=== PATIENT | female | born 1960 | race Caucasian/White ===

== ENCOUNTER 2016-10-19 18:29 | Emergency (ER) | payer OTHER ==
[2016-10-19 20:07] VITALS: BP 131/82
--- NOTE | 2016-10-19 20:21 | UC ---
Respiratory Complaint HPI - HPI Summary HPI Summary: "I have chest wall pain." "I think a Z-pack would help." Dry cough. No fever. No vomiting. Good appetite. No stomach upset or indigestion. Was diagnosed with "bronchitis" in June, Rx Z-pack and that made her feel better. She has been prescribed 8 antibiotics in 2016. Had 4 CXR's, all normal. Non smoker, no asthma , no history of smoking. - History of Current Complaint Chief Complaint: UCGeneralIllness Stated Complaint: CHEST CONGESTION Time Seen by Provider: 10/19/16 19:55 Hx Obtained From: Patient Hx Last Menstrual Period: n/a Onset/Duration: Gradual Onset Timing: Constant Severity Initially: Mild Severity Currently: Mild Character: Cough: Nonproductive Aggravating Factors: Exertion, Deep Breaths, Recumbent Position Alleviating Factors: Nothing Associated Signs And Symptoms: Negative: Dyspnea, Fever, Chills, Pleuritic Chest Pain, Wheezing, Hemoptysis, Dizziness, Calf Pain, Calf Swelling, Edema, URI, Nasal Congestion, Hoarseness, Sinus Discomfort - Risk Factors Pulmonary Embolism Risk Factors: Negative Cardiac Risk Factors: Negative Pseudomonas Risk Factors: Negative Tuberculosis Risk Factors: Negative - Allergies/Home Medications Allergies/Adverse Reactions: Allergies Allergy/AdvReac Type Severity Reaction Status Date / Time Latex Allergy Hives Verified 10/19/16 20:07 Penicillins Allergy Hives Verified 10/19/16 20:07 Levofloxacin [From Levaquin] AdvReac vomiting/he Verified 10/19/16 20:07 adache Home Medications: Home Medications Amitriptyline TAB* [Elavil TAB*] 50 mg PO BEDTIME 10/19/16 [History Confirmed ] DOXYcycline CAP(*) [DOXYcycline 100MG CAP(*)] 100 mg PO BID 10/19/16 [History Confirmed 10/19/16] Naproxen Sodium 550 mg PO BID PRN 10/19/16 [History Confirmed 10/19/16] PMH/Surg Hx/FS Hx/Imm Hx Endocrine History Of: Reports: Dyslipidemia Denies: Diabetes, Thyroid Disease, Hyperthyroidism, Hypothyroidism Cardiovascular History Of: Denies: Cardiac Disorders, Hypertension, Pacemaker/ICD, Myocardial Infarction , Congestive Heart Failure, Atrial Fibrillation, Deep Vein Thrombosis, Bleeding Disorders Respiratory History Of: Reports: Bronchitis, Pneumonia Denies: COPD, Asthma, Pulmonary Embolism GI/ History Of: Reports: Gastroesophageal Reflux Denies: Ulcer, Gastrointestinal Bleed, Gall Bladder Disease, Kidney Stones, Diverticulitis, Renal Disease, Urosepsis Neurological History Of: Reports: CVA - no residua 2013 Denies: TIA, Dementia, Seizures, Migraine Psychological History Of: Denies: Anxiety, Depression, Bipolar Disorder, Schizophrenia, Post Traumatic Stress Disorder Cancer History Of: Denies: Lung Cancer, Colorectal Cancer, Breast Cancer, Prostate Cancer, Cervical Cancer Other History Of: Negative For: HIV, Hepatitis B, Hepatitis C - Surgical History Surgical History: Yes Surgery Procedure, Year, and Place: ablation 2014. LEFT OVARY REMOVED - Family History Known Family History: Positive: Hypertension, Diabetes, Other - cancer, alzheimers - Social History Occupation: Unemployed Alcohol Use: None Substance Use Type: None Smoking Status (MU): Never Smoked Tobacco - Immunization History Most Recent Influenza Vaccination: Not the Season Review of Systems Constitutional: Fatigue Skin: Negative Eyes: Negative ENT: Negative Respiratory: Other - chest wall discomfort Cardiovascular: Negative Gastrointestinal: Negative Genitourinary: Negative Motor: Negative Neurovascular: Negative Musculoskeletal: Negative Neurological: Negative Psychological: Negative All Other Systems Reviewed And Are Negative: Yes Physical Exam Triage Information Reviewed: Yes Appearance: Well-Appearing, No Pain Distress, Well-Nourished Vital Signs: Initial Vital Signs Temp 98.2 F 10/19/16 20:02 Pulse 76 10/19/16 20:02 Resp 16 10/19/16 20:02 BP 131/82 10/19/16 20:02 Pulse Ox 100 10/19/16 20:02 Vital Signs Reviewed: Yes Eye Exam: Normal ENT Exam: Normal ENT: Positive: Pharynx normal, TMs normal. Negative: Tonsillar swelling, Tonsillar exudate, Trismus, Muffled/hoarse voice Neck exam: Normal Neck: Positive: Supple Respiratory Exam: Normal Respiratory: Positive: Lungs clear, Normal breath sounds, No respiratory distress, No accessory muscle use Cardiovascular Exam: Normal Musculoskeletal Exam: Other - tenderness on palpation over sternum Neurological Exam: Normal Psychological Exam: Normal Skin Exam: Normal UC Diagnostic Evaluation - Laboratory O2 Sat by Pulse Oximetry: 100 Respiratory Course/Dx - Differential Dx/Diagnosis Provider Diagnoses: chest wall pain Discharge - Discharge Plan Condition: Stable Disposition: HOME Patient Education Materials: Chest Wall Pain (ED) Referrals: Emma Rose PA [Primary Care Provider] - Additional Instructions: You have had four normal chest XRays in 2016. That tells us there is nothing visibly abnormal in your lungs or chest wall. If you have pain in the front of the chest, try putting heat on it and taking Tylenol or ibuprofen
== END 2016-10-19 20:32 | disposition home or self-care (01) ==
LOC: UCCORT 18:29
DX: R07.89 Other chest pain (principal); Z86.73 Personal history of transient ischemic attack (TIA), and cerebral infarction without residual deficits; Z88.0 Allergy status to penicillin; Z88.1 Allergy status to other antibiotic agents
CPT/HCPCS: 99211; G0463

== ENCOUNTER 2017-02-06 13:54 | Emergency (ER) | payer OTHER ==
[2017-02-06 14:01] VITALS: BP 125/79
[2017-02-06] MEDS ORDERED: Ketorolac INJ* 60 MG/2 ML VIAL IM ONE (14:11)
--- NOTE | 2017-02-06 14:41 | UC ---
Headache HPI - HPI Summary HPI Summary: headaches x 3 days, 8 out of 10 frontal area , no radiation , getting worse over the past day nothing makes it better, worse with bright light, no n/v - History Of Current Complaint Chief Complaint: UCHeadache Stated Complaint: FREQUENT MIGRAINES Time Seen by Provider: 02/06/17 14:06 Hx Obtained From: Patient Hx Last Menstrual Period: n/a Onset/Duration: Gradual Onset, Lasting Days - 3, Still Present Onset Of Symptoms: Gradual Initially Headache Was: Initial Pain Scale(0-10)= - 8, Severe Currently Pain Is: Current Pain Scale(0-10)= - 8 Timing: Constant Character: Dull, Pressure Location of Headache: Frontal Aggravating Factor: Bright Lights Allevating Factors: Nothing Associated Signs And Symptoms: Positive: Negative - Allergies/Home Medications Allergies/Adverse Reactions: Allergies Allergy/AdvReac Type Severity Reaction Status Date / Time Latex Allergy Hives Verified 02/06/17 14:02 Penicillins Allergy Hives Verified 02/06/17 14:02 Levofloxacin [From Levaquin] AdvReac vomiting/he Verified 02/06/17 14:02 adache Home Medications: Home Medications Acetaminophen [Acetaminophen Extra Stren] 1 tab PO Q6H PRN 02/06/17 [History Confirmed 02/06/17] PMH/Surg Hx/FS Hx/Imm Hx Endocrine History Of: Reports: Dyslipidemia Denies: Diabetes, Thyroid Disease, Hyperthyroidism, Hypothyroidism Cardiovascular History Of: Denies: Cardiac Disorders, Hypertension, Pacemaker/ICD, Myocardial Infarction , Congestive Heart Failure, Atrial Fibrillation, Deep Vein Thrombosis, Bleeding Disorders Respiratory History Of: Reports: Bronchitis, Pneumonia Denies: COPD, Asthma, Pulmonary Embolism GI/ History Of: Reports: Gastroesophageal Reflux Denies: Ulcer, Gastrointestinal Bleed, Gall Bladder Disease, Kidney Stones, Diverticulitis, Renal Disease, Urosepsis Neurological History Of: Reports: CVA - no residua 2013 Denies: TIA, Dementia, Seizures, Migraine Psychological History Of: Denies: Anxiety, Depression, Bipolar Disorder, Schizophrenia, Post Traumatic Stress Disorder Cancer History Of: Denies: Lung Cancer, Colorectal Cancer, Breast Cancer, Prostate Cancer, Cervical Cancer Other History Of: Negative For: HIV, Hepatitis B, Hepatitis C - Surgical History Surgical History: Yes Surgery Procedure, Year, and Place: ablation 2014. LEFT OVARY REMOVED - Family History Known Family History: Positive: Hypertension, Diabetes, Other - cancer, alzheimers - Social History Alcohol Use: None Substance Use Type: None Smoking Status (MU): Never Smoked Tobacco - Immunization History Most Recent Influenza Vaccination: 11/2016 Review of Systems Constitutional: Negative Skin: Negative Eyes: Negative ENT: Negative Respiratory: Negative Cardiovascular: Negative Neurological: Headache All Other Systems Reviewed And Are Negative: Yes Physical Exam Triage Information Reviewed: Yes Appearance: Well-Appearing, No Pain Distress, Well-Nourished Vital Signs: Initial Vital Signs Temp 98.3 F 02/06/17 13:56 Pulse 80 02/06/17 13:56 Resp 14 02/06/17 13:56 BP 125/79 02/06/17 13:56 Pulse Ox 98 02/06/17 13:56 Vital Signs Reviewed: Yes Eye Exam: Normal Eyes: Positive: Conjunctiva Clear ENT: Positive: Normal ENT inspection, Hearing grossly normal, Pharynx normal Neck: Positive: Supple, Nontender, No Lymphadenopathy Respiratory: Positive: Chest non-tender, Lungs clear, Normal breath sounds Cardiovascular: Positive: RRR, No Murmur, Pulses Normal Musculoskeletal Exam: Normal UC Physical Exam Vital Signs On Initial Exam: Initial Vitals Temp Pulse Resp BP Pulse Ox 98.3 F 80 14 125/79 98 02/06/17 13:56 02/06/17 13:56 02/06/17 13:56 02/06/17 13:56 02/06/17 13:56 - Neurological Exam Neurological: Normal, Sensory/Motor Intact, Alert, Oriented to Person Place, Time, CN Intact II-III, Normal Gait, Speech Normal Headache Course/Dx - Differential Dx/Diagnosis Provider Diagnoses: headache Discharge - Discharge Plan Condition: Stable Disposition: HOME
== END 2017-02-06 14:53 | disposition home or self-care (01) ==
LOC: UCCORT 13:54
DX: R51 Headache (principal); E78.5 Hyperlipidemia, unspecified; K21.9 Gastro-esophageal reflux disease without esophagitis; Z86.73 Personal history of transient ischemic attack (TIA), and cerebral infarction without residual deficits; Z88.1 Allergy status to other antibiotic agents; Z88.0 Allergy status to penicillin; Z91.040 Latex allergy status
CPT/HCPCS: 96372; 99212; G0463; J1885

== ENCOUNTER 2017-02-11 09:50 | Emergency (ER) | payer OTHER ==
[2017-02-11 10:21] VITALS: BP 118/70
--- NOTE | 2017-02-11 11:35 | UC ---
Headache HPI - HPI Summary HPI Summary: headaches x 1 month, not getting any better, has been trying , otc medication with no improvement no improvement by Toradol on last visit, no better with imitrex no n/v, no change if vision , no photophobia - History Of Current Complaint Chief Complaint: UCRespiratory Stated Complaint: HEAD/CHEST COLD Time Seen by Provider: 02/11/17 11:16 Hx Obtained From: Patient Hx Last Menstrual Period: n/a Onset/Duration: Gradual Onset, Lasting Days - 30, Still Present Onset Of Symptoms: Gradual Initially Headache Was: Moderate Currently Pain Is: Moderate Timing: Constant Character: Dull Location of Headache: Diffuse Aggravating Factor: Nothing Allevating Factors: Nothing Associated Signs And Symptoms: Negative: Dizziness, Seizure, Nausea, Vomiting, Sinus Pressure, Neck Pain, Neck Stiffness, Decreased LOC, Visual Changes - Allergies/Home Medications Allergies/Adverse Reactions: Allergies Allergy/AdvReac Type Severity Reaction Status Date / Time Latex Allergy Hives Verified 02/11/17 10:16 Penicillins Allergy Hives Verified 02/11/17 10:16 Levofloxacin [From Levaquin] AdvReac vomiting/he Verified 02/11/17 10:16 adache Home Medications: Home Medications Pseudoephedrine TAB* [Sudafed TAB*] 30 mg PO Q6H PRN 02/11/17 [History Confirmed 02/11/17] SUMAtriptan TAB* [Imitrex TAB*] 100 mg PO SEE INSTRUCTIONS PRN 02/11/17 [ History Confirmed 02/11/17] PMH/Surg Hx/FS Hx/Imm Hx Endocrine History Of: Reports: Dyslipidemia Denies: Diabetes, Thyroid Disease, Hyperthyroidism, Hypothyroidism Cardiovascular History Of: Denies: Cardiac Disorders, Hypertension, Pacemaker/ICD, Myocardial Infarction , Congestive Heart Failure, Atrial Fibrillation, Deep Vein Thrombosis, Bleeding Disorders Respiratory History Of: Reports: Bronchitis, Pneumonia Denies: COPD, Asthma, Pulmonary Embolism GI/ History Of: Reports: Gastroesophageal Reflux Denies: Ulcer, Gastrointestinal Bleed, Gall Bladder Disease, Kidney Stones, Diverticulitis, Renal Disease, Urosepsis Neurological History Of: Reports: CVA - no residua 2013 Denies: TIA, Dementia, Seizures, Migraine Psychological History Of: Denies: Anxiety, Depression, Bipolar Disorder, Schizophrenia, Post Traumatic Stress Disorder Cancer History Of: Denies: Lung Cancer, Colorectal Cancer, Breast Cancer, Prostate Cancer, Cervical Cancer Other History Of: Negative For: HIV, Hepatitis B, Hepatitis C - Surgical History Surgical History: Yes Surgery Procedure, Year, and Place: ablation 2014. LEFT OVARY REMOVED - Family History Known Family History: Positive: Hypertension, Diabetes, Other - cancer, alzheimers - Social History Alcohol Use: None Substance Use Type: None Smoking Status (MU): Never Smoked Tobacco - Immunization History Most Recent Influenza Vaccination: 11/2016 Review of Systems Constitutional: Negative Skin: Negative Eyes: Negative ENT: Negative Respiratory: Negative Cardiovascular: Negative Gastrointestinal: Negative Genitourinary: Negative Motor: Negative Neurovascular: Negative Musculoskeletal: Negative Neurological: Headache Psychological: Negative All Other Systems Reviewed And Are Negative: Yes Physical Exam Triage Information Reviewed: Yes Appearance: Well-Appearing, No Pain Distress, Well-Nourished Vital Signs: Initial Vital Signs Temp 98.4 F 02/11/17 10:12 Pulse 82 02/11/17 10:12 Resp 16 02/11/17 10:12 BP 118/70 02/11/17 10:12 Pulse Ox 98 02/11/17 10:12 Vital Signs Reviewed: Yes Eyes: Positive: Conjunctiva Clear ENT: Positive: Normal ENT inspection, Hearing grossly normal, Pharynx normal, Pharyngeal erythema Neck: Positive: Supple, Nontender, No Lymphadenopathy Respiratory: Positive: Chest non-tender, Lungs clear, Normal breath sounds, No respiratory distress Cardiovascular: Positive: RRR, No Murmur, Pulses Normal Abdominal Exam: Normal Abdomen Description: Positive: Nontender, Soft. Negative: CVA Tenderness (R), CVA Tenderness (L), Distended, Guarding Bowel Sounds: Positive: Present Musculoskeletal Exam: Normal Musculoskeletal: Positive: Strength Intact, ROM Intact, No Edema Neurological: Positive: Alert Psychological Exam: Normal UC Physical Exam Vital Signs On Initial Exam: Initial Vitals Temp Pulse Resp BP Pulse Ox 98.4 F 82 16 118/70 98 02/11/17 10:12 02/11/17 10:12 02/11/17 10:12 02/11/17 10:12 02/11/17 10:12 - Neurological Exam Neurological: Normal, Sensory/Motor Intact, Alert, Oriented to Person Place, Time, Reflexes Intact, Normal Gait, Speech Normal Headache Course/Dx - Differential Dx/Diagnosis Provider Diagnoses: headaches Discharge - Discharge Plan Condition: Stable Disposition: HOME Prescriptions: Acetaminop/Codeine 30 MG TAB* [Tylenol/Codeine 30 MG TAB*] 1 tab PO Q6H PRN #15 tab MDD 4 PRN Reason: Headache/Pain Patient Education Materials: General Headache (ED) Referrals: NADINE Shanks [Primary Care Provider] - 7 Days Anel Mckeon MD [Medical Doctor] - 7 Days
== END 2017-02-11 11:33 | disposition home or self-care (01) ==
LOC: UCCORT 09:50
DX: R51 Headache (principal)
CPT/HCPCS: 99212; G0463

== ENCOUNTER 2017-02-20 13:21 | Emergency (ER) | payer OTHER ==
[2017-02-20] MEDS ORDERED: Albuterol/Ipratropium NEB.SOL* Albuterol 2.5 MG/Ipratropium 0.5 MG 3 ML INH ONE (13:45)
--- NOTE | 2017-02-20 13:56 | UC ---
Respiratory Complaint HPI - HPI Summary HPI Summary: patient is complaining of difficulty taking a deep breath, and pain in right ribs with breathing. denies any dizzyness, nausea or arm pain. - History of Current Complaint Chief Complaint: UCChestPain Stated Complaint: CONGESTION Time Seen by Provider: 02/20/17 13:42 Hx Obtained From: Patient Hx Last Menstrual Period: n/a Onset/Duration: Gradual Onset, Lasting Days Timing: Constant Severity Initially: Mild Severity Currently: Moderate Character: Cough: Nonproductive Aggravating Factors: Exertion, Deep Breaths, Recumbent Position Alleviating Factors: Nothing Associated Signs And Symptoms: Positive: Dyspnea, Wheezing - Allergies/Home Medications Allergies/Adverse Reactions: Allergies Allergy/AdvReac Type Severity Reaction Status Date / Time Latex Allergy Hives Verified 02/20/17 13:40 Penicillins Allergy Hives Verified 02/20/17 13:40 Levofloxacin [From Levaquin] AdvReac vomiting/he Verified 02/20/17 13:40 adache PMH/Surg Hx/FS Hx/Imm Hx Previously Healthy: Yes Other History Of: Negative For: HIV, Hepatitis B, Hepatitis C - Surgical History Surgical History: Yes Surgery Procedure, Year, and Place: ablation 2014. LEFT OVARY REMOVED - Family History Known Family History: Positive: Hypertension, Diabetes, Other - cancer, alzheimers - Social History Alcohol Use: None Substance Use Type: None Smoking Status (MU): Never Smoked Tobacco - Immunization History Most Recent Influenza Vaccination: 11/2016 Review of Systems Constitutional: Negative Skin: Negative Eyes: Negative ENT: Negative Respiratory: Shortness Of Breath, Cough Cardiovascular: Negative Gastrointestinal: Negative Genitourinary: Negative Motor: Negative Neurovascular: Negative Musculoskeletal: Negative Neurological: Negative Psychological: Negative All Other Systems Reviewed And Are Negative: Yes Physical Exam Triage Information Reviewed: Yes Appearance: Well-Nourished, Ill-Appearing, Pain Distress Vital Signs: Initial Vital Signs Temp 98.9 F 02/20/17 13:32 Pulse 94 02/20/17 13:32 Resp 16 02/20/17 13:32 BP 141/84 02/20/17 13:32 Pulse Ox 97 02/20/17 13:32 Vital Signs Reviewed: Yes Eye Exam: Normal ENT Exam: Normal ENT: Positive: Pharynx normal, Pharyngeal erythema, Nasal congestion, TMs normal , TM bulging, TM dull Dental Exam: Normal Neck exam: Normal Neck: Positive: Supple, Nontender, No Lymphadenopathy Respiratory Exam: Normal Respiratory: Positive: Decreased breath sounds - on RLL, Wheezing, Inspiration Cardiovascular Exam: Normal Cardiovascular: Positive: RRR, No Murmur, Pulses Normal Abdominal Exam: Normal Abdomen Description: Positive: Nontender, No Organomegaly, Soft Bowel Sounds: Positive: Present Musculoskeletal Exam: Normal Musculoskeletal: Positive: Strength Intact, ROM Intact, No Edema Neurological Exam: Normal Psychological Exam: Normal Skin Exam: Normal UC Diagnostic Evaluation - Laboratory O2 Sat by Pulse Oximetry: 97 Respiratory Course/Dx - Course Course Of Treatment: Hx obtained, exam performed, meds reviewed, duo neb given. - Differential Dx/Diagnosis Differential Diagnosis/HQI/PQRI: Asthma, Bronchitis, Influenza, Laryngitis, Sinusitis Provider Diagnoses: sinusitis. wheezing Discharge - Discharge Plan Condition: Stable Disposition: HOME Patient Education Materials: Sinusitis (ED), Wheezing (ED) Additional Instructions: 1. continue to use your inhalers. 2. Take the medication as prescribed. 3. Follow up at [facility] if needed.
[2017-02-20 14:23] VITALS: BP 119/83
== END 2017-02-20 14:24 | disposition home or self-care (01) ==
LOC: UCCORT 13:21
DX: J32.9 Chronic sinusitis, unspecified (principal); R06.2 Wheezing; Z88.1 Allergy status to other antibiotic agents; Z91.040 Latex allergy status
CPT/HCPCS: 99212; A9270-GY; G0463

== ENCOUNTER 2017-02-22 10:22 | Emergency (ER) | payer OTHER ==
[2017-02-22 10:30] VITALS: BP 136/74
--- NOTE | 2017-02-22 10:39 | UC ---
Headache HPI - HPI Summary HPI Summary: complaint of headaches for approx 1 month goes to bed with them and wakes up with headaches Ashley Alvarado PCP- given imitrex but not working for headaches headache starts in the front of her head and is non-radiating constant throbbing pain nothing reduces the pain feels photophobic denies nausea, has been taking imitrex for 1 week without relief had a friend who of a brain tumor yesterday- had a complaint of headaches so she feels extrmely anxious about her headache hx of CVA 2013 - History Of Current Complaint Chief Complaint: UCHeadache Stated Complaint: HEADACHES Time Seen by Provider: 02/22/17 10:32 Hx Obtained From: Patient Hx Last Menstrual Period: n/a - Allergies/Home Medications Allergies/Adverse Reactions: Allergies Allergy/AdvReac Type Severity Reaction Status Date / Time Latex Allergy Hives Verified 02/22/17 10:30 Penicillins Allergy Hives Verified 02/22/17 10:30 Levofloxacin [From Levaquin] AdvReac vomiting/he Verified 02/22/17 10:30 adache PMH/Surg Hx/FS Hx/Imm Hx Previously Healthy: No Endocrine History: Dyslipidemia Respiratory History: Pneumonia Neurological History: CVA, Migraine Psychological History: Anxiety Other History Of: Negative For: HIV, Hepatitis B, Hepatitis C - Surgical History Surgical History: Yes Surgery Procedure, Year, and Place: ablation 2014. LEFT OVARY REMOVED - Family History Known Family History: Positive: Hypertension, Diabetes, Other - cancer, alzheimers Negative: Cardiac Disease - Social History Occupation: Employed Part-time Lives: Alone Alcohol Use: None Substance Use Type: None Smoking Status (MU): Never Smoked Tobacco - Immunization History Most Recent Influenza Vaccination: 11/2016 Review of Systems Constitutional: Negative Skin: Negative Eyes: Photophobia ENT: Negative Respiratory: Negative Cardiovascular: Negative Gastrointestinal: Negative Genitourinary: Negative Motor: Negative Neurovascular: Negative Musculoskeletal: Negative Neurological: Headache Psychological: Anxious All Other Systems Reviewed And Are Negative: Yes Physical Exam Triage Information Reviewed: Yes Appearance: Well-Nourished, Pain Distress Vital Signs: Initial Vital Signs Temp 98.5 F 02/22/17 10:28 Pulse 87 02/22/17 10:28 Resp 16 02/22/17 10:28 BP 136/74 02/22/17 10:28 Pulse Ox 98 02/22/17 10:28 Vital Signs Reviewed: Yes Eyes: Positive: Conjunctiva Clear, Other: - fundoscopic exam normal bilaterally ENT: Positive: Pharynx normal, TMs normal Neck: Positive: Supple, Nontender, No Lymphadenopathy Respiratory: Positive: Lungs clear, Normal breath sounds, No respiratory distress, No accessory muscle use Cardiovascular: Positive: RRR, No Murmur, Pulses Normal, Brisk Capillary Refill Abdomen Description: Positive: Nontender, Soft Bowel Sounds: Positive: Present Neurological: Positive: Alert, Other: - CN [id number] normal negative Romberg Psychological Exam: Normal Skin Exam: Normal Re-Evaluation - Re-Evaluation First Eval Change: Improved - headache and anxiety have lessened Headache Course/Dx - Course Course Of Treatment: exam completed. no neuro deficits, hx of CVA 2013, headachex2 weeks, no indication for ct scan at this time. pt is extremely anxious d/t of a friend yesterday from a brain tumor. hasn't been to PCP for followup. pt is adamant that she needs a CT scan to rule out a brain tumor. following toradol injection her anxiety and headache pain have lessened she plans to rest at home and followup with PCP, discussed s/s of when to seek emergent care - Differential Dx/Diagnosis Differential Diagnosis/HQI/PQRI: CVA, TIA, Migraine, Tension Headache Provider Diagnoses: tension headache Discharge - Discharge Plan Condition: Stable Disposition: HOME Patient Education Materials: Tension Headache (ED) Referrals: NADINE Shanks [Primary Care Provider] - Additional Instructions: Increase fluids and rest Take acetaminophen or ibuprofen for fever or pain Please review your discharge instructions. If your symptoms do not improve please call your primary care provider or return to urgent care.
[2017-02-22] MEDS ORDERED: Ketorolac INJ* 60 MG/2 ML VIAL IM ONE (10:49)
== END 2017-02-22 11:29 | disposition home or self-care (01) ==
LOC: UCCORT 10:22
DX: G44.209 Tension-type headache, unspecified, not intractable (principal); F41.9 Anxiety disorder, unspecified; Z86.73 Personal history of transient ischemic attack (TIA), and cerebral infarction without residual deficits
CPT/HCPCS: 96372; 99211; G0463; J1885

== ENCOUNTER 2017-03-07 14:17 | Emergency (ER) | payer OTHER ==
--- NOTE | 2017-03-07 14:58 | UC ---
Respiratory Complaint HPI - HPI Summary HPI Summary: 56 yo female with cough x months productive at times wheezes no f/c some vague chest pain/pressure hx bronchitis and pneumonia - History of Current Complaint Chief Complaint: UCChestPain Stated Complaint: CHEST WALL PAIN,RECENT PNEUMONIA Time Seen by Provider: 03/07/17 14:43 Hx Obtained From: Patient Hx Last Menstrual Period: n/a Onset/Duration: Gradual Onset, Lasting Weeks Timing: Constant Severity Initially: Mild Severity Currently: Moderate Pain Intensity: 3 Pain Scale Used: 0-10 Numeric Character: Cough: Productive Aggravating Factors: Recumbent Position Alleviating Factors: Bronchodilator Associated Signs And Symptoms: Positive: Wheezing Related History: Similar Episode/Dx as: - pneumonia - Allergies/Home Medications Allergies/Adverse Reactions: Allergies Allergy/AdvReac Type Severity Reaction Status Date / Time Latex Allergy Hives Verified 03/07/17 14:33 Penicillins Allergy Hives Verified 03/07/17 14:33 Levofloxacin [From Levaquin] AdvReac vomiting/he Verified 03/07/17 14:33 adache PMH/Surg Hx/FS Hx/Imm Hx Previously Healthy: Yes Cardiovascular History: Hypertension Respiratory History: Bronchitis, Pneumonia Neurological History: CVA Other History Of: Negative For: HIV, Hepatitis B, Hepatitis C - Surgical History Surgical History: Yes Surgery Procedure, Year, and Place: ablation 2014. LEFT OVARY REMOVED - Family History Known Family History: Positive: Hypertension, Diabetes, Other - cancer, alzheimers Negative: Cardiac Disease - Social History Alcohol Use: None Substance Use Type: None Smoking Status (MU): Never Smoked Tobacco - Immunization History Most Recent Influenza Vaccination: 11/2016 Review of Systems Constitutional: Negative Skin: Negative Eyes: Negative ENT: Negative Respiratory: Cough Cardiovascular: Chest Pain Gastrointestinal: Negative Genitourinary: Negative Motor: Negative Neurovascular: Negative Musculoskeletal: Negative Neurological: Negative Psychological: Negative All Other Systems Reviewed And Are Negative: Yes Physical Exam Triage Information Reviewed: Yes Appearance: Well-Appearing, No Pain Distress, Well-Nourished Vital Signs: Initial Vital Signs Temp 97.4 F 03/07/17 14:37 Pulse 86 03/07/17 14:37 Resp 20 03/07/17 14:37 Pulse Ox 100 03/07/17 14:37 Eye Exam: Normal Eyes: Positive: Conjunctiva Clear ENT: Negative: Hearing grossly normal, Nasal congestion, Nasal drainage, Trismus , Muffled/hoarse voice Neck: Positive: Supple, Nontender Respiratory: Positive: Chest non-tender, No accessory muscle use, Respiratory distress, Stridor Cardiovascular: Positive: RRR, No Murmur Musculoskeletal: Positive: ROM Intact, No Edema Neurological: Positive: Alert Psychological Exam: Normal Skin Exam: Normal UC Diagnostic Evaluation - Laboratory O2 Sat by Pulse Oximetry: 100 - normal/not hypoxic - Radiology Xray Interpretation: No Acute Changes Radiology Interpretation Completed By: Radiologist - EKG Cardiac Rate: NL Cardiac Rhythm: Sinus: Normal Ectopy: None ST Segment: Normal Respiratory Course/Dx - Differential Dx/Diagnosis Provider Diagnoses: Bronchitis Discharge - Discharge Plan Condition: Stable Disposition: HOME Prescriptions: DOXYcycline CAP(*) [DOXYcycline 100MG CAP(*)] 100 mg PO BID #2013 cap Prednisone [Deltasone] 40 mg PO DAILY #10 tab Patient Education Materials: Acute Bronchitis (ED) Referrals: Ashley Rahman PA [Primary Care Provider] - 5 Days
--- NOTE | 2017-03-07 15:14 | RAD ---
INDICATION: Cough COMPARISON: January 02, 2017 TECHNIQUE: PA and lateral dual-energy views were obtained. FINDINGS: Bones/Soft Tissues: There are no acute bony findings. Cardiomediastinal: The cardiomediastinal silhouette is normal. Lungs: There are no infiltrates. Pleura: There are no pleural effusions. Other: None IMPRESSION: NO ACTIVE DISEASE.
== END 2017-03-07 15:30 | disposition home or self-care (01) ==
LOC: UCCORT 14:17
DX: J40 Bronchitis, not specified as acute or chronic (principal); I10 Essential (primary) hypertension; Z88.1 Allergy status to other antibiotic agents; Z88.0 Allergy status to penicillin; Z91.040 Latex allergy status; Z86.73 Personal history of transient ischemic attack (TIA), and cerebral infarction without residual deficits
CPT/HCPCS: 71020; 93005; 99212; G0463

== ENCOUNTER 2017-03-14 18:24 | Emergency (ER) | payer OTHER ==
[2017-03-14 19:16] VITALS: BP 120/84
--- NOTE | 2017-03-14 20:29 | UC ---
Throat Pain/Nasal Mansoor HPI - HPI Summary HPI Summary: complaint of non producitve cough seen on 03/07/17 and dx woth bronchitis wants to be rechecked because her PCP told her she didn't have bronchtitits denies fever and chills denies chest pain - History of Current Complaint Chief Complaint: UCChestPain Stated Complaint: RE-CHECK Time Seen by Provider: 03/14/17 20:20 Hx Obtained From: Patient Hx Last Menstrual Period: n/a - Allergies/Home Medications Allergies/Adverse Reactions: Allergies Allergy/AdvReac Type Severity Reaction Status Date / Time Latex Allergy Hives Verified 03/14/17 19:16 Penicillins Allergy Hives Verified 03/14/17 19:16 Levofloxacin [From Levaquin] AdvReac vomiting/he Verified 03/14/17 19:16 adache PMH/Surg Hx/FS Hx/Imm Hx Previously Healthy: No - bronchitis Endocrine History: Dyslipidemia Cardiovascular History: Hypertension Neurological History: CVA Other History Of: Negative For: HIV, Hepatitis B, Hepatitis C - Surgical History Surgical History: Yes Surgery Procedure, Year, and Place: ablation 2014. LEFT OVARY REMOVED - Family History Known Family History: Positive: Hypertension, Diabetes, Other - cancer, alzheimers Negative: Cardiac Disease - Social History Occupation: Employed Full-time Lives: With Family Alcohol Use: None Substance Use Type: None Smoking Status (MU): Never Smoked Tobacco - Immunization History Most Recent Influenza Vaccination: 11/2016 Review of Systems Constitutional: Fever, Chills Skin: Negative Eyes: Negative ENT: Negative Respiratory: Cough Cardiovascular: Negative Gastrointestinal: Negative Genitourinary: Negative Motor: Negative Neurovascular: Negative Musculoskeletal: Negative Neurological: Negative Psychological: Negative All Other Systems Reviewed And Are Negative: Yes Physical Exam Triage Information Reviewed: Yes Appearance: No Pain Distress, Well-Nourished Vital Signs: Initial Vital Signs Temp 98.3 F 03/14/17 19:13 Pulse 90 03/14/17 19:13 Resp 16 03/14/17 19:13 BP 120/84 03/14/17 19:13 Pulse Ox 99 03/14/17 19:13 Vital Signs Reviewed: Yes Eyes: Positive: Conjunctiva Clear ENT: Positive: Pharynx normal, TMs normal. Negative: Nasal congestion, Nasal drainage Neck: Positive: No Lymphadenopathy Respiratory: Positive: Lungs clear, Normal breath sounds, No respiratory distress, No accessory muscle use Cardiovascular: Positive: RRR, No Murmur, Pulses Normal, Brisk Capillary Refill Abdomen Description: Positive: Nontender, Soft Bowel Sounds: Positive: Present Musculoskeletal: Positive: No Edema Neurological: Positive: Alert Psychological Exam: Normal Skin Exam: Normal Throat Pain/Nasal Course/Dx - Differential Dx/Diagnosis Differential Diagnosis/HQI/PQRI: Pharyngitis, Sinusitis, Tonsillitis, URI Provider Diagnoses: bronchitis-resolving Discharge - Discharge Plan Condition: Stable Disposition: HOME Prescriptions: Benzonatate CAP* [Tessalon 100 MG CAP*] 100 mg PO TID #12 cap Patient Education Materials: Acute Bronchitis (ED) Referrals: Ashley Rahman PA [Primary Care Provider] - Additional Instructions: Please start tessalon as directed Increase fluids and rest Please review your discharge instructions. If your symptoms do not improve please call your primary care provider or return to urgent care.
== END 2017-03-14 20:45 | disposition home or self-care (01) ==
LOC: UCCORT 18:24
DX: J40 Bronchitis, not specified as acute or chronic (principal)
CPT/HCPCS: 99212; G0463

== ENCOUNTER 2017-03-25 16:43 | Emergency (ER) | payer OTHER ==
[2017-03-25 18:09] VITALS: BP 134/82
--- NOTE | 2017-03-25 18:14 | ED ---
Respiratory - HPI Summary HPI Summary: 56 y/o female presents to the urgent care c/o persistent cough. Pt states she went to the Er on 03/07/2017 Dx with bronchitis and Rx Doxycycline. She hasn;t taking the Tessalon tabs yet, but she finish the antibiotic about 1 week ago. Now she developed watery diarrhea for the past 2 days. Pt denies abdominal pain , fever, SOB, Chest pain, N/V, nasal or sinus congestion. She states her grand children also have similar diarrhea.. - History of Current Complaint Chief Complaint: UCRespiratory Stated Complaint: COUGH Time Seen by Provider: 03/25/17 17:54 Hx Obtained From: Patient Onset/Duration: Gradual Onset, Lasting Weeks, Still Present Timing: Intermittent Episodes Lasting: Initial Severity: Moderate Current Severity: Mild Pain Intensity: 0 Character: Cough (Productive) - green phlegm Sputum Amount: Scant Sputum Color: Yellow Aggravating Factor(s): Other - Pt with HX of GERD on Omeprazole Alleviating Factor(s): Neb. Bronchodilators (Frequency Of Use) Associated Signs and Symptoms: Negative - Allergy/Home Medications Allergies/Adverse Reactions: Allergies Allergy/AdvReac Type Severity Reaction Status Date / Time Latex Allergy Hives Verified 03/25/17 17:46 Penicillins Allergy Hives Verified 03/25/17 17:46 Levofloxacin [From Levaquin] AdvReac vomiting/he Verified 03/25/17 17:46 adache PMH/Surg Hx/FS Hx/Imm Hx Endocrine/Hematology History: Denies: Hx Diabetes, Hx Thyroid Disease Cardiovascular History: Reports: Other Cardiovascular Problems/Disorders - dyslipediamia Denies: Hx Congestive Heart Failure, Hx Deep Vein Thrombosis, Hx Hypertension , Hx Myocardial Infarction, Hx Pacemaker/ICD Respiratory History: Reports: Hx Pneumonia Denies: Hx Asthma, Hx Chronic Obstructive Pulmonary Disease (COPD), Hx Lung Cancer, Hx Pulmonary Embolism GI History: Reports: Hx Gastroesophageal Reflux Disease Denies: Hx Gall Bladder Disease, Hx Gastrointestinal Bleed, Hx Ulcer, Hx Urosepsis History: Denies: Hx Kidney Stones, Hx Renal Disease Sensory History: Denies: Hx Hearing Aid Neurological History: Denies: Hx Dementia, Hx Migraine, Hx Seizures, Hx Transient Ischemic Attacks (TIA) Psychiatric History: Denies: Hx Anxiety, Hx Depression, Hx Panic Disorder, Hx Schizophrenia, Hx Bipolar Disorder - Surgical History Surgery Procedure, Year, and Place: ablation 2014. LEFT OVARY REMOVED Infectious Disease History: No Infectious Disease History: Denies: Hx Clostridium Difficile, Hx Hepatitis, Hx Human Immunodeficiency Virus (HIV), Hx of Known/Suspected MRSA, Hx Shingles, Hx Tuberculosis, Hx Known/ Suspected VRE, Hx Known/Suspected VRSA, History Other Infectious Disease, Traveled Outside the [place] in Last 30 Days - Family History Known Family History: Positive: Hypertension, Diabetes, Other - cancer, alzheimers Negative: Cardiac Disease - Social History Occupation: Unemployed Lives: With Family Alcohol Use: None Substance Use Type: Reports: None Smoking Status (MU): Never Smoked Tobacco Review of Systems Constitutional: Negative Eyes: Negative ENT: Negative Cardiovascular: Negative Positive: Cough - persisten productive Positive: Diarrhea - with 2 episodes Genitourinary: Negative Musculoskeletal: Negative Skin: Negative Neurological: Negative Psychological: Normal All Other Systems Reviewed And Are Negative: Yes Physical Exam Triage Information Reviewed: Yes Vital Signs On Initial Exam: Initial Vitals Temp Pulse Resp BP Pulse Ox 99.1 F 68 18 134/82 98 03/25/17 17:49 03/25/17 17:49 03/25/17 17:49 03/25/17 17:49 03/25/17 17:49 Vital Signs Reviewed: Yes Appearance: Positive: Well-Appearing, No Pain Distress, Well-Nourished Skin: Positive: Warm, Dry Head/Face: Positive: Normal Head/Face Inspection Eyes: Positive: Normal, EOMI, CUONG, Conjunctiva Clear ENT: Positive: Normal ENT inspection, Hearing grossly normal, Pharynx normal, TMs normal. Negative: Nasal congestion, Nasal drainage Neck: Positive: Supple, Nontender, No Lymphadenopathy Respiratory/Lung Sounds: Positive: Clear to Auscultation, Breath Sounds Present Cardiovascular: Positive: Normal, RRR, Pulses are Symmetrical in both Upper and Lower Extremities, S1, S2 Abdomen Description: Positive: Nontender, No Organomegaly, Soft, Bruit. Negative: CVA Tenderness (R), CVA Tenderness (L) Bowel Sounds: Positive: Present Musculoskeletal: Positive: Normal Neurological: Positive: Normal, Alert, Oriented to Person Place, Time, CN Intact II-III Psychiatric: Positive: Normal Diagnostics - Vital Signs Vital Signs Temp Pulse Resp BP Pulse Ox 03/25/17 17:49 99.1 F 68 18 134/82 98 - Laboratory Lab Statement: Any lab studies that have been ordered have been reviewed, and results considered in the medical decision making process. Disposition - Course Course Of Treatment: 56 y/o female presents to the urgent care c/o persistent cough. Pt states she went to the Er on 03/07/2017 Dx with bronchitis and Rx Doxycycline. She hasn;t taking the Tessalon tabs yet, but she finish the antibiotic about 1 week ago. Now she developed watery diarrhea for the past 2 days. Pt denies abdominal pain, fever, SOB, Chest pain, N/V, nasal or sinus congestion. She states her grand children also have similar diarrhea . Hx obtained. PE : wnl. Pt previously Dx with Bronchitis finish ABx Doxicycline. Patient hasn't started taking Tessalon tab Rx in 03/07/2017 at the ED. Pt also with Hx of GERD. Pt advised to start taking tabs to alleviate cough, use albuterol inhaler at night time if sever cough. Sleep with head elevated and take Omeprazole 40mg PO on daily basis and instructed on diaetary modifications to alleviate symptom, since GERD can also exacerbate cough. Pt understood and agreed. Acute Diarrhea: Pt w/ 2 episodes of watery diarrhea. Pt advised to drink Pedialyte, eat soft meals and if symptoms worsen to return to the urgent care or f/u with her PCP for further treatment. Pt understood and agreeed. - Differential Dx - Cardiopulmonary Differential Diagnoses - Cardiopulmonary: Asthma, Bronchitis, GI Disease, Lower Resp Infection, Other - gastroenteritis - Diagnoses Provider Diagnoses: Diarrhea, Cough, GERD (gastroesophageal reflux disease) Discharge - Discharge Plan Condition: Stable Disposition: HOME Patient Education Materials: Acute Diarrhea (ED), Gastroesophageal Reflux Disease (ED) Referrals: Ashley Rahman PA [Primary Care Provider] - 1 Week Additional Instructions: Please start taking the Benzonatate tab and albutero inhaler as directed to alleviate symptoms of cough, increase fluid intake with Pedialyte OTC or gatorade, eat soft meals and rest. Continue with Omeprazole 40mg PO qd to for GERD and continue with dietary modifications as instructed.
== END 2017-03-25 18:33 | disposition home or self-care (01) ==
LOC: UCCORT 16:43
DX: R19.7 Diarrhea, unspecified (principal); R05 Cough; K21.9 Gastro-esophageal reflux disease without esophagitis
CPT/HCPCS: 99211; G0463

== ENCOUNTER 2017-03-28 15:02 | Emergency (ER) | payer OTHER ==
--- NOTE | 2017-03-28 15:38 | UC ---
Respiratory Complaint HPI - HPI Summary HPI Summary: cough and chest tightness for 3 days no fever - History of Current Complaint Chief Complaint: UCRespiratory Stated Complaint: LUNGS ARE HURTING Time Seen by Provider: 03/28/17 15:30 Hx Obtained From: Patient Hx Last Menstrual Period: n/a ?: No Onset/Duration: Gradual Onset, Lasting Days - 3, Still Present Timing: Constant Severity Initially: Mild Severity Currently: Mild Character: Cough: Productive Alleviating Factors: Bronchodilator Associated Signs And Symptoms: Positive: Pleuritic Chest Pain, Wheezing - Allergies/Home Medications Allergies/Adverse Reactions: Allergies Allergy/AdvReac Type Severity Reaction Status Date / Time Latex Allergy Hives Verified 03/28/17 15:09 Penicillins Allergy Hives Verified 03/28/17 15:09 Levofloxacin [From Levaquin] AdvReac vomiting/he Verified 03/28/17 15:09 adache PMH/Surg Hx/FS Hx/Imm Hx Previously Healthy: No - Intellectual limitations Respiratory History: Asthma GI/ History: Gastroesophageal Reflux Other History Of: Negative For: HIV, Hepatitis B, Hepatitis C - Surgical History Surgical History: Yes Surgery Procedure, Year, and Place: ablation 2014. LEFT OVARY REMOVED - Family History Known Family History: Positive: Hypertension, Diabetes, Other - cancer, alzheimers Negative: Cardiac Disease - Social History Occupation: Disabled Lives: Alone Alcohol Use: None Substance Use Type: None Smoking Status (MU): Never Smoked Tobacco - Immunization History Most Recent Influenza Vaccination: 11/2016 Review of Systems Constitutional: Negative Skin: Negative Eyes: Negative ENT: Negative Respiratory: Shortness Of Breath, Cough Cardiovascular: Negative Gastrointestinal: Negative Genitourinary: Negative Motor: Negative Neurovascular: Negative Musculoskeletal: Negative Neurological: Negative Psychological: Negative All Other Systems Reviewed And Are Negative: Yes Physical Exam Triage Information Reviewed: Yes Appearance: Well-Nourished, Ill-Appearing - chronic poor condition, Pain Distress Vital Signs: Initial Vital Signs Temp 97.7 F 03/28/17 15:05 Pulse 99 03/28/17 15:05 Resp 14 03/28/17 15:05 BP 126/84 03/28/17 15:05 Pulse Ox 97 03/28/17 15:05 Vital Signs Reviewed: Yes Eye Exam: Normal Eyes: Positive: Conjunctiva Clear ENT Exam: Normal ENT: Positive: Normal ENT inspection, Hearing grossly normal, Pharynx normal, TMs normal. Negative: Nasal congestion, Nasal drainage, Trismus, Muffled/ hoarse voice Dental Exam: Normal Neck exam: Normal Neck: Positive: Supple, Nontender, No Lymphadenopathy Respiratory Exam: Normal Respiratory: Positive: Chest non-tender, Normal breath sounds, No respiratory distress, No accessory muscle use, Decreased breath sounds Cardiovascular Exam: Normal Cardiovascular: Positive: RRR, No Murmur, Pulses Normal, Brisk Capillary Refill Musculoskeletal Exam: Normal Musculoskeletal: Positive: Strength Intact, ROM Intact, No Edema Neurological Exam: Normal Neurological: Positive: Alert, Muscle Tone Normal Psychological Exam: Normal Skin Exam: Normal UC Diagnostic Evaluation - Laboratory O2 Sat by Pulse Oximetry: 97 - Radiology Xray Interpretation: No Acute Changes Radiology Interpretation Completed By: Radiologist Re-Evaluation - Re-Evaluation Second Eval Change: Improved - feeling beeter, resolve of cough and chest tightness after neb Respiratory Course/Dx - Course Course Of Treatment: continue current rx, add nebbed albuterol follow with pcp - Differential Dx/Diagnosis Differential Diagnosis/HQI/PQRI: Asthma, Bronchitis, Laryngitis, Lower Resp Infection Provider Diagnoses: Bronchospasm Discharge - Discharge Plan Condition: Stable Disposition: HOME Prescriptions: Albuterol 2.5MG/3ML (0.083%)* [Ventolin 2.5 MG/3 ML NEB.WILBER*] 2.5 mg INH Q4H #1 box Patient Education Materials: Asthma (ED), How to Use a Nebulizer (ED), Bronchospasm (ED) Referrals: Ashley Rahman PA [Primary Care Provider] - 1 Week
[2017-03-28] MEDS ORDERED: Albuterol/Ipratropium NEB.SOL* Albuterol 2.5 MG/Ipratropium 0.5 MG 3 ML INH ONE (15:39)
--- NOTE | 2017-03-28 16:11 | RAD ---
INDICATION: Anterior chest pain and cough COMPARISON: Chest x-ray dated March 07, 2017 TECHNIQUE: PA and lateral views of the chest were obtained. FINDINGS: The heart and mediastinum are normal in size and contour. The lungs are grossly clear. There is no evidence of large pleural effusion. Visualized bones are normal for the patient's age. There is no radiographic evidence of free air beneath the diaphragm IMPRESSION: No radiographic evidence of acute cardiopulmonary disease.
[2017-03-28 16:44] VITALS: BP 145/80
== END 2017-03-28 16:47 | disposition home or self-care (01) ==
LOC: UCCORT 15:02
DX: J98.01 Acute bronchospasm (principal); J45.909 Unspecified asthma, uncomplicated; Z88.1 Allergy status to other antibiotic agents; Z88.0 Allergy status to penicillin
CPT/HCPCS: 71020; 99212; A9270-GY; G0463

== ENCOUNTER 2017-04-16 10:27 | Emergency (ER) | payer OTHER ==
--- NOTE | 2017-04-16 10:45 | UC ---
Respiratory Complaint HPI - HPI Summary HPI Summary: Pt presents with c/o of "coughing all night last night". Pt denies fever, chills , nasal congestion, chest congestion, SOB or difficulty breathing. - History of Current Complaint Chief Complaint: UCRespiratory Stated Complaint: RESPIRATORY COMPLAINT Time Seen by Provider: 04/16/17 10:31 Hx Obtained From: Patient Hx Last Menstrual Period: n/a ?: No Onset/Duration: Lasting Weeks - pt reports that it has been going on for months Timing: Intermittent Episodes Severity Initially: Mild Severity Currently: Mild Character: Sputum Description: - white phlegmwhite phlegm Aggravating Factors: Recumbent Position Alleviating Factors: Nothing Associated Signs And Symptoms: Positive: Negative - Risk Factors Pulmonary Embolism Risk Factors: Negative Cardiac Risk Factors: Negative Pseudomonas Risk Factors: Negative Tuberculosis Risk Factors: Negative - Allergies/Home Medications Allergies/Adverse Reactions: Allergies Allergy/AdvReac Type Severity Reaction Status Date / Time Latex Allergy Hives Verified 04/16/17 10:36 Penicillins Allergy Hives Verified 04/16/17 10:36 Levofloxacin [From Levaquin] AdvReac vomiting/he Verified 04/16/17 10:36 adache Home Medications: Home Medications guaiFENesin ER TAB [Mucinex*] 600 mg PO BID 04/16/17 [History Confirmed 04/16/17 ] PMH/Surg Hx/FS Hx/Imm Hx Previously Healthy: Yes Other History Of: Negative For: HIV, Hepatitis B, Hepatitis C - Surgical History Surgical History: Yes Surgery Procedure, Year, and Place: ablation 2014. LEFT OVARY REMOVED - Family History Known Family History: Positive: Hypertension, Diabetes, Other - cancer, alzheimers Negative: Cardiac Disease - Social History Occupation: Unemployed Lives: With Family Alcohol Use: None Substance Use Type: None Smoking Status (MU): Never Smoked Tobacco Have You Smoked in the Last Year: No - Immunization History Most Recent Influenza Vaccination: 11/2016 Review of Systems Constitutional: Negative Skin: Negative Eyes: Negative ENT: Negative Respiratory: Cough - for "months" Cardiovascular: Negative Gastrointestinal: Negative Genitourinary: Negative Motor: Negative Neurovascular: Negative Musculoskeletal: Negative Neurological: Negative Psychological: Negative All Other Systems Reviewed And Are Negative: Yes Physical Exam Triage Information Reviewed: Yes Appearance: Well-Appearing Vital Signs: Initial Vital Signs Temp 98.9 F 04/16/17 10:32 Pulse 95 04/16/17 10:32 Resp 16 04/16/17 10:32 BP 147/71 04/16/17 10:32 Pulse Ox 97 04/16/17 10:32 Vital Signs Reviewed: Yes Eye Exam: Normal ENT Exam: Normal Neck exam: Normal Respiratory Exam: Normal Respiratory: Positive: Lungs clear, Normal breath sounds Cardiovascular Exam: Normal Musculoskeletal Exam: Normal Neurological Exam: Normal Psychological Exam: Normal Skin Exam: Normal UC Diagnostic Evaluation - Laboratory O2 Sat by Pulse Oximetry: 97 Respiratory Course/Dx - Differential Dx/Diagnosis Differential Diagnosis/HQI/PQRI: Asthma, Bronchitis, Other - cough Provider Diagnoses: cough Discharge - Discharge Plan Condition: Stable Disposition: HOME Patient Education Materials: Acute Cough (ED) Referrals: Ashley Rahman PA [Primary Care Provider] - If Needed
[2017-04-16 10:49] VITALS: BP 147/71
== END 2017-04-16 10:52 | disposition home or self-care (01) ==
LOC: UCCORT 10:27
DX: R05 Cough (principal); Z88.1 Allergy status to other antibiotic agents; Z88.0 Allergy status to penicillin; Z91.040 Latex allergy status
CPT/HCPCS: 99211; G0463

== ENCOUNTER 2017-05-28 16:07 | Emergency (ER) | payer OTHER ==
[2017-05-28 16:36] VITALS: BP 133/80
--- NOTE | 2017-05-28 17:24 | ED ---
HPI Chest Pain - HPI Summary HPI Summary: " myl lungs hurt". she is goig to see a specialist in [place] about the possibility of chronic lung disease. she now has a cough and chest pain tera for two days. Non productive. no sob. no calf pain. - History of Current Complaint Chief Complaint: UCRespiratory Time Seen by Provider: 05/28/17 17:16 Hx Obtained From: Patient Hx Last Menstrual Period: n/a Onset/Duration: Started Days Ago Timing: Constant Initial Severity: Moderate Current Severity: Mild Chest Pain Location: Diffuse Chest Pain Radiates: No Character: Cough, Non-Productive Aggravating Factor(s): Nothing Alleviating Factor(s): Nothing Associated Signs and Symptoms: Positive: Cough. Negative: Nausea, Palpitations , Hemoptysis, Calf Pain/Swelling, Vomiting - Allergy/Home Medications Allergies/Adverse Reactions: Allergies Allergy/AdvReac Type Severity Reaction Status Date / Time Latex Allergy Hives Verified 05/28/17 16:36 Penicillins Allergy Hives Verified 05/28/17 16:36 Levofloxacin [From Levaquin] AdvReac vomiting/he Verified 05/28/17 16:36 adache PMH/Surg Hx/FS Hx/Imm Hx Previously Healthy: No - pancreatitis. Endocrine/Hematology History: Denies: Hx Diabetes, Hx Thyroid Disease Cardiovascular History: Reports: Other Cardiovascular Problems/Disorders - dyslipediamia Denies: Hx Congestive Heart Failure, Hx Deep Vein Thrombosis, Hx Hypertension , Hx Myocardial Infarction, Hx Pacemaker/ICD Respiratory History: Reports: Hx Pneumonia Denies: Hx Asthma, Hx Chronic Obstructive Pulmonary Disease (COPD), Hx Lung Cancer, Hx Pulmonary Embolism GI History: Reports: Hx Gastroesophageal Reflux Disease Denies: Hx Gall Bladder Disease, Hx Gastrointestinal Bleed, Hx Ulcer, Hx Urosepsis History: Denies: Hx Kidney Stones, Hx Renal Disease Sensory History: Denies: Hx Hearing Aid Neurological History: Denies: Hx Dementia, Hx Migraine, Hx Seizures, Hx Transient Ischemic Attacks (TIA) Psychiatric History: Denies: Hx Anxiety, Hx Depression, Hx Panic Disorder, Hx Schizophrenia, Hx Bipolar Disorder - Surgical History Surgery Procedure, Year, and Place: ablation 2014. LEFT OVARY REMOVED Infectious Disease History: No Infectious Disease History: Denies: Hx Clostridium Difficile, Hx Hepatitis, Hx Human Immunodeficiency Virus (HIV), Hx of Known/Suspected MRSA, Hx Shingles, Hx Tuberculosis, Hx Known/ Suspected VRE, Hx Known/Suspected VRSA, History Other Infectious Disease, Traveled Outside the [place] in Last 30 Days - Family History Known Family History: Positive: Hypertension, Diabetes, Other - cancer, alzheimers Negative: Cardiac Disease - Social History Alcohol Use: None Substance Use Type: Reports: None Smoking Status (MU): Never Smoked Tobacco Have You Smoked in the Last Year: No Review of Systems Positive: Cough All Other Systems Reviewed And Are Negative: Yes Physical Exam Triage Information Reviewed: Yes Vital Signs On Initial Exam: Initial Vitals Temp Pulse Resp BP Pulse Ox 98.7 F 78 16 133/80 100 05/28/17 16:33 05/28/17 16:33 05/28/17 16:33 05/28/17 16:33 05/28/17 16:33 Vital Signs Reviewed: Yes Appearance: Positive: Well-Appearing, No Pain Distress, Well-Nourished Skin: Positive: Warm Eyes: Positive: Normal ENT: Positive: Normal ENT inspection Neck: Positive: Supple, Nontender, No Lymphadenopathy Respiratory/Lung Sounds: Positive: Clear to Auscultation, Breath Sounds Present. Negative: Rales, Rhonchi, Subcutaneous Emphysema, Stridor, Tracheal Deviation, Wheezes, Unable to speak in full sentences, Fatigue Cardiovascular: Positive: Normal Abdomen Description: Positive: Nontender Bowel Sounds: Positive: Present Musculoskeletal: Positive: Normal. Negative: Mya Sign Left, Mya Sign Right , Edema Left, Edema Right Neurological: Positive: Normal Psychiatric: Positive: Normal Diagnostics - Vital Signs Vital Signs Temp Pulse Resp BP Pulse Ox 05/28/17 16:33 98.7 F 78 16 133/80 100 - Laboratory Lab Statement: Any lab studies that have been ordered have been reviewed, and results considered in the medical decision making process. Chest Pain Course/Dx - Course Course Of Treatment: chest discomfort diffuse at times with inspiration and associated with a cough. this is not c/w cardiac etiology. she is concerned for pneumonia. - Chest Pain Differential Diagnosis/HQI/PQRI: Acute PR, ACS, Angina, Aortic Aneurysm, CHF, Chest Wall, GI Disease, Lower Respiratory Infection, Pulmonary Edema, Pulmonary Embolism - Diagnoses Provider Diagnoses: Non-cardiac chest pain Discharge - Discharge Plan Condition: Good Disposition: HOME Patient Education Materials: Noncardiac Chest Pain (ED) Referrals: Ashley Rahman PA [Primary Care Provider] - If Needed
--- NOTE | 2017-05-28 17:49 | RAD ---
INDICATION: Cough. Chest pain. COMPARISON: March 28, 2017 TECHNIQUE: PA and lateral dual-energy views were obtained. FINDINGS: Bones/Soft Tissues: There are no acute bony findings. Cardiomediastinal: The cardiomediastinal silhouette is normal. Lungs: There are no infiltrates. Pleura: There are no pleural effusions. Other: None IMPRESSION: NEGATIVE EXAMINATION.
== END 2017-05-28 17:58 | disposition home or self-care (01) ==
LOC: UCCORT 16:07
DX: R07.89 Other chest pain (principal); E78.5 Hyperlipidemia, unspecified; K21.9 Gastro-esophageal reflux disease without esophagitis; Z88.0 Allergy status to penicillin; Z88.3 Allergy status to other anti-infective agents; Z91.040 Latex allergy status; Z87.01 Personal history of pneumonia (recurrent)
CPT/HCPCS: 71020; 99211; G0463

== ENCOUNTER 2018-02-26 08:38 | Emergency (ER) | payer OTHER ==
[2018-02-26 09:51] VITALS: BP 116/76
--- NOTE | 2018-02-26 10:38 | UC ---
Respiratory Complaint HPI - HPI Summary HPI Summary: cough began last night no fevers, chills sob, no sputum---is concerned she has pneumonia and seeking z-pack - History of Current Complaint Chief Complaint: UCRespiratory Stated Complaint: UPPER RESP,COUGH Time Seen by Provider: 02/26/18 10:37 Hx Obtained From: Patient Hx Last Menstrual Period: n/a ?: No Onset/Duration: Sudden Onset, Lasting Days - 1 Timing: Constant Pain Intensity: 5 Pain Scale Used: 0-10 Numeric Character: Cough: Nonproductive Aggravating Factors: Nothing Alleviating Factors: Nothing Associated Signs And Symptoms: Positive: Negative Related History: Seasonal Allergies - nasal congestion - Allergies/Home Medications Allergies/Adverse Reactions: Allergies Allergy/AdvReac Type Severity Reaction Status Date / Time latex Allergy Hives Verified 02/26/18 09:50 levofloxacin Allergy Vomiting Verified 02/26/18 09:50 Penicillins Allergy Hives Verified 02/26/18 09:50 PMH/Surg Hx/FS Hx/Imm Hx Previously Healthy: No Endocrine History: Dyslipidemia Respiratory History: Asthma GI/ History: Gastroesophageal Reflux Other History Of: Negative For: HIV, Hepatitis B, Hepatitis C - Surgical History Surgical History: Yes Surgery Procedure, Year, and Place: ablation 2014. LEFT OVARY REMOVED - Family History Known Family History: Positive: Hypertension, Diabetes, Other - cancer, alzheimers Negative: Cardiac Disease - Social History Occupation: Disabled Lives: Assisted Living Alcohol Use: None Substance Use Type: None Smoking Status (MU): Never Smoked Tobacco Have You Smoked in the Last Year: No - Immunization History Most Recent Influenza Vaccination: 11/2016 Review of Systems Constitutional: Negative Skin: Negative Eyes: Negative ENT: Negative Respiratory: Cough Cardiovascular: Negative Gastrointestinal: Negative Genitourinary: Negative Motor: Negative Neurovascular: Negative Musculoskeletal: Negative Neurological: Negative Psychological: Negative Is Patient Immunocompromised?: No All Other Systems Reviewed And Are Negative: Yes Physical Exam Triage Information Reviewed: Yes Appearance: Well-Appearing, No Pain Distress, Well-Nourished Vital Signs: Initial Vital Signs Temp 99.2 F 02/26/18 09:46 Pulse 66 02/26/18 09:46 Resp 15 02/26/18 09:46 BP 116/76 02/26/18 09:46 Pulse Ox 100 02/26/18 09:46 Vital Signs Reviewed: Yes Eye Exam: Normal Eyes: Positive: Conjunctiva Clear ENT Exam: Normal ENT: Positive: Normal ENT inspection, Hearing grossly normal, Pharynx normal, Nasal congestion, TMs normal, Uvula midline. Negative: Trismus, Muffled voice, Hoarse voice, Dental tenderness, Sinus tenderness Dental Exam: Normal Neck exam: Normal Neck: Positive: Supple, Nontender, No Lymphadenopathy Respiratory Exam: Normal Respiratory: Positive: Chest non-tender, Lungs clear, Normal breath sounds, No respiratory distress, No accessory muscle use Cardiovascular Exam: Normal Cardiovascular: Positive: RRR, No Murmur, Pulses Normal, Brisk Capillary Refill Musculoskeletal Exam: Normal Musculoskeletal: Positive: Strength Intact, ROM Intact, No Edema Neurological Exam: Normal Neurological: Positive: Alert, Muscle Tone Normal Psychological Exam: Normal Skin Exam: Normal UC Diagnostic Evaluation - Laboratory O2 Sat by Pulse Oximetry: 100 Respiratory Course/Dx - Course Course Of Treatment: tessalon, zyrtec, Albuterol, increase fluids, follow with pcp prn - Differential Dx/Diagnosis Provider Diagnoses: post nasal drip, bronchospastic cough Discharge - Sign-Out/Discharge Documenting (check all that apply): Discharge/Admit/Transfer - Discharge Plan Condition: Stable Disposition: HOME Prescriptions: Albuterol HFA INHALER* [Ventolin HFA Inhaler*] 2 puff INH Q4H PRN #1 mdi PRN Reason: cough Benzonatate CAP* [Tessalon 100 MG CAP*] 100 mg PO TID PRN #30 cap PRN Reason: cough Cetirizine* [ZyrTEC 10 MG TAB*] 10 mg PO DAILY PRN #15 tab PRN Reason: nasal congestion/cough Patient Education Materials: How to Use a Metered-Dose Inhaler (ED), Cold Symptoms (ED), Acute Cough (ED) Referrals: Ashley Rahman PA [Primary Care Provider] - 1 Week - Billing Disposition and Condition Condition: STABLE Disposition: Home
== END 2018-02-26 10:59 | disposition home or self-care (01) ==
LOC: UCCORT 08:38
DX: R09.82 Postnasal drip (principal); R05 Cough; Z88.0 Allergy status to penicillin; Z88.1 Allergy status to other antibiotic agents; Z91.040 Latex allergy status
CPT/HCPCS: 99212; G0463

== ENCOUNTER 2018-04-30 14:52 | Emergency (ER) | payer OTHER ==
--- OUTSIDE RECORDS SUMMARY | 2018-04-30 15:03 | XMS REPORT ---
:1960 External Reference #:[id number] Author Organization [facility] 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 Ashley Piper MD Primary Care Physician Unavailable Payers Type Date Identification Numbers Payment Provider Subscriber Medicaid Expires: 2017 Policy Number: [id number] Medicaid Ashley Whitmore PayID: [id number] [address] [place] [address] Commercial Expires: 2017 Policy Number: [id number] [place] Medicaid Ashley Myranda PayID: [id number] [address] [place] [address] Commercial Policy Number: [id number] [place] Medicare Ashley Myranda PayID: [id number] [address] [place] [address] Problems Date Description Provider Status Onset: 08/24/2015 Irritable bowel syndrome La Antoine PA-C Active Note: colonoscopy to TI Bx Sep 2015 (on Na2SO4); CT a&p, GES, SB series 2010. 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 Note: [place] Onset: 08/24/2015 Diaz's esophagus La Antoine PA-C Active Note: high Onset: 08/24/2015 Gastroesophageal reflux disease La Antoine PA-C Active Note: upper to 70 cm beyond angle of Treitz Bx 2015 Onset: 08/24/2015 Chronic pancreatitis La Antoine PA-C Active Onset: 04/23/2017 Disorder of pancreas Randall Young MD Active Onset: 04/23/2017 Digestive symptom Randall Young MD Active Onset: 05/21/2017 Liver function tests abnormal Randall Young MD Active Family History Date Family Member(s) Problem(s) Comments General Non Contributory Father Alzheimer's Disease Father 69 : (age 69 Father due to Alzheimer's Years) Disease Father Heart Disease Mother Lung Cancer Mother 69 : (age 69 Mother due to Lung Cancer Years) First Son Tourette's Syndrome First Son Bipolar Disorder Second Son No Current Problems Third Son No Current Problems First Daughter No Current Problems Siblings 9 6 brother, 3 sisters all sibiling are alive and well per pt Social History Type Date Description Comments Marital Status Single Lives With Alone Home Environment Lives Alone Diet Patient follows no dietary restrictions Occupation Disabled Work Status Unemployed Cigarette Use Never Smoked Cigarettes ETOH Use Denies alcohol use Recreational Drug Use Denies Drug Use Smoking Patient has never smoked Daily Caffeine Patient consumes minimal amounts of caffeine Exercise Type/Frequency Exercises regularly Allergies, Adverse Reactions, Alerts Date Description Reaction Status Severity Comments 11/24/2012 Penicillin active Medications Medication Date Status Form Strength Qnty SIG Indications Ordering Provider Aspir-81 0000/ Active Tablets DR 81mg 1 by mouth Unknown 0000 every day Omeprazole 00/ Active Capsules DR 40mg take 1 Unknown 0000 capsule by mouth once daily if needed Fish Oil / Active Capsules 600mg 1 po daily Unknown 0000 Lipitor 00/ Active Tablets 40mg 1 by mouth Unknown 0000 every day Ofloxacin 07/15/ Hx Solution 0.3% 1unit 1 drop H25.813 Dion (Ophthalmic) 2016 - s right eye Tho, 08/15/ four times MD Rocha daily for 10 days beginning three days prior to the operation Prednisolone 07/15/ Hx Suspension 1% 5ml 1 drop H25.813 Dion Acetate 2017 - right eye Tho 08/26/ four gary RAHMAN 2017 daily for four weeks; please begin after surgery Diclofenac 07/15/ Hx Solution 0.1% 1unit 1 drop H25.813 Dion Sodium 2016 - s right eye Tho, 08/15/ four times MD Rocha daily for 2 weeks beginning three days before operation Famotidine 10/08/ Hx Tablets 20mg 30tab 1 by mouth K21.9 Dion 2016 s every day Ramon in the , evening Linzess 02/26/ Hx Capsules 145mcg 90cap 1 cap by K58.9 [facility] 2015 s mouth Vatra, every M.D. night, hold for unformed bm Osmoprep 09/14/ Hx Tablets 1.102-0.39 32tab 4 tab PO q R19.5 Josr 2015 - 8gm s 15' x 5 Vatra, 10/31/ doses M.D. 2015 evening; repeat regimen x3 doses 3 - 5 h morning; give each dose w/ 8 oz of clear liquids Lidocaine 09/05/ Hx Cream 5% 90gm Apply to [facility] (Anorectal) 2014 - perianal Vatra, 02/26/ area qid M.D. 2015 prn Linzess 08/24/ Hx Capsules 290mcg 90cap take 1 K58.9 Josr 2014 - s capsule Vatra, 09/14/ (290 mcg) M.D. 2014 by mouth daily on empty stomach (hold for unformed bm) Anusol-HC 08/24/ Hx Cream 2.5% 60gm apply to K58.9 [facility] 2014 - perianal Vatra, 09/05/ area tid M.D. 2014 prn Prevacid / Hx Capsules DR 30cap 1 po qd Unknown 0000 - s 2014 Colace / Hx Capsules 100mg 1 po prn Unknown 0000 Atorvastatin / Hx Tablets 80mg take 1 Unknown Calcium 0000 tablet by mouth at bedtime Naproxen / Hx Tablets 500mg 1 by mouth Unknown 0000 twice a day with food prn Azithromycin / Hx Tablets 250mg Take 1 Unknown 0000 Tablet By Mouth Every Day Ventolin HFA / Hx Aerosol 108(90Base Dibartolo 0000 ) mcg/Act , Elisa Aaron N.PRoni Qvar / Hx Aerosol 40mcg/Act Inhale 2 Unknown 0000 Puffs By Mouth Twice Daily Atorvastatin 00/ Hx Tablets 20mg 1 by mouth Unknown Calcium 0000 every day Albuterol / Hx Nebulizer 0.63mg/3ML use with Unknown Sulfate 0000 nebulizer every four hour as needed for cough Budesonide / Hx Suspension 0.5mg/2ML take 1 Unknown 0000 vial twice daily. rinse mouth after use. Azithromycin / Hx Tablets 250mg 1 tabs by Unknown 0000 mouth daily x 5 days Nystatin / Hx Cream [id number] AD Adeline 0000 /GM Ashley mckeon MD Acyclovir / Hx Tablets 800mg Take 1 Unknown 0000 - Tablet By 2018 Every 8 Hours For 5 Days Medications Administered in Office Medication Date Status Form Strength Qnty SIG Indications Ordering Provider Depomedrol 80 Administered Injection Opal S. mg 018 [place] [facility] Vital Signs Date Vital Result Comment 04/08/2018 BP Systolic Sitting Left Arm 110 mmHg BP Diastolic Sitting Left Arm 78 mmHg Heart Rate 67 /min Respiratory Rate 18 /min Height 62 inches 5'2" Weight 145.00 lb BMI (Body Mass Index) 26.5 kg/m2 BSA (Body Surface Area) 1.67 m2 [place] body weight in kilograms 50 O2 % BldC Oximetry 98 % Ora 03/19/2018 BP Systolic Sitting Left Arm 115 mmHg BP Diastolic Sitting Left Arm 68 mmHg Heart Rate 90 /min Respiratory Rate 18 /min Height 62 inches 5'2" Weight 151.00 lb BMI (Body Mass Index) 27.6 kg/m2 BSA (Body Surface Area) 1.70 m2 [place] body weight in kilograms 50 O2 % BldC Oximetry 96 % 01/06/2018 BP Systolic Sitting Left Arm 120 mmHg BP Diastolic Sitting Left Arm 76 mmHg Heart Rate 63 /min Respiratory Rate 16 /min Height 62 inches 5'2" Weight 154.00 lb BMI (Body Mass Index) 28.2 kg/m2 BSA (Body Surface Area) 1.71 m2 [place] body weight in kilograms 50 11/25/2017 BP Systolic Sitting Left Arm 115 mmHg BP Diastolic Sitting Left Arm 78 mmHg Heart Rate 89 /min Respiratory Rate 18 /min Height 62 inches 5'2" Weight 156.00 lb BMI (Body Mass Index) 28.5 kg/m2 BSA (Body Surface Area) 1.72 m2 [place] body weight in kilograms 50 11/24/2017 BP Systolic Sitting Left Arm 121 mmHg BP Diastolic Sitting Left Arm 82 mmHg Body Temperature 98.3 F Heart Rate 87 /min Respiratory Rate 18 /min Height 62 inches 5'2" Weight 154.00 lb BMI (Body Mass Index) 28.2 kg/m2 BSA (Body Surface Area) 1.71 m2 [place] body weight in kilograms 50 11/18/2017 BP Systolic Sitting Left Arm 132 mmHg BP Diastolic Sitting Left Arm 82 mmHg Heart Rate 86 /min Respiratory Rate 16 /min Height 62 inches 5'2" Weight 149.00 lb BMI (Body Mass Index) 27.2 kg/m2 BSA (Body Surface Area) 1.69 m2 [place] body weight in kilograms 50 10/20/2017 BP Systolic Sitting Left Arm 115 mmHg BP Diastolic Sitting Left Arm 72 mmHg Heart Rate 75 /min Height 62 inches 5'2" Weight 154.00 lb BMI (Body Mass Index) 28.2 kg/m2 BSA (Body Surface Area) 1.71 m2 [place] body weight in kilograms 50 08/20/2017 BP Systolic Sitting Left Arm 120 mmHg BP Diastolic Sitting Left Arm 80 mmHg Heart Rate 80 /min Respiratory Rate 16 /min Height 62 inches 5'2" Weight 152.00 lb BMI (Body Mass Index) 27.8 kg/m2 BSA (Body Surface Area) 1.70 m2 [place] body weight in kilograms 50 05/21/2017 BP Systolic Sitting Left Arm 132 mmHg BP Diastolic Sitting Left Arm 88 mmHg Heart Rate 74 /min Respiratory Rate 16 /min Height 62 inches 5'2" Weight 152.00 lb BMI (Body Mass Index) 27.8 kg/m2 BSA (Body Surface Area) 1.70 m2 [place] body weight in kilograms 50 04/23/2017 BP Systolic Sitting Left Arm 140 mmHg BP Diastolic Sitting Left Arm 80 mmHg Heart Rate 84 /min Respiratory Rate 16 /min Height 62 inches 5'2" Weight 153.00 lb BMI (Body Mass Index) 28.0 kg/m2 BSA (Body Surface Area) 1.71 m2 [place] body weight in kilograms 50 04/02/2017 BP Systolic Sitting Left Arm 118 mmHg BP Diastolic Sitting Left Arm 82 mmHg Heart Rate 90 /min Respiratory Rate 16 /min Height 62 inches 5'2" Weight 154.00 lb BMI (Body Mass Index) 28.2 kg/m2 BSA (Body Surface Area) 1.71 m2 [place] body weight in kilograms 50 O2 % BldC Oximetry 98 % on room air 03/20/2017 BP Systolic Sitting Left Arm 118 mmHg BP Diastolic Sitting Left Arm 78 mmHg Heart Rate 88 /min Respiratory Rate 18 /min Height 62 inches 5'2" Weight 155.00 lb BMI (Body Mass Index) 28.3 kg/m2 BSA (Body Surface Area) 1.72 m2 [place] body weight in kilograms 50 02/27/2017 BP Systolic Sitting Left Arm 122 mmHg BP Diastolic Sitting Left Arm 80 mmHg Heart Rate 69 /min Respiratory Rate 16 /min Height 62 inches 5'2" Weight 155.00 lb BMI (Body Mass Index) 28.3 kg/m2 BSA (Body Surface Area) 1.72 m2 [place] body weight in kilograms 50 12/12/2016 BP Systolic Sitting Left Arm 110 mmHg BP Diastolic Sitting Left Arm 78 mmHg Heart Rate 97 /min Respiratory Rate 16 /min Height 62 inches 5'2" Weight 154.00 lb BMI (Body Mass Index) 28.2 kg/m2 BSA (Body Surface Area) 1.71 m2 [place] body weight in kilograms 50 10/08/2016 BP Systolic Sitting Left Arm 122 mmHg BP Diastolic Sitting Left Arm 80 mmHg Heart Rate 85 /min Respiratory Rate 16 /min Weight 150.00 lb 07/18/2016 BP Systolic Sitting Right Arm 116 mmHg BP Diastolic Sitting Right Arm 16 mmHg Heart Rate 81 /min Respiratory Rate 16 /min Weight 151.00 lb O2 % BldC Oximetry 98 % 05/08/2016 BP Systolic Sitting Left Arm 128 mmHg BP Diastolic Sitting Left Arm 80 mmHg Heart Rate 76 /min Respiratory Rate 16 /min Height 62 inches 5'2" Weight 147.00 lb BMI (Body Mass Index) 26.9 kg/m2 BSA (Body Surface Area) 1.68 m2 04/24/2016 BP Systolic Sitting Left Arm 116 mmHg BP Diastolic Sitting Left Arm 74 mmHg Heart Rate 77 /min Respiratory Rate 16 /min Height 62 inches 5'2" Weight 148.00 lb BMI (Body Mass Index) 27.1 kg/m2 BSA (Body Surface Area) 1.68 m2 O2 % BldC Oximetry 98 % 02/27/2016 BP Systolic 115 mmHg BP Diastolic 80 mmHg Heart Rate 76 /min Height 62 inches 5'2" Weight 1455.00 lb BMI (Body Mass Index) 266.1 kg/m2 BSA (Body Surface Area) 4.44 m2 01/24/2016 Height 62 inches Weight 143.00 lb 01/24/2016 BP Systolic 113 mmHg BP Diastolic 78 mmHg Body Temperature 98.0 F Heart Rate 77 /min Respiratory Rate 16 /min Height 62.00 inches 5'2.00" Weight 143.25 lb BMI (Body Mass Index) 26.25 kg/m2 BSA (Body Surface Area) 1.66 m2 O2 % BldC Oximetry 99 % 10/31/2015 BP Systolic 110 mmHg BP Diastolic 73 mmHg Heart Rate 82 /min Height 62.5 inches 5'2.50" Weight 136.00 lb BMI (Body Mass Index) 24.5 kg/m2 BSA (Body Surface Area) 1.63 m2 09/14/2015 BP Systolic 113 mmHg BP Diastolic 79 mmHg Heart Rate 90 /min Height 62.5 inches 5'2.50" Weight 134.00 lb BMI (Body Mass Index) 24.1 kg/m2 BSA (Body Surface Area) 1.62 m2 08/24/2015 BP Systolic 125 mmHg BP Diastolic 83 mmHg Heart Rate 88 /min Height 62.5 inches 5'2.50" Weight 137.00 lb BMI (Body Mass Index) 24.7 kg/m2 BSA (Body Surface Area) 1.64 m2 11/24/2012 BP Systolic Sitting Right Arm 112 mmHg BP Diastolic Sitting Right Arm 84 mmHg Height 62.5 inches 5'2.50" Weight 147.00 lb BMI (Body Mass Index) 26.5 kg/m2 Results Test Date Test Result H/L Range Note RDW RBC Auto RDW RBC Auto 39.1 3-47 8 RDW RBC Auto-Rto RDW RBC Auto-Rto 12.7 11.7-14.4 8 Serum carbon dioxide Serum carbon dioxide 24 21-32 measurement 8 measurement Serum or plasma Serum or plasma 3.9 3.4-5.0 albumin measurement 8 albumin measurement (mass/volume) (mass/volume) Serum or plasma Serum or plasma 116 45-117 alkaline phosphatase 8 alkaline phosphatase measurement ( measurement (enzymatic activity/volume) Serum or plasma Serum or plasma 28 15-37 aspartate 8 aspartate aminotransferase aminotransferase measure measurement (enzymatic activity/volume) Serum or plasma Serum or plasma 8.8 8.5-10.1 calcium measurement 8 calcium measurement (mass/volume) (mass/volume) Serum or plasma Serum or plasma 117 26-192 creatine kinase 8 creatine kinase measurement (enzym measurement (enzymatic activity/volume) Serum or plasma Serum or plasma 0.7 0.6-1.3 creatinine measurement 8 creatinine (mass/volum measurement (mass/volume) Serum or plasma Serum or plasma 86 74-106 glucose measurement 8 glucose measurement (mass/volume) (mass/volume) Serum or plasma Serum or plasma 8.0 6.4-8.2 protein measurement 8 protein measurement (mass/volume) (mass/volume) Serum or plasma total Serum or plasma total 0.5 0.2-1.0 bilirubin measurement 8 bilirubin measurement (mass/ (mass/volume) Serum or plasma urea Serum or plasma urea 15 7-18 nitrogen measurement 8 nitrogen measurement (mass/vo (mass/volume) Serum sodium Serum sodium 144 136-145 measurement 8 measurement Automated blood Automated blood 41.3 36.0-46.1 hematocrit (volume 8 hematocrit (volume fraction) fraction) Automated blood Automated blood 0.05 0.0-0.5 eosinophil count 8 eosinophil count Automated blood Automated blood 0.04 0.0-0.1 basophil count 8 basophil count (count/volume) (count/volume) Anion Gap SerPl-sCnc Anion Gap SerPl-sCnc 8 8-16 8 Albumin/Glob SerPl Albumin/Glob SerPl 1.0 8 Activated partial Activated partial 27.8 23.4-35.0 thromboplastin time 8 thromboplastin time (aPTT) in pl (aPTT) in platelet poor plasma by coagulation assay Alt SerPl-cCnc Alt SerPl-cCnc 28 12-78 8 Automated blood Automated blood 1.41 1.0-4.0 lymphocyte count 8 lymphocyte count (number/volume) (number/volume) Automated blood Automated blood 212 155-360 platelet count 8 platelet count Automated blood Automated blood 10.6 8.9-12.4 platelet mean volume 8 platelet mean volume measurement measurement Automated erythrocyte Automated erythrocyte 30.0 25.9-32.7 mean corpuscular 8 mean corpuscular hemoglobin hemoglobin (mass per erythrocyte) Automated erythrocyte Automated erythrocyte 34.6 High 30.8-34.3 mean corpuscular 8 mean corpuscular hemoglobin hemoglobin concentration measurement (mass/volume) Automated erythrocyte Automated erythrocyte 86.6 80.9-99.0 mean corpuscular 8 mean corpuscular volume volume BUN/Creat SerPl BUN/Creat SerPl 21.4 8 Basophils/leuk NFr Bld Basophils/leuk NFr 0.8 0.0-1.1 Auto 8 Bld Auto Blood erythrocytes Blood erythrocytes 4.77 3.90-5.40 automated count 8 automated count (number/volume) (number/volume) Blood hemoglobin Blood hemoglobin 14.3 11.6-15.8 measurement 8 measurement (mass/volume) (mass/volume) Blood leukocytes Blood leukocytes 5.3 3.1-10.7 automated count 8 automated count (number/volume) (number/volume) Prothrombin time (PT) Prothrombin time (PT) 13.2 12.0-14.4 in platelet poor 8 in platelet poor plasma plasma Potassium SerPl-sCnc Potassium SerPl-sCnc 3.7 3.5-5.1 8 Platelet poor plasma Platelet poor plasma 1.0 0.9-1.1 international 8 international normalized rati normalized ratio (Inr) by coagulation assay (relative time) Neutrophils/leuk NFr Neutrophils/leuk NFr 64.0 40.4-72.8 Bld Auto 8 Bld Auto Neutrophils # Bld Auto Neutrophils # Bld 3.37 1.8-7.0 8 Auto Monocytes/leuk NFr Bld Monocytes/leuk NFr 7.4 4.3-13.2 Auto 8 Bld Auto Lymphocytes/leuk NFr Lymphocytes/leuk NFr 26.8 20.0-42.0 Bld Auto 8 Bld Auto Globulin Ser Calc-mCnc Globulin Ser 4.1 1.9-4.3 8 Calc-mCnc Eosinophil/leuk NFr Eosinophil/leuk NFr 1.0 0.0-6.6 Bld Auto 8 Bld Auto Chloride SerPl-sCnc Chloride SerPl-sCnc 112 High 98-107 8 Blood monocytes Blood monocytes 0.39 0.3-0.9 automated count 8 automated count (number/volume) (number/volume) Serum or plasma Serum or plasma 2.4 1.8-2.4 magnesium measurement 8 magnesium measurement (mass/volume (mass/volume) Serum or plasma lipase Serum or plasma 409 High 56-289 measurement (enzymatic 8 lipase measurement acti (enzymatic activity/volume) Serum or plasma Serum or plasma 134 High 25-115 amylase measurement 8 amylase measurement (enzymatic act (enzymatic activity/volume) Serum or plasma Serum or plasma 0.1 0.0-0.9 indirect bilirubin 8 indirect bilirubin measurement (ma measurement (mass/volume) Laboratory test Anti-Nuclear Negative Negative 1 finding 7 Antibodies Direct AU/mL Actin (Smooth Muscle) Antibody <1:20 units 0-19 1, 2 Mitochondrial (M2) Antibodies 3.6 units 0.0-20.0 1, 3 Cxwhm-8-Uulmjmbfhpd,Serum 141 mg/dL 90-200 1 Ceruloplasmin 23.8 mg/dL 19.0-39.0 1 Protein Electro.,S 05/22/2017 Protein,Total,Serum 7.1 g/dL 6.0-8.5 1 Albumin 3.9 g/dL 2.9-4.4 1 Asrsp-0-Ypxqiloo 0.2 g/dL 0.0-0.4 1 Feyob-7-Xhlweofx 0.8 g/dL 0.4-1.0 1 Beta Globulin 1.1 g/dL 0.7-1.3 1 Gamma Globulin 1.1 g/dL 0.4-1.8 1 M-Marco Not Observed g/dL Not Observed 1 Globulin, Total 3.2 g/dL 2.2-3.9 1 A/G Ratio 1.2 0.7-1.7 1 Please Note: (SEE NOTE) 1, 4 P E Interpretation, Serum (SEE NOTE) 1, 5 Laboratory test finding 05/22/2017 Hepatitis A Antibody -IgM Negative Negative 1 Hepatitis A AB, Total Negative Negative 1 Hepatitis B Core Antibody-IgM Negative Negative 1 Hep B Core AB Total Negative Negative 1 HCV Rna,Josette,Quant,RFLX [place] <pending> 1 Hepatitis C Antibody < 0.1 s/corat 0.0-0.9 1, 6 Celiac Disease Comp AB Profile 05/22/2017 Immunoglobulin A 247 mg/dL 87- 352 1 Antigliadin Abs, IgG 5 units 0-19 1, 7 Antigliadin Abs, IgA 6 units 0-19 1, 8 Endomysial IgA Antibody Negative Negative 1 t-Transglutaminase IgA <2 U/mL 0-3 1, 9 t-Transglutaminase IgG <2 U/mL 0-5 1, 10 Iron-Tibc-%Sat 05/22/2017 Serum Iron 102 g/dL 50-170 1 Total Iron Binding Capacity 308 g/dL 250-450 1 Transferrin %Saturation 33 % 12-57 1 Laboratory test 05/22/2017 Ferritin 86 ng/mL 8-252 1 finding HCV Rna PCR,Quant 05/22/2017 Hepatitis C HCV Not Detected . 1, 11 Reflex [place] Quantitation IU/mL HCV Rna Copies Log 10 (SEE NOTE) [id number] 1, 12 Test Information: (SEE NOTE) 1, 13 HCV Genotype (SEE NOTE) 1, 14 Ova & Parasite 04/24/2017 Cryptosporidium Specific NEGATIVE FOR CRY 15 , 16 Antigen Screen Ag <SEE NOTE> Giardia Specific Antigen NEGATIVE FOR CARMEN <SEE NOTE> 15, 17 Stool Culture 04/24/2017 Stool Culture NO ENTERIC PATHO <SEE NOTE> 15, 18 . ................ <SEE NOTE> 15, 19 Note: INCLUDES TESTING <SEE NOTE> 15, 20 . PLESIOMONAS, CAM <SEE NOTE> 15, 21 . ................ <SEE NOTE> 15, 22 . YERSINIA AND VIB <SEE NOTE> 15, 23 . SHOULD BE REQUES <SEE NOTE> 15, 24 Shiga Toxin 1 Antigen SHIGA TOXIN 1 NO <SEE NOTE> 15, 25 Shiga Toxin 2 Antigen SHIGA TOXIN 2 NO <SEE NOTE> 15, 26 Fecal Fat, Qualitative 04/24/2017 Fats, Neutral Normal . 15, 27 Fats, Total Normal . 15, 28 Laboratory test finding 04/24/2017 Calprotectin, Fecal < 16 ug/g 0-120 15, 29 Pancreatic Elastase (Pe-1) > 500.0 ug/g >200 15, 30 Laboratory test finding 04/23/2017 Sedimentation Rate 28 mm/hr 0-30 15, 31 Celiac Disease Comp AB 04/23/2017 Immunoglobulin A 267 mg/dL 87-352 15 Profile Antigliadin Abs, IgG 5 units 0-19 15, 32 Antigliadin Abs, IgA 8 units 0-19 15, 33 Endomysial IgA Antibody Negative Negative 15 t-Transglutaminase IgA <2 U/mL 0-3 15, 34 t-Transglutaminase IgG <2 U/mL 0-5 15, 35 Laboratory test finding 04/23/2017 Lipase 425 U/L High 73-393 15 Comprehensive Metabolic Panel 04/23/2017 Glucose 92 mg/dL 74-106 15 BUN 16 mg/dL 7-18 15 Creatinine 0.8 mg/dL 0.6-1.3 15 Glom Filtration Rate, Estimate >60 mL/min >60 15 If >60 mL/min >60 15, 36 BUN/Creat 20.0 ratio 15 Sodium 140 mmol/L 136-145 15 Potassium 4.0 mmol/L 3.5-5.1 15 Chloride 107 mmol/L 98-107 15 Carbon Dioxide 27 mmol/L 21-32 15 Anion Gap 6 mEq/L Low 8-16 15 Calcium 9.6 mg/dL 8.5-10.1 15 Total Protein 8.3 g/dL High 6.4-8.2 15 Albumin 4.2 g/dL 3.4-5.0 15 Globulin 4.1 g/dL 1.9-4.3 15 Alb/Glob 1.0 ratio 15 Bilirubin,Total 0.4 mg/dL 0.2-1.0 15 Sgot/Ast 27 U/L 15-37 15 SGPT/Alt 34 U/L 12-78 15 Alkaline Phosphatase 134 U/L High 45-117 15 Laboratory test 04/23/2017 Anti-Nuclear Antibodies Negative AU/mL Negative 15 finding Direct Immunoglobulin G Subclass 4 16 mg/dL 2-96 15 C. Difficile Toxin B By PCR <pending> 15 Laboratory test finding 04/23/2017 Ova & Parasite Antigen <pending> 15 Screen Laboratory test finding 04/23/2017 TSH Reflex FT4 and/or 1.55 uIU/mL 0.30 -4.20 15 FT3 Calprotectin, Fecal <pending> 15 LDL Cholesterol Profile 02/27/2017 Cholesterol 182 mg/dL <200 37, 38 Triglycerides 154 mg/dL High <150 37, 39 HDL Cholesterol 48 mg/dL >40 37, 40 LDL-Cholesterol 103 mg/dL < 100 37, 41 Comprehensive Metabolic Panel 02/27/2017 Glucose 84 mg/dL 74-106 37 BUN 16 mg/dL 7-18 37 Creatinine 0.8 mg/dL 0.6-1.3 37 Glom Filtration Rate, Estimate >60 mL/min >60 37 If >60 mL/min >60 37, 42 BUN/Creat 20.0 ratio 37 Sodium 141 mmol/L 136-145 37 Potassium 4.3 mmol/L 3.5-5.1 37 Chloride 109 mmol/L High 98-107 37 Carbon Dioxide 27 mmol/L 21-32 37 Anion Gap 5 mEq/L Low 8-16 37 Calcium 9.3 mg/dL 8.5-10.1 37 Total Protein 8.0 g/dL 6.4-8.2 37 Albumin 4.2 g/dL 3.4-5.0 37 Globulin 3.8 g/dL 1.9-4.3 37 Alb/Glob 1.1 ratio 37 Bilirubin,Total 0.4 mg/dL 0.2-1.0 37 Sgot/Ast 35 U/L 15-37 37 SGPT/Alt 35 U/L 12-78 37 Alkaline Phosphatase 126 U/L High 45-117 37 Laboratory test finding 02/27/2017 Amylase 128 U/L High 25-115 37 Lipase 356 U/L 73-393 37 Monocytes/leuk NFr Bld 02/02/2017 Monocytes/leuk NFr 8.2 4.3-13.2 Auto Bld Auto Neutrophils # Bld Auto 02/02/2017 Neutrophils # Bld 4.70 1.8-7.0 Auto Neutrophils/leuk NFr 02/02/2017 Neutrophils/leuk NFr 68.0 40.4-72.8 Bld Auto Bld Auto PMV Bld Auto 02/02/2017 PMV Bld Auto 10.8 8.9-12.4 Platelets [#/volume] 02/02/2017 Platelets [#/volume] 243 150-400 in Blood by Automated in Blood by Automated count count Potassium SerPl-sCnc 02/02/2017 Potassium SerPl-sCnc 3.7 3.5-5.1 Prot SerPl-mCnc 02/02/2017 Prot SerPl-mCnc 8.1 6.4-8.2 RBC # Bld Auto 02/02/2017 RBC # Bld Auto 4.68 3.90-5.40 RDW RBC Auto 02/02/2017 RDW RBC Auto 38.4 3-47 RDW RBC Auto-Rto 02/02/2017 RDW RBC Auto-Rto 12.4 11.7-14.4 Serum or plasma 02/02/2017 Serum or plasma 142 26-192 creatine kinase creatine kinase measurement (enzym measurement (enzymatic activity/volume) Sodium SerPl-sCnc 02/02/2017 Sodium SerPl-sCnc 143 136-145 WBC # Bld Auto 02/02/2017 WBC # Bld Auto 6.9 3.1-10.7 Alp SerPl-cCnc 02/02/2017 Alp SerPl-cCnc 131 High 45-117 Alt SerPl-cCnc 02/02/2017 Alt SerPl-cCnc 30 12-78 Albumin SerPl-mCnc 02/02/2017 Albumin SerPl-mCnc 4.0 3.4-5.0 Albumin/Glob SerPl 02/02/2017 Albumin/Glob SerPl 1.0 Anion Gap SerPl-sCnc 02/02/2017 Anion Gap SerPl-sCnc 8 8-16 Aspartate 02/02/2017 Aspartate 25 15-37 aminotransferase aminotransferase [Enzymatic [Enzymatic activity/vol activity/volume] in Serum or Plasma BUN SerPl-mCnc 02/02/2017 BUN SerPl-mCnc 17 7-18 BUN/Creat SerPl 02/02/2017 BUN/Creat SerPl 18.8 Basophils [#/volume] 02/02/2017 Basophils [#/volume] 0.05 0.0-0.1 in Blood by Automated in Blood by Automated count count Basophils/leuk NFr Bld 02/02/2017 Basophils/leuk NFr 0.7 0.0-1.1 Auto Bld Auto Bilirub SerPl-mCnc 02/02/2017 Bilirub SerPl-mCnc 0.2 0.2-1.0 Co2 SerPl-sCnc 02/02/2017 Co2 SerPl-sCnc 26 21-32 Calcium SerPl-mCnc 02/02/2017 Calcium SerPl-mCnc 9.6 8.5-10.1 Eosinophil # Bld Auto 02/02/2017 Eosinophil # Bld Auto 0.11 0.0-0.5 Creat SerPl-mCnc 02/02/2017 Creat SerPl-mCnc 0.9 0.6-1.3 MCV RBC Auto 02/02/2017 MCV RBC Auto 86.5 80.9-99.0 Monocytes # Bld Auto 02/02/2017 Monocytes # Bld Auto 0.57 0.3-0.9 Eosinophil/leuk NFr 02/02/2017 Eosinophil/leuk NFr 1.6 0.0-6.6 Bld Auto Bld Auto Globulin Ser Calc-mCnc 02/02/2017 Globulin Ser 4.1 1.9-4.3 Calc-mCnc Glucose [Mass/volume] 02/02/2017 Glucose [Mass/volume] 94 74-106 in Serum or Plasma in Serum or Plasma Hct VFr Bld Auto 02/02/2017 Hct VFr Bld Auto 40.5 36.0-46.1 Hgb Bld-mCnc 02/02/2017 Hgb Bld-mCnc 13.9 11.6-15.8 Lymphocytes [#/volume] 02/02/2017 Lymphocytes 1.49 1.0-4.0 in Blood by Automated [#/volume] in Blood count by Automated count MCHC RBC Auto-mCnc 02/02/2017 MCHC RBC Auto-mCnc 34.3 30.8-34.3 MCH RBC Qn Auto 02/02/2017 MCH RBC Qn Auto 29.7 25.9-32.7 Lymphocytes/leuk NFr 02/02/2017 Lymphocytes/leuk NFr 21.5 20.0-42.0 Bld Auto Bld Auto Chloride SerPl-sCnc 02/02/2017 Chloride SerPl-sCnc 109 High 98-107 Blood glucose mean 01/24/2017 Blood glucose mean 114 value measurement value measurement estimated fro estimated from glycated hemoglobin (mass/volume) Hgb A1c MFr Bld 01/24/2017 Hgb A1c MFr Bld 5.6 4.2-6.3 Serum or plasma 01/24/2017 Serum or plasma 1.19 0.76-1.46 thyroxine (T4) free thyroxine (T4) free measurement (m measurement (mass/volume) TSH SerPl-aCnc 01/24/2017 TSH SerPl-aCnc 1.57 0.30-4.20 Bacteria Ur Cult 01/24/2017 Bacteria Ur Cult Organism: Urethral Pam Bilirub Ur Ql 01/01/2017 Bilirub Ur Ql Negative Negative Strip.auto Strip.auto Color Ur 01/01/2017 Color Ur Straw Yellow Ketones Ur 01/01/2017 Ketones Ur Negative Negative Strip.auto-mCnc Strip.auto-mCnc Leukocyte esterase Ur 01/01/2017 Leukocyte esterase Ur Negative Negative Ql Strip.auto Ql Strip.auto Nitrite Ur Ql 01/01/2017 Nitrite Ur Ql Negative Negative Strip.auto Strip.auto Prot Ur 01/01/2017 Prot Ur Negative Negative Strip.auto-mCnc Strip.auto-mCnc Urine appearance 01/01/2017 Urine appearance Clear Clear determination determination pH Ur Strip.auto 01/01/2017 pH Ur Strip.auto 6.5 6.5-7.5 Urobilinogen Ur 01/01/2017 Urobilinogen Ur 0.2 0.2-1.0 Strip-aCnc Strip-aCnc Urine hemoglobin 01/01/2017 Urine hemoglobin Negative Negative detection by automated detection by test strip automated test strip Urine glucose 01/01/2017 Urine glucose Negative Negative measurement by measurement by automated test strip automated test strip (mass/volume) Lipase SerPl-cCnc 12/12/2016 Lipase SerPl-cCnc 385 73-393 Laboratory test 12/12/2016 Amylase 140 U/L High 25-115 37 finding Lipase 385 U/L 73-393 37 Bilirubin,Total 0.2 mg/dL 0.2-1.0 37 Bilirubin,Direct < 0.1 mg/dL 0.0-0.2 37 Serum or plasma 11/18/2016 Serum or plasma 83 <150 triglyceride measurement triglyceride measurement (mass/vol (mass/volume) Serum or plasma 11/18/2016 Serum or plasma 201 High <200 cholesterol measurement cholesterol measurement (mass/volu (mass/volume) Serum or plasma 11/18/2016 Serum or plasma 44 >40 cholesterol in HDL cholesterol in HDL measurement (ma measurement (mass/volume) LDLc SerPl Calc-mCnc 11/18/2016 LDLc SerPl Calc-mCnc 140 < 100 Laboratory test finding 10/11/2015 Esophageal Biopsy See Note 43 Xray 10/01/2012 Ultrasound, Abdominal <pending> Xray 02/17/2002 CT Abdomen, With Contrast <pending> Material 1 R94.5 2 Negative 0 - 19 Weak positive 20 - 30 Moderate to strong positive >30 Actin Antibodies are found in 52-85% of patients with autoimmune hepatitis or chronic active hepatitis and in 22% of patients with primary biliary cirrhosis. 3 Negative 0.0 - 20.0 Equivocal 20.1 - 24.9 Positive >24.9 Mitochondrial (M2) Antibodies are found in 90-96% of patients with primary biliary cirrhosis. 4 Protein electrophoresis scan will follow via computer, mail, or orthotist delivery. 5 The SPE pattern appears essentially unremarkable. Evidence of monoclonal protein is not apparent. 6 INFCE Result Units: s/co ratio Negative: < 0.8 Indeterminate: 0.8 - 0.9 Positive: > 0.9 The CDC recommends that a positive HCV antibody result be followed up with a HCV Nucleic Acid Amplification test (045335). Performed at: [facility] [id number] [employer] Helper: Fiordaliza Henry MD, Phone: [phone] 7 Negative 0 - 19 Weak Positive 20 - 30 Moderate to Strong Positive >30 8 Negative 0 - 19 Weak Positive 20 - 30 Moderate to Strong Positive >30 9 Negative 0 - 3 Weak Positive 4 - 10 Positive >10 Tissue Transglutaminase (tTG) has been identified as the endomysial antigen. Studies have demonstr- ated that endomysial IgA antibodies have over 99% specificity for gluten sensitive enteropathy. 10 Negative 0 - 5 Weak Positive 6 - 9 Positive >9 11 HCV Not Detected 12 Unable to calculate result since non-numeric result obtained for component test. 13 The quantitative range of this assay is 15 IU/mL to 100 million IU/mL. 14 Not indicated 15 R19.4 K86.9 16 NEGATIVE FOR CRYPTOSPORIDIUM SPECIFIC ANTIGEN 17 NEGATIVE FOR GIARDIA SPECIFIC ANTIGEN. The specimen will be held for 5 days. Additional testing may be performed upon request if the antigen tests are negative, and the patient is still symptomatic or has traveled to an endemic region. Method: Alere Quik Chek Rapid Membrane Enzyme Immunoassay 18 NO ENTERIC PATHOGENS ISOLATED 19 ................................................... 20 INCLUDES TESTING FOR SALMONELLA, SHIGELLA, AEROMONAS, 21 PLESIOMONAS, CAMPYLOBACTER, AND E. COLI 0157:H7 22 ................................................... 23 YERSINIA AND VIBRIO ARE NOT ROUTINELY SCREENED FOR AND 24 SHOULD BE REQUESTED SEPARATELY 25 SHIGA TOXIN 1 NOT DETECTED 26 SHIGA TOXIN 2 NOT DETECTED Method: ImmunoCard STAT/EHEC Rapid Immunochromatographic Assay 27 Normal (<60 Droplets/HPF) 28 Normal (<100 Droplets/HPF) 29 Concentration Interpretation Follow-Up <16 - 50 ug/g Normal None >50 -120 ug/g Borderline Re-evaluate in 4-6 weeks >120 ug/g Abnormal Repeat as clinically indicated 30 INFCE Result Units: ug Elast./g Severe Pancreatic Insufficiency: <100 Moderate Pancreatic Insufficiency: 100 - 200 Normal: >200 Performed at: [address] [id number] [employer]: Fiordaliza Henry MD, Phone: [phone] Performed at: [address] [id number] [employer]per: Francisco Flores MD, Phone: [phone] 31 Method: Sediplast Modified Westergren 32 Negative 0 - 19 Weak Positive 20 - 30 Moderate to Strong Positive >30 33 Negative 0 - 19 Weak Positive 20 - 30 Moderate to Strong Positive >30 34 Negative 0 - 3 Weak Positive 4 - 10 Positive >10 Tissue Transglutaminase (tTG) has been identified as the endomysial antigen. Studies have demonstr- ated that endomysial IgA antibodies have over 99% specificity for gluten sensitive enteropathy. 35 Negative 0 - 5 Weak Positive 6 - 9 Positive >9 Performed at: [facility] [id number] [employer]per: Fiordaliza Henry MD, Phone: [phone] Performed at: [address] [id number] [employer] Helper: Francisco Flores MD, Phone: [phone] 36 Note: Persistent reduction for 3 months or more in an eGFR <60 mL/min/1.73 m2 defines CKD. Patients with eGFR values >/=60 mL/min/1.73 m2 may also have CKD if evidence of persistent proteinuria is present. The original MDRD equation for estimated GFR is not valid for patients less than 18 years of age. Additional information may be found at www.kdoqi.org. 37 K85.90 38 Reference Guidelines*: Desirable: ........... < 200 mg/dL Borderline High: ..... 200-239 mg/dL High: ................ >=240 mg/dL * The National Cholesterol Education Program (NCEP) 39 Reference Guidelines*: Normal: ............. < 150 mg/dL Borderline High: .... 150-199 mg/dL High: ............... 200-499 mg/dL Very High: .......... > 500 mg/dL * Source: National Cholesterol Education Program (NCEP) 40 Reference Guidelines*: Low HDL: ..... < 40 mg/dL Normal: ..... 40-60 mg/dL Desirable: ... > 60 mg/dL *The National Cholesterol Education Program(NCEP) 41 Reference Guidelines*: Optimal:........... <100 mg/dL Near Optimal....... 100-129 mg/dL Borderline High.... 130-159 mg/dL High............... 160-189 mg/dL Very High.......... >=190 mg/dL * Source: National Cholesterol Education Program (NCEP) 42 Note: Persistent reduction for 3 months or more in an eGFR <60 mL/min/1.73 m2 defines CKD. Patients with eGFR values >/=60 mL/min/1.73 m2 may also have CKD if evidence of persistent proteinuria is present. The original MDRD equation for estimated GFR is not valid for patients less than 18 years of age. Additional information may be found at www.kdoqi.org. 43 OPERATION/PROCEDURE Colonoscopy, upper endoscopy DIAGNOSIS: PART 1: "COLON, RANDOM BIOPSIES": - LARGE INTESTINAL MUCOSA WITH MILD ARCHITECTURAL DISORDER COMPATIBLE WITH REPAIR. - SCATTERED LYMPHOID AGGREGATES NOTED. - NO EVIDENCE OF MICROSCOPIC/LYMPHOCYTIC COLITIS, COLLAGENOUS COLITIS OR OTHER INFLAMMATORY BOWEL PROCESS IDENTIFIED. PART 2: "SMALL BOWEL, JEJUNUM, RANDOM BIOPSIES": - SMALL BOWEL MUCOSA WITH NORMAL VILLOUS ARCHITECTURE AND NO SIGNIFICANT PATHOLOGIC ABNORMALITIES. PART 3: "ESOPHAGUS, LOWER, BIOPSIES": - GASTROESOPHAGEAL TRANSITION ZONE MUCOSA WITH NO SIGNIFICANT PATHOLOGIC ABNORMALITIES. - NO SPECIFIC FEATURES OF REFLUX ESOPHAGITIS IDENTIFIED. - NO GOBLET CELL/INTESTINAL METAPLASIA OR DYSPLASIA IDENTIFIED. PART 4: "ESOPHAGUS AT 15 CM., BIOPSY": - GASTROESOPHAGEAL TRANSITION ZONE MUCOSA WITH FEATURES OF MILD REFLUX ESOPHAGITIS. - REACTIVE GLANDULAR EPITHELIAL CHANGES. - NO GOBLET CELL/INTESTINAL METAPLASIA OR DYSPLASIA ARE IDENTIFIED. - SEE COMMENT. MARIA TERESA/[place] 1030 INTERPRETATION COMMENT The presence of gastric cardia-type mucosa at 15 cm. (as labeled grossly) is unusual and may represent significant high level metaplasia or possibly a gastric ectopia. Correlation with endoscopic findings is suggested. GROSS Received in formalin in four properly labeled containers with the patient's name and accession number. Part one is designated, "RANDOM COLON BIOPSIES". The specimen consists of multiple pieces of haddad, soft rubbery tissue measuring 0.5 x 0.3 x 0.2 cm. in aggregate. Submitted entirely, one cassette. Part two is designated, "RANDOM JEJUNAL BIOPSIES". The specimen consists of multiple pieces of haddad, soft rubbery tissue measuring 0.8 x 0.6 x 0.2 cm. in aggregate. Submitted entirely, one cassette. Part three is designated, "ESOPHAGEAL BIOPSIES, LOWER". The specimen consists of multiple pieces of haddad, soft rubbery tissue measuring 0.7 x 0.5 x 0.2 cm. in aggregate. Submitted entirely, one cassette. Part four is designated, "ESOPHAGEAL BIOPSIES AT 15 CM.". The specimen consists of multiple pieces of haddad, soft rubbery tissue measuring 0.5 x 0.2 x 0.2 cm. in aggregate. Submitted entirely, one cassette. /clf PRE OPERATIVE DIAGNOSIS Hematochezia, Diaz's, IBS REVIEW CODE CODE: I Signed Electronically signed MATT FRANCO MD 1131 Procedures Date CPT Code Description Status Comment 02/05/2018 78126 Eye Exam Est Patient Completed Comprehensive 12/30/2017 80439 Echocardiogram Complete Completed 12/30/2017 04371 Stress Test Interpre And Report Completed Only 12/30/2017 06591 Stress Test Physician Super Only Completed 11/25/2017 08210 EKG-Tracing And Report Completed 11/24/2017 54861 Asp./Injection major joint Completed 10/20/2017 30285 Radiology, Knee 3 Views Completed 07/23/2017 39332 Extracapsular Cataract Extraction Completed W/Intraocular Lens 07/15/2017 60921 Ophthalmic Biometry By Partial Completed Coherence Interferometry W/Intra 07/07/2017 15257 Gonioscopy Completed 07/07/2017 65915 Eye Exam Est Patient Completed Comprehensive 02/11/2017 65247 Bronchospasm Provocation Completed Evaluation Multi Spirometric Determinati 02/11/2017 11827 Spirometry Completed 05/13/2016 09686 EGD With Biopsy Completed 04/29/2016 83373 Spirometry Completed 04/29/2016 00093 Bronchospasm Provocation Completed Evaluation Multi Spirometric Determinati 11/30/2015 38566 Gonioscopy Completed 11/30/2015 43281 Eye Exam New Patient Completed Comprehensive 10/11/2015 98969 Colonoscopy With Biopsy Completed 10/11/2015 61458 Endoscopy Small Intestine Completed W/Biopsy 10/11/2015 Colonoscopy Completed Document: 10/11/15 - Operative Report 12/21/2014 91800 ECHO Transthoracic Inc Completed Performance Continuous Electrocardio 12/19/2014 43330 Echocardiogram Complete Completed 12/19/2014 87661 EKG Interpretation And Report Completed Only 12/14/2014 22021 Anesthesia, Hysteroscopy, Completed Hystersalpingography 04/04/2014 Colonoscopy Completed Document: 04/04/14 - Operative Report 01/05/2013 31900 Anesthesia, Hysteroscopy, Completed Hystersalpingography 01/04/2013 14728 EKG Interpretation And Report Completed Only 02/26/2010 Colonoscopy Completed Document: 02/26/10 - Operative Report Encounters Type Date Location Provider CPT E/M Dx Office Visit 04/08/2018 1:00p Cardiology Office Alex Walter, 65529 R07.9 Yasir, [facility] Office Visit 03/19/2018 4:00p [place] [address] R07.89 R06.02 Office Visit 01/06/2018 11:20a Cardiology Office JON Tariq 22381 R07.9 G45.9 E78.5 K86.9 Office Visit 11/25/2017 10:40a Cardiology Office JON Tariq 36171 R07.9 G45.9 E78.5 Office Visit 11/18/2017 1:45[place] [address] K86.9 Office Visit 10/20/2017 11:15a Orthopaedic Office Opal GutierrezRoni Lazo, 11345 M25.561 [facility] M17.11 Office Visit 08/20/2017 11:15[place] [address] K86.9 R94.5 Office Visit 05/21/2017 1:15[place] [address] K86.9 R94.5 Office Visit 04/23/2017 11:30[place] [address] K86.9 R19.4 Office Visit 04/02/2017 3:45p [place] [address] R07.9 R06.02 Office Visit 03/20/2017 1:15[place] [address] R10.84 Office Visit 02/27/2017 9:00[place] [address] R10.84 K85.90 Office Visit 12/12/2016 1:15[place] [address] K85.90 Office Visit 10/08/2016 11:00[place] [address] K21.9 R10.84 Office Visit 07/18/2016 2:30p [place] [address] R06.02 K21.9 R07.9 Office Visit 05/08/2016 1:00p [place] [address] R07.0 K22.70 Office Visit 04/24/2016 3:30p [place] [address] R06.02 K21.9 Office Visit 02/27/2016 3:30p BENNETT Reinoso M.D. 60248 K58.9 K22.70 K21.9 K86.1 Office Visit 10/31/2015 9:15a BENNETT Reinoso M.D. 50321 K58.9 K22.70 K21.9 K86.1 Office Visit 09/14/2015 10:15a BENNETT Reinoso M.D. 10134 R19.5 K58.9 K22.70 K21.9 K86.1 Office Visit 08/24/2015 1:00p BENNETT Antoine PA-C 43634 K58.9 R19.5 K22.70 K21.9 K86.1 K64.9 Office Visit 04/25/2015 11:21a Cardiology Office Alex Walter, 57833 786.50 MMalka, FACC 401.1 Office Visit 12/19/2014 9:34a [place] [address] 786.50 Office Visit 11/24/2012 1:30p [place] [address] 844.9 E001.1 Plan of Care Future Appointment(s):08/28/2018 9:30 am - Dion Nettles MD at [facility]/ 25/2018 - Alex Walter M.D., FACCR07.9 Chest pain, unspecifiedComments: Resolved. No ischemia in her stress test. The echo was normal as well as her ECG. She will not return for regular follow ups. Will call us if needed.AllFollow up:Follow up with us on a PRN basis.
--- OUTSIDE RECORDS SUMMARY | 2018-04-30 15:03 | XMS REPORT ---
:1960 Author Organization [facility] O[facility] Address [address] [place] [address] Care Team Providers Name Role Phone Tiera Ferrara Unavailable Unavailable PROBLEMS Type Condition ICD9-CM Code [id number] Onset Condition SNOMED Code Code Dates Status Problem Postmenopausal N95.0 Active 52571593 bleeding Problem Rash and other R21 Active 900567462 nonspecific skin eruption Problem Dysuria R30.0 Active 62540341 Problem Pelvic and perineal R10.2 Active 750852266 pain Problem Mastodynia N64.4 Active 87422212 Problem Postmenopausal N95.2 Active 90038293 atrophic vaginitis Problem Candidiasis, B37.9 Active 96815719 unspecified ALLERGIES No Information ENCOUNTERS Encounter Location Date Diagnosis [facility] 103 Apr, OBGYN [place] [id number] [facility] 103 Apr, [place], [place] [id number] [facility] 103 Apr, Encounter for gynecological OBGYN [facility] examination (general) [place], [place] [id number] (routine) without abnormal findings Z01.419 ; Encounter for screening for malignant neoplasm of cervix Z12.4 ; Encounter for screening for malignant neoplasm of colon Z12.11 ; Encounter for screening mammogram for malignant neoplasm of breast Z12.31 ; Postmenopausal atrophic vaginitis N95.2 and Dysuria R30.0 [facility] 103 Feb, Postmenopausal atrophic OBGYN [facility] vaginitis N95.2 [place] [id number] [facility] 103 Feb, Pelvic and perineal pain OBGYN [facility] R10.2 and Dysuria R30.0 [place], [place] [id number] [facility] 103 Feb, Pelvic and perineal pain OBGYN [facility] R10.2 ; Dysuria R30.0 and [place], [place] [id number] Postmenopausal atrophic vaginitis N95.2 [facility] 103 Feb, Pelvic and perineal pain OBGYN [facility] R10.2 [place] [id number] [facility] 103 January, Rash and other nonspecific OBGYN [facility] skin eruption R21 [place], [place] [id number] [facility] 103 January, [place] [id number] [facility] 103 January, [place] [id number] [facility] 103 January, Dysuria R30.0 ; Pelvic and OBGYN [facility] perineal pain R10.2 ; [place], [place] [id number] Mastodynia N64.4 and Other specified noninflammatory disorders of vagina N89.8 [facility] 103 Dec, Candidiasis, unspecified OBGYN [facility] B37.9 [place], [place] [id number] [facility] 103 Dec, Candidiasis, unspecified OBGYN [facility] B37.9 [place] [id number] [facility] 103 Dec, Candidiasis, unspecified OBGYN [facility] B37.9 [place] [id number] [facility] 103 Jun, Postmenopausal bleeding OBGYN [facility] N95.0 [place], [place] [id number] [facility] 103 Jun, [place]BGYN [place] [id number] [facility] 103 Jun, [place]YN [place] [id number] [facility] 103 Jun, [place]YN [place] [id number] [facility] 103 Jun, Postmenopausal bleeding OBGYN [facility] N95.0 [place], [place] [id number] [facility] 103 Jun, [place]YN [place], [place] [id number] [facility] 103 Jun, Postmenopausal bleeding OBGYN [facility] N95.0 [place] [id number] [facility] 103 Jun, Postmenopausal bleeding OBGYN [facility] N95.0 [place], [place] [id number] [facility] 103 Jun, [place]YN [place] [id number] [facility] 103 Jun, [place] [id number] [facility] 103 Apr, Encounter for gynecological OBGYN [facility] (general) [place], [place] [id number] (routine) with abnormal findings Z01.411 ; Dysuria R30.0 ; Encounter for screening mammogram for malignant neoplasm of breast Z12.31 and Encounter for screening for malignant neoplasm of colon Z12.11 [facility] 103 Mar, [place]YN [place], [place] [id number] [facility] 103 Mar, [place]BGYN [place], [place] [id number] [facility] 103 Mar, O[place]YN [place] [id number] [facility] 103 Mar, Candidiasis of skin and OBGYN [facility] nail B37.2 [place], [place] [id number] [facility] 103 January, Mastodynia N64.4 [place]BGYN [place], [place] [id number] [facility] 103 Dec, Pelvic and perineal pain OBGYN [facility] R10.2 and Dysuria R30.0 [place], [place] [id number] [facility] 103 Dec, PELVIC PAIN 625.9 OBGYN [place], [place] [id number] [facility] 103 Dec, Pelvic and perineal pain OBGYN [facility] R10.2 [place], [place] [id number] [facility] 103 Nov, Idiopathic urticaria L50.[address] [facility] [address] and Mastodynia N64.4 [place], [place] [id number] [facility] 103 Oct, Generalized abdominal pain OBGYN [facility] R10.84 and Mastodynia N64.4 [place], [place] [id number] [facility] 103 Sep, Dermatitis, unspecified OBGYN [facility] L30.9 [place], [place] [id number] [facility] 103 Sep, Pelvic and perineal pain OBGYN [facility] R10.2 [place], [place] [id number] [facility] 103 Sep, Postmenopausal bleeding OBGYN [facility] N95.0 [place] [id number] [facility] [address] [place], Sep, Medical [facility] [id number] [facility] 103 Sep, [place]YN [place], [place] [id number] [facility] 103 Sep, [place] [id number] [facility] 103 Sep, Postmenopausal bleeding OBGYN [facility] N95.0 [place], [place] [id number] [facility] 103 Aug, Postmenopausal bleeding OBGYN [facility] N95.0 [place], [place] [id number] [facility] 103 Aug, Postmenopausal bleeding OBGYN [address] N95.0 and Pelvic and [place] [id number] perineal pain R10.2 [facility] 103 Jul, [place] [id number] [facility] 103 Jul, [facility] N95.0 and Pelvic and [place] [id number] perineal pain R10.2 [facility] 103 Jul, [place] [id number] [facility] 103 Jul, Mastodynia N64.4 ; [facility] Postmenopausal bleeding [place] [id number] N95.0 and Pelvic and perineal pain R10.2 [facility] 103 Jul, [place] [id number] [facility] 103 Jun, Mastodynia N64.4 [place] [id number] [facility] 103 Jun, [place] [id number] [facility] 103 May, Mastodynia N64.4 [place] [id number] [facility] 103 Apr, Encounter for gynecological [facility] examination (general) [place], [place] [id number] (routine) without abnormal findings Z01.419 ; Encounter for screening mammogram for malignant neoplasm of breast Z12.31 and Encounter for screening for malignant neoplasm of colon Z12.11 [facility] Mar, Disorder of the skin and [facility] subcutaneous tissue, [place], [place] [id number] unspecified L98.9 [facility] 103 January, Mastodynia N64.4 [place] [id number] [facility] 103 January, [place] [id number] [facility] 103 Dec, Other pruritus L29.8 [place]BGYN [place], [place] [id number] [facility] 103 Dec, Dysuria R30.0 ; Pelvic and OBGYN [facility] perineal pain R10.2 and [place], [place] [id number] Postmenopausal bleeding N95.0 [facility] 103 Dec, Pelvic and perineal pain OBGYN [facility] R10.2 [place] [id number] [facility] 103 Dec, Pelvic and perineal pain OBGYN [facility] R10.2 [place], [place] [id number] [facility] 103 Dec, Dysuria R30.0 [place]YN [place] [id number] [facility] 103 Dec, Postmenopausal bleeding OBGYN [facility] N95.0 and Dysuria R30.0 [place], [place] [id number] [facility] 103 Nov, Postmenopausal bleeding OBGYN [facility] N95.0 [place], [place] [id number] [facility] 103 Nov, Postmenopausal bleeding OBGYN [facility] N95.0 [place], [place] [id number] [facility] 103 Nov, OBGYN [place] [id number] [facility] 103 Nov, Mastodynia N64.4 [place]YN [place] [id number] [facility] 103 Aug, [place]BGYN [place] [id number] [facility] 103 Aug, [place] [id number] [facility] 103 Aug, Postmenopausal bleeding OBGYN [facility] N95.0 [place], [place] [id number] [facility] 103 Aug, Dysuria R30.0 and OBGYN [facility] Postmenopausal bleeding [place], [place] [id number] N95.0 [facility] 103 Jun, Postmenopausal bleeding OBGYN [facility] N95.0 [place] [id number] [facility] 103 Jun, Postmenopausal bleeding OBGYN [facility] N95.0 [place], [place] [id number] [facility] 103 Jun, [place] [id number] [facility] 103 Jun, [place] [id number] [facility] 103 Jun, Postmenopausal bleeding OBGYN [facility] N95.0 and Dysuria R30.0 [place], [place] [id number] [facility] 103 May, Postmenopausal bleeding OBN [facility] 627.1 [place], [place] [id number] [facility] 103 May, [facility] 627.1 [place] [id number] [facility] 103 May, Urinary frequency 788.41 ; OBGYN [facility] Postmenopausal bleeding [place], [place] [id number] 627.1 and Atrophic vulvovaginitis 627.3 [facility] 103 Mar, Mastalgia 611.71 [place] [id number] [facility] 103 Feb, Mastalgia 611.71 [place] [id number] [facility] 103 Feb, BREAST DISORDER NOS 611.9 [place] [id number] [facility] 103 January, [place] [id number] [facility] 103 Dec, DERMATITIS NOS 692.9 [place]YN [place] [id number] [facility] 103 Dec, Postmenopausal bleeding OBGYN [address] [id number] [facility] 103 Dec, OBGYN [place], [place] [id number] [facility] 103 Dec, [place] [id number] [facility] [address] [place], Dec, [place] [id number] [facility] 103 Nov, Postmenopausal bleeding OBGYN [address] [id number] [facility] 103 Nov, O[place]YN [place] [id number] [facility] 103 Nov, [place] [id number] [facility] [address], Nov, [place] [id number] [facility] 103 Nov, OBGYN [place] [id number] [facility] 103 Oct, Postmenopausal bleeding OBGYN [address] [id number] [facility] 103 Oct, OBGYN [place] [id number] [facility] 103 Oct, OBGYN [place], [place] [id number] [facility] 103 Oct, [place] [id number] [facility] 103 Oct, [place] [id number] [facility] 103 Oct, Postmenopausal bleeding OBGYN [facility] 627.1 [place], [place] [id number] [facility] 103 Oct, [place]YN [place] [id number] [facility] 103 Oct, Postmenopausal bleeding OBGYN [facility] 627.1 [place], [place] [id number] [facility] 103 Oct, Dysuria 788.1 and OBGYN [facility] Postmenopausal bleeding [place], [place] [id number] 627.1 [facility] 103 Jul, Dysuria 788.1 OBGYN [place] [id number] [facility] 103 Jun, Atopic dermatitis 691.8 OBGYN [place], [place] [id number] [facility] 103 May, OBGYN [place] [id number] [facility] 103 May, OBG[place] [id number] [facility] 103 Apr, ROUTINE BANKING 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 OBGYN [facility] V72.31 ; SCREEN MALIG [place], [place] [id number] NEOP-COLON V76.51 ; SCREEN MAMMOGRAM NEC V76.12 and Urinary tract infection NOS 599.0 [facility] 103 Apr, Breast Mass 611.72 O[place]YN [place], [place] [id number] [facility] 103 Apr, Dysuria 788.1 O[place]YN [place], [place] [id number] [facility] 103 Dec, [place] [id number] [facility] 103 Dec, Hematuria, microscopic OBGYN [facility] 599.72 and Dysuria 788.1 [place] [id number] [facility] 103 Dec, [place] [id number] [facility] 103 Nov, Atopic dermatitis 691.8 [place] [id number] [facility] 103 Aug, [place] [id number] [facility] 103 Aug, [place] [id number] [facility] 103 Aug, [place] [id number] [facility] 103 Aug, Atopic dermatitis 691.8 [place] [id number] [facility] 103 Aug, [place] 8552965[address] [facility] 103 Aug, [place] [id number] [facility] 103 Aug, [place] [id number] [facility] 103 Aug, [place] [id number] [facility] 103 Jul, Atopic eczema 691.8 [facility]AST DISORDER NOS 611.9 [place] [id number] [facility] 103 Jul, [place] [id number] [facility] 103 Jul, Atopic eczema 691.8 and OBGYN [facility] BREAST DISORDER NOS 611.9 [place], [place] [id number] [facility] 103 Jul, OBGYN [place] [id number] [facility] 103 Jul, HEMATURIA NOS 599.70 O[place]YN [place], [place] [id number] [facility] 103 May, OBGYN [place], [place] [id number] [facility] 103 Apr, GYNECOLOGIC EXAMINATION OBGYN [facility] V72.31 ; PAP SMEAR W/O BANKING SUPERVISOR [place], [place] [id number] EXAM V76.2 ; SCREEN MALIG NEOP-COLON V76.51 and SCREEN MAMMOGRAM NEC V76.12 [facility] 103 Apr, OBGYN [place], [place] [id number] [facility] 103 Apr, PELVIC PAIN 625.9 OBGYN [place], [place] [id number] [facility] 103 Apr, Menometrorrhagia 626.2 ; OBGYN [facility] Dysuria 788.1 and PELVIC [place], [place] [id number] PAIN 625.9 [facility] 103 Mar, OBGYN [place], [place] [id number] [facility] 103 Mar, OBGYN [place] [id number] [facility] 103 Mar, Hematuria, microscopic OBGYN [facility] 599.72 [place], [place] [id number] [facility] 103 Feb, [place] [id number] [facility] 103 Feb, [place]BGYN [place], [place] [id number] [facility] 103 Feb, [place]BGYN [place], [place] [id number] [facility] 103 Feb, Menometrorrhagia 626.2 OBGYN [place], [place] [id number] [facility] 103 January, OBGYN [place] [id number] [place] [facility] [address] [facility] January, Menometrorrhagia [address] [place], [place] [id number] [facility] 103 January, [place] [id number] [facility] 103 January, OBGYN [place] [id number] [facility] 103 January, Menometrorrhagia 626.2 OBGYN [place], [place] [id number] [facility] [address] [place], Dec, Medical [facility] [id number] [facility] 103 Dec, Menometrorrhagia 626.2 and OBGYN [facility] IUD SURVEILLANCE V25.42 [place], [place] [id number] [facility] 103 Dec, OBGYN [place] [id number] [facility] 103 Dec, [place] [id number] [facility] 103 Nov, OBGYN [place] [id number] [place] [facility] [address] [facility] Nov, Menometrorrhagia [address] [place], [place] [id number] [facility] 103 Nov, Menometrorrhagia 626.2 OBGYN [place], [place] [id number] [facility] 103 Nov, Menometrorrhagia 626.2 OBGYN [place], [place] [id number] [facility] 103 Nov, Menometrorrhagia 626.2 ; OBGYN [facility] IUD SURVEILLANCE V25.42 and [place], [place] [id number] Endometrial polyp 621.0 [facility] 103 Nov, Menometrorrhagia 626.2 OBGYN [place], [place] [id number] [facility] 103 Oct, OBGYN [place] [id number] [facility] 103 Sep, OBGYN [place], [place] [id number] [facility] 103 Sep, OBGYN [place] [id number] [facility] 103 Sep, [place] [id number] [facility] 103 Sep, OBGYN [place] [id number] [facility] 103 Sep, PELVIC PAIN 625.9 ; OBGYN [facility] HEMATURIA NOS 599.70 and [place], [place] [id number] Abdominal pain, right upper quadrant 789.01 [facility] 103 14 Sep, 2012 PELVIC PAIN 625.9 and IUD OBGYN [facility] SURVEILLANCE V25.42 [place], [place] [id number] [facility] 103 Sep, PELVIC PAIN 625.9 OBGYN [place] [id number] [facility] 103 Aug, OBGYN [place] [id number] [address] Jul, Irregular bleeding NOS OBGYN [address] [place], 626.4 ; Hydrosalpinx 614.1 [place] [id number] and PELVIC PAIN 625.9 [facility] 103 Jul, Hydrosalpinx 614.1 and IUD OBGYN [facility] SURVEILLANCE V25.42 [place], [place] [id number] [facility] 103 Jun, OBGYN [place], [place] [id number] [facility] 103 Jun, Irregular bleeding NOS OBGYN [facility] 626.4 and Hydrosalpinx [place], [place] 764457429 614.1 [facility] 103 May, OBGYN [place], [place] [id number] [facility] 103 May, Irregular bleeding NOS OBGYN [facility] 626.4 [place], [place] [id number] [facility] 103 May, Irregular bleeding NOS OBGYN [facility] 626.4 [place], [place] [id number] [facility] 103 May, Irregular bleeding NOS OBGYN [facility] 626.4 and Menorrhagia 626.2 [place], [place] [id number] [facility] 103 May, Irregular bleeding NOS OBGYN [facility] 626.4 and PELVIC PAIN 625.9 [place], [place] [id number] [facility] 103 May, PELVIC PAIN 625.9 ; OBGYN [facility] Irregular bleeding NOS [place], [place] [id number] 626.4 and IUD SURVEILLANCE V25.42 [facility] 103 Apr, Irregular bleeding NOS OBGYN [facility] 626.4 and PELVIC PAIN 625.9 [place], [place] [id number] [facility] 103 Feb, OBGYN [place], [place] [id number] [facility] 103 Feb, Irregular bleeding NOS OBGYN [facility] 626.4 ; PELVIC PAIN 625.9 [place], [place] [id number] and Abdominal pain, epigastric 789.06 [facility] 103 Nov, Vitamin D deficiency NOS OBN [facility] 268.9 [place], [place] [id number] [facility] 103 Nov, OBN [place], [place] [id number] [facility] 103 Nov, Irregular bleeding [facility] 626.4 and IUD SURVEILLANCE [place], [place] [id number] V25.42 [facility] 103 Nov, ROUTINE BANKING 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 OBN [facility] V72.31 ; Irregular bleeding [place], [place] [id number] NOS 626.4 ; PAP SMEAR W/O BANKING SUPERVISOR EXAM V76.2 ; IUD SURVEILLANCE V25.42 and SCREEN MALIG NEOP-COLON V76.51 [facility] 103 Nov, [place] [id number] [facility] 103 Nov, Irregular bleeding NOS [facility] 626.4 and IUD SURVEILLANCE [place], [place] [id number] V25.42 [facility] 103 Nov, [place] [id number] [facility] 103 Oct, Irregular bleeding NOS [facility] 626.4 [place], [place] [id number] [facility] 103 Oct, OBGYN [place], [place] [id number] [facility] 103 Sep, [place] 636327520 [facility] 103 Sep, GENITAL HERPES NOS 054.10 [place] [id number] [facility] 103 Sep, [place] [id number] [facility] 103 Sep, [place] [id number] [facility] 103 Sep, Gross hematuria 599.71 OBGYN [place], [place] [id number] [facility] 103 Aug, OBGYN [place], [place] [id number] [facility] 103 Aug, HEMATURIA NOS 599.70 OBGYN [place], [place] [id number] [facility] 103 Aug, Abdominal pain, generalized OBGYN [facility] 789.07 ; Irregular bleeding [place] [id number] NOS 626.4 and Dysuria 788.1 [facility] Aug, PELVIC PAIN 625.9 and IUD OBGYN [facility] SURVEILLANCE V25.42 [place], [place] [id number] [place] [facility] Jul, Abdominal pain, generalized OBGYN [facility] 789.07 and Irregular [place], [place] [id number] bleeding NOS 626.4 [facility] 103 Jul, OBGYN [place] [id number] [facility] 103 Jun, Abdominal pain, generalized OBGYN [facility] 789.07 and Irregular [place], [place] [id number] bleeding NOS 626.4 [place] [facility] 103 May, Abdominal pain, right lower OBGYN [facility] quadrant 789.03 and [place], [place] [id number] Irregular bleeding NOS 626.4 [facility] 103 Apr, OBGYN [place], [place] [id number] [facility] 103 Apr, IUD SURVEILLANCE V25.42 OBGYN [place], [place] [id number] [facility] Mar, INSERTION OF IUD V25.11 OBGYN [place], [place] [id number] [facility] Feb, OBGYN [place], [place] [id number] [facility] Feb, OBGYN [place] [id number] [facility] 103 Feb, Menorrhagia 626.2 ; Ovarian OBGYN [facility] cyst NOS 620.2 and [place], [place] [id number] Dysmenorrhea 625.3 [facility] 103 Feb, OBGYN [place] [id number] [facility] [address] [place], Feb, [facility] [id number] [facility] Feb, Menorrhagia 626.2 ; Ovarian OBGYN [facility] cyst NOS 620.2 and [place], [place] [id number] Dysmenorrhea 625.3 [facility] January, OBGYN [place], [place] [id number] [facility] January, Menorrhagia 626.2 ; Ovarian OBGYN [facility] cyst NOS 620.2 and [place], [place] [id number] Dysmenorrhea 625.3 [facility] 103 January, Ovarian cyst NOS 620.2 ; OBGYN [facility] Menorrhagia 626.2 and [place], [place] [id number] Dysmenorrhea 625.3 [facility] Nov, OBGYN [place], [place] [id number] [facility] 103 Nov, ROUTINE BANKING 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 OBGYN [facility] V72.31 and PAP SMEAR W/O [place], [place] [id number] BANKING SUPERVISOR EXAM V76.2 [facility] 103 Nov, OBGYN [place], [place] [id number] [facility] 103 Nov, Menorrhagia 626.2 and OBGYN [facility] Ovarian cyst NOS 620.2 [place], [place] [id number] [facility] 103 Nov, Menorrhagia 626.2 OBGYN [place], [place] [id number] [place] [facility] 103 Nov, Menorrhagia 626.2 OBGYN [place], [place] [id number] [facility] 103 Nov, Menorrhagia 626.2 and OBGYN [facility] Ovarian cyst NOS 620.2 [place], [place] [id number] [place] [facility] 103 Oct, OBGYN [place], [place] [id number] [facility] 103 Oct, OBGYN [place] [id number] [facility] 103 Oct, Menorrhagia 626.2 OBGYN [place], [place] [id number] [facility] 103 Feb, ROUTINE BANKING 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 [facility] V72.31 [place] [id number] [facility] 103 May, PELVIC PAIN 625.9 OBGYN [place], [place] [id number] [facility] 103 May, PELVIC PAIN 625.9 OBGYN [place], [place] [id number] [facility] 103 May, PELVIC PAIN 625.9 OBGYN [place], [place] [id number] [facility] 103 Apr, OBGYN [place], [place] [id number] [facility] 103 Apr, Dysuria 788.1 and HEMATURIA OBGYN [facility] NOS 599.70 [place], [place] [id number] [place] [facility] 103 Apr, PELVIC PAIN 625.9 OBGYN [place], [place] [id number] [facility] 103 Mar, OBGYN [place], [place] [id number] [place] [facility] 103 Mar, Ovarian cyst NOS 620.2 and OBGYN [facility] PELVIC PAIN 625.9 [place], [place] [id number] [place] [facility] 103 Mar, Ovarian cyst NOS 620.2 and OBGYN [facility] PELVIC PAIN 625.9 [place], [place] [id number] [facility] 103 Feb, OBGYN [place] [id number] [place] [facility] 103 Feb, Ovarian cyst NOS 620.2 and OBGYN [facility] PELVIC PAIN 625.9 [place], [place] [id number] [place] [facility] 103 Feb, Ovarian cyst NOS 620.2 and OBGYN [facility] PELVIC PAIN 625.9 [place], [place] [id number] [place] [facility] 103 Feb, PELVIC PAIN 625.9 and [facility] O[facility] cyst NOS 620.2 [place], [place] [id number] [place] [facility] 103 12 Feb, 2009 ROUTINE BANKING 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 [facility] V72.31 [place], [place] [id number] [place] [facility] 103 11 Feb, 2009 PELVIC PAIN 625.9 and OBGYN [facility] Ovarian cyst NOS 620.2 [place], [place] [id number] [place] [facility] 103 Feb, PELVIC PAIN 625.9 and [facility] O[facility] NOS 620.2 [place], [place] [id number] [place] [facility] 103 Feb, Menorrhagia 626.2 and OBGYN [facility] PELVIC PAIN 625.9 [place], [place] [id number] [place] [facility] 103 January, OBGYN [place], [place] [id number] [place] [facility] 103 January, Menorrhagia 626.2 and OBGYN [facility] Irregular bleeding NOS [place], [place] [id number] 626.4 [facility] 103 January, Menorrhagia 626.2 OBGYN [place], [place] [id number] [facility] 103 Nov, OBGYN [place] [id number] [facility] 103 Nov, Menorrhagia 626.2 [place]YN [place], [place] [id number] [place] [facility] 103 Jun, O[place]YN [place], [place] [id number] [facility] 103 Jun, Menorrhagia 626.2 OBGYN [place], [place] [id number] [facility] 103 Jun, Menorrhagia 626.2 OBGYN [place], [place] [id number] [facility] 103 May, OBGYN [place], [place] [id number] [place] [facility] 103 May, Menorrhagia 626.2 and OBGYN [facility] PELVIC PAIN 625.9 [place], [place] [id number] [place] [facility] 103 May, Ovarian cyst NOS 620.2 OBGYN [place], [place] [id number] [place] [facility] 103 May, Ovarian cyst NOS 620.2 and OBGYN [facility] PELVIC PAIN 625.9 [place], [place] [id number] [place] [facility] 103 May, OBGYN [place], [place] [id number] [place] [facility] 103 Apr, Cervical polyp 622.7 OBGYN [place], [place] [id number] [place] [facility] 103 Sep, OBGYN [place], [place] [id number] [facility] 103 Sep, OBGYN [place], [place] [id number] [facility] 103 Sep, OBGYN [place], [place] [id number] [place] [facility] 103 Sep, Menorrhagia 626.2 OBGYN [place], [place] [id number] [facility] 103 Aug, OBGYN [place], [place] [id number] [place] [facility] 103 Aug, Menorrhagia 626.2 [place]YN [place] [id number] [facility] 103 Jun, OBG[place], [place] [id number] [place] [facility] 103 Jun, OBGYN [place], [place] [id number] [facility] 103 Jun, OBGYN [place], [place] [id number] [place] [facility] 103 Jun, Menorrhagia 626.2 OBGYN [place], [place] [id number] [facility] 103 May, Menorrhagia 626.2 OBGYN [place], [place] [id number] [place] [facility] 103 May, Menorrhagia 626.2 OBGYN [place], [place] [id number] [facility] 103 Apr, PELVIC PAIN 625.9 OBGYN [place], [place] [id number] [facility] 103 Apr, PELVIC PAIN 625.9 O[place]YN [place], [place] [id number] [place] [facility] 103 14 Apr, 2007 OBGYN [place], [place] [id number] [place] [facility] 103 Apr, ROUTINE BANKING 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 OBGYN [facility] V72.31 ; Dysuria 788.1 ; [place], [place] [id number] PELVIC PAIN 625.9 and Hemorrhoids NOS 455.6 [place] [facility] 103 Mar, Ovarian cyst NOS 620.2 OBGYN [place], [place] [id number] [place] [facility] 103 Mar, OBGYN [place], [place] [id number] [place] [facility] 103 Mar, Ovarian cyst NOS 620.2 OBGYN [place], [place] [id number] [facility] 103 Feb, OBGYN [place], [place] [id number] [facility] 103 January, Menorrhagia 626.2 ; Ovarian OBGYN [facility] cyst NOS 620.2 and PELVIC [place], [place] [id number] PAIN 625.9 [place] [facility] 103 January, Menorrhagia 626.2 ; Ovarian OBGYN [facility] cyst NOS 620.2 and PELVIC [place], [place] [id number] PAIN 625.9 [place] [facility] 103 January, Ovarian cyst NOS 620.2 ; OBGYN [facility] PELVIC PAIN 625.9 and [place], [place] [id number] Irregular bleeding NOS 626.4 [place] [facility] 103 January, Ovarian cyst NOS 620.2 and OBGYN [facility] PELVIC PAIN 625.9 [place], [place] [id number] [place] [facility] 103 Aug, OBGYN [place], [place] [id number] [facility] 103 Aug, OBGYN [place], [place] [id number] [facility] 103 13 Aug, 2006 OBGYN [place], [place] [id number] [facility] 103 Aug, Menorrhagia 626.2 ; OBGYN [facility] Follicular cyst of ovary [place], [place] [id number] 620.0 and Dysmenorrhea 625.3 [place] [facility] 103 Jun, Menorrhagia 626.2 and OBGYN [facility] Ovarian cyst NOS 620.2 [place], [place] [id number] [place] [facility] 103 Feb, Candidal vulvovaginitis OBGYN [facility] 112.1 [place], [place] [id number] [place] [facility] 103 Dec, [place] [id number] [place] [facility] 103 Oct, Mastalgia 611.71 OBGYN [place], [place] [id number] [place] [facility] 103 Oct, Follicular cyst of ovary OBGYN [facility] 620.0 [place], [place] [id number] [place] [facility] 103 Sep, Follicular cyst of ovary OBGYN [facility] 620.0 and Dysmenorrhea [place], [place] [id number] 625.3 UNKNOWN Aug, [place] [facility] 103 Aug, Follicular cyst of ovary OBGYN [facility] 620.0 and Dysmenorrhea [place], [place] [id number] 625.3 UNKNOWN Aug, [place] [facility] 103 Aug, Menorrhagia 626.2 OBGYN [place], [place] [id number] [place] [facility] 103 Aug, OBGYN [place], [place] [id number] [place] [facility] 103 Aug, PREMENOPAUSE MENORRHAGIA OBGYN [facility] 627.0 and Menorrhagia 626.2 [place], [place] [id number] UNKNOWN Jul, [facility] 103 28 Jul, 2005 Abrasion or friction burn OBGYN [facility] of vagina without infection [place], [place] [id number] 911.0 IMMUNIZATIONS No Known Immunizations SOCIAL HISTORY Never Assessed REASON FOR REFERRAL FUNCTIONAL STATUS PLAN OF CARE VITAL SIGNS MEDICATIONS Medication Instructions Dosage Frequency Start End Date Duration Status Date Estradiol intravaginally 2 1 g Apr, day(s) Active Vaginal 0.1 times a week 2017 mg/g PROCEDURES No Known procedures RESULTS No Results REASON FOR VISIT premarin MEDICAL (GENERAL) HISTORY Type Description Date Medical History Esophageal reflux Medical History Genital herpes Medical History Atopic dermatitis Medical History high cholesterol Medical History stroke Medical History pneumonia Medical History px COPD Medical History Barretts Esophegus Medical History hx CVA Medical History anxiety Medical History costochondritis Surgical History hysteroscopy,D&C 8 Surgical History LSO Surgical History D&C Surgical History D&C 12-14 Surgical History Hysteroscopy/D&C/polypectomy/Mirena removal and 01/05/13 Mal Surgical History colonoscopy 03/2014 Surgical History US guided hysteroscopy, D&C 12/14/14 Surgical History endoscopy and colonoscopy- Dr. Reinoso 10/11/15 Surgical History hysteroscopy, D&C 09/25/16 Surgical History stent put in pancreas 02/2018 Hospitalization History see above Hospitalization History childbirth Hospitalization History mini stroke 05/2014 Hospitalization History GERD 11/27? Hospitalization History Pneumonia 2016 Hospitalization History chest pain - acid reflux 08/25/16
--- OUTSIDE RECORDS SUMMARY | 2018-04-30 15:04 | XMS REPORT ---
:1960 External Reference #:[id number] Author Organization [facility] Address [address], [address] [place] [address] Phone [phone] Care Team Providers Name Role Phone Galen Rose PA Care Team Information Station Cleaning Porter Unavailable Ashley Piper MD Primary Care Physician Unavailable Payers Type Date Identification Numbers Payment Provider Subscriber Medicaid Expires: 2017 Policy Number: [id number] Medicaid Ashley Whitmore PayID: [id number] [address] [place] [address] Commercial Expires: 2017 Policy Number: [id number] [place] Medicaid Ashley Myranda PayID: [id number] [address] [place] [address] Commercial Policy Number: [id number] [place] Medicare Ashley Myranda PayID: [id number] [address] [place] [address] Problems Date Description Provider Status Onset: 08/24/2015 [...] Capsules 145mcg 90cap 1 cap by K58.9 [facility] 2015 s mouth Vatra, every M.D. night, hold for unformed bm Osmoprep 09/14/ Hx Tablets 1.102-0.39 32tab 4 tab PO q R19.5 [facility] 2015 - 8gm s 15' x 5 Vatra, 10/31/ doses M.D. 2015 evening; repeat regimen x3 doses 3 - 5 h morning; give each dose w/ 8 oz of clear liquids Lidocaine 09/05/ Hx Cream 5% 90gm Apply to [facility] (Anorectal) 2014 - perianal Vatra, 02/26/ area qid M.D. 2015 prn Linzess 08/24/ Hx Capsules 290mcg 90cap take 1 K58.9 [facility] 2014 - s capsule Vatra, 09/14/ (290 mcg) M.D. 2014 by mouth daily on empty stomach (hold for unformed bm) Anusol-HC 08/24/ Hx Cream 2.5% 60gm apply to K58.9 [facility] 2014 - perianal Vatra, 09/05/ area tid [...] x 5 days Nystatin / Hx Cream [id number] AD Adeline 0000 /GM Ashley mckeon MD Acyclovir / Hx Tablets 800mg Take 1 Unknown 0000 - Tablet By 2018 Every 8 Hours For 5 Days Medications Administered in Office Medication Date Status Form Strength Qnty SIG Indications Ordering Provider Depomedrol 80 Administered Injection Opal S. mg 018 [place] [facility] Vital Signs Date Vital Result Comment 04/08/2018 BP Systolic Sitting Left Arm 110 mmHg BP Diastolic Sitting Left Arm 78 mmHg Heart Rate 67 /min Respiratory Rate 18 /min Height 62 inches 5'2" Weight 145.00 lb BMI (Body Mass Index) 26.5 kg/m2 BSA (Body Surface Area) 1.67 m2 [place] body weight in kilograms 50 O2 % BldC Oximetry 98 % Ora 03/19/2018 BP Systolic Sitting Left Arm 115 mmHg BP Diastolic Sitting Left Arm 68 mmHg Heart Rate 90 /min Respiratory Rate 18 /min Height 62 inches 5'2" Weight 151.00 lb BMI (Body Mass Index) 27.6 kg/m2 BSA (Body Surface Area) 1.70 m2 [place] body weight in kilograms 50 O2 % BldC Oximetry 96 % 01/06/2018 BP Systolic Sitting Left Arm 120 mmHg BP Diastolic Sitting Left Arm 76 mmHg Heart Rate 63 /min Respiratory Rate 16 /min Height 62 inches 5'2" Weight 154.00 lb BMI (Body Mass Index) 28.2 kg/m2 BSA (Body Surface Area) 1.71 m2 [place] body weight in kilograms 50 11/25/2017 BP Systolic Sitting Left Arm 115 mmHg BP Diastolic Sitting Left Arm 78 mmHg Heart Rate 89 /min Respiratory Rate 18 /min Height 62 inches 5'2" Weight 156.00 lb BMI (Body Mass Index) 28.5 kg/m2 BSA (Body Surface Area) 1.72 m2 [place] body weight in kilograms 50 11/24/2017 BP Systolic Sitting Left Arm 121 mmHg BP Diastolic Sitting Left Arm 82 mmHg Body Temperature 98.3 F Heart Rate 87 /min Respiratory Rate 18 /min Height 62 inches 5'2" Weight 154.00 lb BMI (Body Mass Index) 28.2 kg/m2 BSA (Body Surface Area) 1.71 m2 [place] body weight in kilograms 50 11/18/2017 BP Systolic Sitting Left Arm 132 mmHg BP Diastolic Sitting Left Arm 82 mmHg Heart Rate 86 /min Respiratory Rate 16 /min Height 62 inches 5'2" Weight 149.00 lb BMI (Body Mass Index) 27.2 kg/m2 BSA (Body Surface Area) 1.69 m2 [place] body weight in kilograms 50 10/20/2017 BP Systolic Sitting Left Arm 115 mmHg BP Diastolic Sitting Left Arm 72 mmHg Heart Rate 75 /min Height 62 inches 5'2" Weight 154.00 lb BMI (Body Mass Index) 28.2 kg/m2 BSA (Body Surface Area) 1.71 m2 [place] body weight in kilograms 50 08/20/2017 BP Systolic Sitting Left Arm 120 mmHg BP Diastolic Sitting Left Arm 80 mmHg Heart Rate 80 /min Respiratory Rate 16 /min Height 62 inches 5'2" Weight 152.00 lb BMI (Body Mass Index) 27.8 kg/m2 BSA (Body Surface Area) 1.70 m2 [place] body weight in kilograms 50 05/21/2017 BP Systolic Sitting Left Arm 132 mmHg BP Diastolic Sitting Left Arm 88 mmHg Heart Rate 74 /min Respiratory Rate 16 /min Height 62 inches 5'2" Weight 152.00 lb BMI (Body Mass Index) 27.8 kg/m2 BSA (Body Surface Area) 1.70 m2 [place] body weight in kilograms 50 04/23/2017 BP Systolic Sitting Left Arm 140 mmHg BP Diastolic Sitting Left Arm 80 mmHg Heart Rate 84 /min Respiratory Rate 16 /min Height 62 inches 5'2" Weight 153.00 lb BMI (Body Mass Index) 28.0 kg/m2 BSA (Body Surface Area) 1.71 m2 [place] body weight in kilograms 50 04/02/2017 BP Systolic Sitting Left Arm 118 mmHg BP Diastolic Sitting Left Arm 82 mmHg Heart Rate 90 /min Respiratory Rate 16 /min Height 62 inches 5'2" Weight 154.00 lb BMI (Body Mass Index) 28.2 kg/m2 BSA (Body Surface Area) 1.71 m2 [place] body weight in kilograms 50 O2 % BldC Oximetry 98 % on room air 03/20/2017 BP Systolic Sitting Left Arm 118 mmHg BP Diastolic Sitting Left Arm 78 mmHg Heart Rate 88 /min Respiratory Rate 18 /min Height 62 inches 5'2" Weight 155.00 lb BMI (Body Mass Index) 28.3 kg/m2 BSA (Body Surface Area) 1.72 m2 [place] body weight in kilograms 50 02/27/2017 BP Systolic Sitting Left Arm 122 mmHg BP Diastolic Sitting Left Arm 80 mmHg Heart Rate 69 /min Respiratory Rate 16 /min Height 62 inches 5'2" Weight 155.00 lb BMI (Body Mass Index) 28.3 kg/m2 BSA (Body Surface Area) 1.72 m2 [place] body weight in kilograms 50 12/12/2016 BP Systolic Sitting Left Arm 110 mmHg BP Diastolic Sitting Left Arm 78 mmHg Heart Rate 97 /min Respiratory Rate 16 /min Height 62 inches 5'2" Weight 154.00 lb BMI (Body Mass Index) 28.2 kg/m2 BSA (Body Surface Area) 1.71 m2 [place] body weight in kilograms 50 10/08/2016 BP [...] (M2) Antibodies 3.6 units 0.0-20.0 1, 3 Yxvmy-0-Culozkwvggk,Serum 141 mg/dL 90-200 1 Ceruloplasmin 23.8 mg/dL 19.0-39.0 1 Protein Electro.,S 05/22/2017 Protein,Total,Serum 7.1 g/dL 6.0-8.5 1 Albumin 3.9 g/dL 2.9-4.4 1 Ukhdz-7-Fuayhqav 0.2 g/dL 0.0-0.4 1 Fjold-1-Glomdeii 0.8 g/dL 0.4-1.0 1 Beta Globulin 1.1 [...] HCV Rna Copies Log 10 (SEE NOTE) [id number] 1, 12 Test Information: (SEE NOTE) 1, [...] scan will follow via computer, mail, or news wire photo operator delivery. 5 The SPE pattern appears essentially unremarkable. Evidence of monoclonal protein is not apparent. 6 INFCE Result Units: s/co ratio Negative: < 0.8 Indeterminate: 0.8 - 0.9 Positive: > 0.9 The CDC recommends that a positive HCV antibody result be followed up with a HCV Nucleic Acid Amplification test (773814). Performed at: [facility] [address] [id number] Design Printing Machine Setter: Fiordaliza Henry MD, Phone: [phone] Negative 0 - 19 Weak Positive [...] 100 - 200 Normal: >200 Performed at: [address] [id number] [employer] Printing Machine Setter: Fiordaliza Henry MD, Phone: [phone] Performed at: [address] [id number] Design Printing Machine Setter: Francisco Flores MD, Phone: [phone] Method: Sediplast Modified [place] 32 Negative [...] 6 - 9 Positive >9 Performed at: [facility] [address] [id number] Design Printing Machine Setter: Fiordaliza Henry MD, Phone: [phone] Performed at: [address] [id number] [employer] Printing Machine Setter: Francisco Flores MD, Phone: [phone] Note: Persistent reduction for 3 months [...] Date CPT Code Description Status Comment 02/05/2018 61119 Eye Exam Est Patient Completed Comprehensive 12/30/2017 44335 Echocardiogram Complete Completed 12/30/2017 43602 Stress Test Interpre And Report Completed Only 12/30/2017 12689 Stress Test Physician Super Only Completed 11/25/2017 68557 EKG-Tracing And Report Completed 11/24/2017 20834 Asp./Injection major joint Completed 10/20/2017 78168 Radiology, Knee 3 Views Completed 07/23/2017 25551 Extracapsular Cataract Extraction Completed W/Intraocular Lens 07/15/2017 30400 Ophthalmic Biometry By Partial Completed Coherence Interferometry W/Intra 07/07/2017 59249 Gonioscopy Completed 07/07/2017 15457 Eye Exam Est Patient Completed Comprehensive 02/11/2017 42552 Bronchospasm Provocation Completed Evaluation Multi Spirometric Determinati 02/11/2017 12327 Spirometry Completed 05/13/2016 23406 EGD With Biopsy Completed 04/29/2016 60982 Spirometry Completed 04/29/2016 31288 Bronchospasm Provocation Completed Evaluation Multi Spirometric Determinati 11/30/2015 60236 Gonioscopy Completed 11/30/2015 39939 Eye Exam New Patient Completed Comprehensive 10/11/2015 69454 Colonoscopy With Biopsy Completed 10/11/2015 98289 Endoscopy Small Intestine Completed W/Biopsy 10/11/2015 Colonoscopy Completed Document: 10/11/15 - Operative Report 12/21/2014 57897 ECHO Transthoracic Inc Completed Performance Continuous Electrocardio 12/19/2014 77648 Echocardiogram Complete Completed 12/19/2014 40569 EKG Interpretation And Report Completed Only 12/14/2014 56412 Anesthesia, Hysteroscopy, Completed Hystersalpingography 04/04/2014 Colonoscopy Completed Document: 04/04/14 - Operative Report 01/05/2013 32451 Anesthesia, Hysteroscopy, Completed Hystersalpingography 01/04/2013 39884 EKG Interpretation And Report Completed Only 02/26/2010 Colonoscopy Completed Document: 02/26/10 - Operative Report Encounters Type Date Location Provider CPT E/M Dx Office Visit 04/08/2018 1:00p Cardiology Office Alex Walter, 30247 R07.9 Yasir, [facility] Office Visit 03/19/2018 4:00p [place] [address] R07.89 R06.02 Office Visit 01/06/2018 11:20a Cardiology Office JON Tariq 04378 R07.9 G45.9 E78.5 K86.9 Office Visit 11/25/2017 10:40a Cardiology Office JON Tariq 14258 R07.9 G45.9 E78.5 Office Visit 11/18/2017 1:45[place] [address] K86.9 Office Visit 10/20/2017 11:15a Orthopaedic Office Opal GutierrezRoni Lazo, [address]36 M25.561 [facility] M17.11 Office Visit 08/20/2017 11:15[place] [address] K86.9 R94.5 Office Visit 05/21/2017 1:15[place] [address] K86.9 R94.5 Office Visit 04/23/2017 11:30[place] [address] K86.9 R19.4 Office Visit 04/02/2017 3:45p [place] [address] R07.9 R06.02 Office Visit 03/20/2017 1:15[place] [address] R10.84 Office Visit 02/27/2017 9:00[place] [address] R10.84 K85.90 Office Visit 12/12/2016 1:15[place] [address] K85.90 Office Visit 10/08/2016 11:00[place] [address] K21.9 R10.84 Office Visit 07/18/2016 2:30p [place] [address] R06.02 K21.9 R07.9 Office Visit 05/08/2016 1:00p [place] [address] R07.0 K22.70 Office Visit 04/24/2016 3:30p [place] [address] R06.02 K21.9 Office Visit 02/27/2016 3:30p BENNETT Reinoso M.D. 77366 K58.9 K22.70 K21.9 K86.1 Office Visit 10/31/2015 9:15a BENNETT Reinoso M.D. 07105 K58.9 K22.70 K21.9 K86.1 Office Visit 09/14/2015 10:15a BENNETT Reinoso M.D. 45909 R19.5 K58.9 K22.70 K21.9 K86.1 Office Visit 08/24/2015 1:00p BENNETT Antoine PA-C 59888 K58.9 R19.5 K22.70 K21.9 K86.1 K64.9 Office Visit 04/25/2015 11:21a Cardiology Office Alex Walter, 58419 786.50 MMalka, FACC 401.1 Office Visit 12/19/2014 9:34a [place] [address] 786.50 Office Visit 11/24/2012 1:30p [place] [address] 844.9 E001.1 Plan of Care Future Appointment(s):08/28/2018 9:30 am - Dion Nettles MD at [facility]/ 25/2018 - Alex Walter M.D., FACCR07.9 Chest pain, unspecifiedComments: Resolved. No ischemia in her stress test. The echo was normal as well as her ECG. She will not return for regular follow ups. Will call us if needed.AllFollow up:Follow up with us on a PRN basis.
--- OUTSIDE RECORDS SUMMARY | 2018-04-30 15:04 | XMS REPORT ---
:[address] [facility] Address [address] [place] [address] Care Team Providers Name Role Phone Tiera Ferrara Unavailable Unavailable PROBLEMS Type Condition ICD9-CM Code [id number] Onset Condition SNOMED Code Code Dates Status Problem Postmenopausal N95.0 Active 63985635 bleeding Problem Rash and other R21 Active 036801247 nonspecific skin eruption Problem Dysuria R30.0 Active 27634859 Problem Pelvic and perineal R10.2 Active 288805725 pain Problem Mastodynia N64.4 Active 23318538 Problem Postmenopausal N95.2 Active 26174471 atrophic vaginitis Problem Candidiasis, B37.9 Active 10199581 unspecified ALLERGIES Substance Reaction Event Type Date Status penicillin hives Drug Allergy Apr, Active Pneumovax 23 swelling, itching, hives Drug Allergy Apr, Active ENCOUNTERS Encounter Location Date Diagnosis [facility] 103 Apr, [place] [id number] [facility] 103 Apr, [place] [id number] [facility] 103 Apr, Encounter for gynecological OBN [facility] examination (general) [place], [place] [id number] (routine) without abnormal findings Z01.419 ; Encounter for screening for malignant neoplasm of cervix Z12.4 ; Encounter for screening for malignant neoplasm of colon Z12.11 ; Encounter for screening mammogram for malignant neoplasm of breast Z12.31 ; Postmenopausal atrophic vaginitis N95.2 and Dysuria R30.0 [facility] 103 Feb, Postmenopausal atrophic OBGYN [facility] vaginitis N95.2 [place], [place] [id number] [facility] 103 Feb, Pelvic and perineal pain OBGYN [address] R10.2 and Dysuria R30.0 [place], [place] [id number] [facility] 103 Feb, Pelvic and perineal pain OBGYN [facility] R10.2 ; Dysuria R30.0 and [place], [place] [id number] Postmenopausal atrophic vaginitis N95.2 [facility] 103 Feb, Pelvic and perineal pain OBGYN [facility] R10.2 [place], [place] [id number] [facility] 103 January, Rash and other nonspecific OBGYN [facility] skin eruption R21 [place], [place] [id number] [facility] 103 January, [place]BG[place] [id number] [facility] 103 January, [place]BG[place] [id number] [facility] 103 January, Dysuria R30.0 ; Pelvic and OBGYN [facility] perineal pain R10.2 ; [place], [place] [id number] Mastodynia N64.4 and Other specified noninflammatory disorders of vagina N89.8 [facility] 103 Dec, Candidiasis, unspecified OBGYN [facility] B37.9 [place], [place] [id number] [facility] 103 Dec, Candidiasis, unspecified OBGYN [facility] B37.9 [place], [place] [id number] [facility] 103 Dec, Candidiasis, unspecified OBGYN [facility] B37.9 [place], [place] [id number] [facility] 103 Jun, Postmenopausal bleeding OBGYN [facility] N95.0 [place], [place] [id number] [facility] 103 Jun, [place] [id number] [facility] 103 Jun, [place], [place] [id number] [facility] 103 Jun, [place] [id number] [facility] 103 Jun, Postmenopausal bleeding OBGYN [facility] [place] [place], [place] [id number] [facility] 103 Jun, [place]BG[place] [id number] [facility] 103 Jun, Postmenopausal bleeding OBGYN [address] [id number] [facility] 103 Jun, Postmenopausal bleeding OBGYN [address] [id number] [facility] 103 Jun, [place] [id number] [facility] 103 Jun, [place] [id number] [facility] 103 Apr, Encounter for gynecological OBGYN [place] (general) [place], [place] [id number] (routine) with abnormal findings Z01.411 ; Dysuria R30.0 ; Encounter for screening mammogram for malignant neoplasm of breast Z12.31 and Encounter for screening for malignant neoplasm of colon Z12.11 [facility] 103 Mar, [place]BG[place] [id number] [facility] 103 Mar, [place] [id number] [facility] 103 Mar, [place] [id number] [facility] 103 Mar, Candidiasis of skin and OBGYN [facility] nail B37.2 [place], [place] [id number] [facility] 103 January, Mastodynia N64.4 [place] [id number] [facility] 103 Dec, Pelvic and perineal pain OBGYN [facility] R10.2 and Dysuria R30.0 [place], [place] [id number] [facility] 103 Dec, PELVIC PAIN 625.9 [place]BGYN [place] [id number] [facility] 103 Dec, Pelvic and perineal pain OBGYN [facility] R10.2 [place], [place] [id number] [facility] 103 Nov, Idiopathic urticaria L50.1 O[facility]YN [facility] and Mastodynia N64.4 [place], [place] [id number] [facility] 103 Oct, Generalized abdominal pain OBGYN [facility] R10.84 and Mastodynia N64.4 [place], [place] [id number] [facility] 103 Sep, Dermatitis, unspecified OBGYN [facility] L30.9 [place], [place] [id number] [facility] 103 Sep, Pelvic and perineal pain OBGYN [facility] R10.2 [place], [place] [id number] [facility] 103 Sep, Postmenopausal bleeding OBGYN [facility] N95.0 [place], [place] [id number] [facility] [address] [place] Sep, [facility] [place] [id number] [facility] 103 Sep, [place] [id number] [facility] 103 Sep, [place]BGYN [place] [id number] [facility] 103 Sep, Postmenopausal bleeding OBGYN [facility] N95.0 [place], [place] [id number] [facility] 103 Aug, Postmenopausal bleeding OBGYN [facility] N95.0 [place], [place] [id number] [facility] 103 Aug, Postmenopausal bleeding OBGYN [facility] N95.0 and Pelvic and [place], [place] [id number] perineal pain R10.2 [facility] 103 Jul, [place]BG[place], [place] [id number] [facility] 103 Jul, Postmenopausal bleeding OBGYN [facility] N95.0 and Pelvic and [place], [place] [id number] perineal pain R10.2 [facility] 103 Jul, [place], [place] [id number] [facility] 103 Jul, Mastodynia N64.4 ; OBGYN [facility] Postmenopausal bleeding [place], [place] [id number] N95.0 and Pelvic and perineal pain R10.2 [facility] 103 Jul, [place], [place] [id number] [facility] 103 Jun, Mastodynia N64.4 [place] [id number] [facility] 103 Jun, [place]BG[place], [place] [id number] [facility] 103 May, Mastodynia N64.4 [place] [id number] [facility] 103 Apr, Encounter for gynecological OBGYN [facility] examination (general) [place], [place] [id number] (routine) without abnormal findings Z01.419 ; Encounter for screening mammogram for malignant neoplasm of breast Z12.31 and Encounter for screening for malignant neoplasm of colon Z12.11 [facility] 103 27 Mar, 2016 Disorder of the skin and OBGYN [facility] subcutaneous tissue, [place], [place] [id number] unspecified L98.9 [facility] 103 January, Mastodynia N64.4 [place] [id number] [facility] 103 January, [place]BG[place] [id number] [facility] 103 Dec, Other pruritus L29.8 [place] [id number] [facility] 103 Dec, Dysuria R30.0 ; Pelvic and OBGYN [facility] perineal pain R10.2 and [place], [place] [id number] Postmenopausal bleeding N95.0 [facility] 103 Dec, Pelvic and perineal pain OBGYN [facility] R10.2 [place], [place] [id number] [facility] 103 Dec, Pelvic and perineal pain OBGYN [facility] R10.2 [place], [place] [id number] [facility] 103 Dec, Dysuria R30.0 [place] [id number] [facility] 103 Dec, Postmenopausal bleeding OBGYN [facility] N95.0 and Dysuria R30.0 [place], [place] [id number] [facility] 103 Nov, Postmenopausal bleeding OBGYN [facility] N95.0 [place], [place] [id number] [facility] 103 Nov, Postmenopausal bleeding OBGYN [facility] N95.0 [place], [place] [id number] [facility] 103 Nov, [place]BG[place] [id number] [facility] 103 Nov, Mastodynia N64.4 [place]YN [place], [place] [id number] [facility] 103 Aug, [place] [id number] [facility] 103 Aug, [place], [place] [id number] [facility] 103 Aug, Postmenopausal bleeding OBGYN [facility] N95.0 [place], [place] [id number] [facility] 103 Aug, Dysuria R30.0 and OBGYN [facility] Postmenopausal bleeding [place], [place] [id number] N95.0 [facility] 103 Jun, Postmenopausal bleeding OBN [facility] N95.0 [place], [place] [id number] [facility] 103 Jun, Postmenopausal bleeding [facility] [place] [id number] [facility] 103 Jun, [place] [id number] [facility] 103 Jun, [place], [place] [id number] [facility] 103 Jun, Postmenopausal bleeding OBGYN [facility] N95.0 and Dysuria R30.0 [place], [place] [id number] [facility] 103 May, [facility]1 [place] [id number] [facility] 103 May, Postmenopausal bleeding OBN [facility] 627.1 [place], [place] [id number] [facility] 103 May, Urinary frequency 788.41 ; OBGYN [facility] Postmenopausal bleeding [place], [place] [id number] 627.1 and Atrophic vulvovaginitis 627.3 [facility] 103 Mar, Mastalgia 611.71 [place] [id number] [facility] 103 Feb, Mastalgia 611.71 [place] [id number] [facility] 103 Feb, BREAST DISORDER NOS 611.9 [place] [id number] [facility] 103 January, [place] [id number] [facility] 103 Dec, DERMATITIS NOS 692.9 [place] [id number] [facility] 103 Dec, Postmenopausal bleeding [address] [id number] [facility] 103 Dec, [place] [id number] [facility] Dec, [place] [id number] [facility] [address] [place], Dec, [facility] [id number] [facility] 103 Nov, Postmenopausal bleeding [address] [id number] [facility] 103 Nov, [place] [id number] [facility] 103 Nov, [place] [id number] [facility] [address], Nov, [facility] [id number] [facility] 103 Nov, [place] [id number] [facility] 103 Oct, Postmenopausal bleeding OBN [address] [id number] [facility] 103 Oct, [place] [id number] [facility] 103 Oct, [place] [id number] [facility] 103 Oct, [place] [id number] [facility] 103 Oct, [place] [id number] [facility] 103 Oct, Postmenopausal bleeding OBGYN [facility] [address] [place] [id number] [facility] 103 Oct, [place], [place] [id number] [facility] 103 Oct, Postmenopausal bleeding OBN [facility] [address] [place] [id number] [facility] 103 Oct, Dysuria 788.1 and OBGYN [facility] Postmenopausal bleeding [place], [place] [id number] 627.1 [facility] 103 Jul, Dysuria 788.1 [place]YN [place] [id number] [facility] 103 Jun, Atopic dermatitis 691.8 [place]BGYN [place], [place] [id number] [facility] 103 May, [place], [place] [id number] [facility] 103 May, OBG[place], [place] [id number] [facility] 103 Apr, 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 OBGYN [facility] V72.31 ; SCREEN MALIG [place], [place] [id number] NEOP-COLON V76.51 ; SCREEN MAMMOGRAM NEC V76.12 and Urinary tract infection NOS 599.0 [facility] 103 Apr, Breast Mass 611.72 [place], [place] [id number] [facility] 103 Apr, Dysuria 788.1 OBGYN [place], [place] [id number] [facility] 103 Dec, [place]BGYN [place], [place] [id number] [facility] 103 Dec, Hematuria, microscopic OBGYN [facility] 599.72 and Dysuria 788.1 [place], [place] [id number] [facility] 103 Dec, [place], [place] [id number] [facility] 103 Nov, Atopic dermatitis 691.8 [place]BGYN [place], [place] [id number] [facility] 103 Aug, [place] [id number] [facility] 103 Aug, [place] [id number] [facility] 103 Aug, [place] [id number] [facility] 103 Aug, Atopic dermatitis 691.8 [place] [id number] [facility] 103 Aug, [place] [id number] [facility] 103 Aug, [place] [id number] [facility] 103 Aug, [place] [id number] [facility] 103 Aug, [place] [id number] [facility] 103 Jul, Atopic eczema 691.8 and OBGYN [facility] BREAST DISORDER NOS 611.9 [place], [place] [id number] [facility] 103 Jul, [place] [id number] [facility] 103 Jul, Atopic eczema 691.8 and OBGYN [facility] BREAST DISORDER NOS 611.9 [place], [place] [id number] [facility] 103 Jul, [place]BG[place], [place] [id number] [facility] 103 Jul, HEMATURIA NOS 599.70 [place], [place] [id number] [facility] 103 May, OBGYN [place], [place] [id number] [facility] 103 Apr, GYNECOLOGIC EXAMINATION OBGYN [facility] V72.31 ; PAP SMEAR W/O SILVERING 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 [place], [place] [id number] EXAM V76.2 ; SCREEN MALIG NEOP-COLON V76.51 and SCREEN MAMMOGRAM NEC V76.12 [facility] 103 Apr, [place]BG[place], [place] [id number] [facility] 103 Apr, PELVIC PAIN 625.9 [place]BGYN [place], [place] [id number] [facility] 103 Apr, Menometrorrhagia 626.2 ; [facility] 788.1 and PELVIC [place], [place] [id number] PAIN 625.9 [facility] 103 Mar, [place]BG[place], [place] [id number] [facility] 103 Mar, [place]BG[place], [place] [id number] [facility] 103 Mar, Hematuria, microscopic OBGYN [facility] 599.72 [place], [place] [id number] [facility] 103 Feb, [place] [id number] [facility] 103 Feb, [place], [place] [id number] [facility] 103 Feb, [place]BG[place], [place] [id number] [facility] 103 Feb, Menometrorrhagia 626.2 [place]BGYN [place], [place] [id number] [facility] 103 January, [place]BG[place] [id number] [place] [facility] [address] [facility] January, Menometrorrhagia [address] [place], [place] [id number] [facility] 103 January, [place] [id number] [facility] 103 January, [place], [place] [id number] [facility] 103 January, Menometrorrhagia 626.2 [place] [id number] [facility] [address] [place], Dec, [facility] [id number] [facility] 103 Dec, Menometrorrhagia 626.2 and OBGYN [facility] IUD SURVEILLANCE V25.42 [place], [place] [id number] [facility] 103 Dec, [place] [id number] [facility] 103 Dec, [place]BGYN [place] [id number] [facility] 103 Nov, [place]BG[place], [place] [id number] [place] [facility] [address] [facility] Nov, Menometrorrhagia [address] [place], [place] [id number] [facility] 103 Nov, Menometrorrhagia 626.2 [place] [id number] [facility] 103 Nov, Menometrorrhagia 626.2 [place]YN [place], [place] [id number] [facility] 103 Nov, Menometrorrhagia 626.2 ; OBGYN [facility] IUD SURVEILLANCE V25.42 and [place], [place] [id number] Endometrial polyp 621.0 [facility] 103 Nov, Menometrorrhagia 626.2 [place]BGYN [place], [place] [id number] [facility] 103 Oct, [place], [place] [id number] [facility] 103 Sep, [place]BG[place], [place] [id number] [facility] 103 Sep, [place]BG[place], [place] [id number] [facility] 103 Sep, [place], [place] [id number] [facility] 103 Sep, [place] [id number] [facility] 103 Sep, PELVIC PAIN 625.9 ; OBGYN [facility] HEMATURIA NOS 599.70 and [place], [place] [id number] Abdominal pain, right upper quadrant 789.01 [facility] 103 14 Sep, 2012 PELVIC PAIN 625.9 and IUD OBGYN [facility] SURVEILLANCE V25.42 [place], [place] [id number] [facility] 103 Sep, PELVIC PAIN 625.9 [place] [id number] [facility] 103 Aug, OBG[place] [id number] [place] [facility] 05 Jul, [address] bleeding [address] [place], 626.4 ; Hydrosalpinx 614.1 [place] [id number] and PELVIC PAIN 625.9 [facility] 103 Jul, Hydrosalpinx 614.1 and IUD OBGYN [facility] SURVEILLANCE V25.42 [place], [place] [id number] [facility] 103 Jun, OBGYN [place], [place] [id number] [facility] 103 Jun, Irregular bleeding NOS OBGYN [facility] 626.4 and Hydrosalpinx [place], [place] [id number] 614.1 [facility] 103 May, OBGYN [place], [place] [id number] [facility] 103 May, Irregular bleeding NOS OBGYN [facility] 626.4 [place], [place] [id number] [facility] 103 May, Irregular bleeding NOS OBGYN [facility] 626.4 [place], [place] [id number] [facility] 103 May, Irregular bleeding NOS OBGYN [facility] 626.4 and Menorrhagia 626.2 [place], [place] [id number] [facility] 103 May, Irregular bleeding NOS OBGYN [facility] 626.4 and PELVIC PAIN 625.9 [place], [place] [id number] [facility] 103 May, PELVIC PAIN 625.9 ; OBG[facility] Irregular bleeding NOS [place], [place] [id number] 626.4 and IUD SURVEILLANCE V25.42 [facility] 103 Apr, Irregular bleeding NOS OBGYN [facility] 626.4 and PELVIC PAIN 625.9 [place], [place] [id number] [facility] 103 Feb, OBGYN [place] [id number] [facility] 103 Feb, Irregular bleeding NOS OBGYN [facility] 626.4 ; PELVIC PAIN 625.9 [place], [place] [id number] and Abdominal pain, epigastric 789.06 [facility] 103 Nov, Vitamin D deficiency [facility] 268.9 [place], [place] [id number] [facility] 103 Nov, [place] [id number] [facility] 103 Nov, Irregular bleeding NOS [facility] 626.4 and IUD SURVEILLANCE [place], [place] [id number] V25.42 [facility] 103 Nov, ROUTINE SILVERING 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 [facility] V72.31 ; Irregular bleeding [place], [place] [id number] NOS 626.4 ; PAP SMEAR W/O SILVERING 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 EXAM V76.2 ; IUD SURVEILLANCE V25.42 and SCREEN MALIG NEOP-COLON V76.51 [facility] 103 16 Nov, 2011 [place] [id number] [facility] 15 Nov, 2011 Irregular bleeding NOS [facility] 626.4 and IUD SURVEILLANCE [place] [id number] V25.42 [facility] 103 Nov, [place] [id number] [facility] 103 Oct, Irregular bleeding NOS [facility] 626.4 [place], [place] [id number] [facility] 103 Oct, [place] [id number] [facility] 103 Sep, [place] [id number] [facility] 103 Sep, GENITAL HERPES NOS 054.10 [place] [id number] [facility] 103 Sep, [place] [id number] [facility] 103 Sep, [place]BGYN [place], [place] [id number] [facility] 103 Sep, Gross hematuria 599.71 OBGYN [place], [place] [id number] [facility] 103 Aug, [place]BG[place], [place] [id number] [facility] 103 Aug, HEMATURIA NOS 599.70 OBGYN [place], [place] [id number] [facility] 103 Aug, Abdominal pain, generalized OBG[facility] 789.07 ; Irregular bleeding [place], [place] [id number] NOS 626.4 and Dysuria 788.1 [facility] 103 Aug, PELVIC PAIN 625.9 and IUD OBGYN [facility] SURVEILLANCE V25.42 [place], [place] [id number] [facility] 103 Jul, Abdominal pain, generalized OBGYN [facility] 789.07 and Irregular [place], [place] [id number] bleeding NOS 626.4 [facility] 103 Jul, [place]BG[place], [place] [id number] [facility] 103 Jun, Abdominal pain, generalized OBGYN [facility] 789.07 and Irregular [place], [place] [id number] bleeding NOS 626.4 [facility] 103 May, Abdominal pain, right lower OBGYN [facility] quadrant 789.03 and [place], [place] [id number] Irregular bleeding NOS 626.4 [facility] 103 Apr, [place]BGYN [place] [id number] [facility] 103 Apr, IUD SURVEILLANCE V25. [place] [id number] [facility] 103 Mar, INSERTION OF IUD V25.11 [place]BGYN [place], [place] [id number] [facility] 103 Feb, [place]BG[place] [id number] [facility] 103 Feb, [place]BG[place], [place] [id number] [facility] 103 Feb, Menorrhagia 626.2 ; Ovarian O[facility] cyst NOS 620.2 and [place], [place] [id number] Dysmenorrhea 625.3 [facility] 103 Feb, OBGYN [place], [place] [id number] [facility] [address] [place], Feb, [facility] [id number] [facility] 103 Feb, Menorrhagia 626.2 ; Ovarian OBGYN [facility] cyst NOS 620.2 and [place], [place] [id number] Dysmenorrhea 625.3 [facility] 103 January, [place]BG[place] [id number] [facility] 103 January, Menorrhagia 626.2 ; Ovarian OBGYN [facility] cyst NOS 620.2 and [place], [place] [id number] Dysmenorrhea 625.3 [facility] 103 January, Ovarian cyst NOS 620.2 ; OBGYN [facility] Menorrhagia 626.2 and [place], [place] [id number] Dysmenorrhea 625.3 [facility] 103 Nov, [place]BG[place], [place] [id number] [facility] Nov, ROUTINE SILVERING 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 OBGYN [facility] V72.31 and PAP SMEAR W/O [place], [place] [id number] SILVERING 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 EXAM V76.2 [facility] Nov, [place] [id number] [facility] 103 15 Nov, 2010 Menorrhagia 626.2 and OBGYN [facility] Ovarian cyst NOS 620.2 [place], [place] [id number] [facility] 103 Nov, Menorrhagia 626.2 [place]BGYN [place], [place] [id number] [facility] 103 Nov, Menorrhagia 626.2 [place], [place] [id number] [facility] 103 Nov, Menorrhagia 626.2 and OBGYN [facility] Ovarian cyst NOS 620.2 [place], [place] [id number] [facility] 103 Oct, [place] [id number] [facility] 103 Oct, [place] [id number] [facility] 103 14 Oct, 2010 Menorrhagia 626.2 [place]YN [place], [place] [id number] [facility] 103 14 Feb, 2010 ROUTINE SILVERING 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 [facility] [place], [place] [id number] [facility] 103 May, PELVIC PAIN 625.9 OBGYN [place], [place] [id number] [facility] 103 May, PELVIC PAIN 625.9 [place], [place] [id number] [facility] 103 May, PELVIC PAIN 625.9 [place], [place] [id number] [facility] 103 Apr, [place], [place] [id number] [facility] 103 Apr, Dysuria 788.1 and HEMATURIA OBGYN [facility] NOS 599.70 [place], [place] [id number] [facility] 103 Apr, PELVIC PAIN 625.9 [place]YN [place], [place] [id number] [facility] 103 Mar, [place]BG[place], [place] [id number] [facility] 103 Mar, Ovarian cyst NOS 620.2 and OBGYN [facility] PELVIC PAIN 625.9 [place], [place] [id number] [facility] 103 Mar, Ovarian cyst NOS 620.2 and OBGYN [facility] PELVIC PAIN 625.9 [place], [place] [id number] [facility] 103 Feb, [place], [place] [id number] [facility] 103 Feb, Ovarian cyst NOS 620.2 and OBGYN [facility] PELVIC PAIN 625.9 [place], [place] [id number] [facility] 103 15 Feb, 2009 Ovarian cyst NOS 620.2 and OBGYN [facility] PELVIC PAIN 625.9 [place], [place] [id number] [facility] 103 15 Feb, 2009 [facility]VIC PAIN 625.9 [facility] 620.2 [place], [place] [id number] [facility] 103 12 Feb, 2009 ROUTINE SILVERING 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 [facility] V[facility] [place], [place] [id number] [facility] 103 11 Feb, 2009 PELVIC PAIN 625.9 [facility]OS 620.2 [place], [place] [id number] [facility] 103 Feb, [facility]ELVIC PAIN 625.9 [facility]OS 620.2 [place], [place] [id number] [facility] 103 Feb, Menorrhagia 626.2 and OBGYN [facility] PELVIC PAIN 625.9 [place], [place] [id number] [facility] 103 January, [place]BG[place], [place] [id number] [facility] 103 January, Menorrhagia 626.2 and OBGYN [facility] Irregular bleeding NOS [place], [place] [id number] 626.4 [facility] 103 January, Menorrhagia 626.2 [place], [place] [id number] [facility] 103 Nov, [place], [place] [id number] [facility] 103 Nov, Menorrhagia 626.2 [place], [place] [id number] [facility] 103 Jun, [place]BG[place], [place] [id number] [facility] 103 Jun, Menorrhagia 626.2 [place], [place] [id number] [facility] 103 Jun, Menorrhagia 626.2 [place]YN [place], [place] [id number] [facility] 103 May, OBG[place], [place] [id number] [facility] 103 May, Menorrhagia 626.2 and OBGYN [facility] PELVIC PAIN 625.9 [place], [place] [id number] [facility] 103 May, Ovarian cyst NOS 620.2 [place], [place] [id number] [facility] 103 May, Ovarian cyst NOS 620.2 and OBGYN [facility] PELVIC PAIN 625.9 [place], [place] [id number] [facility] 103 May, [place], [place] [id number] [facility] 103 Apr, Cervical polyp 622.7 [place], [place] [id number] [facility] 103 Sep, [place], [place] [id number] [facility] 103 Sep, [place], [place] [id number] [facility] 103 Sep, [place], [place] [id number] [facility] 103 Sep, Menorrhagia 626.2 [place], [place] [id number] [facility] 103 Aug, [place], [place] [id number] [facility] 103 Aug, Menorrhagia 626.2 [place], [place] [id number] [facility] 103 Jun, [place]BG[place], [place] [id number] [facility] 103 Jun, [place], [place] [id number] [facility] 103 Jun, [place]BG[place], [place] [id number] [facility] 103 Jun, Menorrhagia 626.2 [place], [place] [id number] [facility] 103 May, Menorrhagia 626.2 [place], [place] [id number] [facility] 103 May, Menorrhagia 626.2 [place], [place] [id number] [facility] 103 Apr, PELVIC PAIN 625.9 [place], [place] [id number] [facility] 103 Apr, PELVIC PAIN 625.9 [place], [place] [id number] [facility] 103 Apr, [place], [place] [id number] [facility] 103 Apr, ROUTINE SILVERING 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 OBGYN [facility] V72.31 ; Dysuria 788.1 ; [place], [place] [id number] PELVIC PAIN 625.9 and Hemorrhoids NOS 455.6 [facility] 103 Mar, Ovarian cyst NOS 620.2 [place], [place] [id number] [facility] 103 Mar, [place]BG[place], [place] [id number] [facility] 103 Mar, Ovarian cyst NOS 620.2 [place], [place] [id number] [facility] 103 Feb, [place], [place] [id number] [facility] 103 January, Menorrhagia 626.2 ; Ovarian OBGYN [facility] cyst NOS 620.2 and PELVIC [place], [place] [id number] PAIN 625.9 [facility] 103 January, Menorrhagia 626.2 ; Ovarian OBGYN [facility] cyst NOS 620.2 and PELVIC [place], [place] [id number] PAIN 625.9 [facility] 103 January, Ovarian cyst NOS 620.2 ; OBGYN [facility] PELVIC PAIN 625.9 and [place], [place] [id number] Irregular bleeding NOS 626.4 [facility] 103 January, Ovarian cyst NOS 620.2 and OBGYN [facility] PELVIC PAIN 625.9 [place], [place] [id number] [facility] 103 Aug, [place], [place] [id number] [facility] 103 Aug, [place], [place] [id number] [facility] 103 Aug, [place], [place] [id number] [facility] 103 Aug, Menorrhagia 626.2 ; OBGYN [facility] Follicular cyst of ovary [place], [place] [id number] 620.0 and Dysmenorrhea 625.3 [facility] 103 Jun, Menorrhagia 626.2 and OBGYN [facility] Ovarian cyst NOS 620.2 [place], [place] [id number] [facility] 103 Feb, Candidal vulvovaginitis OBGYN [facility] 112.1 [place], [place] [id number] [facility] 103 Dec, [place], [place] [id number] [facility] 103 Oct, Mastalgia 611.71 [place]BGYN [place], [place] [id number] [facility] 103 Oct, Follicular cyst of ovary OBG[facility] 620.0 [place], [place] [id number] [facility] 103 Sep, Follicular cyst of ovary OBGYN [facility] 620.0 and Dysmenorrhea [place], [place] [id number] 625.3 UNKNOWN Aug, [facility] 103 Aug, Follicular cyst of ovary OBGYN [facility] 620.0 and Dysmenorrhea [place], [place] [id number] 625.3 UNKNOWN Aug, [facility] 103 Aug, Menorrhagia 626.2 [place], [place] [id number] [facility] 103 Aug, [place]BG[place], [place] [id number] [facility] 103 Aug, [facility]27.[facility] and Menorrhagia 626.2 [place], [place] [id number] UNKNOWN Jul, [facility] 103 Jul, Abrasion or friction burn [facility] of vagina without infection [place], [place] [id number] 911.0 IMMUNIZATIONS No Known Immunizations SOCIAL HISTORY Never Assessed REASON FOR REFERRAL FUNCTIONAL STATUS PLAN OF CARE Activity Details Follow Up 1 year annual Reason: Pending Test URINE CULTURE Pending Test ThinPrep Pap Test _ use Standing Order VITAL SIGNS Height 62 in 2018-04-23 Weight 145 lbs 2018-04-23 BMI 26.52 kg/m2 2018-04-23 Blood pressure systolic 124 mm Hg 2018-04-23 Blood pressure diastolic 62 mm Hg 2018-04-23 MEDICATIONS Medication Instructions Dosage Frequency Start End Duration Status Date Date aspirin 81 mg orally QD 1 tab(s) 24h Active Fish Oil 1200 mg orally qd 1 cap(s) 24h Active Triamcinolone applied topically 1 valente 8h January, day(s) Active Acetonide Topical to affected area 2017 0.1% 3 times a day Premarin Vaginal intravaginally 0.5 g Feb, day(s) Active 0.625 mg/g twice a week 2017 omeprazole 20 mg orally once a day 1 cap(s) 24h Active Premarin Vaginal intravaginally 0.5 grams Apr, day(s) Active 0.625 mg/g twice a week 2018 Hydrocortisone, applied topically 1 valente 8h Jun, day(s) Active Topical 2.5% 3 times a day 2017 naproxen 500 mg orally QD 1 tab(s) 24h Active PROCEDURES Procedure Date Ordered Result Body Site URINE-NO MICRO Apr 23, 2018 RESULTS Name Result Date Reference Range Urine dip Glucose blood protein Nitrite Leuko Urobilinogen Ke[place]one Bilirubin pH URINALYSIS WITH MICROSCOPIC 2018-04-23 URINE COLOR YELLOW YELLOW URINE CLARITY CLEAR CLEAR URINE GLUCOSE - DIPSTICK NEGATIVE NEGATIVE URINE BILIRUBIN - DIPSTICK NEGATIVE NEGATIVE URINE KETONE NEGATIVE NEGATIVE URINE SPECIFIC GRAVITY 1.010 1.010-1.030 URINE BLOOD NEGATIVE NEGATIVE URINE PH 6.5 6.5-7.5 URINE PROTEIN - DIPSTICK NEGATIVE NEGATIVE URINE UROBILINOGEN - DIPSTICK 0.2 0.2-1.0 URINE NITRITE - DIPSTICK NEGATIVE NEGATIVE URINE LEUK ESTERASE SMALL NEGATIVE REASON FOR VISIT Annual in April and f/u to [facility] MEDICAL (GENERAL) HISTORY Type Description Date Medical History Esophageal reflux Medical History Genital herpes Medical History Atopic dermatitis Medical History high cholesterol Medical History stroke Medical History pneumonia Medical History px COPD Medical History Barretts Esophegus Medical History hx CVA Medical History anxiety Medical History costochondritis Surgical History hysteroscopy,D&C 8- Surgical History LSO Surgical History D&C Surgical History D&C 12-14 Surgical History Hysteroscopy/D&C/polypectomy/Mirena removal and 01/05/13 Novasure Surgical History colonoscopy 03/2014 Surgical History US guided hysteroscopy, D&C 12/14/14 Surgical History endoscopy and colonoscopy- Dr. Reinoso 10/11/15 Surgical History hysteroscopy, D&C 09/25/16 Surgical History stent put in pancreas 02/2018 Hospitalization History see above Hospitalization History childbirth Hospitalization History mini stroke 05/2014 Hospitalization History GERD 11/27? Hospitalization History Pneumonia 2015 Hospitalization History chest pain - acid reflux 08/25/16
--- OUTSIDE RECORDS SUMMARY | 2018-04-30 15:05 | XMS REPORT ---
:1960 External Reference #:[id number] Author Organization [facility] Address [address], [address] [place] [address] Phone [phone] Care Team Providers Name Role Phone Galen Rose PA Care Team Information Division Order Analyst Unavailable Ashley Piper MD Primary Care Physician Unavailable Payers Type Date Identification Numbers Payment Provider Subscriber Medicaid Expires: 2017 Policy Number: [id number] Medicaid Ashley Whitmore PayID: [id number] [address] [place] [address] Commercial Expires: 2017 Policy Number: [id number] [place] [employer] Ashley Myranda PayID: [id number] [address] [place] [address] Commercial Policy Number: [id number] [place] Medicare Ashley Myranda PayID: [id number] [address] [place] [address] Problems Date Description Provider Status Onset: 08/24/2015 [...] Capsules 145mcg 90cap 1 cap by K58.9 [facility] 2015 s mouth Vatra, every M.D. night, hold for unformed bm Osmoprep 09/14/ Hx Tablets 1.102-0.39 32tab 4 tab PO q R19.5 [facility] 2015 - 8gm s 15' x 5 Vatra, 10/31/ doses M.D. 2015 evening; repeat regimen x3 doses 3 - 5 h morning; give each dose w/ 8 oz of clear liquids Lidocaine 09/05/ Hx Cream 5% 90gm Apply to [facility] (Anorectal) 2014 - perianal Vatra, 02/26/ area qid M.D. 2015 prn Linzess 08/24/ Hx Capsules 290mcg 90cap take 1 K58.9 [facility] 2014 - s capsule Vatra, 09/14/ (290 mcg) M.D. 2014 by mouth daily on empty stomach (hold for unformed bm) Anusol-HC 08/24/ Hx Cream 2.5% 60gm apply to K58.9 [facility] 2014 - perianal Vatra, 09/05/ area tid [...] x 5 days Nystatin / Hx Cream [id number] AD Villkarin 0000 /GM Ashley mckeon MD Acyclovir / Hx Tablets 800mg Take 1 Unknown 0000 - Tablet By 2018 Every 8 Hours For 5 Days Medications Administered in Office Medication Date Status Form Strength Qnty SIG Indications Ordering Provider Depomedrol 80 Administered Injection Opal S. mg 018 [place] [facility] Vital Signs Date Vital Result Comment 03/19/2018 BP Systolic Sitting Left Arm 115 mmHg BP Diastolic Sitting Left Arm 68 mmHg Heart Rate 90 /min Respiratory Rate 18 /min Height 62 inches 5'2" Weight 151.00 lb BMI (Body Mass Index) 27.6 kg/m2 BSA (Body Surface Area) 1.70 m2 [place] body weight in kilograms 50 O2 % BldC Oximetry 96 % 01/06/2018 BP Systolic Sitting Left Arm 120 mmHg BP Diastolic Sitting Left Arm 76 mmHg Heart Rate 63 /min Respiratory Rate 16 /min Height 62 inches 5'2" Weight 154.00 lb BMI (Body Mass Index) 28.2 kg/m2 BSA (Body Surface Area) 1.71 m2 [place] body weight in kilograms 50 11/25/2017 BP Systolic Sitting Left Arm 115 mmHg BP Diastolic Sitting Left Arm 78 mmHg Heart Rate 89 /min Respiratory Rate 18 /min Height 62 inches 5'2" Weight 156.00 lb BMI (Body Mass Index) 28.5 kg/m2 BSA (Body Surface Area) 1.72 m2 [place] body weight in kilograms 50 11/24/2017 BP Systolic Sitting Left Arm 121 mmHg BP Diastolic Sitting Left Arm 82 mmHg Body Temperature 98.3 F Heart Rate 87 /min Respiratory Rate 18 /min Height 62 inches 5'2" Weight 154.00 lb BMI (Body Mass Index) 28.2 kg/m2 BSA (Body Surface Area) 1.71 m2 [place] body weight in kilograms 50 11/18/2017 BP Systolic Sitting Left Arm 132 mmHg BP Diastolic Sitting Left Arm 82 mmHg Heart Rate 86 /min Respiratory Rate 16 /min Height 62 inches 5'2" Weight 149.00 lb BMI (Body Mass Index) 27.2 kg/m2 BSA (Body Surface Area) 1.69 m2 [place] body weight in kilograms 50 10/20/2017 BP Systolic Sitting Left Arm 115 mmHg BP Diastolic Sitting Left Arm 72 mmHg Heart Rate 75 /min Height 62 inches 5'2" Weight 154.00 lb BMI (Body Mass Index) 28.2 kg/m2 BSA (Body Surface Area) 1.71 m2 [place] body weight in kilograms 50 08/20/2017 BP Systolic Sitting Left Arm 120 mmHg BP Diastolic Sitting Left Arm 80 mmHg Heart Rate 80 /min Respiratory Rate 16 /min Height 62 inches 5'2" Weight 152.00 lb BMI (Body Mass Index) 27.8 kg/m2 BSA (Body Surface Area) 1.70 m2 [place] body weight in kilograms 50 05/21/2017 BP Systolic Sitting Left Arm 132 mmHg BP Diastolic Sitting Left Arm 88 mmHg Heart Rate 74 /min Respiratory Rate 16 /min Height 62 inches 5'2" Weight 152.00 lb BMI (Body Mass Index) 27.8 kg/m2 BSA (Body Surface Area) 1.70 m2 [place] body weight in kilograms 50 04/23/2017 BP Systolic Sitting Left Arm 140 mmHg BP Diastolic Sitting Left Arm 80 mmHg Heart Rate 84 /min Respiratory Rate 16 /min Height 62 inches 5'2" Weight 153.00 lb BMI (Body Mass Index) 28.0 kg/m2 BSA (Body Surface Area) 1.71 m2 [place] body weight in kilograms 50 04/02/2017 BP Systolic Sitting Left Arm 118 mmHg BP Diastolic Sitting Left Arm 82 mmHg Heart Rate 90 /min Respiratory Rate 16 /min Height 62 inches 5'2" Weight 154.00 lb BMI (Body Mass Index) 28.2 kg/m2 BSA (Body Surface Area) 1.71 m2 [place] body weight in kilograms 50 O2 % BldC Oximetry 98 % on room air 03/20/2017 BP Systolic Sitting Left Arm 118 mmHg BP Diastolic Sitting Left Arm 78 mmHg Heart Rate 88 /min Respiratory Rate 18 /min Height 62 inches 5'2" Weight 155.00 lb BMI (Body Mass Index) 28.3 kg/m2 BSA (Body Surface Area) 1.72 m2 [place] body weight in kilograms 50 02/27/2017 BP Systolic Sitting Left Arm 122 mmHg BP Diastolic Sitting Left Arm 80 mmHg Heart Rate 69 /min Respiratory Rate 16 /min Height 62 inches 5'2" Weight 155.00 lb BMI (Body Mass Index) 28.3 kg/m2 BSA (Body Surface Area) 1.72 m2 [place] body weight in kilograms 50 12/12/2016 BP Systolic Sitting Left Arm 110 mmHg BP Diastolic Sitting Left Arm 78 mmHg Heart Rate 97 /min Respiratory Rate 16 /min Height 62 inches 5'2" Weight 154.00 lb BMI (Body Mass Index) 28.2 kg/m2 BSA (Body Surface Area) 1.71 m2 [place] body weight in kilograms 50 10/08/2016 BP [...] Test Date Test Result H/L Range Note Neutrophils/leuk NFr 11/14/2017 Neutrophils/leuk NFr 64.0 40.4-72.8 Bld Auto Bld Auto Platelet poor plasma 11/14/2017 Platelet poor plasma 1.0 0.9-1.1 international international normalized rati normalized ratio (Inr) by coagulation assay (relative time) Potassium SerPl-sCnc 11/14/2017 Potassium SerPl-sCnc 3.7 3.5-5.1 Prothrombin time (PT) 11/14/2017 Prothrombin time (PT) 13.2 12.0-14.4 in platelet poor in platelet poor plasma plasma RDW RBC Auto 11/14/2017 RDW RBC Auto 39.1 3-47 RDW RBC Auto-Rto 11/14/2017 RDW RBC Auto-Rto 12.7 11.7-14.4 Serum carbon dioxide 11/14/2017 Serum carbon dioxide 24 21-32 measurement measurement Serum or plasma 11/14/2017 Serum or plasma 3.9 3.4-5.0 albumin measurement albumin measurement (mass/volume) (mass/volume) Serum or plasma 11/14/2017 Serum or plasma 116 45-117 alkaline phosphatase alkaline phosphatase measurement ( measurement (enzymatic activity/volume) Serum or plasma 11/14/2017 Serum or plasma 28 15-37 aspartate aspartate aminotransferase aminotransferase measure measurement (enzymatic activity/volume) Serum or plasma 11/14/2017 Serum or plasma 8.8 8.5-10.1 calcium measurement calcium measurement (mass/volume) (mass/volume) Serum or plasma 11/14/2017 Serum or plasma 117 26-192 creatine kinase creatine kinase measurement (enzym measurement (enzymatic activity/volume) Serum or plasma 11/14/2017 Serum or plasma 0.7 0.6-1.3 creatinine measurement creatinine measurement (mass/volum (mass/volume) Serum or plasma 11/14/2017 Serum or plasma 86 74-106 glucose measurement glucose measurement (mass/volume) (mass/volume) Serum or plasma 11/14/2017 Serum or plasma 8.0 6.4-8.2 protein measurement protein measurement (mass/volume) (mass/volume) Serum or plasma total 11/14/2017 Serum or plasma total 0.5 0.2-1.0 bilirubin measurement bilirubin measurement (mass/ (mass/volume) Serum or plasma urea 11/14/2017 Serum or plasma urea 15 7-18 nitrogen measurement nitrogen measurement (mass/vo (mass/volume) Serum sodium 11/14/2017 Serum sodium 144 136-145 measurement measurement Alt SerPl-cCnc 11/14/2017 Alt SerPl-cCnc 28 12-78 Activated partial 11/14/2017 Activated partial 27.8 23.4-35.0 thromboplastin time thromboplastin time (aPTT) in pl (aPTT) in platelet poor plasma by coagulation assay Albumin/Glob SerPl 11/14/2017 Albumin/Glob SerPl 1.0 Anion Gap SerPl-sCnc 11/14/2017 Anion Gap SerPl-sCnc 8 8-16 Automated blood 11/14/2017 Automated blood 0.04 0.0-0.1 basophil count basophil count (count/volume) (count/volume) Automated blood 11/14/2017 Automated blood 0.05 0.0-0.5 eosinophil count eosinophil count Automated blood 11/14/2017 Automated blood 41.3 36.0-46.1 hematocrit (volume hematocrit (volume fraction) fraction) Automated blood 11/14/2017 Automated blood 1.41 1.0-4.0 lymphocyte count lymphocyte count (number/volume) (number/volume) Automated blood 11/14/2017 Automated blood 212 155-360 platelet count platelet count Automated blood 11/14/2017 Automated blood 10.6 8.9-12.4 platelet mean volume platelet mean volume measurement measurement Automated erythrocyte 11/14/2017 Automated erythrocyte 30.0 25.9-32.7 mean corpuscular mean corpuscular hemoglobin hemoglobin (mass per erythrocyte) Automated erythrocyte 11/14/2017 Automated erythrocyte 34.6 High 30.8- 34.3 mean corpuscular mean corpuscular hemoglobin hemoglobin concentration measurement (mass/volume) Neutrophils # Bld Auto 11/14/2017 Neutrophils # Bld Auto 3.37 1.8-7.0 Monocytes/leuk NFr Bld 11/14/2017 Monocytes/leuk NFr Bld 7.4 4.3-13.2 Auto Auto Lymphocytes/leuk NFr 11/14/2017 Lymphocytes/leuk NFr 26.8 20.0-42.0 Bld Auto Bld Auto Globulin Ser Calc-mCnc 11/14/2017 Globulin Ser Calc-mCnc 4.1 1.9-4.3 Eosinophil/leuk NFr 11/14/2017 Eosinophil/leuk NFr 1.0 0.0-6.6 Bld Auto Bld Auto Chloride SerPl-sCnc 11/14/2017 Chloride SerPl-sCnc 112 High 98-107 Blood monocytes 11/14/2017 Blood monocytes 0.39 0.3-0.9 automated count automated count (number/volume) (number/volume) Blood leukocytes 11/14/2017 Blood leukocytes 5.3 3.1-10.7 automated count automated count (number/volume) (number/volume) Blood hemoglobin 11/14/2017 Blood hemoglobin 14.3 11.6-15.8 measurement measurement (mass/volume) (mass/volume) Blood erythrocytes 11/14/2017 Blood erythrocytes 4.77 3.90-5.40 automated count automated count (number/volume) (number/volume) Basophils/leuk NFr Bld 11/14/2017 Basophils/leuk NFr Bld 0.8 0.0-1.1 Auto Auto BUN/Creat SerPl 11/14/2017 BUN/Creat SerPl 21.4 Automated erythrocyte 11/14/2017 Automated erythrocyte 86.6 80.9-99.0 mean corpuscular mean corpuscular volume volume Serum or plasma 11/13/2017 Serum or plasma 2.4 1.8-2.4 magnesium measurement magnesium measurement (mass/volume (mass/volume) Serum or plasma 10/31/2017 Serum or plasma 134 High 25-115 amylase measurement amylase measurement (enzymatic act (enzymatic activity/volume) Serum or plasma lipase 10/31/2017 Serum or plasma lipase 409 High 56-289 measurement (enzymatic measurement (enzymatic acti activity/volume) Serum or plasma 10/28/2017 Serum or plasma 0.1 0.0-0.9 indirect bilirubin indirect bilirubin measurement (ma measurement (mass/volume) Iron-Tibc-%Sat 05/22/2017 Serum Iron 102 g/dL 50-170 1 Total Iron Binding Capacity 308 g/dL 250-450 1 Transferrin %Saturation 33 % 12-57 1 Laboratory test 05/22/2017 Ferritin 86 ng/mL 8-252 1 finding HCV Rna PCR,Quant 05/22/2017 Hepatitis C HCV Not Detected . 1, 2 Reflex [place] Quantitation IU/mL HCV Rna Copies Log 10 (SEE NOTE) [id number] 1, 3 Test Information: (SEE NOTE) 1, 4 HCV Genotype (SEE NOTE) 1, 5 Celiac Disease Comp AB Profile 05/22/2017 Immunoglobulin A 247 mg/dL 87- 352 1 Antigliadin Abs, IgG 5 units 0-19 1, 6 Antigliadin Abs, IgA 6 units 0-19 1, 7 Endomysial IgA Antibody Negative Negative 1 t-Transglutaminase IgA <2 U/mL 0-3 1, 8 t-Transglutaminase IgG <2 U/mL 0-5 1, 9 Laboratory test finding 05/22/2017 Hepatitis A Antibody -IgM Negative Negative 1 Hepatitis A AB, Total Negative Negative 1 Hepatitis B Core Antibody-IgM Negative Negative 1 Hep B Core AB Total Negative Negative 1 HCV Rna,Josette,Quant,RFLX [place] <pending> 1 Hepatitis C Antibody < 0.1 s/corat 0.0-0.9 1, 10 Protein Electro.,S 05/22/2017 Protein,Total,Serum 7.1 g/dL 6.0-8.5 1 Albumin 3.9 g/dL 2.9-4.4 1 Vhcwn-6-Embwzdpf 0.2 g/dL 0.0-0.4 1 Koylt-2-Yvzwlobs 0.8 g/dL 0.4-1.0 1 Beta Globulin 1.1 g/dL 0.7-1.3 1 Gamma Globulin 1.1 g/dL 0.4-1.8 1 M-Marco Not Observed g/dL Not Observed 1 Globulin, Total 3.2 g/dL 2.2-3.9 1 A/G Ratio 1.2 0.7-1.7 1 Please Note: (SEE NOTE) 1, 11 P E Interpretation, Serum (SEE NOTE) 1, 12 Laboratory test 05/22/2017 Anti-Nuclear Antibodies Negative AU/mL Negative 1 finding Direct Actin (Smooth Muscle) Antibody <1:20 units 0-19 1, 13 Mitochondrial (M2) Antibodies 3.6 units 0.0-20.0 1, 14 Cwmwe-6-Pxlyzwanjxq,Serum 141 mg/dL 90-200 1 Ceruloplasmin 23.8 mg/dL 19.0-39.0 1 Laboratory test finding 04/24/2017 Calprotectin, Fecal < 16 ug/g 0-120 15, 16 Pancreatic Elastase (Pe-1) > 500.0 ug/g >200 15, 17 Fecal Fat, Qualitative 04/24/2017 Fats, Neutral Normal . 15, 18 Fats, Total Normal . 15, 19 Stool Culture 04/24/2017 Stool Culture NO ENTERIC PATHO <SEE NOTE> 15, 20 . ................ <SEE NOTE> 15, 21 Note: INCLUDES TESTING <SEE NOTE> 15, 22 . PLESIOMONAS, CAM <SEE NOTE> 15, 23 . ................ <SEE NOTE> 15, 24 . YERSINIA AND VIB <SEE NOTE> 15, 25 . SHOULD BE REQUES <SEE NOTE> 15, 26 Shiga Toxin 1 Antigen SHIGA TOXIN 1 NO <SEE NOTE> 15, 27 Shiga Toxin 2 Antigen SHIGA TOXIN 2 NO <SEE NOTE> 15, 28 Ova & Parasite 04/24/2017 Cryptosporidium Specific NEGATIVE FOR CRY 15 , 29 Antigen Screen Ag <SEE NOTE> Giardia Specific Antigen NEGATIVE FOR CARMEN <SEE NOTE> 15, 30 Laboratory test 04/23/2017 Anti-Nuclear Antibodies Negative AU/mL Negative 15 finding Direct Immunoglobulin G Subclass 4 16 mg/dL 2-96 15 C. Difficile Toxin B By PCR <pending> 15 Comprehensive Metabolic Panel 04/23/2017 Glucose 92 mg/dL 74-106 15 BUN 16 mg/dL 7-18 15 Creatinine 0.8 mg/dL 0.6-1.3 15 Glom Filtration Rate, Estimate >60 mL/min >60 15 If >60 mL/min >60 15, 31 BUN/Creat 20.0 ratio 15 Sodium 140 mmol/L [...] 134 U/L High 45-117 15 Laboratory test finding 04/23/2017 Lipase 425 U/L High 73-393 15 Laboratory test finding 04/23/2017 Ova & Parasite <pending> 15 Antigen Screen Laboratory test finding 04/23/2017 TSH Reflex FT4 and/or 1.55 uIU/mL 0.30 -4.20 15 FT3 Calprotectin, Fecal <pending> 15 Celiac Disease Comp AB Profile 04/23/2017 Immunoglobulin A 267 mg/dL 87- 352 15 Antigliadin Abs, IgG 5 units 0-19 15, 32 Antigliadin Abs, IgA 8 units 0-19 15, 33 Endomysial IgA Antibody Negative Negative 15 t-Transglutaminase IgA <2 U/mL 0-3 15, 34 t-Transglutaminase IgG <2 U/mL 0-5 15, 35 Laboratory test finding 04/23/2017 Sedimentation Rate 28 mm/hr 0-30 15, 36 LDL Cholesterol Profile 02/27/2017 Cholesterol 182 mg/dL [...] 25-115 37 Lipase 356 U/L 73-393 37 Monocytes # Bld Auto 02/02/2017 Monocytes # Bld Auto 0.57 0.3-0.9 Monocytes/leuk NFr Bld 02/02/2017 Monocytes/leuk NFr 8.2 [...] Calcium SerPl-mCnc 02/02/2017 Calcium SerPl-mCnc 9.6 8.5-10.1 MCHC RBC Auto-mCnc 02/02/2017 MCHC RBC Auto-mCnc 34.3 30.8-34.3 MCV RBC Auto 02/02/2017 MCV RBC Auto 86.5 80.9-99.0 Eosinophil # Bld Auto 02/02/2017 Eosinophil # Bld Auto 0.11 0.0-0.5 Eosinophil/leuk NFr 02/02/2017 Eosinophil/leuk NFr 1.6 0.0-6.6 [...] [#/volume] in Blood count by Automated count MCH RBC Qn Auto 02/02/2017 MCH RBC Qn Auto 29.7 25.9-32.7 Lymphocytes/leuk NFr 02/02/2017 Lymphocytes/leuk NFr 21.5 20.0-42.0 Bld Auto Bld Auto Chloride SerPl-sCnc 02/02/2017 Chloride SerPl-sCnc 109 High 98-107 Creat SerPl-mCnc 02/02/2017 Creat SerPl-mCnc 0.9 0.6-1.3 Blood glucose mean 01/24/2017 Blood glucose mean [...] Ur Negative Negative Ql Strip.auto Ql Strip.auto pH Ur Strip.auto 01/01/2017 pH Ur Strip.auto 6.5 6.5-7.5 Urobilinogen Ur 01/01/2017 Urobilinogen Ur 0.2 0.2-1.0 Strip-aCnc Strip-aCnc Urine hemoglobin 01/01/2017 Urine hemoglobin Negative Negative detection by automated detection by test strip automated test strip Urine glucose 01/01/2017 Urine glucose Negative Negative measurement by measurement by automated test strip automated test strip (mass/volume) Urine appearance 01/01/2017 Urine appearance Clear Clear determination determination Prot Ur 01/01/2017 Prot Ur Negative Negative Strip.auto-mCnc Strip.auto-mCnc Nitrite Ur Ql 01/01/2017 Nitrite Ur Ql Negative Negative Strip.auto Strip.auto Lipase SerPl-cCnc 12/12/2016 Lipase SerPl-cCnc 385 73-393 [...] With Contrast <pending> Material 1 R94.5 2 HCV Not Detected 3 Unable to calculate result since non-numeric result obtained for component test. 4 The quantitative range of this assay is 15 IU/mL to 100 million IU/mL. 5 Not indicated 6 Negative 0 - 19 Weak Positive 20 - 30 Moderate to Strong Positive >30 7 Negative 0 - 19 Weak Positive 20 - 30 Moderate to Strong Positive >30 8 Negative 0 - 3 Weak Positive 4 - 10 Positive >10 Tissue Transglutaminase (tTG) has been identified as the endomysial antigen. Studies have demonstr- ated that endomysial IgA antibodies have over 99% specificity for gluten sensitive enteropathy. 9 Negative 0 - 5 Weak Positive 6 - 9 Positive >9 10 INFCE Result Units: s/co ratio Negative: < 0.8 Indeterminate: 0.8 - 0.9 Positive: > 0.9 The CDC recommends that a positive HCV antibody result be followed up with a HCV Nucleic Acid Amplification test (742489). Performed at: [address] [id number] Pin Or Clip Fastener: Fiordaliza Henry MD, Phone: [phone] 11 Protein electrophoresis scan will follow via computer, mail, or lock corner machine operator delivery. 12 The SPE pattern appears essentially unremarkable. Evidence of monoclonal protein is not apparent. 13 Negative 0 - 19 Weak positive 20 - 30 Moderate to strong positive >30 Actin Antibodies are found in 52-85% of patients with autoimmune hepatitis or chronic active hepatitis and in 22% of patients with primary biliary cirrhosis. 14 Negative 0.0 - 20.0 Equivocal 20.1 - 24.9 Positive >24.9 Mitochondrial (M2) Antibodies are found in 90-96% of patients with primary biliary cirrhosis. 15 R19.4 K86.9 16 Concentration Interpretation Follow-Up <16 - 50 ug/g Normal None >50 -120 ug/g Borderline Re-evaluate in 4-6 weeks >120 ug/g Abnormal Repeat as clinically indicated 17 INFCE Result Units: ug Elast./g Severe Pancreatic Insufficiency: <100 Moderate Pancreatic Insufficiency: 100 - 200 Normal: >200 Performed at: [address] [id number] Pin Or Clip Fastener: Fiordaliza Henry MD, Phone: [phone] Performed at: [address] [id number] Pin Or Clip Fastener: Francisco Flores MD, Phone: [phone] 18 Normal (<60 Droplets/HPF) 19 Normal (<100 Droplets/HPF) 20 NO ENTERIC PATHOGENS ISOLATED 21 ................................................... 22 INCLUDES TESTING FOR SALMONELLA, SHIGELLA, AEROMONAS, 23 PLESIOMONAS, CAMPYLOBACTER, AND E. COLI 0157:H7 24 ................................................... 25 YERSINIA AND VIBRIO ARE NOT ROUTINELY SCREENED FOR AND 26 SHOULD BE REQUESTED SEPARATELY 27 SHIGA TOXIN 1 NOT DETECTED 28 SHIGA TOXIN 2 NOT DETECTED Method: ImmunoCard STAT/EHEC Rapid Immunochromatographic Assay 29 NEGATIVE FOR CRYPTOSPORIDIUM SPECIFIC ANTIGEN 30 NEGATIVE FOR GIARDIA SPECIFIC ANTIGEN. The specimen will be held for 5 days. Additional testing may be performed upon request if the antigen tests are negative, and the patient is still symptomatic or has traveled to an endemic region. Method: Alere Quik Chek Rapid Membrane Enzyme Immunoassay 31 Note: Persistent reduction for 3 months or more in an eGFR <60 mL/min/1.73 m2 defines CKD. Patients with eGFR values >/=60 mL/min/1.73 m2 may also have CKD if evidence of persistent proteinuria is present. The original MDRD equation for estimated GFR is not valid for patients less than 18 years of age. Additional information may be found at www.kdoqi.org. 32 Negative 0 - 19 Weak Positive [...] 6 - 9 Positive >9 Performed at: [facility] [address] [id number] Pin Or Clip Fastener: Fiordaliza Henry MD, Phone: [phone] Performed at: [facility] [address] [id number] Pin Or Clip Fastener: Francisco Flores MD, Phone: [phone] 36 Method: Sediplast Modified Westergren 37 K85.90 38 Reference Guidelines*: Desirable: ........... [...] cm. in aggregate. Submitted entirely, one cassette. CC/clf PRE OPERATIVE DIAGNOSIS Hematochezia, Diaz's, IBS REVIEW CODE CODE: I Signed Electronically signed MATT FRANCO MD 1131 Procedures Date CPT Code Description Status Comment 02/05/2018 45472 Eye Exam Est Patient Completed Comprehensive 12/30/2017 09081 Echocardiogram Complete Completed 12/30/2017 62073 Stress Test Interpre And Report Completed Only 12/30/2017 51339 Stress Test Physician Super Only Completed 11/25/2017 29448 EKG-Tracing And Report Completed 11/24/2017 75448 Asp./Injection major joint Completed 10/20/2017 80571 Radiology, Knee 3 Views Completed 07/23/2017 05220 Extracapsular Cataract Extraction Completed W/Intraocular Lens 07/15/2017 64023 Ophthalmic Biometry By Partial Completed Coherence Interferometry W/Intra 07/07/2017 44732 Gonioscopy Completed 07/07/2017 12266 Eye Exam Est Patient Completed Comprehensive 02/11/2017 30912 Bronchospasm Provocation Completed Evaluation Multi Spirometric Determinati 02/11/2017 84828 Spirometry Completed 05/13/2016 48591 EGD With Biopsy Completed 04/29/2016 81376 Spirometry Completed 04/29/2016 45177 Bronchospasm Provocation Completed Evaluation Multi Spirometric Determinati 11/30/2015 91920 Gonioscopy Completed 11/30/2015 67298 Eye Exam New Patient Completed Comprehensive 10/11/2015 61259 Colonoscopy With Biopsy Completed 10/11/2015 63136 Endoscopy Small Intestine Completed W/Biopsy 10/11/2015 Colonoscopy Completed Document: 10/11/15 - Operative Report 12/21/2014 34290 ECHO Transthoracic Inc Completed Performance Continuous Electrocardio 12/19/2014 32992 Echocardiogram Complete Completed 12/19/2014 65546 EKG Interpretation And Report Completed Only 12/14/2014 19105 Anesthesia, Hysteroscopy, Completed Hystersalpingography 04/04/2014 Colonoscopy Completed Document: 04/04/14 - Operative Report 01/05/2013 26670 Anesthesia, Hysteroscopy, Completed Hystersalpingography 01/04/2013 15868 EKG Interpretation And Report Completed Only 02/26/2010 Colonoscopy Completed Document: 02/26/10 - Operative Report Encounters Type Date Location Provider CPT E/M Dx Office Visit 03/19/2018 4:00p [place] [address] R07.89 R06.02 Office Visit 01/06/2018 11:20a Cardiology Office JON Tariq 06247 R07.9 G45.9 E78.5 K86.9 Office Visit 11/25/2017 10:40a Cardiology Office JON Tariq 63707 R07.9 G45.9 E78.5 Office Visit 11/18/2017 1:45[place] [address] K86.9 Office Visit 10/20/2017 11:15a Orthopaedic Office Opal Lazo, 21397 M25.561 [facility] M17.11 Office Visit 08/20/2017 11:15[place] [address] K86.9 R94.5 Office Visit 05/21/2017 1:15[place] [address] K86.9 R94.5 Office Visit 04/23/2017 11:30[place] [address] K86.9 R19.4 Office Visit 04/02/2017 3:45p [place] [address] R07.9 R06.02 Office Visit 03/20/2017 1:15[place] [address] R10.84 Office Visit 02/27/2017 9:00[place] [address] R10.84 K85.90 Office Visit 12/12/2016 1:15[place] [address] K85.90 Office Visit 10/08/2016 11:00[place] [address] K21.9 R10.84 Office Visit 07/18/2016 2:30p [place] [address] R06.02 K21.9 R07.9 Office Visit 05/08/2016 1:00[place] [address] R07.0 K22.70 Office Visit 04/24/2016 3:30[place] [address] R06.02 K21.9 Office Visit 02/27/2016 3:30p BENNETT Reinoso M.D. 52823 K58.9 K22.70 K21.9 K86.1 Office Visit 10/31/2015 9:15a BENNETT Reinoso M.D. 59828 K58.9 K22.70 K21.9 K86.1 Office Visit 09/14/2015 10:15a BENNETT Reinoso M.D. 12921 R19.5 K58.9 K22.70 K21.9 K86.1 Office Visit 08/24/2015 1:00p GI La Antoine PA-C 03269 K58.9 R19.5 K22.70 K21.9 K86.1 K64.9 Office Visit 04/25/2015 11:21a Cardiology Office Alex Walter, 04086 786.50 Yasir, FACC 401.1 Office Visit 12/19/2014 9:34a [place] [address] 786.50 Office Visit 11/24/2012 1:30p [place] [address] 844.9 E001.1 Plan of Care Future Appointment(s):04/08/2018 1:00 pm - Alex Walter M.D., FACC at Cardiology Ibhirl8208/28/2018 9:30 am - Dion Nettles MD at [facility]30/05/ 2018 - Jorge Cervantes, MDR07.89 Other chest painComments:Possibly secondary to GERD. She is on a PPI and following up with GI.Follow up:As needed.R06.02 Shortness of breathComments:Most likely related to stress and anxiety. No need for any additional chest imaging or PFTs.
[2018-04-30 15:06] VITALS: BP 121/68
--- NOTE | 2018-04-30 15:21 | UC ---
Respiratory Complaint HPI - HPI Summary HPI Summary: The patient is a 57-year-old female with a productive cough times less than 24 hours. She has had no fever or chills. She does not feel short of breath. When she coughs she has 7 out of 10 chest pain. He currently has no pain. - History of Current Complaint Chief Complaint: UCRespiratory Stated Complaint: UPPER RESPIRATORY Time Seen by Provider: 04/30/18 14:56 Hx Obtained From: Patient Hx From Patient Unobtainable Due To: Dementia Hx Last Menstrual Period: n/a Onset/Duration: Sudden Onset, Gradual Onset Timing: Constant Severity Initially: Moderate Severity Currently: Moderate Pain Intensity: 0 Pain Scale Used: 0-10 Numeric Character: Cough: Productive Aggravating Factors: Nothing Alleviating Factors: Nothing Associated Signs And Symptoms: Positive: Negative - Allergies/Home Medications Allergies/Adverse Reactions: Allergies Allergy/AdvReac Type Severity Reaction Status Date / Time latex Allergy Hives Verified 04/30/18 15:06 levofloxacin Allergy Vomiting Verified 04/30/18 15:06 Penicillins Allergy Hives Verified 04/30/18 15:06 PMH/Surg Hx/FS Hx/Imm Hx Previously Healthy: Yes Endocrine History: Dyslipidemia Respiratory History: Bronchitis, Pneumonia Other History Of: Negative For: HIV, Hepatitis B, Hepatitis C - Surgical History Surgical History: Yes Surgery Procedure, Year, and Place: ablation 2014. LEFT OVARY REMOVED - Family History Known Family History: Positive: Hypertension, Diabetes, Other - cancer, alzheimers Negative: Cardiac Disease - Social History Alcohol Use: None Substance Use Type: None Smoking Status (MU): Never Smoked Tobacco Have You Smoked in the Last Year: No - Immunization History Most Recent Influenza Vaccination: 11/2016 Review of Systems Constitutional: Negative Skin: Negative Eyes: Negative ENT: Negative Respiratory: Cough Cardiovascular: Negative Gastrointestinal: Negative Genitourinary: Negative Motor: Negative Neurovascular: Negative Musculoskeletal: Negative Neurological: Negative Psychological: Negative All Other Systems Reviewed And Are Negative: Yes Physical Exam Triage Information Reviewed: Yes Appearance: Well-Appearing, No Pain Distress, Well-Nourished Vital Signs: Initial Vital Signs Temp 99.1 F 04/30/18 15:02 Pulse 87 04/30/18 15:02 Resp 17 04/30/18 15:02 BP 121/68 04/30/18 15:02 Pulse Ox 98 04/30/18 15:02 Vital Signs Reviewed: Yes Eyes: Positive: Conjunctiva Clear ENT: Positive: Hearing grossly normal. Negative: Nasal congestion, Nasal drainage, Trismus, Muffled voice, Hoarse voice Neck: Positive: Supple, Nontender, No Lymphadenopathy Respiratory: Positive: Lungs clear, Normal breath sounds, No respiratory distress, No accessory muscle use, Rhonchi - with forced expiration Cardiovascular: Positive: RRR, No Murmur Musculoskeletal: Positive: ROM Intact, No Edema Neurological: Positive: Alert Psychological Exam: Normal Skin Exam: Normal UC Diagnostic Evaluation - Laboratory O2 Sat by Pulse Oximetry: 98 - normal/not hypoxic Respiratory Course/Dx - Differential Dx/Diagnosis Provider Diagnoses: acute bronchitis Discharge - Sign-Out/Discharge Documenting (check all that apply): Patient Departure - Discharge Plan Condition: Stable Disposition: HOME Prescriptions: Azithromycin TAB* [Zithromax TAB*] 250 mg PO DAILY #6 tab Patient Education Materials: Acute Bronchitis (ED) Referrals: Ashley Rahman PA [Physician Social Service Liaison] - 4 Days (if not better) - Billing Disposition and Condition Condition: STABLE Disposition: Home
== END 2018-04-30 15:24 | disposition home or self-care (01) ==
LOC: UCCORT 14:52
DX: J20.9 Acute bronchitis, unspecified (principal); Z88.3 Allergy status to other anti-infective agents; Z88.2 Allergy status to sulfonamides
CPT/HCPCS: 99212; G0463

== ENCOUNTER 2018-05-28 14:47 | Emergency (ER) | payer OTHER ==
--- OUTSIDE RECORDS SUMMARY | 2018-05-28 14:57 | XMS REPORT ---
:1960 Author Organization [facility] Address [address] [place] [address] Care Team Providers Name Role Phone Tiera Ferrara Unavailable Unavailable PROBLEMS Type Condition ICD9-CM Code [id number] Onset Condition SNOMED Code Code Dates Status Problem Mastodynia N64.4 Active 74785998 Problem Postmenopausal N95.0 Active 72093318 bleeding Problem Candidiasis of skin B37.2 Active 387159841 and nail Problem Rash and other R21 Active 674039322 nonspecific skin eruption Problem Candidiasis, B37.9 Active 19795985 unspecified Problem Pelvic and perineal R10.2 Active 106532834 pain Problem Dysuria R30.0 Active 41331665 Problem Postmenopausal N95.2 Active 75474045 atrophic vaginitis ALLERGIES No Information ENCOUNTERS Encounter Location Date Diagnosis [facility] May, [place] [id number] [facility] Apr, Candidiasis of skin and OBGYN [facility] nail B37.2 [place] [id number] [facility] Apr, Rash and other nonspecific OBGYN [facility] skin eruption R21 [place] [id number] [facility] 103 Apr, [place] [id number] [facility] Apr, [place] [id number] [facility] Apr, Encounter for gynecological OBGYN [facility] examination (general) [place], [place] [id number] (routine) without abnormal findings Z01.419 ; Encounter for screening for malignant neoplasm of cervix Z12.4 ; Encounter for screening for malignant neoplasm of colon Z12.11 ; Encounter for screening mammogram for malignant neoplasm of breast Z12.31 ; Postmenopausal atrophic vaginitis N95.2 and Dysuria R30.0 [place] [facility] Feb, Postmenopausal atrophic OBGYN [facility] vaginitis N95.2 [place], [place] [id number] [place] [facility] 103 Feb, Pelvic and perineal pain OBGYN [facility] R10.2 and Dysuria R30.0 [place], [place] [id number] [place] [facility] 103 Feb, Pelvic and perineal pain OBGYN [facility] R10.2 ; Dysuria R30.0 and [place], [place] [id number] Postmenopausal atrophic vaginitis N95.2 [place] [facility] 103 Feb, Pelvic and perineal pain OBGYN [facility] R10.2 [place], [place] [id number] [place] [facility] 103 January, Rash and other nonspecific OBGYN [facility] skin eruption R21 [place], [place] [id number] [place] [facility] January, [place] [id number] [facility] [place] [facility] January, [place] [id number] [place] [facility] 103 January, Dysuria R30.0 ; Pelvic and OBGYN [facility] perineal pain R10.2 ; [place], [place] [id number] Mastodynia N64.4 and Other specified noninflammatory disorders of vagina N89.8 [place] [facility] 103 Dec, Candidiasis, unspecified [facility] B37.9 [place], [place] [id number] [place] [facility] 103 Dec, Candidiasis, unspecified OBGYN [facility] B37.9 [place], [place] [id number] [place] [facility] 103 Dec, Candidiasis, unspecified OBGYN [facility] B37.9 [place], [place] [id number] [place] [facility] 103 Jun, Postmenopausal bleeding OBGYN [address] [id number] [place] [facility] 103 Jun, [place] [id number] [facility] [place] [facility] Jun, [place] [id number] [facility] [place] [facility] Jun, [place] [id number] [place] [facility] 103 Jun, Postmenopausal bleeding OBGYN [address] [id number] [place] [facility] Jun, [place] [id number] [place] [facility] 103 Jun, Postmenopausal bleeding OBN [address] [id number] [place] [facility] 103 Jun, Postmenopausal bleeding OBN [address] [id number] [place] [facility] 103 Jun, [place] [id number] [place] [facility] 103 Jun, [place] [id number] [place] [facility] 103 Apr, Encounter for gynecological OBGYN [facility] (general) [place], [place] [id number] (routine) with abnormal findings Z01.411 ; Dysuria R30.0 ; Encounter for screening mammogram for malignant neoplasm of breast Z12.31 and Encounter for screening for malignant neoplasm of colon Z12.11 [place] [facility] 103 27 Mar, 2017 [place] [id number] [place] [facility] 103 Mar, [place] [id number] [place] [facility] 103 Mar, [place] [id number] [place] [facility] 103 Mar, Candidiasis of skin and [facility] nail B37.2 [place], [place] [id number] [place] [facility] 103 January, Mastodynia N64.4 [place] [id number] [place] [facility] 103 Dec, Pelvic and perineal pain [facility] R10.2 and Dysuria R30.0 [place], [place] [id number] [place] [facility] Dec, PELVIC PAIN 625.9 [place] [id number] [place] [facility] 103 Dec, Pelvic and perineal pain [facility] R10.2 [place], [place] [id number] [place] [facility] 103 Nov, Idiopathic urticaria L50.1 OBGYN [facility] and Mastodynia N64.4 [place], [place] [id number] [place] [facility] 103 Oct, Generalized abdominal pain [facility] R10.84 and Mastodynia N64.4 [place], [place] [id number] [place] [facility] Sep, Dermatitis, unspecified [facility] L30.9 [place], [place] [id number] [place] [facility] 103 Sep, Pelvic and perineal pain [facility] R10.2 [place], [place] [id number] [place] [facility] 103 Sep, Postmenopausal bleeding [facility] N95.0 [place], [place] [id number] [facility] [address], Sep, [place] [id number] [place] [facility] 103 Sep, [place] [id number] [place] [facility] 103 Sep, [place] [id number] [place] [facility] 103 Sep, Postmenopausal bleeding OBGYN [facility] [place] [id number] [place] [facility] 103 Aug, Postmenopausal bleeding OBGYN [facility] [place] [id number] [place] [facility] 103 Aug, Postmenopausal bleeding OBGYN [facility]95. and Pelvic and [place] [id number] perineal pain R10.2 [place] [facility] 103 Jul, [place] [id number] [place] [facility] 103 Jul, Postmenopausal bleeding OBGYN [facility] N95. and Pelvic and [place], [place] [id number] perineal pain R10.2 [place] [facility] 103 Jul, [place] [id number] [facility] [place] [facility] 103 Jul, Mastodynia N64.4 ; OBGYN [facility] Postmenopausal bleeding [place], [place] [id number] N95.0 and Pelvic and perineal pain R10.2 [place] [facility] Jul, [place] [id number] [place] [facility] 103 Jun, Mastodynia N64.4 [place] [id number] [facility] [place] [facility] 103 Jun, [place] [id number] [facility] [place] [facility] 103 May, Mastodynia N64.4 [place] [id number] [place] [facility] 103 Apr, Encounter for gynecological OBGYN [facility] examination (general) [place], [place] [id number] (routine) without abnormal findings Z01.419 ; Encounter for screening mammogram for malignant neoplasm of breast Z12.31 and Encounter for screening for malignant neoplasm of colon Z12.11 [place] [facility] 103 27 Mar, 2016 Disorder of the skin and OBGYN [facility] subcutaneous tissue, [place], [place] [id number] unspecified L98.9 [place] [facility] 103 January, Mastodynia N64.4 [place] [id number] [place] [facility] January, [place] [id number] [facility] [place] [facility] Dec, Other pruritus L29.8 [place] [id number] [place] [facility] 103 Dec, Dysuria R30.0 ; Pelvic and OBGYN [facility] perineal pain R10.2 and [place], [place] [id number] Postmenopausal bleeding N95.0 [place] [facility] 103 Dec, Pelvic and perineal pain OBGYN [facility] R10.2 [place], [place] [id number] [place] [facility] 103 Dec, Pelvic and perineal pain OBGYN [facility] R10.2 [place], [place] [id number] [place] [facility] 103 Dec, Dysuria R30.0 [place] [id number] [place] [facility] 103 Dec, Postmenopausal bleeding OBGYN [facility] N95.0 and Dysuria R30.0 [place], [place] [id number] [place] [facility] 103 Nov, Postmenopausal bleeding OBGYN [facility] N95.0 [place], [place] [id number] [facility] [place] [facility] 103 Nov, Postmenopausal bleeding OBGYN [facility] N95.0 [place], [place] [id number] [place] [facility] Nov, [place] [id number] [place] [facility] 103 Nov, Mastodynia N64.4 [place] [id number] [facility] [place] [facility] 103 Aug, [place] [id number] [facility] [place] [facility] 103 Aug, [place] [id number] [facility] [place] [facility] 103 Aug, Postmenopausal bleeding OBGYN [facility] N95.0 [place] [id number] [place] [facility] 103 Aug, Dysuria R30.0 and OBGYN [facility] Postmenopausal bleeding [place], [place] [id number] N95.0 [place] [facility] 103 Jun, Postmenopausal bleeding OBGYN [facility] N95.0 [place], [place] [id number] [place] [facility] 103 Jun, Postmenopausal bleeding OBGYN [facility]95.0 [place], [place] [id number] [place] [facility] Jun, [place] [id number] [facility] [place] [facility] Jun, [place] [id number] [facility] [place] [facility] 103 Jun, Postmenopausal bleeding OBGYN [facility] N95.0 and Dysuria R30.0 [place] [id number] [place] [facility] May, Postmenopausal bleeding OBGYN [facility] 627.1 [place], [place] [id number] [place] [facility] May, [facility] 627.1 [place], [place] [id number] [place] [facility] May, Urinary frequency 788.41 ; OBGYN [facility] Postmenopausal bleeding [place], [place] [id number] 627.1 and Atrophic vulvovaginitis 627.3 [place] [facility] Mar, Mastalgia 611.71 [place] [id number] [place] [facility] Feb, Mastalgia 611.71 [place] [id number] [place] [facility] Feb, BREAST DISORDER NOS 611.9 [place] [id number] [place] [facility] January, [place] [id number] [place] [facility] Dec, DERMATITIS NOS 692.9 [place] [id number] [place] [facility] 103 Dec, Postmenopausal bleeding [address] [id number] [place] [facility] 103 Dec, [place] [id number] [place] [facility] Dec, [place] [id number] [facility] [place] [facility] [address] [place], [facility] [id number] [place] [facility] 103 Nov, Postmenopausal bleeding [address] [id number] [place] [facility] 103 Nov, [place] [id number] [place] [facility] Nov, [place] [id number] [facility] [place] [facility] [address] [place], [facility] [id number] [place] [facility] Nov, [place] [id number] [place] [facility] 103 Oct, [place]menopausal [place] [id number] [id number] [place] [facility] Oct, [place] [id number] [facility] [place] [facility] Oct, [place] [id number] [facility] [place] [facility] Oct, [place] [id number] [facility] [place] [facility] 103 Oct, [place] [id number] [place] [facility] 103 Oct, Postmenopausal bleeding OBGYN [address] [id number] [place] [facility] 103 Oct, [place] [id number] [place] [facility] 103 Oct, Postmenopausal bleeding [address] [id number] [place] [facility] 103 Oct, Dysuria 788.1 and OBGYN [facility] Postmenopausal bleeding [place], [place] [id number] 627.1 [place] [facility] Jul, Dysuria 788.1 [place] [id number] [place] [facility] Jun, Atopic dermatitis 691.8 [place] [id number] [place] [facility] May, [place] [id number] [facility] [place] [facility] May, [place] [id number] [place] [facility] Apr, ROUTINE BEAD WRAPPER EXAMINATION OBGYN [facility] V72.31 ; SCREEN MALIG [place], [place] [id number] NEOP-COLON V76.51 ; SCREEN MAMMOGRAM NEC V76.12 and Urinary tract infection NOS 599.0 [place] [facility] Apr, Breast Mass 611.72 [place] [id number] [place] [facility] Apr, Dysuria 788.1 [place] [id number] [place] [facility] Dec, [place] [id number] [facility] [place] [facility] 103 Dec, Hematuria, microscopic OBGYN [facility] 599.72 and Dysuria 788.1 [place], [place] [id number] [place] [facility] Dec, [place] [id number] [place] [facility] 103 Nov, Atopic dermatitis 691.8 [place] [id number] [place] [facility] 103 Aug, [place] [id number] [facility] [place] [facility] 103 Aug, [place] [id number] [place] [facility] Aug, [place] [id number] [facility] [place] [facility] 103 Aug, Atopic dermatitis 691.8 [place] [id number] [place] [facility] Aug, [place] [id number] [place] [facility] 103 Aug, [place] [id number] [place] [facility] Aug, [place] [id number] [place] [facility] Aug, [place] [id number] [place] [facility] Jul, Atopic eczema 691.8 and OBGYN [facility] BREAST DISORDER NOS 611.9 [place], [place] [id number] [place] [facility] Jul, [place] [id number] [place] [facility] Jul, Atopic eczema 691.8 and OBGYN [facility] BREAST DISORDER NOS 611.9 [place], [place] [id number] [place] [facility] Jul, [place] [id number] [place] [facility] Jul, HEMATURIA NOS 599.70 [place] [id number] [place] [facility] 103 May, [place] [id number] [facility] Apr, GYNECOLOGIC EXAMINATION [facility] V72.31 ; PAP SMEAR W/O BEAD WRAPPER [place], [place] [id number] EXAM V76.2 ; SCREEN MALIG NEOP-COLON V76.51 and SCREEN MAMMOGRAM NEC V76.12 [place] [facility] Apr, [place] [id number] [place] [facility] Apr, PELVIC PAIN 625.9 [place] [id number] [place] [facility] Apr, Menometrorrhagia 626.2 ; [facility] Dysuria 788.1 and PELVIC [place], [place] [id number] PAIN 625.9 [place] [facility] Mar, [place] [id number] [place] [facility] Mar, [place] [id number] [place] [facility] 103 Mar, Hematuria, microscopic OBGYN [facility] 599.72 [place], [place] [id number] [place] [facility] Feb, [place] [id number] [place] [facility] Feb, [place] [id number] [place] [facility] Feb, [place] [id number] [place] [facility] Feb, Menometrorrhagia 626.2 [place] [id number] [place] [facility] January, [place] [id number] [place] [facility] [address] [place] [address] January, Menometrorrhagia 626.[address] [facility] [address] [place], [place] [id number] [place] [facility] January, [place] [id number] [place] [facility] January, [place] [id number] [place] [facility] January, Menometrorrhagia 626.2 [place] [id number] [facility] [place] [facility] [address] [place], Dec, [facility] [id number] [place] [facility] 103 Dec, Menometrorrhagia 626.2 and OBGYN [facility] IUD SURVEILLANCE V25.42 [place], [place] [id number] [place] [facility] Dec, [place] [id number] [place] [facility] Dec, [place] [id number] [place] [facility] Nov, [place] [id number] [facility] [facility] [address] [place] [address] Nov, [address]ia [address] [place], [place] [id number] [place] [facility] 103 Nov, Menometrorrhagia 626.2 [place] [id number] [facility] Nov, Menometrorrhagia 626.2 [place] [id number] [place] [facility] 103 Nov, Menometrorrhagia 626.2 ; OBGYN [facility] IUD SURVEILLANCE V25.42 and [place], [place] [id number] Endometrial polyp 621.0 [place] [facility] 103 Nov, Menometrorrhagia 626.2 [place] [id number] [facility] Oct, [place] [id number] [facility] Sep, [place] [id number] [place] [facility] Sep, [place] [id number] [facility] Sep, [place] [id number] [place] [facility] 103 Sep, [place] [id number] [place] [facility] 103 Sep, PELVIC PAIN 625.9 ; OBGYN [facility] HEMATURIA NOS 599.70 and [place], [place] [id number] Abdominal pain, right upper quadrant 789.01 [place] [facility] 14 Sep, 2012 PELVIC PAIN 625.9 and IUD OBGYN [facility] SURVEILLANCE V25.42 [place], [place] [id number] [place] [facility] 11 Sep, 2012 PELVIC PAIN 625.9 [place] [id number] [place] [facility] Aug, [place] [id number] [facility] [address] [place] [address] Jul, Irregular bleeding NOS [address]BGYN [address] [place], 626.4 ; Hydrosalpinx 614.1 [place] [id number] and PELVIC PAIN 625.9 [place] [facility] 103 Jul, Hydrosalpinx 614.1 and IUD OBGYN [facility] SURVEILLANCE V25.42 [place], [place] [id number] [place] [facility] Jun, [place] [id number] [place] [facility] Jun, Irregular bleeding NOS [facility] 626.4 and Hydrosalpinx [place], [place] 787935135 614.1 [place] [facility] May, [place] [id number] [facility] [place] [facility] 103 May, Irregular bleeding NOS [facility] 626.4 [place], [place] [id number] [place] [facility] May, Irregular bleeding NOS [facility] 626.4 [place], [place] [id number] [place] [facility] May, Irregular bleeding NOS [facility] 626.4 and Menorrhagia 626.2 [place], [place] [id number] [place] [facility] May, Irregular bleeding NOS [facility] 626.4 and PELVIC PAIN 625.9 [place], [place] [id number] [place] [facility] 103 May, PELVIC PAIN 625.9 ; OBGYN [facility] Irregular bleeding NOS [place] [id number] 626.4 and IUD SURVEILLANCE V25.42 [facility] 103 Apr, Irregular bleeding NOS OBN [facility] 626.4 and PELVIC PAIN 625.9 [place], [place] [id number] [place] [facility] Feb, [place] [id number] [facility] Feb, Irregular bleeding NOS [facility] 626.4 ; PELVIC PAIN 625.9 [place], [place] [id number] and Abdominal pain, epigastric 789.06 [place] [facility] Nov, Vitamin D deficiency NOS [facility] 268.9 [place], [place] [id number] [facility] Nov, [place] [id number] [facility] 103 Nov, Irregular bleeding NOS [facility] 626.4 and IUD SURVEILLANCE [place], [place] [id number] V25.42 [facility] 103 Nov, ROUTINE BEAD WRAPPER EXAMINATION [facility] V72.31 ; Irregular bleeding [place], [place] [id number] NOS 626.4 ; PAP SMEAR W/O BEAD WRAPPER EXAM V76.2 ; IUD SURVEILLANCE V25.42 and SCREEN MALIG NEOP-COLON V76.51 [facility] Nov, [place] [id number] [facility] 103 Nov, Irregular bleeding NOS [facility] 626.4 and IUD SURVEILLANCE [place] [id number] V25.42 [facility] Nov, [place] [id number] [facility] 103 Oct, Irregular bleeding NOS OBGYN [facility] 626.4 [place], [place] [id number] [place] [facility] Oct, [place] [id number] [place] [facility] Sep, [facility] [id number] [place] [facility] 103 Sep, GENITAL HERPES NOS 054.10 [place] [id number] [place] [facility] Sep, [place] [id number] [place] [facility] Sep, [place] [id number] [place] [facility] 103 Sep, Gross hematuria 599.71 [facility] [place] [id number] [facility] Aug, [facility] [place] [id number] [facility] Aug, HEMATURIA NOS 599.70 [facility] [place] [id number] [facility] Aug, Abdominal pain, generalized OBGYN [facility] 789.07 ; Irregular bleeding [place], [place] [id number] NOS 626.4 and Dysuria 788.1 [facility] Aug, PELVIC PAIN 625.9 and IUD OBGYN [facility] SURVEILLANCE V25.42 [place], [place] [id number] [facility] Jul, Abdominal pain, generalized OBGYN [facility] 789.07 and Irregular [place], [place] [id number] bleeding NOS 626.4 [facility] Jul, [place] [id number] [facility] Jun, Abdominal pain, generalized OBGYN [facility] 789.07 and Irregular [place], [place] [id number] bleeding NOS 626.4 [facility] May, Abdominal pain, right lower OBGYN [facility] quadrant 789.03 and [place], [place] [id number] Irregular bleeding NOS 626.4 [facility] Apr, [place] [id number] [facility] [place] [facility] Apr, IUD SURVEILLANCE V25.42 [facility] [place] [id number] [facility] Mar, INSERTION OF IUD V25.11 [facility] [place] [id number] [facility] Feb, [place] [id number] [facility] Feb, [place] [id number] [facility] Feb, Menorrhagia 626.2 ; Ovarian OBGYN [facility] cyst NOS 620.2 and [place], [place] [id number] Dysmenorrhea 625.3 [facility] Feb, [place] [id number] [facility] [address] [place], Feb, [facility] [id number] [facility] Feb, Menorrhagia 626.2 ; Ovarian OBGYN [facility] cyst NOS 620.2 and [place], [place] [id number] Dysmenorrhea 625.3 [facility] January, [place] [id number] [place] [facility] January, Menorrhagia 626.2 ; Ovarian OBG[facility] [address] cyst NOS 620.2 and [place], [place] [id number] Dysmenorrhea 625.3 [facility] January, Ovarian cyst NOS 620.2 ; OBGYN [facility] Menorrhagia 626.2 and [place], [place] [id number] Dysmenorrhea 625.3 [facility] Nov, [place] [id number] [facility] Nov, ROUTINE BEAD WRAPPER EXAMINATION OBGYN [facility] V72.31 and PAP SMEAR W/O [place], [place] [id number] BEAD WRAPPER EXAM V76.2 [facility] Nov, [place] [id number] [facility] 103 Nov, Menorrhagia 626.2 and OBGYN [facility] Ovarian cyst NOS 620.2 [place], [place] [id number] [facility] 103 Nov, Menorrhagia 626.2 [facility] [place] [id number] [facility] Nov, Menorrhagia 626.2 [facility] [place] [id number] [facility] 103 Nov, Menorrhagia 626.2 and OBGYN [facility] Ovarian cyst NOS 620.2 [place], [place] [id number] [facility] Oct, [place] [id number] [facility] Oct, [place] [id number] [facility] 103 Oct, Menorrhagia 626.2 [facility] [place] [id number] [facility] Feb, ROUTINE BEAD WRAPPER EXAMINATION OBGYN [facility] V72.31 [place], [place] [id number] [facility] May, PELVIC PAIN 625.9 [facility] [place] [id number] [facility] May, PELVIC PAIN 625.9 [place] [place] [id number] [facility] May, PELVIC PAIN 625.9 [facility] [place] [id number] [facility] Apr, [place] [id number] [facility] 103 Apr, Dysuria 788.1 and HEMATURIA OBGYN [facility] NOS 599.70 [place], [place] [id number] [facility] 103 Apr, PELVIC PAIN 625.9 [facility] [place] [id number] [facility] Mar, [place] [id number] [facility] 103 Mar, Ovarian cyst NOS 620.2 and OBGYN [facility] PELVIC PAIN 625.9 [place], [place] [id number] [facility] 103 Mar, Ovarian cyst NOS 620.2 and OBGYN [facility] PELVIC PAIN 625.9 [place], [place] [id number] [facility] Feb, [place] [id number] [facility] 103 Feb, Ovarian cyst NOS 620.2 and OBGYN [facility] PELVIC PAIN 625.9 [place], [place] [id number] [facility] Feb, Ovarian cyst NOS 620.2 and OBGYN [facility] PELVIC PAIN 625.9 [place], [place] [id number] [facility] Feb, PELVIC PAIN 625.9 and OBGYN [facility] Ovarian cyst NOS 620.2 [place], [place] [id number] [facility] Feb, ROUTINE BEAD WRAPPER EXAMINATION OBGYN [facility] V72.31 [place], [place] [id number] [facility] 11 Feb, 2009 PELVIC PAIN 625.9 and OBGYN [facility] Ovarian cyst NOS 620.2 [place], [place] [id number] [facility] 103 Feb, PELVIC PAIN 625.9 and OBGYN [facility] Ovarian cyst NOS 620.2 [place], [place] [id number] [facility] Feb, Menorrhagia 626.2 and OBGYN [facility] PELVIC PAIN 625.9 [place], [place] [id number] [facility] January, [place] [id number] [facility] January, Menorrhagia 626.2 and OBGYN [facility] Irregular bleeding NOS [place], [place] [id number] 626.4 [facility] 103 January, Menorrhagia 626.2 [place] [id number] [facility] Nov, [place] [id number] [facility] 103 Nov, Menorrhagia 626.2 [facility] [id number] [facility] Jun, [place] [id number] [facility] Jun, Menorrhagia 626.2 [place] [id number] [facility] 103 Jun, Menorrhagia 626.2 [place] [place] [id number] [facility] May, [place] [id number] [facility] 103 May, Menorrhagia 626.2 and OBGYN [facility] PELVIC PAIN 625.9 [place], [place] [id number] [facility] May, Ovarian cyst NOS 620.2 [place] [place] [id number] [facility] May, Ovarian cyst NOS 620.2 and OBGYN [facility] PELVIC PAIN 625.9 [place], [place] [id number] [facility] May, [place] [id number] [facility] 103 Apr, Cervical polyp 622.7 [place] [id number] [facility] Sep, [place] [id number] [facility] Sep, [place] [id number] [facility] Sep, [place] [id number] [facility] 103 Sep, Menorrhagia 626.2 [place] [id number] [facility] Aug, [place] [id number] [facility] Aug, Menorrhagia 626.2 [place] [id number] [facility] Jun, [place] [id number] [facility] Jun, [place] [id number] [facility] Jun, [place] [id number] [facility] 103 Jun, Menorrhagia 626.2 [facility] [place] [id number] [facility] May, Menorrhagia 626.2 [place] [id number] [facility] May, Menorrhagia 626.2 [place] [id number] [facility] Apr, PELVIC PAIN 625.9 [place] [id number] [facility] Apr, PELVIC PAIN 625.9 [facility] [id number] [facility] Apr, [place] [id number] [facility] 103 Apr, ROUTINE BEAD WRAPPER EXAMINATION OBGYN [facility] V72.31 ; Dysuria 788.1 ; [place], [place] [id number] PELVIC PAIN 625.9 and Hemorrhoids NOS 455.6 [facility] 103 Mar, Ovarian cyst NOS 620.2 [place] [place] [id number] [facility] Mar, [place] [id number] [facility] 103 Mar, Ovarian cyst NOS 620.2 [place] [id number] [facility] Feb, [place] [id number] [facility] January, Menorrhagia 626.2 ; Ovarian OBGYN [facility] cyst NOS 620.2 and PELVIC [place], [place] [id number] PAIN 625.9 [facility] 103 January, Menorrhagia 626.2 ; Ovarian OBGYN [facility] cyst NOS 620.2 and PELVIC [place], [place] [id number] PAIN 625.9 [facility] 18 Jan, 2007 Ovarian cyst NOS 620.2 ; OBGYN [facility] PELVIC PAIN 625.9 and [place], [place] [id number] Irregular bleeding NOS 626.4 [facility] 15 Jan, 2007 Ovarian cyst NOS 620.2 and OBGYN [facility] PELVIC PAIN 625.9 [place], [place] [id number] [facility] Aug, [place] [id number] [facility] Aug, [place] [id number] [facility] Aug, [place] [id number] [facility] 103 Aug, Menorrhagia 626.2 ; [facility] [place] [id number] 620.0 and Dysmenorrhea 625.3 [facility] 103 Jun, Menorrhagia 626.2 [facility] NOS 620.2 [place], [place] [id number] [facility] Feb, [facility]idal [facility]aginitis [facility] 112.1 [place], [place] [id number] [facility] Dec, [place] [id number] [facility] Oct, Mastalgia 611.71 [facility] [id number] [facility] Oct, [facility] 620.0 [place], [place] [id number] [facility] Sep, [facility] 620.0 and Dysmenorrhea [place], [place] [id number] 625.3 UNKNOWN Aug, [facility] Aug, Follicular cyst [facility] 620.0 and Dysmenorrhea [place], [place] [id number] 625.3 UNKNOWN Aug, [facility] Aug, Menorrhagia 626.2 [place] [id number] [facility] Aug, [place] [id number] [facility] Aug, PREMENOPAUSE [facility]ENORRHAGIA [facility] 627.0 and Menorrhagia 626.2 [place], [place] [id number] UNKNOWN Jul, [facility] [place] [facility] Jul, Abrasion or friction burn [facility] of vagina without infection [place], [place] [id number] 911.0 IMMUNIZATIONS No Known Immunizations SOCIAL HISTORY Never Assessed REASON FOR REFERRAL FUNCTIONAL STATUS PLAN OF CARE VITAL SIGNS MEDICATIONS Medication Instructions Dosage Frequency Start Date End Date Duration Status nystatin topical applied topically 1 valente 8h May, 7 day(s) Active [id number] units/g to affected area 2018 3 times a day PROCEDURES No Known procedures RESULTS No Results REASON FOR VISIT Alternative med Insurance Providers Replaced By [facility] Patient Patient Patient Patient Patient Subscriber Subscriber Subscriber Group Insurance Plan Plan Plan Plan ID Relationship Address Phone Name Date of ID Name Date of No Type Insurance Insurance Insurance Coverage to Subscriber Address Phone Name Dates Medicaid [phone] Medicaid self [place] [id number] [facility] [address] [facility] [phone] [place] self [place] [id number] [place] [address] Care of [facility] [address] Medicare [phone] Medicare self [place] [id number] [facility] [address] MEDICAL (GENERAL) HISTORY Type Description Date Medical [...]
--- OUTSIDE RECORDS SUMMARY | 2018-05-28 14:58 | XMS REPORT ---
:[address] [facility] Address [address] [place] [address] Care Team Providers Name Role Phone Tiera Ferrara Unavailable Unavailable PROBLEMS Type Condition ICD9-CM Code [id number] Onset Condition SNOMED Code Code Dates Status Problem Mastodynia N64.4 Active 13761696 Problem Postmenopausal N95.0 Active 98555111 bleeding Problem Candidiasis of skin B37.2 Active 247661733 and nail Problem Rash and other R21 Active 801931021 nonspecific skin eruption Problem Candidiasis, B37.9 Active 68766906 unspecified Problem Pelvic and perineal R10.2 Active 391369559 pain Problem Dysuria R30.0 Active 76285807 Problem Postmenopausal N95.2 Active 98779272 atrophic vaginitis ALLERGIES Substance Reaction Event Type Date Status penicillin hives Drug Allergy Apr, Active Pneumovax 23 swelling, itching, hives Drug Allergy Apr, Active ENCOUNTERS Encounter Location Date Diagnosis [facility] Apr, Candidiasis of skin and OBGYN [facility] nail B37.2 [place], [place] [id number] [facility] 103 Apr, Rash and other nonspecific OBGYN [facility] skin eruption R21 [place], [place] [id number] [facility] 103 Apr, OBGYN [place] [id number] [facility] 103 Apr, OBG[place] [id number] [facility] Apr, Encounter for gynecological OBGYN [facility] examination (general) [place], [place] [id number] (routine) without abnormal findings Z01.419 ; Encounter for screening for malignant neoplasm of cervix Z12.4 ; Encounter for screening for malignant neoplasm of colon Z12.11 ; Encounter for screening mammogram for malignant neoplasm of breast Z12.31 ; Postmenopausal atrophic vaginitis N95.2 and Dysuria R30.0 [facility] 103 Feb, Postmenopausal atrophic OBGYN [facility] vaginitis N95.2 [place], [place] [id number] [facility] 103 Feb, Pelvic and perineal pain OBGYN [facility] R10.2 and Dysuria R30.0 [place], [place] [id number] [facility] 103 Feb, Pelvic and perineal pain OBGYN [facility] R10.2 ; Dysuria R30.0 and [place], [place] [id number] Postmenopausal atrophic vaginitis N95.2 [facility] 103 Feb, Pelvic and perineal pain OBGYN [facility] R10.2 [place], [place] [id number] [facility] 103 January, Rash and other nonspecific OBGYN [facility] skin eruption R21 [place] [id number] [facility] 103 January, OBGYN [place] [id number] [facility] January, O[place] [id number] [facility] 103 January, Dysuria R30.0 ; Pelvic and OBGYN [facility] perineal pain R10.2 ; [place], [place] [id number] Mastodynia N64.4 and Other specified noninflammatory disorders of vagina N89.8 [facility] 103 Dec, Candidiasis, unspecified OBGYN [facility] [address] B37.9 [place] [id number] [facility] 103 Dec, Candidiasis, unspecified [facility]BGYN [facility] B37.9 [place], [place] [id number] [facility] 103 Dec, Candidiasis, unspecified [facility]BGYN [facility] B37.9 [place], [place] [id number] [facility] 103 Jun, Postmenopausal bleeding OBGYN [address] [id number] [facility] 103 Jun, OBGYN [place] [id number] [facility] 103 Jun, [place] [id number] [facility] Jun, [place], [place] [id number] [facility] 103 Jun, Postmenopausal bleeding OBGYN [address] [id number] [facility] 103 Jun, OBGYN [place] [id number] [facility] 103 Jun, Postmenopausal bleeding OBN [address] [id number] [facility] 103 Jun, Postmenopausal bleeding OBN [address] [id number] [facility] 103 Jun, OBGYN [place] [id number] [facility] 103 Jun, [place] [id number] [facility] 103 Apr, Encounter for gynecological OBGYN [facility] (general) [place], [place] [id number] (routine) with abnormal findings Z01.411 ; Dysuria R30.0 ; Encounter for screening mammogram for malignant neoplasm of breast Z12.31 and Encounter for screening for malignant neoplasm of colon Z12.11 [facility] 103 27 Mar, 2017 OBGYN [place] [id number] [facility] 103 Mar, OBGYN [place], [place] [id number] [facility] 103 Mar, OBG[place] [id number] [facility] 103 Mar, Candidiasis of skin and OBGYN [facility] [address] nail B37.2 [place], [place] [id number] [facility] 103 January, Mastodynia N64.4 [place] [id number] [facility] 103 Dec, Pelvic and perineal pain OBGYN [facility] St R10.2 and Dysuria R30.0 [place], [place] [id number] [facility] 103 Dec, PELVIC PAIN 625.9 OBGYN [place] [id number] [facility] 103 Dec, Pelvic and perineal pain OBGYN [facility] St R10.2 [place], [place] [id number] [facility] 103 Nov, Idiopathic urticaria L50.1 OBGYN [facility] and Mastodynia N64.4 [place], [place] [id number] [facility] 103 Oct, Generalized abdominal pain OBGYN [facility] St R10.84 and Mastodynia N64.4 [place], [place] [id number] [facility] Sep, Dermatitis, unspecified OBGYN [facility] [address] L30.9 [place], [place] [id number] [facility] 103 Sep, Pelvic and perineal pain OBGYN [facility] [address] R10.2 [place], [place] [id number] [facility] 103 Sep, Postmenopausal bleeding OBGYN [facility] [address] N95.0 [place], [place] [id number] [facility] [address], Sep, [facility] [place] [id number] [facility] 103 Sep, O[place], [place] [id number] [facility] 103 Sep, [place] [id number] [facility] 103 Sep, Postmenopausal bleeding OBGYN [facility] [place] [address] [id number] [facility] 103 Aug, Postmenopausal bleeding OBGYN [facility] [place] [id number] [facility] 103 Aug, Postmenopausal bleeding [facility]95. and Pelvic and [place], [place] [id number] perineal pain R10.2 [facility] 103 Jul, [place] [id number] [facility] 103 Jul, Postmenopausal bleeding OBGYN [facility] N95. and Pelvic and [place], [place] [id number] perineal pain R10.2 [facility] 103 Jul, [place]BGYN [place], [place] [id number] [facility] 103 Jul, Mastodynia N64.4 ; OBGYN [facility] Postmenopausal bleeding [place], [place] [id number] N95.0 and Pelvic and perineal pain R10.2 [facility] 103 Jul, OBGYN [place], [place] [id number] [facility] 103 Jun, Mastodynia N64.4 [place] [id number] [facility] 103 Jun, [place] [id number] [facility] 103 May, Mastodynia N64.4 [place] [id number] [facility] 103 Apr, Encounter for gynecological OBGYN [facility] examination (general) [place], [place] [id number] (routine) without abnormal findings Z01.419 ; Encounter for screening mammogram for malignant neoplasm of breast Z12.31 and Encounter for screening for malignant neoplasm of colon Z12.11 [facility] 103 27 Mar, 2016 Disorder of the skin and OBGYN [facility] subcutaneous tissue, [place], [place] [id number] unspecified L98.9 [facility] 103 January, Mastodynia N64.4 [place] [id number] [facility] January, [place] [id number] [facility] 103 Dec, Other pruritus L29.8 O[place]YN [place] [id number] [facility] 103 Dec, Dysuria R30.0 ; Pelvic and OBGYN [facility] perineal pain R10.2 and [place], [place] [id number] Postmenopausal bleeding N95.0 [facility] 103 Dec, Pelvic and perineal pain OBGYN [facility] R10.2 [place] [id number] [facility] 103 Dec, Pelvic and perineal pain OBGYN [facility] R10.2 [place], [place] [id number] [facility] 103 Dec, Dysuria R30.0 [place] [id number] [facility] 103 Dec, Postmenopausal bleeding OBGYN [facility] N95.0 and Dysuria R30.0 [place] [id number] [facility] 103 Nov, Postmenopausal bleeding OBGYN [facility] N95.0 [place], [place] [id number] [facility] 103 Nov, Postmenopausal bleeding OBGYN [facility] N95.0 [place], [place] [id number] [facility] 103 Nov, [place] [id number] [facility] 103 Nov, Mastodynia N64.4 [place], [place] [id number] [facility] 103 Aug, [place], [place] [id number] [facility] 103 Aug, [place], [place] [id number] [facility] 103 Aug, Postmenopausal bleeding OBGYN [facility] N95.0 [place], [place] [id number] [facility] 103 Aug, Dysuria R30.0 and OBGYN [facility] Postmenopausal bleeding [place], [place] [id number] N95.0 [facility] 103 Jun, Postmenopausal bleeding OBGYN [facility] N95.0 [place], [place] [id number] [facility] 103 Jun, Postmenopausal bleeding OBGYN [facility]95.0 [place] [id number] [facility] 103 Jun, [place] [id number] [facility] 103 Jun, O[place], [place] [id number] [facility] 103 Jun, Postmenopausal bleeding OBGYN [facility] N95.0 and Dysuria R30.0 [place] [id number] [facility] 103 May, Postmenopausal bleeding OBGYN [facility] 627.1 [place], [place] [id number] [facility] May, [facility] 627.1 [place], [place] [id number] [facility] May, Urinary frequency 788.41 ; OBGYN [facility] Postmenopausal bleeding [place], [place] [id number] 627.1 and Atrophic vulvovaginitis 627.3 [facility] Mar, Mastalgia 611.71 [place] [id number] [facility] Feb, Mastalgia 611.71 [place] [id number] [facility] Feb, BREAST DISORDER NOS 611.9 [place] [id number] [facility] January, [place] [id number] [facility] 103 Dec, DERMATITIS NOS 692.9 [place] [id number] [facility] 103 Dec, Postmenopausal bleeding [address] [id number] [facility] 103 Dec, [place] [id number] [facility] 103 Dec, [place] [id number] [facility] [address] [place], [facility] [id number] [facility] 103 Nov, Postmenopausal bleeding [address] [id number] [facility] 103 Nov, [place] [id number] [facility] 103 Nov, [place] [id number] [facility] [address] [place], [facility] [id number] [facility] 103 Nov, [place] [id number] [facility] 103 Oct, [place] [id number] [id number] [facility] 103 Oct, [place] [id number] [facility] 103 Oct, [place], [place] [id number] [facility] 103 Oct, [place] [id number] [facility] 103 Oct, [place] [id number] [facility] 103 Oct, Postmenopausal bleeding OBGYN [address] [id number] [facility] 103 Oct, O[place]YN [place], [place] [id number] [facility] 103 Oct, Postmenopausal bleeding [address] [id number] [facility] 103 Oct, Dysuria 788.1 and OBGYN [facility] Postmenopausal bleeding [place] [id number] 627.1 [facility] 103 Jul, Dysuria 788.1 O[place]YN [place] [id number] [facility] Jun, Atopic dermatitis 691.8 [place] [id number] [facility] 103 May, [place], [place] [id number] [facility] May, [place], [place] [id number] [facility] 103 Apr, ROUTINE TRAVEL INSURANCE AGENT EXAMINATION OBGYN [facility] V72.31 ; SCREEN MALIG [place], [place] [id number] NEOP-COLON V76.51 ; SCREEN MAMMOGRAM NEC V76.12 and Urinary tract infection NOS 599.0 [facility] Apr, Breast Mass 611.72 [place], [place] [id number] [facility] 103 Apr, Dysuria 788.1 [place]YN [place] [id number] [facility] 103 Dec, [place] [id number] [facility] 103 Dec, Hematuria, microscopic OBGYN [facility] 599.72 and Dysuria 788.1 [place], [place] [id number] [facility] 103 Dec, [place] [id number] [facility] 103 Nov, Atopic dermatitis 691.8 [place] [id number] [facility] 103 Aug, [place] [id number] [facility] 103 Aug, [place] [id number] [facility] 103 Aug, [place] [id number] [facility] 103 Aug, Atopic dermatitis 691.8 [place]YN [place], [place] [id number] [facility] 103 Aug, [place], [place] [id number] [facility] 103 Aug, [place] [id number] [facility] 103 Aug, [place] [id number] [facility] Aug, [place] [id number] [facility] 103 Jul, Atopic eczema 691.8 and OBGYN [facility] BREAST DISORDER NOS 611.9 [place], [place] [id number] [facility] Jul, OBG[place], [place] [id number] [facility] 103 Jul, Atopic eczema 691.8 and OBGYN [facility] BREAST DISORDER NOS 611.9 [place], [place] [id number] [facility] 103 Jul, [place] [id number] [facility] 103 Jul, HEMATURIA NOS 599.70 [place] [id number] [facility] 103 May, [place] [id number] [facility] Apr, [facility] V72.31 ; PAP SMEAR W/O TRAVEL INSURANCE AGENT [place], [place] [id number] EXAM V76.2 ; SCREEN MALIG NEOP-COLON V76.51 and SCREEN MAMMOGRAM NEC V76.12 [facility] Apr, OBG[place], [place] [id number] [facility] Apr, PELVIC PAIN 625.9 [place] [id number] [facility] 103 Apr, Menometrorrhagia 626.2 ; [facility] Dysuria 788.1 and PELVIC [place], [place] [id number] PAIN 625.9 [facility] 103 Mar, [place]BGYN [place], [place] [id number] [facility] 103 Mar, [place] [id number] [facility] 103 Mar, Hematuria, microscopic OBGYN [facility] 599.72 [place], [place] [id number] [facility] Feb, [place], [place] [id number] [facility] 103 Feb, [place], [place] [id number] [facility] Feb, [place] [id number] [facility] 103 Feb, Menometrorrhagia 626.2 [place]YN [place] [id number] [facility] January, [place]BG[place], [place] [id number] [facility] [address] [place] [address] January, Menometrorrhagia [address]26.[address] [facility] [address] [place], [place] [id number] [facility] January, [place] [id number] [facility] January, [place], [place] [id number] [facility] 103 January, Menometrorrhagia 626.2 [place], [place] [id number] [facility] [address] [place], Dec, [facility] [id number] [facility] 103 Dec, Menometrorrhagia 626.2 and OBGYN [facility] IUD SURVEILLANCE V25.42 [place], [place] [id number] [facility] 103 Dec, [place] [id number] [facility] 103 Dec, [place], [place] [id number] [facility] 103 Nov, OBG[place], [place] [id number] [facility] [address] [place] [address] Nov, Menometrorrhagia [address] [place], [place] [id number] [facility] 103 Nov, Menometrorrhagia 626.2 [place]YN [place] [id number] [facility] Nov, Menometrorrhagia 626.2 OBGYN [place], [place] [id number] [facility] 103 Nov, Menometrorrhagia 626.2 ; OBGYN [facility] IUD SURVEILLANCE V25.42 and [place], [place] [id number] Endometrial polyp 621.0 [facility] 103 Nov, Menometrorrhagia 626.2 [place]YN [place] [id number] [facility] Oct, [place] [id number] [facility] 103 Sep, [place], [place] [id number] [facility] 103 Sep, [place] [id number] [facility] Sep, [place] [id number] [facility] 103 Sep, OBG[place], [place] [id number] [facility] Sep, PELVIC PAIN 625.9 ; OBGYN [facility] HEMATURIA NOS 599.70 and [place], [place] [id number] Abdominal pain, right upper quadrant 789.01 [facility] 103 14 Sep, 2012 PELVIC PAIN 625.9 and IUD OBGYN [facility] SURVEILLANCE V25.42 [place], [place] [id number] [facility] 11 Sep, 2012 PELVIC PAIN 625.9 [place] [id number] [facility] Aug, OBGYN [place], [place] [id number] [facility] [address] [place] [address] Jul, Irregular bleeding NOS OBGYN [address] [place], 626.4 ; Hydrosalpinx 614.1 [place] [id number] and PELVIC PAIN 625.9 [facility] 103 Jul, Hydrosalpinx 614.1 and IUD OBGYN [facility] SURVEILLANCE V25.42 [place], [place] [id number] [facility] Jun, OBG[place], [place] [id number] [facility] 103 Jun, Irregular bleeding NOS OBGYN [facility] [address] 626.4 and Hydrosalpinx [place], [place] [id number] 614.1 [facility] 103 May, OBGYN [place], [place] [id number] [facility] 103 May, Irregular bleeding NOS OBGYN [facility] [address] 626.4 [place], [place] [id number] [facility] May, Irregular bleeding NOS OBGYN [facility] [address] 626.4 [place], [place] [id number] [facility] May, Irregular bleeding NOS OBGYN [facility] St 626.4 and Menorrhagia 626.2 [place], [place] [id number] [facility] May, Irregular bleeding NOS OBGYN [facility] [address] 626.4 and PELVIC PAIN 625.9 [place], [place] [id number] [facility] 103 May, PELVIC PAIN 625.9 ; OBGYN [facility] Irregular bleeding NOS [place], [place] [id number] 626.4 and IUD SURVEILLANCE V25.[address] [facility] 103 Apr, Irregular bleeding NOS OBN [facility] 626.4 and PELVIC PAIN 625.9 [place], [place] [id number] [facility] 103 Feb, OBG[place] 538397071 [facility] 103 Feb, Irregular bleeding [facility] 626.4 ; PELVIC PAIN 625.9 [place], [place] [id number] and Abdominal pain, epigastric 789.06 [facility] Nov, Vitamin D deficiency NOS [facility] 268.9 [place], [place] [id number] [facility] 103 Nov, OBGYN [place] [id number] [facility] 103 Nov, Irregular bleeding NOS [facility] 626.4 and IUD SURVEILLANCE [place], [place] [id number] V25.[address] [facility] 103 Nov, ROUTINE TRAVEL INSURANCE AGENT EXAMINATION [facility] V72.31 ; Irregular bleeding [place], [place] [id number] NOS 626.4 ; PAP SMEAR W/O TRAVEL INSURANCE AGENT EXAM V76.2 ; IUD SURVEILLANCE V25.42 and SCREEN MALIG NEOP-COLON V76.51 [facility] Nov, OBGYN [place] [id number] [facility] 103 Nov, Irregular bleeding NOS [facility] 626.4 and IUD SURVEILLANCE [place] [id number] V25.[address] [facility] 103 Nov, [place] [id number] [facility] 103 Oct, Irregular bleeding NOS OBGYN [facility] 626.4 [place], [place] [id number] [facility] Oct, [place] [id number] [facility] 103 Sep, [place], [place] [id number] [facility] 103 Sep, GENITAL HERPES NOS 054.10 [place] [id number] [facility] 103 Sep, [place] [id number] [facility] Sep, [place] [id number] [facility] 103 Sep, Gross hematuria 599.71 [place] [id number] [facility] Aug, [place] [id number] [facility] Aug, HEMATURIA NOS 599.70 [place] [id number] [facility] Aug, Abdominal pain, generalized OBGYN [facility] 789.07 ; Irregular bleeding [place], [place] [id number] NOS 626.4 and Dysuria 788.1 [facility] 103 Aug, PELVIC PAIN 625.9 and IUD OBGYN [facility] SURVEILLANCE V25.42 [place], [place] [id number] [facility] Jul, Abdominal pain, generalized OBGYN [facility] 789.07 and Irregular [place], [place] [id number] bleeding NOS 626.4 [facility] 103 Jul, [place] [id number] [facility] Jun, Abdominal pain, generalized OBGYN [facility] 789.07 and Irregular [place], [place] [id number] bleeding NOS 626.4 [facility] 103 May, Abdominal pain, right lower OBGYN [facility] quadrant 789.03 and [place], [place] [id number] Irregular bleeding NOS 626.4 [facility] 103 Apr, [place]BG[place], [place] [id number] [facility] 103 Apr, IUD SURVEILLANCE V25.42 [place], [place] [id number] [facility] Mar, INSERTION OF IUD V25.11 [place], [place] [id number] [facility] Feb, [place] [id number] [facility] Feb, [place] [id number] [facility] 103 Feb, Menorrhagia 626.2 ; Ovarian OBGYN [facility] cyst NOS 620.2 and [place], [place] [id number] Dysmenorrhea [address] [facility] Feb, [place] [id number] [facility] [address] [place], Feb, [facility] [id number] [place] [facility] 103 Feb, Menorrhagia 626.2 ; Ovarian OBGYN [facility] cyst NOS 620.2 and [place], [place] [id number] Dysmenorrhea 625.3 [place] [facility] January, [place], [place] [id number] [facility] January, Menorrhagia 626.2 ; Ovarian OBGYN [facility] [address] cyst NOS 620.2 and [place], [place] [id number] Dysmenorrhea 625.3 [place] [facility] 103 January, Ovarian cyst NOS 620.2 ; OBGYN [facility] Menorrhagia 626.2 and [place], [place] [id number] Dysmenorrhea 625.3 [place] [facility] Nov, [place], [place] [id number] [facility] [facility] 103 Nov, ROUTINE TRAVEL INSURANCE AGENT EXAMINATION OBGYN [facility] V72.31 and PAP SMEAR W/O [place], [place] [id number] TRAVEL INSURANCE AGENT EXAM V76.2 [place] [facility] Nov, OBG[place] [id number] [facility] [facility] 103 Nov, Menorrhagia 626.2 and OBGYN [facility] Ovarian cyst NOS 620.2 [place] [id number] [facility] [facility] 103 Nov, Menorrhagia 626.2 [place] [id number] [facility] [facility] 103 Nov, Menorrhagia 626.2 [place] [id number] [facility] [facility] 103 Nov, Menorrhagia 626.2 and OBGYN [facility] Ovarian cyst NOS 620.2 [place], [place] [id number] [facility] [facility] 103 Oct, [place], [place] [id number] [facility] [facility] 103 Oct, [place], [place] [id number] [facility] [facility] 103 Oct, Menorrhagia 626.2 [place], [place] [id number] [facility] [facility] 103 Feb, ROUTINE TRAVEL INSURANCE AGENT EXAMINATION OBGYN [facility] V72.31 [place], [place] [id number] [facility] [facility] May, PELVIC PAIN 625.9 [place] [id number] [facility] [facility] May, PELVIC PAIN 625.9 [place] [id number] [facility] [facility] May, PELVIC PAIN 625.9 [place] [id number] [facility] [facility] Apr, [place], [place] [id number] [facility] [facility] 103 Apr, Dysuria 788.1 and HEMATURIA OBGYN [facility] NOS 599.70 [place], [place] [id number] [facility] [facility] Apr, PELVIC PAIN 625.9 [place], [place] [id number] [facility] Mar, [place], [place] [id number] [facility] [facility] 103 Mar, Ovarian cyst NOS 620.2 and OBGYN [facility] PELVIC PAIN 625.9 [place], [place] [id number] [facility] [facility] 103 Mar, Ovarian cyst NOS 620.2 and OBGYN [facility] PELVIC PAIN 625.9 [place], [place] [id number] [facility] Feb, [place], [place] [id number] [facility] [facility] 103 Feb, Ovarian cyst NOS 620.2 and OBGYN [facility] PELVIC PAIN 625.9 [place], [place] [id number] [facility] [facility] 103 Feb, Ovarian cyst NOS 620.2 and OBGYN [facility] PELVIC PAIN 625.9 [place], [place] [id number] [facility] [facility] 103 Feb, PELVIC PAIN 625.9 and OBGYN [facility] Ovarian cyst NOS 620.2 [place], [place] [id number] [facility] 103 Feb, ROUTINE TRAVEL INSURANCE AGENT EXAMINATION OBGYN [facility] V72.31 [place], [place] [id number] [facility] [facility] 103 11 Feb, 2009 PELVIC PAIN 625.9 and OBGYN [facility] Ovarian cyst NOS 620.2 [place], [place] [id number] [facility] [facility] 103 Feb, PELVIC PAIN 625.9 and OBGYN [facility] Ovarian cyst NOS 620.2 [place], [place] [id number] [facility] [facility] 103 Feb, Menorrhagia 626.2 and OBGYN [facility] PELVIC PAIN 625.9 [place], [place] [id number] [facility] [facility] 103 January, [place], [place] [id number] [facility] 103 January, Menorrhagia 626.2 and OBGYN [facility] Irregular bleeding NOS [place], [place] [id number] 626.4 [facility] [facility] 103 January, Menorrhagia 626.2 [place], [place] [id number] [facility] Nov, [place], [place] [id number] [facility] 103 Nov, Menorrhagia 626.2 [place], [place] [id number] [facility] [facility] 103 Jun, [place], [place] [id number] [facility] [facility] 103 Jun, Menorrhagia 626.2 [place], [place] [id number] [facility] [facility] 103 Jun, Menorrhagia 626.2 [place], [place] [id number] [facility] May, [place], [place] [id number] [facility] [facility] 103 May, Menorrhagia 626.2 and OBGYN [facility] PELVIC PAIN 625.9 [place], [place] [id number] [facility] 103 May, Ovarian cyst NOS 620.2 [place], [place] [id number] [facility] 103 May, Ovarian cyst NOS 620.2 and OBGYN [facility] PELVIC PAIN 625.9 [place], [place] [id number] [facility] 103 May, [place], [place] [id number] [facility] 103 Apr, Cervical polyp 622.7 [place], [place] [id number] [facility] Sep, [place], [place] [id number] [facility] [facility] Sep, [place], [place] [id number] [facility] 103 Sep, [place], [place] [id number] [facility] 103 Sep, Menorrhagia 626.2 [place], [place] [id number] [facility] Aug, [place], [place] [id number] [facility] 103 Aug, Menorrhagia 626.2 [place], [place] [id number] [facility] Jun, [place], [place] [id number] [facility] 103 Jun, [place], [place] [id number] [facility] Jun, [place], [place] [id number] [facility] 103 Jun, Menorrhagia 626.2 [place], [place] [id number] [facility] May, Menorrhagia 626.2 [place] [id number] [facility] [facility] 103 May, Menorrhagia 626.2 [place], [place] [id number] [facility] [facility] 103 Apr, PELVIC PAIN 625.9 [place], [place] [id number] [facility] [facility] 103 Apr, PELVIC PAIN 625.9 [place] [id number] [facility] [facility] Apr, [place], [place] [id number] [facility] [facility] 103 Apr, ROUTINE TRAVEL INSURANCE AGENT EXAMINATION OBGYN [facility] V72.31 ; Dysuria 788.1 ; [place], [place] [id number] PELVIC PAIN 625.9 and Hemorrhoids NOS 455.6 [facility] [facility] 103 Mar, Ovarian cyst NOS 620.2 [place], [place] [id number] [facility] [facility] Mar, [place], [place] [id number] [facility] 103 Mar, Ovarian cyst NOS 620.2 [place] [id number] [facility] [facility] Feb, [place], [place] [id number] [facility] 103 January, Menorrhagia 626.2 ; Ovarian OBGYN [facility] cyst NOS 620.2 and PELVIC [place], [place] [id number] PAIN 625.9 [facility] [facility] January, Menorrhagia 626.2 ; Ovarian OBGYN [facility] cyst NOS 620.2 and PELVIC [place], [place] [id number] PAIN 625.9 [facility] [facility] 18 Jan, 2007 Ovarian cyst NOS 620.2 ; OBGYN [facility] PELVIC PAIN 625.9 and [place], [place] [id number] Irregular bleeding NOS 626.4 [facility] [facility] 15 Jan, 2007 Ovarian cyst NOS 620.2 and OBGYN [facility] PELVIC PAIN 625.9 [place], [place] [id number] [facility] [facility] Aug, [place] [id number] [facility] [facility] Aug, [place] [id number] [facility] [facility] Aug, [place], [place] [id number] [facility] [facility] 103 Aug, Menorrhagia 626.2 ; [facility] [place] [id number] 620.0 and Dysmenorrhea 625.3 [facility] [facility] 103 Jun, [facility]orrhagia 626.2 [facility] NOS 620.2 [place], [place] [id number] [facility] [facility] Feb, Candidal [facility]aginitis [facility] 112.1 [place], [place] [id number] [facility] [facility] Dec, [place], [place] [id number] [facility] Oct, Mastalgia 611.71 [place], [place] [id number] [facility] [facility] Oct, [facility] 620.0 [place], [place] [id number] [facility] [facility] 103 Sep, [facility] 620.0 and Dysmenorrhea [place], [place] [id number] 625.3 UNKNOWN Aug, [facility] [facility] 103 Aug, Follicular cyst of ovary [facility] 620.0 and Dysmenorrhea [place], [place] [id number] 625.3 UNKNOWN Aug, [facility] 103 Aug, Menorrhagia 626.2 [place], [place] [id number] [facility] 103 Aug, [place] [id number] [facility] 103 Aug, PREMENOPAUSE MENORRHAGIA [facility] 627.0 and Menorrhagia 626.2 [place], [place] [id number] UNKNOWN Jul, [facility] Jul, Abrasion or friction burn [facility] of vagina without infection [place], [place] [id number] 911.0 IMMUNIZATIONS No Known Immunizations SOCIAL HISTORY Never Assessed REASON FOR REFERRAL FUNCTIONAL STATUS PLAN OF CARE Activity Details Follow Up PRN Reason: VITAL SIGNS Height 62 in 2018-05-14 Weight 139 lbs 2018-05-14 BMI 25.42 kg/m2 2018-05-14 Blood pressure systolic 124 mm Hg 2018-05-14 Blood pressure diastolic 62 mm Hg 2018-05-14 MEDICATIONS Medication Instructions Dosage Frequency Start End Duration Status Date Date naproxen 500 mg orally QD 1 tab(s) 24h Active omeprazole 20 mg orally once a day 1 cap(s) 24h Active betamethasone-jeff applied topically 1 valente 12h 30 Apr, 10 day(s) Active trimazole topical 2 times a day 2018 0.05%-1% Premarin Vaginal intravaginally 0.5 g 05 Feb, 60 day(s) Active 0.625 mg/g twice a week 2018 Fish Oil 1200 mg orally qd 1 cap(s) 24h Active Estradiol Vaginal intravaginally 2 1 g Apr, 90 day(s) Active 0.1 mg/g times a week 2018 Triamcinolone applied topically 1 valente 8h 16 Apr, 7 day(s) Active Acetonide Topical to affected area 2018 0.1% 3 times a day aspirin 81 mg orally QD 1 tab(s) 24h Active Premarin Vaginal intravaginally 0.5 grams Apr, day(s) Active 0.625 mg/g twice a week 2017 Hydrocortisone, applied topically 1 valente 8h Jun, day(s) Active Topical 2.5% 3 times a day 2016 PROCEDURES No Known procedures RESULTS No Results REASON FOR VISIT Sore under RT Breast Insurance Providers [facility] Member Patient Patient Patient Patient Patient Subscriber Subscriber Subscriber Group Insurance Plan Plan Plan Plan ID Relationship Address Phone Name Date of ID Name Date of No Type Insurance Insurance Insurance Coverage to Subscriber Address Phone Name Dates Medicaid [id number] Medicaid self [place] [id number] [facility] [address] [facility] [address] [place] [phone] [place] self Ashley [id number] Care [facility] [address] [facility] [address] Medicare [phone] Medicare self Ashley [id number] [facility] [address] MEDICAL (GENERAL) HISTORY Type Description Date Medical History Esophageal reflux Medical History Genital herpes Medical History Atopic dermatitis Medical History high cholesterol Medical History stroke Medical History pneumonia Medical History px COPD Medical History Barretts Esophegus Medical History hx CVA Medical History anxiety Medical History costochondritis Surgical History hysteroscopy,D&C 8-03 Surgical History LSO 10 Surgical History D&C 2 Surgical History D&C 4- Surgical History Hysteroscopy/D&C/polypectomy/Mirena removal and 01/05/13 Novasure [...]
--- OUTSIDE RECORDS SUMMARY | 2018-05-28 14:58 | XMS REPORT ---
:1960 Author Organization [facility] Address [address] [place] [address] Care Team Providers Name Role Phone Tiera Ferrara Unavailable Unavailable PROBLEMS Type Condition ICD9-CM Code [id number] Onset Condition SNOMED Code Code Dates Status Problem Postmenopausal N95.0 Active 43642326 bleeding Problem Rash and other R21 Active 908917858 nonspecific skin eruption Problem Dysuria R30.0 Active 57690723 Problem Pelvic and perineal R10.2 Active 433415603 pain Problem Mastodynia N64.4 Active 80025270 Problem Postmenopausal N95.2 Active 25618819 atrophic vaginitis Problem Candidiasis, B37.9 Active 84187046 unspecified ALLERGIES Substance Reaction Event Type Date Status penicillin hives Drug Allergy Apr, Active Pneumovax 23 swelling, itching, hives Drug Allergy Apr, Active ENCOUNTERS Encounter Location Date Diagnosis [facility] Apr, Rash and other nonspecific OBGYN [facility] skin eruption R21 [place], [place] [id number] [facility] 103 Apr, OBG[place] [id number] [facility] 103 Apr, [place] [id number] [facility] 103 Apr, Encounter for gynecological OBGYN [facility] examination (general) [place], [place] [id number] (routine) without abnormal findings Z01.419 ; Encounter for screening for malignant neoplasm of cervix Z12.4 ; Encounter for screening for malignant neoplasm of colon Z12.11 ; Encounter for screening mammogram for malignant neoplasm of breast Z12.31 ; Postmenopausal atrophic vaginitis N95.2 and Dysuria R30.0 [facility] 103 Feb, Postmenopausal atrophic OBGYN [facility] vaginitis N95.2 [place] [id number] [facility] 103 Feb, Pelvic and perineal pain OBGYN [facility] R10.2 and Dysuria R30.0 [place] [id number] [facility] 103 Feb, Pelvic and perineal pain OBGYN [facility] R10.2 ; Dysuria R30.0 and [place], [place] [id number] Postmenopausal atrophic vaginitis N95.2 [facility] 103 Feb, Pelvic and perineal pain OBGYN [facility] R10.2 [place] [id number] [facility] 103 January, Rash and other nonspecific OBGYN [facility] skin eruption R21 [place], [place] [id number] [facility] January, [place] [id number] [facility] January, [place] [id number] [facility] 103 January, Dysuria R30.0 ; Pelvic and OBGYN [facility] perineal pain R10.2 ; [place], [place] [id number] Mastodynia N64.4 and Other specified noninflammatory disorders of vagina N89.8 [facility] 103 Dec, Candidiasis, unspecified OBGYN [facility] B37.9 [place] [id number] [facility] 103 Dec, Candidiasis, unspecified OBGYN [facility] B37.9 [place] [id number] [facility] 103 Dec, Candidiasis, unspecified OBGYN [facility] B37.9 [place], [place] [id number] [facility] 103 Jun, Postmenopausal bleeding OBGYN [address] [id number] [facility] 103 Jun, [place] [id number] [facility] Jun, [place] [id number] [facility] 103 Jun, [place] [id number] [facility] 103 Jun, Postmenopausal bleeding OBGYN [address] [id number] [facility] 103 Jun, [place] [id number] [facility] 103 Jun, Postmenopausal bleeding OBGYN [address] [id number] [facility] 103 Jun, Postmenopausal bleeding [address] [id number] [facility] 103 Jun, O[place] [id number] [facility] 103 Jun, [place] [id number] [facility] 103 Apr, Encounter for gynecological OBGYN [facility] (general) [place], [place] [id number] (routine) with abnormal findings Z01.411 ; Dysuria R30.0 ; Encounter for screening mammogram for malignant neoplasm of breast Z12.31 and Encounter for screening for malignant neoplasm of colon Z12.11 [facility] 103 Mar, [place]BG[place] [id number] [facility] 103 Mar, [place] [id number] [facility] 103 Mar, [place] [id number] [facility] 103 Mar, Candidiasis of skin and OBGYN [facility] nail B37.2 [place], [place] [id number] [facility] 103 January, Mastodynia N64.4 [place] [id number] [facility] 103 Dec, Pelvic and perineal pain OBGYN [facility] R10.2 and Dysuria R30.0 [place], [place] [id number] [facility] 103 Dec, PELVIC PAIN 625.9 [place] [id number] [facility] 103 Dec, Pelvic and perineal pain OBGYN [facility] R10.2 [place], [place] [id number] [facility] 103 Nov, Idiopathic urticaria L50.1 OBGYN [facility] and Mastodynia N64.4 [place], [place] [id number] [facility] 103 Oct, Generalized abdominal pain OBGYN [facility] R10.84 and Mastodynia N64.4 [place], [place] [id number] [facility] 103 Sep, Dermatitis, unspecified OBGYN [facility] L30.9 [place], [place] [id number] [facility] 103 Sep, Pelvic and perineal pain OBGYN [facility] R10.2 [place] [id number] [facility] 103 Sep, Postmenopausal bleeding OBGYN [facility] N95.0 [place] [id number] [facility] [address] [place], Sep, Medical [facility] [id number] [facility] 103 Sep, [place] [id number] [facility] 103 Sep, O[place] [id number] [facility] 103 Sep, Postmenopausal bleeding OBGYN [facility] N95.0 [place], [place] [id number] [facility] 103 Aug, Postmenopausal bleeding OBGYN [facility] N95.0 [place] [id number] [facility] 103 Aug, Postmenopausal bleeding OBGYN [facility] N95.0 and Pelvic and [place], [place] [id number] perineal pain R10.2 [facility] 103 Jul, [place]BG[place] [id number] [facility] 103 Jul, Postmenopausal bleeding OBGYN [facility] N95.0 and Pelvic and [place], [place] [id number] perineal pain R10.2 [facility] 103 Jul, [place]BGYN [place] [id number] [facility] 103 Jul, Mastodynia N64.4 ; OBGYN [facility] Postmenopausal bleeding [place], [place] [id number] N95.0 and Pelvic and perineal pain R10.2 [facility] 103 Jul, [place]BGYN [place], [place] [id number] [facility] 103 Jun, Mastodynia N64.4 [place] [id number] [facility] 103 Jun, [place] [id number] [facility] 103 May, Mastodynia N64.4 [place]YN [place] [id number] [facility] 103 Apr, Encounter for gynecological OBGYN [facility] examination (general) [place], [place] [id number] (routine) without abnormal findings Z01.419 ; Encounter for screening mammogram for malignant neoplasm of breast Z12.31 and Encounter for screening for malignant neoplasm of colon Z12.11 [facility] 103 Mar, Disorder of the skin and OBGYN [facility] subcutaneous tissue, [place], [place] [id number] unspecified L98.9 [facility] 103 January, Mastodynia N64.4 [place] [id number] [facility] 103 January, [place], [place] [id number] [facility] 103 Dec, Other pruritus L29.8 [place], [place] [id number] [facility] 103 Dec, Dysuria R30.0 ; Pelvic and OBGYN [facility] perineal pain R10.2 and [place], [place] [id number] Postmenopausal bleeding N95.0 [facility] 103 Dec, Pelvic and perineal pain OBGYN [facility] R10.2 [place] [id number] [facility] 103 Dec, Pelvic and perineal pain OBGYN [facility] R10.2 [place], [place] [id number] [facility] 103 Dec, Dysuria R30.0 [place] [id number] [facility] 103 Dec, Postmenopausal bleeding OBGYN [facility] N95.0 and Dysuria R30.0 [place], [place] [id number] [facility] 103 Nov, Postmenopausal bleeding OBGYN [facility] N95.0 [place] [id number] [facility] 103 Nov, Postmenopausal bleeding OBGYN [facility] N95.0 [place] [id number] [facility] 103 Nov, OBGYN [place] [id number] [facility] 103 Nov, Mastodynia N64.4 [place] [id number] [facility] 103 Aug, [place] [id number] [facility] 103 Aug, [place], [place] [id number] [facility] 103 Aug, Postmenopausal bleeding OBN [facility] N95.0 [place] [id number] [facility] 103 Aug, Dysuria R30.0 and OBGYN [facility] Postmenopausal bleeding [place] [id number] N95.0 [facility] 103 Jun, Postmenopausal bleeding OBGYN [facility] N95.0 [place] [id number] [facility] 103 Jun, [facility].0 [place] [id number] [facility] 103 Jun, O[place]YN [place], [place] [id number] [facility] 103 Jun, [place], [place] [id number] [facility] 103 Jun, Postmenopausal bleeding OBGYN [facility] N95.0 and Dysuria R30.0 [place] [id number] [facility] 103 May, Postmenopausal bleeding OBGYN [facility] 627.1 [place] [id number] [facility] 103 May, Postmenopausal bleeding OBGYN [facility] 627.1 [place] [id number] [facility] 103 May, Urinary frequency 788.41 ; OBGYN [facility] Postmenopausal bleeding [place] [id number] 627.1 and Atrophic vulvovaginitis 627.3 [facility] 103 Mar, Mastalgia 611.71 [place], [place] [id number] [facility] Feb, Mastalgia 611.71 [place] [id number] [facility] 103 Feb, BREAST DISORDER NOS 611.9 [place] [id number] [facility] 103 January, [place] [id number] [facility] 103 Dec, DERMATITIS NOS 692.9 [place] [id number] [facility] 103 Dec, [facility] 627.1 [place] [id number] [facility] 103 Dec, [place] [id number] [facility] Dec, [place] [id number] [facility] [address] [facility] [place] [id number] [facility] 103 Nov, Postmenopausal bleeding OBGYN [facility] 627.1 [place], [place] [id number] [facility] 103 Nov, [place] [id number] [facility] 103 Nov, [place] [id number] [facility] [address], [facility] [place] [id number] [facility] 103 Nov, [place] [id number] [facility] 103 Oct, Postmenopausal bleeding OBGYN [facility] [address] [place] [id number] [facility] 103 Oct, [place] [id number] [facility] 103 Oct, [place] [id number] [facility] 103 Oct, [place] [id number] [facility] 103 Oct, [place] [id number] [facility] 103 Oct, Postmenopausal bleeding OBGYN [address] [id number] [facility] 103 Oct, [place] [id number] [facility] 103 Oct, [place] [id number] [id number] [facility] 103 Oct, Dysuria 788.1 and OBGYN [facility] Postmenopausal bleeding [place] [id number] 627.1 [facility] 103 Jul, Dysuria 788.1 [place]YN [place], [place] [id number] [facility] 103 Jun, Atopic dermatitis 691.8 [place]YN [place], [place] [id number] [facility] 103 May, [place] [id number] [facility] 103 May, OBG[place] [id number] [facility] 103 Apr, ROUTINE PROFESSOR OF CHEMISTRY EXAMINATION OBGYN [facility] V72.31 ; SCREEN MALIG [place], [place] [id number] NEOP-COLON V76.51 ; SCREEN MAMMOGRAM NEC V76.12 and Urinary tract infection NOS 599.0 [facility] 103 Apr, Breast Mass 611.72 [place], [place] [id number] [facility] 103 Apr, Dysuria 788.1 [place], [place] [id number] [facility] 103 Dec, OBG[place] [id number] [facility] 103 Dec, Hematuria, microscopic OBGYN [facility] 599.72 and Dysuria 788.1 [place], [place] [id number] [facility] 103 Dec, [place] [id number] [facility] 103 Nov, Atopic dermatitis 691.8 [place], [place] [id number] [facility] 103 Aug, [place] [id number] [facility] 103 Aug, [place] [id number] [facility] 103 Aug, [place] [id number] [facility] 103 Aug, Atopic dermatitis 691.8 [place], [place] [id number] [facility] 103 Aug, [place] [id number] [facility] 103 Aug, [place] [id number] [facility] 103 Aug, [place] [id number] [facility] 103 Aug, [place] [id number] [facility] 103 Jul, Atopic eczema 691.8 and OBGYN [facility] BREAST DISORDER NOS 611.9 [place], [place] [id number] [facility] Jul, [place], [place] [id number] [facility] 103 Jul, Atopic eczema 691.8 and OBGYN [facility] BREAST DISORDER NOS 611.9 [place] [id number] [facility] Jul, [place] [id number] [facility] 103 Jul, HEMATURIA NOS 599.70 [place] [id number] [facility] May, [place] [id number] [facility] 103 Apr, GYNECOLOGIC EXAMINATION OBN [facility] V72.31 ; PAP SMEAR W/O PROFESSOR OF CHEMISTRY [place], [place] [id number] EXAM V76.2 ; SCREEN MALIG NEOP-COLON V76.51 and SCREEN MAMMOGRAM NEC V76.12 [facility] Apr, OBG[place], [place] [id number] [facility] Apr, PELVIC PAIN 625.9 [place] [id number] [facility] 103 Apr, Menometrorrhagia 626.2 ; [facility] Dysuria 788.1 and PELVIC [place], [place] [id number] PAIN 625.9 [facility] 103 Mar, [place] [id number] [facility] Mar, O[place] [id number] [facility] 103 Mar, Hematuria, microscopic OBGYN [facility] 599.72 [place], [place] [id number] [facility] 103 Feb, [place] [id number] [facility] 103 Feb, [place], [place] [id number] [facility] Feb, [place] [id number] [facility] 103 Feb, Menometrorrhagia 626.2 [place], [place] 535870155 [facility] January, [facility] [id number] [facility] January, Menometrorrhagia 626.[address] [facility] [address] [place], [place] [id number] [facility] January, [place] [id number] [facility] January, [place], [place] [id number] [facility] 103 January, Menometrorrhagia 626.2 [place]YN [place], [place] [id number] [facility] [address] [place], Dec, Medical [facility] [id number] [facility] 103 Dec, Menometrorrhagia 626.2 and OBGYN [facility] IUD SURVEILLANCE V25.42 [place], [place] [id number] [facility] 103 Dec, [place] [id number] [facility] Dec, [place] [id number] [facility] Nov, [place], [place] [id number] [facility] Nov, Menometrorrhagia [address] [place], [place] [id number] [facility] 103 Nov, Menometrorrhagia 626.2 [place], [place] [id number] [facility] 103 Nov, Menometrorrhagia 626.2 OBGYN [place], [place] [id number] [facility] Nov, Menometrorrhagia 626.2 ; OBGYN [facility] IUD SURVEILLANCE V25.42 and [place], [place] [id number] Endometrial polyp 621.0 [facility] 103 Nov, Menometrorrhagia 626.2 [place]YN [place], [place] [id number] [facility] Oct, [place] [id number] [facility] 103 Sep, O[place], [place] 148490046 [facility] Sep, [place]BG[place], [place] [id number] [facility] 103 Sep, [place] [id number] [facility] Sep, [place] [id number] [facility] 103 Sep, PELVIC PAIN 625.9 ; OBGYN [facility] HEMATURIA NOS 599.70 and [place], [place] [id number] Abdominal pain, right upper quadrant 789.01 [facility] 103 14 Sep, 2012 PELVIC PAIN 625.9 and IUD OBGYN [facility] SURVEILLANCE V25.42 [place], [place] [id number] [facility] 103 11 Sep, 2012 PELVIC PAIN 625.9 [place], [place] [id number] [facility] Aug, O[place], [place] [id number] [facility] [address] [facility] Jul, Irregular bleeding NOS OBGYN [address] [place], 626.4 ; Hydrosalpinx 614.1 [place] [id number] and PELVIC PAIN 625.9 [facility] 103 Jul, Hydrosalpinx 614.1 and IUD OBGYN [facility] SURVEILLANCE V25.42 [place], [place] [id number] [facility] Jun, OBG[place], [place] [id number] [facility] Jun, Irregular bleeding NOS OBGYN [facility] 626.4 and Hydrosalpinx [place], [place] [id number] 614.1 [facility] 103 May, OBGYN [place], [place] [id number] [facility] May, Irregular bleeding NOS OBGYN [facility] 626.4 [place], [place] [id number] [facility] 103 May, Irregular bleeding NOS OBGYN [facility] 626.4 [place], [place] [id number] [facility] 103 May, Irregular bleeding NOS OBGYN [facility] 626.4 and Menorrhagia 626.2 [place] [id number] [facility] May, Irregular bleeding NOS OBGYN [facility] 626.4 and PELVIC PAIN 625.9 [place], [place] [id number] [facility] 103 May, PELVIC PAIN 625.9 ; OBGYN [facility] Irregular bleeding NOS [place], [place] [id number] 626.4 and IUD SURVEILLANCE V25.42 [facility] 103 Apr, Irregular bleeding NOS OBGYN [facility] 626.4 and PELVIC PAIN 625.9 [place], [place] [id number] [facility] Feb, OBG[place] [id number] [facility] Feb, Irregular bleeding NOS OBGYN [facility] 626.4 ; PELVIC PAIN 625.9 [place], [place] [id number] and Abdominal pain, epigastric 789.06 [facility] Nov, Vitamin D deficiency NOS OBGYN [facility] 268.9 [place], [place] [id number] [facility] Nov, OBG[place], [place] [id number] [facility] 103 Nov, [facility]regular [facility] 626.4 and IUD SURVEILLANCE [place], [place] [id number] V25.42 [facility] 103 Nov, ROUTINE PROFESSOR OF CHEMISTRY EXAMINATION OBGYN [facility] V72.31 ; Irregular bleeding [place], [place] [id number] NOS 626.4 ; PAP SMEAR W/O PROFESSOR OF CHEMISTRY EXAM V76.2 ; IUD SURVEILLANCE V25.42 and SCREEN MALIG NEOP-COLON V76.51 [facility] 103 16 Nov, 2011 OBGYN [place], [place] [id number] [facility] Nov, Irregular bleeding NOS OBGYN [facility] 626.4 and IUD SURVEILLANCE [place], [place] [id number] V25.42 [facility] 103 Nov, OBG[place], [place] [id number] [facility] Oct, Irregular bleeding NOS OBGYN [facility] 626.4 [place] [id number] [facility] 103 Oct, [place]BG[place] [id number] [facility] 103 Sep, [place] [id number] [facility] 103 Sep, GENITAL HERPES NOS 054.10 [place], [place] [id number] [facility] Sep, [place] [id number] [facility] Sep, [place] [id number] [facility] Sep, Gross hematuria 599.71 [place] [id number] [facility] Aug, [place] [id number] [facility] Aug, HEMATURIA NOS 599.70 [place], [place] [id number] [facility] Aug, Abdominal pain, generalized OBGYN [facility] 789.07 ; Irregular bleeding [place], [place] [id number] NOS 626.4 and Dysuria 788.1 [facility] 103 Aug, PELVIC PAIN 625.9 and IUD OBGYN [facility] SURVEILLANCE V25.42 [place], [place] [id number] [facility] Jul, Abdominal pain, generalized OBGYN [facility] 789.07 and Irregular [place], [place] [id number] bleeding NOS 626.4 [facility] Jul, [place] [id number] [facility] Jun, Abdominal pain, generalized OBGYN [facility] 789.07 and Irregular [place], [place] [id number] bleeding NOS 626.4 [facility] 103 May, Abdominal pain, right lower OBGYN [facility] quadrant 789.03 and [place], [place] [id number] Irregular bleeding NOS 626.4 [facility] Apr, [place] [id number] [facility] Apr, IUD SURVEILLANCE V25.42 [place], [place] [id number] [facility] 103 Mar, INSERTION OF IUD V25.11 [place], [place] [id number] [facility] Feb, [place] [id number] [facility] Feb, [place], [place] [id number] [facility] 103 Feb, Menorrhagia 626.2 ; Ovarian OBGYN [facility] cyst NOS 620.2 and [place], [place] [id number] Dysmenorrhea 625.3 [facility] 103 Feb, [place]BG[place] [id number] [facility] [address] [place], Feb, Medical [facility] [id number] [facility] 103 Feb, Menorrhagia 626.2 ; Ovarian OBGYN [facility] cyst NOS 620.2 and [place], [place] [id number] Dysmenorrhea 625.3 [facility] [facility] January, OBG[place] [id number] [facility] 103 January, Menorrhagia 626.2 ; Ovarian OBGYN [facility] cyst NOS 620.2 and [place], [place] [id number] Dysmenorrhea 625.3 [facility] January, Ovarian cyst NOS 620.2 ; OBGYN [facility] Menorrhagia 626.2 and [place], [place] [id number] Dysmenorrhea 625.3 [facility] 103 Nov, O[place], [place] [id number] [facility] 103 Nov, ROUTINE PROFESSOR OF CHEMISTRY EXAMINATION OBGYN [facility] V72.31 and PAP SMEAR W/O [place], [place] [id number] PROFESSOR OF CHEMISTRY EXAM V76.2 [facility] 103 Nov, O[place], [place] [id number] [facility] 103 Nov, Menorrhagia 626.2 and OBGYN [facility] Ovarian cyst NOS 620.2 [place], [place] [id number] [facility] 103 Nov, Menorrhagia 626.2 [place] [id number] [facility] 103 Nov, Menorrhagia 626.2 [place], [place] [id number] [facility] 103 Nov, Menorrhagia 626.2 and OBGYN [facility] Ovarian cyst NOS 620.2 [place], [place] [id number] [facility] 103 Oct, [place], [place] [id number] [facility] 103 Oct, [place] [id number] [facility] 103 Oct, Menorrhagia 626.2 [place], [place] [id number] [facility] 103 Feb, ROUTINE PROFESSOR OF CHEMISTRY EXAMINATION OBGYN [facility] V72.31 [place], [place] [id number] [facility] 103 May, PELVIC PAIN 625.9 [place] [id number] [facility] 103 May, PELVIC PAIN 625.9 [place], [place] [id number] [facility] 103 May, PELVIC PAIN 625.9 [place], [place] [id number] [facility] 103 Apr, [place], [place] [id number] [facility] 103 Apr, Dysuria 788.1 and HEMATURIA OBGYN [facility] NOS 599.70 [place], [place] [id number] [facility] 103 Apr, PELVIC PAIN 625.9 [place], [place] [id number] [facility] 103 Mar, [place] [id number] [facility] 103 Mar, Ovarian cyst NOS 620.2 and OBGYN [facility] PELVIC PAIN 625.9 [place], [place] [id number] [facility] 103 Mar, Ovarian cyst NOS 620.2 and OBGYN [facility] PELVIC PAIN 625.9 [place], [place] [id number] [facility] 103 Feb, [place], [place] [id number] [facility] 103 Feb, Ovarian cyst NOS 620.2 and OBGYN [facility] PELVIC PAIN 625.9 [place], [place] [id number] [facility] 103 Feb, Ovarian cyst NOS 620.2 and OBGYN [facility] PELVIC PAIN 625.9 [place], [place] [id number] [facility] 103 15 Feb, 2009 [facility]IC PAIN 625.9 [facility]OS 620.2 [place], [place] [id number] [facility] 103 12 Feb, 2009 ROUTINE PROFESSOR OF CHEMISTRY EXAMINATION [facility] V[facility].31 [place], [place] [id number] [facility] 103 11 Feb, 2009 PELVIC PAIN 625.9 and OBGYN [facility] Ovarian cyst NOS 620.2 [place], [place] [id number] [facility] 103 Feb, PELVIC PAIN 625.9 and OBGYN [facility] Ovarian cyst NOS 620.2 [place], [place] [id number] [facility] 103 Feb, Menorrhagia 626.2 and OBGYN [facility] PELVIC PAIN 625.9 [place], [place] [id number] [facility] 103 January, [place] [id number] [facility] 103 January, Menorrhagia 626.2 and OBGYN [facility] Irregular bleeding NOS [place], [place] [id number] 626.4 [facility] 103 January, Menorrhagia 626.2 [place], [place] [id number] [facility] 103 Nov, [place], [place] [id number] [facility] 103 Nov, Menorrhagia 626.2 [place] [id number] [facility] 103 Jun, [place], [place] [id number] [facility] 103 Jun, Menorrhagia 626.2 [place], [place] [id number] [facility] 103 Jun, Menorrhagia 626.2 [place], [place] [id number] [facility] 103 May, [place], [place] [id number] [facility] 103 May, Menorrhagia 626.2 and OBGYN [facility] PELVIC PAIN 625.9 [place], [place] [id number] [facility] 103 May, Ovarian cyst NOS 620.2 [place] [id number] [facility] 103 May, Ovarian cyst NOS 620.2 and OBGYN [facility] PELVIC PAIN 625.9 [place], [place] [id number] [facility] May, [place], [place] [id number] [facility] 103 Apr, Cervical polyp 622.7 [place], [place] [id number] [facility] 103 Sep, [place], [place] [id number] [facility] 103 Sep, [place] [id number] [facility] 103 Sep, [place] [id number] [facility] 103 Sep, Menorrhagia 626.2 [place], [place] [id number] [facility] Aug, [place], [place] [id number] [facility] 103 Aug, Menorrhagia 626.2 [place]YN [place], [place] [id number] [facility] Jun, [place], [place] [id number] [facility] 103 Jun, [place] [id number] [facility] 103 Jun, [place], [place] [id number] [facility] 103 Jun, Menorrhagia 626.2 [place]YN [place], [place] [id number] [facility] 103 May, Menorrhagia 626.2 [place], [place] [id number] [facility] 103 May, Menorrhagia 626.2 [place], [place] [id number] [facility] 103 Apr, PELVIC PAIN 625.9 [place], [place] [id number] [facility] 103 Apr, PELVIC PAIN 625.9 [place], [place] [id number] [facility] 103 Apr, [place], [place] [id number] [facility] 103 Apr, ROUTINE PROFESSOR OF CHEMISTRY EXAMINATION OBGYN [facility] V72.31 ; Dysuria 788.1 ; [place], [place] [id number] PELVIC PAIN 625.9 and Hemorrhoids NOS 455.6 [facility] 103 Mar, Ovarian cyst NOS 620.2 [place]YN [place], [place] [id number] [facility] 103 Mar, [place] [id number] [facility] 103 Mar, Ovarian cyst NOS 620.2 [place]YN [place], [place] [id number] [facility] 103 Feb, [place] [id number] [facility] 103 January, Menorrhagia 626.2 ; Ovarian OBGYN [facility] cyst NOS 620.2 and PELVIC [place], [place] [id number] PAIN 625.9 [facility] 103 January, Menorrhagia 626.2 ; Ovarian OBGYN [facility] cyst NOS 620.2 and PELVIC [place], [place] [id number] PAIN 625.9 [facility] 103 January, Ovarian cyst NOS 620.2 ; OBGYN [facility] PELVIC PAIN 625.9 and [place], [place] [id number] Irregular bleeding NOS 626.4 [facility] 103 January, Ovarian cyst NOS 620.2 and OBGYN [facility] PELVIC PAIN 625.9 [place], [place] [id number] [facility] 103 Aug, [place] [id number] [facility] Aug, [place] [id number] [facility] 103 Aug, [place], [place] [id number] [facility] 103 Aug, Menorrhagia 626.2 ; [facility] Follicular cyst of ovary [place], [place] [id number] 620.0 and Dysmenorrhea 625.3 [facility] [facility] 103 Jun, Menorrhagia 626.2 [facility] NOS 620.2 [place], [place] [id number] [facility] 103 Feb, Candidal vulvovaginitis [facility] 112.1 [place], [place] [id number] [facility] 103 Dec, [place] [id number] [facility] 103 Oct, Mastalgia 611.71 [place], [place] [id number] [facility] 103 Oct, Follicular cyst of ovary OBGYN [facility] 620.0 [place], [place] [id number] [facility] 103 Sep, Follicular cyst of ovary OBGYN [facility] 620.0 and Dysmenorrhea [place], [place] [id number] 625.3 UNKNOWN Aug, [facility] [facility] 103 Aug, Follicular cyst of ovary OBGYN [facility] 620.0 and Dysmenorrhea [place], [place] [id number] 625.3 UNKNOWN Aug, [facility] [facility] 103 Aug, Menorrhagia 626.2 [place] [id number] [facility] 103 Aug, [place] [id number] [facility] 103 Aug, [facility]IA [facility] 627.0 and Menorrhagia 626.2 [place], [place] [id number] UNKNOWN Jul, [facility] 103 Jul, Abrasion or friction burn [facility] of vagina without infection [place], [place] [id number] 911.0 IMMUNIZATIONS No Known Immunizations SOCIAL HISTORY Never Assessed REASON FOR REFERRAL FUNCTIONAL STATUS PLAN OF CARE Activity Details Follow Up PRN Reason: VITAL SIGNS Height 62 in 2018-04-30 Weight 145 lbs 2018-04-30 BMI 26.52 kg/m2 2018-04-30 Blood pressure systolic 122 mm Hg 2018-04-30 Blood pressure diastolic 66 mm Hg 2018-04-30 MEDICATIONS Medication Instructions Dosage Frequency Start End Duration Status Date Date naproxen 500 mg orally QD 1 tab(s) 24h Active Hydrocortisone, applied topically 1 valente 8h 10 Jun, 14 day(s) Active Topical 2.5% 3 times a day 2016 Premarin Vaginal intravaginally 0.5 g Feb, day(s) Active 0.625 mg/g twice a week 2017 Estradiol Vaginal intravaginally 2 1 g Apr, day(s) Active 0.1 mg/g times a week 2018 Premarin Vaginal intravaginally 0.5 grams Apr, day(s) Active 0.625 mg/g twice a week 2017 Triamcinolone applied topically 1 valente 8h 16 Apr, 7 day(s) Active Acetonide Topical to affected area 2018 0.1% 3 times a day aspirin 81 mg orally QD 1 tab(s) 24h Active Fish Oil 1200 mg orally qd 1 cap(s) 24h Active omeprazole 20 mg orally once a day 1 cap(s) 24h Active PROCEDURES No Known procedures RESULTS No Results REASON FOR VISIT has a rash under breast Insurance [facility] Member Patient Patient Patient Patient Patient Subscriber Subscriber Subscriber Group Insurance Plan Plan Plan Plan ID Relationship Address Phone Name Date of ID Name Date of No Type Insurance Insurance Insurance Coverage to Subscriber Address Phone Name Dates Medicare [id number] Medicare self [place] [id number] [facility] [phone] Medicaid [id number] Medicaid self Ashley [id number] [facility] [address] [place] [address] [phone] [place] self Ashley [id number] [address] [address] MEDICAL (GENERAL) HISTORY Type Description Date Medical History Esophageal reflux Medical History Genital herpes Medical History Atopic dermatitis Medical History high cholesterol Medical History stroke Medical History pneumonia Medical History px COPD Medical History Barretts Esophegus Medical History hx CVA Medical History anxiety Medical History costochondritis Surgical History hysteroscopy,D&C 8- Surgical History LSO Surgical History D&C 2 Surgical History D&C [...]
[2018-05-28 15:09] VITALS: BP 109/69
--- NOTE | 2018-05-28 15:23 | UC ---
Respiratory Complaint HPI - HPI Summary HPI Summary: The patient is a 57-year-old female with a 2 day history of productive cough. Cough is worse when she is supine and trying to fall asleep. He denies any fever or chills. He denies any chest pain or shortness of breath. - History of Current Complaint Chief Complaint: UCRespiratory Stated Complaint: POSS. PNEUMONIA Time Seen by Provider: 05/28/18 15:00 Hx Obtained From: Patient Hx Last Menstrual Period: n/a Onset/Duration: Gradual Onset, Lasting Days Timing: Constant Severity Initially: Mild Severity Currently: Moderate Pain Intensity: 0 Character: Cough: Productive Aggravating Factors: Recumbent Position Alleviating Factors: Nothing Associated Signs And Symptoms: Negative: Dyspnea, Fever, Chills, Pleuritic Chest Pain, Wheezing, Hemoptysis, Dizziness, Calf Pain, Calf Swelling, Edema, URI, Nasal Congestion, Hoarseness, Sinus Discomfort - Allergies/Home Medications Allergies/Adverse Reactions: Allergies Allergy/AdvReac Type Severity Reaction Status Date / Time latex Allergy Hives Verified 05/28/18 14:59 levofloxacin Allergy Vomiting Verified 05/28/18 14:59 Penicillins Allergy Hives Verified 05/28/18 14:59 Home Medications: Home Medications Ibuprofen TAB* [Advil TAB*] 200 mg PO Q6H PRN 05/28/18 [History Confirmed ] PMH/Surg Hx/FS Hx/Imm Hx Previously Healthy: Yes Endocrine History: Dyslipidemia Cardiovascular History: Hypertension Respiratory History: Pneumonia Other History Of: Negative For: HIV, Hepatitis B, Hepatitis C - Surgical History Surgical History: Yes Surgery Procedure, Year, and Place: ablation 2015-[facility]. LEFT OVARY REMOVED - Family History Known Family History: Positive: Hypertension, Diabetes, Other - cancer, alzheimers Negative: Cardiac Disease - Social History Alcohol Use: None Substance Use Type: None Smoking Status (MU): Never Smoked Tobacco Have You Smoked in the Last Year: No - Immunization History Most Recent Influenza Vaccination: 11/2016 Review of Systems Constitutional: Negative Skin: Negative Eyes: Negative ENT: Negative Respiratory: Cough Cardiovascular: Negative Gastrointestinal: Negative Genitourinary: Negative Motor: Negative Neurovascular: Negative Musculoskeletal: Negative Neurological: Negative Psychological: Negative Is Patient Immunocompromised?: No All Other Systems Reviewed And Are Negative: Yes Physical Exam Triage Information Reviewed: Yes Appearance: Well-Appearing, No Pain Distress, Well-Nourished Vital Signs: Initial Vital Signs Temp 98.8 F 05/28/18 15:03 Pulse 88 05/28/18 15:03 Resp 20 05/28/18 15:03 BP 109/69 05/28/18 15:03 Pulse Ox 97 05/28/18 15:03 Vital Signs Reviewed: Yes Eyes: Positive: Conjunctiva Clear ENT: Positive: Hearing grossly normal. Negative: Nasal congestion, Nasal drainage, Trismus, Muffled voice, Hoarse voice Neck: Positive: Supple, Nontender, No Lymphadenopathy Respiratory: Positive: Lungs clear, Normal breath sounds, No respiratory distress, No accessory muscle use, Rhonchi - with forced expiration Cardiovascular: Positive: RRR Abdomen Description: Positive: Nontender, No Organomegaly Musculoskeletal: Positive: ROM Intact, No Edema Neurological: Positive: Alert, Muscle Tone Normal Psychological Exam: Normal Skin Exam: Normal UC Diagnostic Evaluation - Laboratory O2 Sat by Pulse Oximetry: 97 - normal/not hypoxic Respiratory Course/Dx - Differential Dx/Diagnosis Provider Diagnoses: acure bronchitis Discharge - Sign-Out/Discharge Documenting (check all that apply): Patient Departure All imaging exams completed and their final reports reviewed: No Studies - Discharge Plan Condition: Stable Disposition: HOME Prescriptions: Clarithromycin TAB* [Biaxin 250 MG TAB*] 250 mg PO BID #14 tab Patient Education Materials: Acute Bronchitis (ED) Referrals: Ashley Piper MD [Primary Care Provider] - 4 Days (if not better) Additional Instructions: rest fluids tylenol recheck in 4-5 days if not better - Billing Disposition and Condition Condition: STABLE Disposition: Home
== END 2018-05-28 15:28 | disposition home or self-care (01) ==
LOC: UCCORT 14:47
DX: J20.9 Acute bronchitis, unspecified (principal); Z88.0 Allergy status to penicillin; Z88.1 Allergy status to other antibiotic agents
CPT/HCPCS: 99212; G0463

== ENCOUNTER 2018-06-01 10:26 | Emergency (ER) | payer OTHER ==
[2018-06-01 10:59] VITALS: BP 108/80
--- NOTE | 2018-06-01 11:33 | ED ---
Respiratory - HPI Summary HPI Summary: 57 yr old female with the complaint of cough. Onset late last week. No SOB, no CP, no fever. She states cough worse at night. She denies smoking history. She has been on biaxin for two days with no change in cough. Denies sinus congestion, sore throat. - History of Current Complaint Chief Complaint: UCRespiratory Stated Complaint: RECHECK BRONCHITIS Time Seen by Provider: 06/01/18 11:06 Pain Intensity: 0 - Allergy/Home Medications Allergies/Adverse Reactions: Allergies Allergy/AdvReac Type Severity Reaction Status Date / Time latex Allergy Hives Verified 05/28/18 14:59 levofloxacin Allergy Vomiting Verified 05/28/18 14:59 Penicillins Allergy Hives Verified 05/28/18 14:59 PMH/Surg Hx/FS Hx/Imm Hx Endocrine/Hematology History: Denies: Hx Diabetes, Hx Thyroid Disease Cardiovascular History: Reports: Hx Hypertension - ON MEDS, Other Cardiovascular Problems/Disorders - dyslipediamia Denies: Hx Congestive Heart Failure, Hx Deep Vein Thrombosis, Hx Myocardial Infarction, Hx Pacemaker/ICD Respiratory History: Reports: Hx Pneumonia Denies: Hx Asthma, Hx Chronic Obstructive Pulmonary Disease (COPD), Hx Lung Cancer, Hx Pulmonary Embolism GI History: Reports: Hx Gastroesophageal Reflux Disease Denies: Hx Gall Bladder Disease, Hx Gastrointestinal Bleed, Hx Ulcer, Hx Urosepsis History: Denies: Hx Kidney Stones, Hx Renal Disease Sensory History: Denies: Hx Hearing Aid Neurological History: Denies: Hx Dementia, Hx Migraine, Hx Seizures, Hx Transient Ischemic Attacks (TIA) Psychiatric History: Denies: Hx Anxiety, Hx Depression, Hx Panic Disorder, Hx Schizophrenia, Hx Bipolar Disorder - Surgical History Surgery Procedure, Year, and Place: ablation 2015-[facility]. LEFT OVARY REMOVED. STENT IN PANCREAS Infectious Disease History: No Infectious Disease History: Denies: Hx Clostridium Difficile, Hx Hepatitis, Hx Human Immunodeficiency Virus (HIV), Hx of Known/Suspected MRSA, Hx Shingles, Hx Tuberculosis, Hx Known/ Suspected VRE, Hx Known/Suspected VRSA, History Other Infectious Disease, Traveled Outside the [place] in Last 30 Days - Family History Known Family History: Positive: Hypertension, Diabetes, Other - cancer, alzheimers Negative: Cardiac Disease - Social History Alcohol Use: None Substance Use Type: Reports: None Smoking Status (MU): Never Smoked Tobacco Have You Smoked in the Last Year: No Review of Systems Constitutional: Negative Positive: Cough All Other Systems Reviewed And Are Negative: Yes Physical Exam Triage Information Reviewed: Yes Vital Signs On Initial Exam: Initial Vitals Temp Pulse Resp BP Pulse Ox 98.9 F 80 19 108/80 99 06/01/18 10:53 06/01/18 10:53 06/01/18 10:53 06/01/18 10:53 06/01/18 10:53 Vital Signs Reviewed: Yes Appearance: Positive: Well-Appearing, No Pain Distress Skin: Positive: Skin Color Reflects Adequate Perfusion Head/Face: Positive: Normal Head/Face Inspection Eyes: Positive: EOMI ENT: Positive: Normal ENT inspection Respiratory/Lung Sounds: Positive: Clear to Auscultation, Breath Sounds Present Cardiovascular: Positive: RRR. Negative: Murmur Abdomen Description: Positive: Nontender Musculoskeletal: Positive: Strength/ROM Intact Neurological: Positive: Sensory/Motor Intact, Alert, Oriented to Person Place, Time, CN Intact II-III Psychiatric: Positive: Normal Diagnostics - Vital Signs Vital Signs Temp Pulse Resp BP Pulse Ox 06/01/18 10:53 98.9 F 80 19 108/80 99 - Laboratory Lab Statement: Any lab studies that have been ordered have been reviewed, and results considered in the medical decision making process. - Radiology chest xray Xray Interpretation: No Acute Changes Radiology Interpretation Completed By: Radiologist Disposition - Course Course Of Treatment: 57 yr old with cough. Negative chest xray. DC antibiotics. - Diagnoses Provider Diagnoses: Cough Discharge - Sign-Out/Discharge Documenting (check all that apply): Patient Departure All imaging exams completed and their final reports reviewed: Yes - Discharge Plan Condition: Good Disposition: HOME Prescriptions: Benzonatate CAP* [Tessalon 100 MG CAP*] 100 mg PO TID PRN #14 cap PRN Reason: Cough Patient Education Materials: Acute Cough (ED) Referrals: Ashley Piper MD [Primary Care Provider] - - Billing Disposition and Condition Condition: GOOD Disposition: Home
--- NOTE | 2018-06-01 11:33 | RAD ---
Indication: Cough. 2 views of the chest demonstrate no mediastinal shift. Heart is of normal size and configuration. Lung storm appear clear. IMPRESSION: No active cardiopulmonary disease is noted.
== END 2018-06-01 11:48 | disposition home or self-care (01) ==
LOC: UCCORT 10:26
DX: J02.9 Acute pharyngitis, unspecified (principal)
CPT/HCPCS: 71046; 99212; G0463

== ENCOUNTER 2018-06-29 12:13 | Emergency (ER) | payer OTHER ==
--- OUTSIDE RECORDS SUMMARY | 2018-06-29 12:23 | XMS REPORT ---
:[address] [facility] Address [address] [place] [address] Care Team Providers Name Role Phone Miracle Garber Unavailable Unavailable PROBLEMS Type Condition ICD9-CM Code [id number] Onset Condition SNOMED Code Code Dates Status Problem Mastodynia N64.4 Active 52360317 Problem Postmenopausal N95.0 Active 60144245 bleeding Problem Candidiasis of skin B37.2 Active 130864383 and nail Problem Rash and other R21 Active 986520555 nonspecific skin eruption Problem Candidiasis, B37.9 Active 89252146 unspecified Problem Pelvic and perineal R10.2 Active 461516608 pain Problem Dysuria R30.0 Active 71116315 Problem Postmenopausal N95.2 Active 67854483 atrophic vaginitis ALLERGIES No Information ENCOUNTERS Encounter Location Date Diagnosis [facility] [address] May, [place] [id number] [facility] May, Candidiasis of skin and OBGYN [facility] nail B37.2 [place], [place] [id number] [facility] May, [place], [place] [id number] [facility] 103 Apr, Candidiasis of skin and OBGYN [facility] nail B37.2 [place], [place] [id number] [facility] 103 Apr, Rash and other nonspecific OBGYN [facility] skin eruption R21 [place], [place] [id number] [facility] Apr, [place] [id number] [place] [facility] Apr, [place], [place] [id number] [place] [facility] 103 Apr, Encounter for gynecological OBGYN [facility] examination (general) [place], [place] [id number] (routine) without abnormal findings Z01.419 ; Encounter for screening for malignant neoplasm of cervix Z12.4 ; Encounter for screening for malignant neoplasm of colon Z12.11 ; Encounter for screening mammogram for malignant neoplasm of breast Z12.31 ; Postmenopausal atrophic vaginitis N95.2 and Dysuria R30.0 [place] [facility] Feb, Postmenopausal atrophic OBGYN [facility] vaginitis N95.2 [place], [place] [id number] [place] [facility] 103 Feb, Pelvic and perineal pain OBGYN [facility] R10.2 and Dysuria R30.0 [place], [place] [id number] [place] [facility] 103 Feb, Pelvic and perineal pain OBGYN [facility] R10.2 ; Dysuria R30.0 and [place], [place] [id number] Postmenopausal atrophic vaginitis N95.2 [place] [facility] 103 Feb, Pelvic and perineal pain OBGYN [facility] R10.2 [place], [place] [id number] [place] [facility] 103 January, Rash and other nonspecific OBGYN [facility] skin eruption R21 [place], [place] [id number] [facility] [place] [facility] 103 January, [place] [id number] [facility] [place] [facility] 103 January, [place] [id number] [place] [facility] 103 January, Dysuria R30.0 ; Pelvic and OBGYN [facility] perineal pain R10.2 ; [place], [place] [id number] Mastodynia N64.4 and Other specified noninflammatory disorders of vagina N89.8 [place] [facility] Dec, Candidiasis, unspecified OBGYN [address] [id number] [place] [facility] 103 Dec, Candidiasis, unspecified OBGYN [address] [id number] [place] [facility] 103 Dec, Candidiasis, unspecified OBGYN [address] [id number] [place] [facility] 103 Jun, Postmenopausal bleeding OBGYN [address] [id number] [place] [facility] 103 Jun, [place] [id number] [facility] [place] [facility] 103 Jun, [place] [id number] [facility] [place] [facility] 103 Jun, [place] [id number] [facility] [place] [facility] 103 Jun, Postmenopausal bleeding OBGYN [address] [id number] [facility] [place] [facility] 103 Jun, [place] [id number] [facility] [place] [facility] 103 Jun, Postmenopausal bleeding OBGYN [address] [id number] [place] [facility] 103 Jun, Postmenopausal bleeding OBGYN [address] [id number] [place] [facility] 103 Jun, [place] [id number] [facility] [place] [facility] 103 Jun, [place] [id number] [facility] [place] [facility] 103 Apr, Encounter for gynecological OBGYN [facility] examination (general) [place], [place] [id number] (routine) with abnormal findings Z01.411 ; Dysuria R30.0 ; Encounter for screening mammogram for malignant neoplasm of breast Z12.31 and Encounter for screening for malignant neoplasm of colon Z12.11 [place] [facility] 103 Mar, [place]BG[place], [place] [id number] [facility] [place] [facility] 103 Mar, [place], [place] [id number] [facility] [place] [facility] 103 Mar, [place] [id number] [facility] [place] [facility] 103 Mar, Candidiasis of skin and OBGYN [facility] nail B37.2 [place], [place] [id number] [facility] [place] [facility] 103 January, Mastodynia N64.4 [place] [id number] [place] [facility] 103 Dec, Pelvic and perineal pain OBGYN [facility] R10.2 and Dysuria R30.0 [place] [id number] [facility] [place] [facility] 103 Dec, PELVIC PAIN 625.9 OBGYN [place], [place] [id number] [facility] [place] [facility] 103 Dec, Pelvic and perineal pain OBGYN [facility] R10.2 [place], [place] [id number] [place] [facility] 103 Nov, Idiopathic urticaria L50.1 [facility]YN [facility] and Mastodynia N64.4 [place], [place] [address] [place] [facility] 103 Oct, Generalized abdominal pain OBGYN [facility] R10.84 and Mastodynia N64.4 [place], [place] [id number] [place] [facility] Sep, Dermatitis, unspecified OBGYN [facility] L30.9 [place], [place] [id number] [place] [facility] 103 Sep, Pelvic and perineal pain OBGYN [facility] R10.2 [place], [place] [address] [place] [facility] 103 Sep, Postmenopausal bleeding OBGYN [facility] N95.0 [place], [place] [id number] [facility] [place] [facility] [address] [place], Sep, [facility] [id number] [place] [facility] 103 Sep, [place] [id number] [facility] [place] [facility] 103 Sep, [place], [place] [id number] [place] [facility] 103 Sep, Postmenopausal bleeding OBGYN [facility] N95.0 [place], [place] [id number] [place] [facility] 103 Aug, Postmenopausal bleeding OBGYN [facility] N95.0 [place], [place] [address] [place] [facility] 103 Aug, Postmenopausal bleeding OBGYN [facility] N95.0 and Pelvic and [place] [id number] perineal pain R10.2 [place] [facility] 103 Jul, [place] [address] [facility] [place] [facility] 103 Jul, Postmenopausal bleeding OBGYN [facility] N95.0 and Pelvic and [place], [place] [address] perineal pain R10.2 [facility] [place] [facility] 103 Jul, [place]BG[place], [place] [id number] [facility] [place] [facility] 103 Jul, Mastodynia N64.4 ; OBGYN [facility] Postmenopausal bleeding [place], [place] [id number] N95.0 and Pelvic and perineal pain R10.2 [facility] [place] [facility] 103 Jul, [place], [place] [id number] [facility] [place] [facility] 103 Jun, Mastodynia N64.4 [place] [id number] [facility] [place] [facility] 103 Jun, [place], [place] [id number] [facility] [place] [facility] 103 May, Mastodynia N64.4 [place]YN [place], [place] [id number] [facility] [place] [facility] 103 Apr, Encounter for gynecological OBGYN [facility] examination (general) [place], [place] [id number] (routine) without abnormal findings Z01.419 ; Encounter for screening mammogram for malignant neoplasm of breast Z12.31 and Encounter for screening for malignant neoplasm of colon Z12.11 [place] [facility] Mar, Disorder of the skin and OBGYN [facility] subcutaneous tissue, [place], [place] [id number] unspecified L98.9 [place] [facility] 103 January, Mastodynia N64.4 [place] [id number] [facility] [place] [facility] 103 January, [place], [place] [id number] [facility] [place] [facility] 103 Dec, Other pruritus L29.8 [place]YN [place] [address] [facility] [place] [facility] 103 Dec, Dysuria R30.0 ; Pelvic and OBGYN [facility] perineal pain R10.2 and [place], [place] [id number] Postmenopausal bleeding N95.0 [place] [facility] 103 Dec, Pelvic and perineal pain OBGYN [facility] R10.2 [place], [place] [id number] [facility] [place] [facility] 103 Dec, Pelvic and perineal pain OBGYN [facility] R10.2 [place], [place] [id number] [facility] [place] [facility] 103 Dec, Dysuria R30.0 [place] [id number] [facility] [place] [facility] 103 Dec, Postmenopausal bleeding OBGYN [facility] N95.0 and Dysuria R30.0 [place], [place] [id number] [place] [facility] 103 Nov, Postmenopausal bleeding OBGYN [address] [id number] [place] [facility] 103 Nov, Postmenopausal bleeding OBGYN [address] [id number] [facility] [place] [facility] 103 Nov, [place], [place] [id number] [facility] [place] [facility] 103 Nov, Mastodynia N64.4 [place] [id number] [facility] [place] [facility] 103 Aug, [place], [place] [id number] [facility] [place] [facility] 103 Aug, [place] [id number] [facility] [place] [facility] 103 Aug, Postmenopausal bleeding OBGYN [address] [id number] [place] [facility] 103 Aug, Dysuria R30.0 and OBGYN [facility] Postmenopausal bleeding [place], [place] [id number] [address] [place] [address] [facility] Jun, Postmenopausal bleeding OBGYN [address] [id number] [place] [facility] 103 Jun, Postmenopausal bleeding OBGYN [address] [id number] [place] [facility] 103 Jun, [place] [id number] [facility] [place] [facility] 103 Jun, [place], [place] [id number] [facility] [place] [facility] 103 Jun, Postmenopausal bleeding OBGYN [address] N95.0 and Dysuria R30.0 [place], [place] [id number] [facility] [place] [facility] 103 May, Postmenopausal bleeding OBGYN [facility] 627.1 [place], [place] [id number] [place] [facility] May, Postmenopausal bleeding OBN [facility] 627.1 [place], [place] [id number] [place] [facility] May, Urinary frequency 788.41 ; OBGYN [facility] Postmenopausal bleeding [place], [place] 1068396[address] 627.1 and Atrophic vulvovaginitis 627.3 [place] [facility] Mar, Mastalgia 611.71 [place] [address] [place] [facility] Feb, Mastalgia 611.71 [place] [address] [place] [facility] Feb, BREAST DISORDER NOS 611.9 [place] [id number] [place] [facility] 103 January, [place] [id number] [facility] 103 Dec, DERMATITIS NOS 692.9 [place] [id number] [place] [facility] 103 Dec, Postmenopausal bleeding OBN [facility] [address] [place] [address] [id number] [place] [facility] 103 Dec, [place] [id number] [facility] [place] [facility] 103 Dec, O[place] [id number] [facility] [place] [facility] [address] [place], Dec, [facility] [id number] [place] [facility] 103 Nov, [facility] [address] [place] [address] [id number] [place] [facility] Nov, [place] [id number] [place] [facility] 103 Nov, [place] [id number] [facility] [place] [facility] [address] [place], Nov, [facility] [id number] [place] [facility] 103 Nov, O[place], [place] [address]691612[address] [facility] [place] [facility] 103 Oct, Postmenopausal bleeding [address] [id number] [place] [facility] 103 Oct, OBG[place] [id number] [facility] [place] [facility] Oct, [place] [id number] [facility] [place] [facility] 103 Oct, [place] [id number] [facility] [place] [facility] 103 Oct, [place] [id number] [facility] [place] [facility] 103 Oct, Postmenopausal bleeding [address] [id number] [place] [facility] 103 Oct, [place] 882406[address] [place] [facility] 103 Oct, Postmenopausal bleeding [address] [id number] [place] [facility] 103 Oct, Dysuria 788.1 and OBGYN [facility] Postmenopausal bleeding [place], [place] 2469730[address] 627.1 [place] [facility] 103 Jul, Dysuria 788.1 O[place] [id number] [facility] [place] [facility] Jun, Atopic dermatitis 691.8 [place], [place] [id number] [facility] [place] [facility] 103 May, [place], [place] [id number] [facility] [place] [facility] 103 May, O[place] [id number] [facility] [place] [facility] 103 Apr, 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 [facility] V72.31 ; SCREEN MALIG [place], [place] [id number] NEOP-COLON V76.51 ; SCREEN MAMMOGRAM NEC V76.12 and Urinary tract infection NOS 599.0 [place] [facility] Apr, Breast Mass 611.72 O[place], [place] 6882548[address] [facility] [place] [facility] 103 Apr, Dysuria 788.1 [place], [place] 164489983 [facility] [place] [facility] 103 Dec, [place] [id number] [facility] [place] [facility] 103 Dec, Hematuria, microscopic OBGYN [facility] 599.72 and Dysuria 788.1 [place], [place] [id number] [facility] [place] [facility] Dec, [place], [place] 3104471[address] [facility] [place] [facility] 103 Nov, Atopic dermatitis 691.8 [place], [place] [id number] [place] [facility] 103 Aug, O[place] [id number] [facility] [place] [facility] 103 Aug, [place] [id number] [facility] [place] [facility] 103 Aug, O[place] [id number] [place] [facility] 103 Aug, Atopic dermatitis 691.8 [facility] [place] 379234576 [place] [facility] 103 Aug, [place] [id number] [place] [facility] 103 Aug, [place] [address]666[address] [facility] [place] [facility] Aug, [place] [id number] [place] [facility] Aug, O[place] [id number] [place] [facility] 103 Jul, [facility]opic eczema 691.8 [facility] BREAST DISORDER NOS 611.9 [place] [id number] [place] [facility] Jul, [place] 470645976 [place] [facility] Jul, Atopic eczema 691.8 and OBGYN [facility] BREAST DISORDER NOS 611.9 [place], [place] 1775675[address] [facility] [place] [facility] Jul, [place] [id number] [facility] [place] [facility] 103 Jul, HEMATURIA NOS 599.70 [place] 0907028[address] [place] [facility] May, [place] [id number] [place] [facility] 103 Apr, [facility]OLOG[facility]ATION [facility] V72.31 ; PAP SMEAR W/O FACILITY MAINTENANCE WORKER [place], [place] 416770176 EXAM V76.2 ; SCREEN MALIG NEOP-COLON V76.51 and SCREEN MAMMOGRAM NEC V76.12 [place] [facility] Apr, [place] [id number] [place] [facility] Apr, PELVIC PAIN 625.9 [place] 08488480[address] [place] [facility] 103 Apr, Menometrorrhagia 626.2 ; OBGYN [facility] Dysuria 788.1 and PELVIC [place], [place] 733858438 PAIN 625.9 [place] [facility] 103 Mar, [place], [place] [id number] [place] [facility] 103 Mar, [place], [place] 6326310[address] [place] [facility] 103 Mar, Hematuria, microscopic OBGYN [facility] 599.72 [place], [place] [id number] [place] [facility] Feb, [place] [id number] [place] [facility] 103 Feb, O[place] 4486040[address] [facility] Feb, [place] 6571246[address] [place] [facility] Feb, Menometrorrhagia 626.2 O[place]YN [place], [place] [id number] [place] [facility] January, [place] [id number] [address] January, Menometrorrhagia [address] [place], [place] [id number] [place] [facility] January, [place], [place] [id number] [place] [facility] January, [place] [id number] [place] [facility] January, Menometrorrhagia 626.2 O[place], [place] [id number] [facility] [place] [facility] [address] [place], Dec, [facility] [id number] [place] [facility] 103 19 Dec, 2012 Menometrorrhagia 626.2 and OBGYN [facility] IUD SURVEILLANCE V25.42 [place], [place] [id number] [place] [facility] 16 Dec, 2012 [place] [id number] [facility] [place] [facility] 103 Dec, [place] [id number] [facility] [place] [facility] Nov, [place] [id number] [facility] [address] [place] [address] Nov, [address]rh[address]ia [address] [place], [place] [id number] [facility] [place] [facility] 103 Nov, Menometrorrhagia 626.2 [place], [place] [id number] [facility] [place] [facility] 103 Nov, Menometrorrhagia 626.2 O[place] 501141058 [facility] [place] [facility] 103 Nov, Menometrorrhagia 626.2 ; OBGYN [facility] IUD SURVEILLANCE V25.42 and [place], [place] [id number] Endometrial polyp 621.0 [place] [facility] 103 Nov, Menometrorrhagia 626.2 O[place], [place] [id number] [facility] [place] [facility] Oct, O[place], [place] [id number] [facility] [place] [facility] 103 Sep, [place], [place] [id number] [facility] [place] [facility] Sep, O[place], [place] 180468534 [facility] [place] [facility] 103 Sep, [place], [place] [id number] [facility] [place] [facility] 103 Sep, O[place], [place] [id number] [facility] [place] [facility] 103 14 Sep, 2012 PELVIC PAIN 625.9 ; OBGYN [facility] HEMATURIA NOS 599.70 and [place], [place] [id number] Abdominal pain, right upper quadrant 789.01 [place] [facility] 14 Sep, 2012 PELVIC PAIN 625.9 and IUD OBGYN [facility] SURVEILLANCE V25.[address] [place] [address] [id number] [facility] [place] [facility] 11 Sep, 2012 PELVIC PAIN 625.9 [place] [id number] [facility] [place] [facility] Aug, O[place], [place] [id number] [facility] [address] [place] [address] Jul, Irregular bleeding NOS [address]YN [address] [place], 626.4 ; Hydrosalpinx 614.1 [place] [id number] and PELVIC PAIN 625.9 [place] [facility] 103 Jul, Hydrosalpinx 614.1 and IUD OBGYN [facility] V25.[address] [place] [address] [id number] [facility] [place] [facility] Jun, [place] [id number] [facility] [place] [facility] 103 Jun, Irregular bleeding NOS OBGYN [facility] 626.4 and Hydrosalpinx [place], [place] 642241038 614.1 [place] [facility] 103 May, OBG[place] [id number] [place] [facility] 103 May, Irregular bleeding NOS OBGYN [facility] [address] 626.4 [place], [place] [id number] [place] [facility] 103 May, Irregular bleeding NOS OBGYN [facility] 626.4 [place], [place] [id number] [facility] [place] [facility] May, Irregular bleeding NOS OBGYN [facility] [address] 626.4 and Menorrhagia 626.2 [place], [place] [id number] [facility] 103 May, Irregular bleeding NOS OBGYN [facility] [address] 626.4 and PELVIC PAIN 625.9 [place], [place] [id number] [facility] 103 May, PELVIC PAIN 625.9 ; [facility] Irregular bleeding NOS [place] [id number] 626.4 and IUD SURVEILLANCE V25.42 [facility] 103 Apr, Irregular bleeding NOS OBN [facility] [address] 626.4 and PELVIC PAIN 625.9 [place], [place] [id number] [facility] 103 Feb, OBGYN [place], [place] [id number] [facility] 103 Feb, Irregular bleeding N[facility] 626.4 ; PELVIC PAIN 625.9 [place], [place] [id number] and Abdominal pain, epigastric 789.06 [facility]YN 103 Nov, Vitamin D deficiency NOS [facility] 268.9 [place], [place] [id number] [facility] 103 Nov, OBGYN [place], [place] [id number] [facility]YN 103 Nov, Irregular bleeding NOS [facility] 626.4 and IUD SURVEILLANCE [place] [id number] V25.42 [facility]YN 103 Nov, 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 [facility] V72.31 ; Irregular bleeding [place], [place] [id number] NOS 626.4 ; PAP SMEAR W/O FACILITY MAINTENANCE WORKER EXAM V76.2 ; IUD SURVEILLANCE V25.42 and SCREEN MALIG NEOP-COLON V76.51 [facility] 103 Nov, [place] [id number] [facility]YN 103 Nov, Irregular bleeding NOS OBN [facility] 626.4 and IUD SURVEILLANCE [place] [id number] V25.42 [facility] [place] [facility] 103 Nov, OBG[place] [id number] [facility] [place] [facility] 103 Oct, Irregular bleeding NOS OBGYN [facility] 626.4 [place], [place] [id number] [facility] [place] [facility] Oct, OBG[place], [place] [id number] [facility] [place] [facility] 103 Sep, [place] [id number] [facility] [place] [facility] 103 Sep, GENITAL HERPES NOS 054.10 [place] [id number] [facility] [place] [facility] 103 Sep, [place] [id number] [facility] [place] [facility] 103 Sep, [place] [id number] [facility] [place] [facility] 103 Sep, Gross hematuria 599.71 [place] [id number] [place] [facility] Aug, [place] [id number] [facility] Aug, HEMATURIA NOS 599.70 [place], [place] [id number] [facility] 103 Aug, Abdominal pain, generalized OBGYN [facility] 789.07 ; Irregular bleeding [place], [place] [id number] NOS 626.4 and Dysuria 788.1 [place] [facility] 103 Aug, PELVIC PAIN 625.9 and IUD OBGYN [facility] SURVEILLANCE V25.42 [place], [place] [id number] [place] [facility] 103 Jul, Abdominal pain, generalized OBGYN [facility] 789.07 and Irregular [place], [place] [id number] bleeding NOS 626.4 [place] [facility] Jul, [place] [id number] [place] [facility] 103 Jun, Abdominal pain, generalized OBGYN [facility] 789.07 and Irregular [place], [place] [id number] bleeding NOS 626.4 [place] [facility] 103 May, Abdominal pain, right lower OBGYN [facility] quadrant 789.03 and [place], [place] [id number] Irregular bleeding NOS 626.4 [place] [facility] Apr, [place], [place] [id number] [facility] Apr, IUD SURVEILLANCE V25.42 [place], [place] [id number] [facility] Mar, INSERTION OF IUD V25.11 [facility], [place] [id number] [facility] [place] [facility] Feb, [place], [place] [id number] [facility] [place] [facility] Feb, [place], [place] [id number] [facility] [place] [facility] 103 Feb, Menorrhagia 626.2 ; Ovarian OBGYN [facility] cyst NOS 620.2 and [place], [place] [id number] Dysmenorrhea 625.3 [place] [facility] Feb, O[place], [place] [id number] [facility] [address] [place], Feb, [facility] [id number] [place] [facility] 103 Feb, Menorrhagia 626.2 ; Ovarian OBGYN [facility] cyst NOS 620.2 and [place], [place] [id number] Dysmenorrhea 625.3 [place] [facility] January, O[place], [place] [id number] [facility] [place] [facility] 103 January, Menorrhagia 626.2 ; Ovarian OBGYN [facility] cyst NOS 620.2 and [place], [place] [id number] Dysmenorrhea 625.3 [place] [facility] 103 January, Ovarian cyst NOS 620.2 ; OBGYN [facility] Menorrhagia 626.2 and [place], [place] [id number] Dysmenorrhea 625.3 [place] [facility] 23 Nov, 2010 OBG[place], [place] [id number] [facility] [place] [facility] 103 Nov, 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 [facility] V72.31 and PAP SMEAR W/O [place], [place] [id number] FACILITY MAINTENANCE WORKER EXAM V76.2 [facility] 15 Nov, 2010 OBG[place], [place] [id number] [facility] [place] [facility] 103 15 Nov, 2010 Menorrhagia 626.2 and OBGYN [facility] Ovarian cyst NOS 620.2 [place], [place] [id number] [facility] [place] [facility] 103 Nov, Menorrhagia 626.2 [place], [place] [id number] [facility] [place] [facility] 103 Nov, Menorrhagia 626.2 [place], [place] [id number] [facility] [place] [facility] 103 Nov, Menorrhagia 626.2 and OBGYN [facility] Ovarian cyst NOS 620.2 [place], [place] [id number] [facility] 103 Oct, [place], [place] [id number] [facility] [place] [facility] 103 Oct, [place], [place] [id number] [facility] 103 14 Oct, 2010 Menorrhagia 626.2 [place], [place] [id number] [facility] [place] [facility] 103 14 Feb, 2010 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 [facility] V72.31 [place], [place] [id number] [place] [facility] 103 May, PELVIC PAIN 625.9 [place], [place] [id number] [facility] [place] [facility] 103 May, PELVIC PAIN 625.9 [place], [place] [id number] [facility] [place] [facility] 103 May, PELVIC PAIN 625.9 [place] [id number] [facility] 103 Apr, [place] [id number] [facility] [place] [facility] 103 Apr, Dysuria 788.1 and HEMATURIA OBGYN [facility] NOS 599.70 [place] [id number] [facility] [place] [facility] 103 Apr, PELVIC PAIN 625.9 [place], [place] [id number] [facility] [place] [facility] 103 Mar, [place], [place] [id number] [facility] [place] [facility] 103 Mar, Ovarian cyst NOS 620.2 and OBGYN [facility] PELVIC PAIN 625.9 [place], [place] [id number] [place] [facility] 103 Mar, Ovarian cyst NOS 620.2 and OBGYN [facility] PELVIC PAIN 625.9 [place], [place] [id number] [facility] [place] [facility] Feb, [place], [place] [id number] [place] [facility] 103 Feb, Ovarian cyst NOS 620.2 and OBGYN [facility] PELVIC PAIN 625.9 [place], [place] [id number] [place] [facility] 103 Feb, Ovarian cyst NOS 620.2 and OBGYN [facility] PELVIC PAIN 625.9 [place], [place] [id number] [facility] 103 15 Feb, 2009 PELVIC PAIN 625.9 and OBGYN [facility] Ovarian cyst NOS 620.2 [place], [place] [id number] [facility] [place] [facility] 103 12 Feb, 2009 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 [place] [id number] [place] [facility] 103 11 Feb, 2009 PELVIC PAIN 625.9 and OBGYN [facility] Ovarian cyst NOS 620.2 [place], [place] [id number] [place] [facility] 103 09 Feb, 2009 PELVIC PAIN 625.9 and OBGYN [facility] Ovarian cyst NOS 620.2 [place], [place] [id number] [facility] [place] [facility] 103 09 Feb, 2009 Menorrhagia 626.2 and OBGYN [facility] PELVIC PAIN 625.9 [place], [place] [id number] [facility] [place] [facility] 103 17 Jan, 2009 O[address], [place] [id number] [facility] [place] [facility] 103 15 Jan, 2009 Menorrhagia 626.2 and OBGYN [facility] Irregular bleeding NOS [place], [place] [id number] 626.4 [place] [facility] 103 January, Menorrhagia 626.2 [place], [place] [id number] [facility] 103 Nov, [place]BG[place], [place] [id number] [facility] 103 Nov, Menorrhagia 626.2 [place], [place] [id number] [facility] 103 Jun, [place], [place] [id number] [facility] [place] [facility] 103 Jun, Menorrhagia 626.2 [place], [place] [id number] [facility] [place] [facility] 103 Jun, Menorrhagia 626.2 [place], [place] [id number] [place] [facility] 103 May, [place], [place] [id number] [facility] [place] [facility] 103 May, Menorrhagia 626.2 and OBGYN [facility] PELVIC PAIN 625.9 [place], [place] [id number] [facility] 103 May, Ovarian cyst NOS 620.2 O[place], [place] [id number] [facility] [place] [facility] 103 May, Ovarian cyst NOS 620.2 and OBGYN [facility] PELVIC PAIN 625.9 [place], [place] [id number] [facility] [place] [facility] 103 May, [place] [id number] [facility] [place] [facility] 103 Apr, Cervical polyp 622.7 [place], [place] [id number] [facility] [place] [facility] 103 Sep, [place], [place] [id number] [place] [facility] 103 Sep, [place] [id number] [facility] [place] [facility] 103 Sep, [place], [place] [id number] [facility] [place] [facility] 103 Sep, Menorrhagia 626.2 [place], [place] [id number] [facility] 103 Aug, [place], [place] [id number] [facility] [place] [facility] 103 Aug, Menorrhagia 626.2 [place], [place] [id number] [facility] [place] [facility] 103 Jun, [place], [place] [id number] [facility] [place] [facility] 103 Jun, [place], [place] [id number] [facility] [place] [facility] Jun, [place], [place] [id number] [facility] [place] [facility] 103 Jun, Menorrhagia 626.2 [place], [place] [id number] [facility] [place] [facility] 103 May, Menorrhagia 626.2 [place] [id number] [facility] [place] [facility] 103 May, Menorrhagia 626.2 [place], [place] [id number] [place] [facility] Apr, PELVIC PAIN 625.9 [place] [id number] [place] [facility] 103 Apr, PELVIC PAIN 625.9 [place], [place] [id number] [facility] [place] [facility] 103 Apr, [place] [id number] [facility] Apr, 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 [facility] V72.31 ; Dysuria 788.1 ; [place], [place] [id number] PELVIC PAIN 625.9 and Hemorrhoids NOS 455.6 [facility] [place] [facility] 103 Mar, Ovarian cyst NOS 620.2 [place], [place] [id number] [facility] 103 Mar, [place]BG[place], [place] [id number] [facility] [place] [facility] 103 Mar, Ovarian cyst NOS 620.2 [place], [place] [id number] [facility] [place] [facility] 103 Feb, [place], [place] [id number] [place] [facility] 103 January, Menorrhagia 626.2 ; Ovarian OBGYN [facility] cyst NOS 620.2 and PELVIC [place], [place] [id number] PAIN 625.9 [place] [facility] 103 January, Menorrhagia 626.2 ; Ovarian OBGYN [facility] cyst NOS 620.2 and PELVIC [place], [place] [id number] PAIN 625.9 [place] [facility] 103 January, Ovarian cyst NOS 620.2 ; OBGYN [facility] PELVIC PAIN 625.9 and [place], [place] [id number] Irregular bleeding NOS 626.4 [place] [facility] 103 January, Ovarian cyst NOS 620.2 and OBGYN [facility] PELVIC PAIN 625.9 [place], [place] [id number] [facility] [place] [facility] 103 Aug, [place], [place] [id number] [facility] [place] [facility] Aug, [place], [place] [id number] [facility] [place] [facility] 103 Aug, [place] [id number] [place] [facility] 103 Aug, Menorrhagia 626.2 ; OBGYN [facility] Follicular cyst of ovary [place], [place] [id number] 620.0 and Dysmenorrhea 625.3 [facility] [place] [facility] 103 Jun, Menorrhagia 626.2 and OBGYN [facility] Ovarian cyst NOS 620.2 [place], [place] [id number] [facility] [place] [facility] 103 Feb, Candidal vulvovaginitis OBG[facility] 112.1 [place], [place] [id number] [facility] 103 Dec, [place], [place] [id number] [facility] [place] [facility] 103 Oct, Mastalgia 611.71 [place], [place] [id number] [facility] [place] [facility] 103 14 Oct, 2005 Follicular cyst of ovary OBG[facility] 620.0 [place], [place] [id number] [place] [facility] 103 27 Sep, 2005 Follicular cyst of ovary OBGYN [facility] 620.0 and Dysmenorrhea [place], [place] [id number] 625.3 UNKNOWN Aug, [place] [facility] 103 Aug, Follicular cyst of ovary OBGYN [facility] 620.0 and Dysmenorrhea [place], [place] [id number] 625.3 UNKNOWN Aug, [facility] [place] [facility] 103 Aug, Menorrhagia 626.2 [place], [place] [id number] [facility] [place] [facility] 103 Aug, [place], [place] [id number] [facility] [place] [facility] 103 Aug, PREMENOPAUSE MENORRHAGIA OBGYN [facility] 627.0 and Menorrhagia 626.2 [place], [place] [id number] UNKNOWN Jul, [place] [facility] Jul, Abrasion or friction burn OBGYN [facility] of vagina without infection [place], [place] [id number] 911.0 IMMUNIZATIONS No Known Immunizations SOCIAL HISTORY Never Assessed REASON FOR REFERRAL FUNCTIONAL STATUS PLAN OF CARE VITAL SIGNS MEDICATIONS Unknown Medications PROCEDURES No Known procedures RESULTS No Results REASON FOR VISIT Rx issue Insurance Providers [facility] Patient Patient Patient Patient Patient Subscriber Subscriber Subscriber Group Insurance Plan Plan Plan Plan ID Relationship Address Phone Name Date of ID Name Date of No Type Insurance Insurance Insurance Coverage to Subscriber Address Phone Name Dates Medicare [phone] Medicare self [place] [id number] [facility] [address] Medicaid [phone] Medicaid self [id number] Seq 15 [facility] [address] [place] [address] [phone] [place] self [place] [id number] [address] MEDICAL (GENERAL) HISTORY Type Description Date Medical [...]
--- OUTSIDE RECORDS SUMMARY | 2018-06-29 12:23 | XMS REPORT ---
:1960 Author Organization [facility] Address [address] [place] [address] Care Team Providers Name Role Phone Annie Mark Unavailable Unavailable PROBLEMS Type Condition ICD9-CM Code [id number] Onset Condition SNOMED Code Code Dates Status Problem Candidiasis of skin B37.2 Active 523474311 and nail Problem Postmenopausal N95.2 Active 13875516 atrophic vaginitis Problem Postmenopausal N95.0 Active 15460039 bleeding ALLERGIES Substance Reaction Event Type Date Status penicillin hives Drug Allergy May, Active Pneumovax 23 swelling, itching, hives Drug Allergy May, Active ENCOUNTERS Encounter Location Date Diagnosis [facility] May, OBG[place], [place] [id number] [facility] 103 May, Candidiasis of skin and OBGYN [facility] nail B37.2 [place], [place] [id number] [facility] 103 May, [place]BG[place], [place] [id number] [facility] 103 Apr, Candidiasis of skin and OBGYN [facility] nail B37.2 [place], [place] [id number] [facility] 103 Apr, Rash and other nonspecific OBGYN [facility] skin eruption R21 [place], [place] [id number] [facility] 103 Apr, [place], [place] [id number] [facility] 103 Apr, [place] [id number] [facility] 103 Apr, Encounter for gynecological OBGYN [facility] examination (general) [place], [place] [id number] (routine) without abnormal findings Z01.419 ; Encounter for screening for malignant neoplasm of cervix Z12.4 ; Encounter for screening for malignant neoplasm of colon Z12.11 ; Encounter for screening mammogram for malignant neoplasm of breast Z12.31 ; Postmenopausal atrophic vaginitis N95.2 and Dysuria R30.0 [facility] 103 Feb, Postmenopausal atrophic OBGYN [facility] vaginitis N95.2 [place], [place] [id number] [facility] 103 Feb, Pelvic and perineal pain OBGYN [facility] R10.2 and Dysuria R30.0 [place], [place] [id number] [facility] 103 Feb, Pelvic and perineal pain OBGYN [facility] R10.2 ; Dysuria R30.0 and [place], [place] [id number] Postmenopausal atrophic vaginitis N95.2 [facility] 103 Feb, Pelvic and perineal pain OBGYN [facility] R10.2 [place], [place] [id number] [facility] 103 January, Rash and other nonspecific OBGYN [facility] skin eruption R21 [place], [place] [id number] [facility] 103 January, [place] [id number] [facility] 103 January, [place] [id number] [facility] 103 January, Dysuria R30.0 ; Pelvic and OBGYN [facility] perineal pain R10.2 ; [place], [place] [id number] Mastodynia N64.4 and Other specified noninflammatory disorders of vagina N89.8 [facility] 103 Dec, Candidiasis, unspecified OBGYN [address] [id number] [facility] 103 Dec, Candidiasis, unspecified OBGYN [address] [id number] [facility] 103 Dec, Candidiasis, unspecified OBGYN [address] [id number] [facility] 103 Jun, Postmenopausal bleeding OBG[address] [id number] [facility] 103 Jun, [place]BGYN [place] [id number] [facility] 103 Jun, [place], [place] [id number] [facility] 103 Jun, OBGYN [place] [id number] [facility] 103 Jun, Postmenopausal bleeding OBN [address] [id number] [facility] 103 Jun, [place]BG[place] [id number] [facility] 103 Jun, Postmenopausal bleeding OBN [address] [id number] [facility] 103 Jun, Postmenopausal bleeding [address] [id number] [facility] 103 Jun, [place]BG[place] [id number] [facility] 103 Jun, [place]BG[place] [id number] [facility] 103 Apr, Encounter for gynecological OBN [facility] (general) [place], [place] [id number] (routine) with abnormal findings Z01.411 ; Dysuria R30.0 ; Encounter for screening mammogram for malignant neoplasm of breast Z12.31 and Encounter for screening for malignant neoplasm of colon Z12.11 [facility] 103 Mar, OBGYN [place], [place] [id number] [facility] 103 Mar, OBG[place] [id number] [facility] 103 Mar, OBGYN [place] [id number] [facility] 103 Mar, Candidiasis of skin and OBGYN [facility] nail B37.2 [place], [place] [id number] [facility] 103 January, Mastodynia N64.4 [place]YN [place] [id number] [facility] 103 Dec, Pelvic and perineal pain OBGYN [facility] R10.2 and Dysuria R30.0 [place], [place] [id number] [facility] 103 Dec, PELVIC PAIN 625.9 OBGYN [place] [id number] [facility] 103 Dec, Pelvic and perineal pain OBGYN [facility] R10.2 [place], [place] [id number] [facility] 103 Nov, Idiopathic urticaria L50.1 OBGYN [facility] and Mastodynia N64.4 [place], [place] [id number] [facility] 103 Oct, Generalized abdominal pain OBGYN [facility] St R10.84 and Mastodynia N64.4 [place], [place] [id number] [facility] 103 Sep, Dermatitis, unspecified OBGYN [facility] St L30.9 [place], [place] [id number] [facility] 103 Sep, Pelvic and perineal pain OBGYN [facility] R10.2 [place], [place] [id number] [facility] 103 Sep, Postmenopausal bleeding OBGYN [facility]95.0 [place], [place] [id number] [facility] [address] [place], Sep, [facility] [id number] [facility] 103 Sep, [place] [id number] [facility] 103 Sep, [place] [id number] [facility] 103 Sep, Postmenopausal bleeding OBGYN [facility] [place] [address] [id number] [facility] 103 Aug, Postmenopausal bleeding OBGYN [facility] [place] [address] [id number] [facility] 103 Aug, Postmenopausal bleeding OBGYN [facility]95. and Pelvic and [place], [place] [id number] perineal pain R10.2 [facility] 103 Jul, OBGYN [place] [id number] [facility] 103 Jul, Postmenopausal bleeding OBGYN [facility]95. and Pelvic and [place], [place] 794708475 perineal pain R10.2 [facility] 103 Jul, [place] [id number] [facility] 103 Jul, Mastodynia N64.4 ; OBGYN [facility] Postmenopausal bleeding [place], [place] [id number] N95.0 and Pelvic and perineal pain R10.2 [facility] 103 Jul, [place], [place] [id number] [facility] 103 Jun, Mastodynia N64.4 [place] [id number] [facility] 103 Jun, OBG[place] [id number] [facility] 103 May, Mastodynia N64.4 [place]YN [place] 4403434[address] [facility] 103 Apr, Encounter for gynecological OBGYN [facility] examination (general) [place], [place] [id number] (routine) without abnormal findings Z01.419 ; Encounter for screening mammogram for malignant neoplasm of breast Z12.31 and Encounter for screening for malignant neoplasm of colon Z12.11 [facility] 103 27 Mar, 2016 Disorder of the skin and OBGYN [facility] subcutaneous tissue, [place], [place] [id number] unspecified L98.9 [facility] 103 January, Mastodynia N64.4 [place]YN [place] [id number] [facility] 103 January, [place] [id number] [facility] 103 Dec, Other pruritus L29.8 [place] [id number] [facility] 103 Dec, Dysuria R30.0 ; Pelvic and OBGYN [facility] perineal pain R10.2 and [place], [place] [id number] Postmenopausal bleeding N95.0 [facility] 103 Dec, Pelvic and perineal pain OBGYN [facility] R10.2 [place], [place] [id number] [facility] 103 08 Dec, 2015 Pelvic and perineal pain OBGYN [facility] R10.2 [place], [place] [id number] [facility] 103 Dec, Dysuria R30.0 [place] [id number] [facility] 103 Dec, Postmenopausal bleeding OBGYN [facility] N95.0 and Dysuria R30.0 [place], [place] [id number] [facility] 103 Nov, Postmenopausal bleeding OBGYN [address] [id number] [facility] 103 Nov, Postmenopausal bleeding OBGYN [address] [id number] [facility] 103 Nov, [place] [id number] [facility] 103 Nov, Mastodynia N64.4 [place] [id number] [facility] 103 Aug, [place] [id number] [facility] 103 Aug, [place] [id number] [facility] 103 Aug, Postmenopausal bleeding OBGYN [place] [address] [place] [address] [id number] [facility] 103 Aug, Dysuria R30.0 and OBGYN [facility] Postmenopausal bleeding [place], [place] [id number] [facility].[address] [place] [address] [facility] Jun, Postmenopausal bleeding OBGYN [address] [id number] [facility] 103 Jun, Postmenopausal bleeding OBGYN [address] [id number] [facility] 103 Jun, [place] [id number] [facility] 103 Jun, [place] [id number] [facility] 103 Jun, Postmenopausal bleeding OBGYN [place] [address] and Dysuria R30.0 [place] [id number] [facility] 103 May, Postmenopausal bleeding OBGYN [place] [address] [place] [address] [id number] [facility] 103 May, Postmenopausal bleeding OBGYN [address] [id number] [facility] 103 May, Urinary frequency 788.41 ; OBGYN [facility] Postmenopausal bleeding [place] [id number] 627.1 and Atrophic vulvovaginitis 627.3 [facility] 103 Mar, Mastalgia 611.71 O[place]YN [place] [id number] [facility] 103 Feb, Mastalgia 611.71 [place] [id number] [facility] 103 Feb, BREAST DISORDER NOS 611.9 [place] [id number] [facility] 103 January, [place] [id number] [facility] 103 Dec, DERMATITIS NOS 692.9 [place] [id number] [facility] 103 Dec, Postmenopausal bleeding [address] [id number] [facility] 103 Dec, [place] [id number] [facility] 103 Dec, [place] [id number] [facility] [address] [place], Dec, 2015 [facility] [id number] [facility] 103 Nov, Postmenopausal bleeding OBGYN [address] [id number] [facility] 103 Nov, [place]BGYN [place] [id number] [facility] 103 04 Mar, 2015 O[place] [id number] [facility] [address] [place], Nov, [facility] [id number] [facility] 103 Nov, OBN [place] [id number] [facility] 103 Oct, [facility] [address] [place] [address] [id number] [facility] 103 Oct, [place] [id number] [facility] 103 Oct, [place] [id number] [facility] 103 Oct, [place] [id number] [facility] 103 Oct, [place] [id number] [facility] 103 Oct, Postmenopausal bleeding [place] [address] [place] [address] [id number] [facility] 103 Oct, [place] [id number] [facility] 103 Oct, Postmenopausal bleeding [place] [address] [place] [address] [id number] [facility] 103 Oct, Dysuria 788.1 and OBGYN [facility] Postmenopausal bleeding [place] [id number] 627.1 [facility] 103 Jul, Dysuria 788.1 [place] [id number] [facility] 103 Jun, Atopic dermatitis 691.8 [place]YN [place] 478233301 [facility] 103 May, OBG[place] 17385[address] [facility] 103 May, OBG[place] [id number] [facility] 103 Apr, ROUTINE CUSTOMER SUPPORT EXECUTIVE EXAMINATION OBGYN [facility] V72.31 ; SCREEN MALIG [place], [place] [id number] NEOP-COLON V76.51 ; SCREEN MAMMOGRAM NEC V76.12 and Urinary tract infection NOS 599.0 [facility] 103 Apr, Breast Mass 611.72 [place], [place] [id number] [facility] 103 Apr, Dysuria 788.1 OBGYN [place] [id number] [facility] 103 Dec, OBGYN [place] [id number] [facility] 103 Dec, Hematuria, microscopic OBGYN [facility] 599.72 and Dysuria 788.1 [place], [place] [id number] [facility] 103 Dec, OBG[place] 785456963 [facility] 103 Nov, Atopic dermatitis 691.8 [place] [id number] [facility] 103 Aug, [place] [id number] [facility] 103 Aug, [place] 180781718 [facility] 103 Aug, [place] [id number] [facility] 103 Aug, Atopic dermatitis 691.8 [place]YN [place] 292182374 [facility] 103 Aug, [place] [id number] [facility] 103 Aug, OBGYN [place] 880503890 [facility] 103 Aug, OBG[place] [id number] [facility] 103 Aug, [place] [id number] [facility] 103 Jul, Atopic eczema 691.8 and OBGYN [facility] BREAST DISORDER NOS 611.9 [place] [id number] [facility] 103 Jul, [place] 906751296 [facility] 103 Jul, Atopic eczema 691.8 and OBGYN [facility] BREAST DISORDER NOS 611.9 [place] 451002037 [facility] 103 Jul, [place] [id number] [facility] 103 Jul, HEMATURIA NOS 599.70 [place] 470186006 [facility] 103 May, [place] [id number] [facility] 103 Apr, [facility]OLOGIC [facility]INATION [facility] V72.31 ; PAP SMEAR W/O CUSTOMER SUPPORT EXECUTIVE [place], [place] [id number] EXAM V76.2 ; SCREEN MALIG NEOP-COLON V76.51 and SCREEN MAMMOGRAM NEC V76.12 [facility] 103 Apr, [place] [id number] [facility] 103 Apr, PELVIC PAIN 625.9 [place] [id number] [facility] 103 Apr, Menometrorrhagia 626.2 ; OBGYN [facility] Dysuria 788.1 and PELVIC [place] [id number] PAIN 625.9 [facility] 103 Mar, [place] [id number] [facility] 103 Mar, [place] [id number] [facility] 103 Mar, Hematuria, microscopic OBGYN [facility] 599.72 [place] [id number] [facility] 103 Feb, [place] [id number] [facility] 103 Feb, OBGYN [place] [id number] [facility] Feb, OBG[place], [place] [id number] [facility] 103 Feb, Menometrorrhagia 626.2 [place]YN [place] [id number] [facility] 103 January, [place] [id number] [facility] January, [address]rhagia [address] [place], [place] 0[address]59[address] [facility] 103 January, [place] 903837205 [facility] 103 January, [place] [id number] [facility] 103 January, Menometrorrhagia 626.2 [place]YN [place] 47445480[address] [facility] [address], Dec, Medical [facility] [id number] [facility] 103 Dec, Menometrorrhagia 626.2 and OBGYN [facility] IUD SURVEILLANCE V25.42 [place], [place] [id number] [facility] 103 16 Dec, 2012 [place] [id number] [facility] 103 Dec, [place] [id number] [facility] Nov, [place] [id number] [facility] Nov, Menometrorrhagia [address] [place], [place] [id number] [facility] 103 Nov, Menometrorrhagia 626.2 [place]YN [place], [place] [id number] [facility] 103 Nov, Menometrorrhagia 626.2 [place] [id number] [facility] 103 Nov, Menometrorrhagia 626.2 ; OBGYN [facility] IUD SURVEILLANCE V25.42 and [place], [place] [id number] Endometrial polyp 621.0 [facility] 103 Nov, Menometrorrhagia 626.2 [place]YN [place] [id number] [facility] 103 Oct, [place] [id number] [facility] 103 Sep, [place] [id number] [facility] 103 Sep, [place]YN [place] 859382088 [facility] 103 Sep, [place] [id number] [facility] 103 Sep, [place] [id number] [facility] 103 Sep, PELVIC PAIN 625.9 ; OBGYN [facility] HEMATURIA NOS 599.70 and [place] [id number] Abdominal pain, right upper quadrant 789.01 [facility] 103 14 Sep, 2012 PELVIC PAIN 625.9 and IUD OBGYN [facility] SURVEILLANCE V25.[address] [place] [address] [id number] [facility] 103 11 Sep, 2012 PELVIC PAIN 625.9 [place], [place] [id number] [facility] 103 Aug, OBGYN [place] [id number] [facility] Jul, Irregular bleeding NOS [address] [place], 626.4 ; Hydrosalpinx 614.1 [place] [id number] and PELVIC PAIN 625.9 [facility] 103 Jul, Hydrosalpinx 614.1 and IUD OBGYN [facility] V25.[address] [place] [address] [id number] [facility] Jun, [place] [id number] [facility] Jun, Irregular bleeding NOS OBGYN [facility] [address] 626.4 and Hydrosalpinx [place] [id number] 614.1 [facility] 103 May, [place] [id number] [facility] May, Irregular bleeding NOS OBGYN [facility] [address] 626.4 [place], [place] [id number] [facility] 103 May, Irregular bleeding NOS OBGYN [facility] [address] 626.4 [place], [place] [id number] [facility] May, Irregular bleeding NOS OBGYN [facility] [address] 626.4 and Menorrhagia 626.2 [place], [place] [id number] [facility] 103 May, Irregular bleeding NOS OBGYN [facility] [address] 626.4 and PELVIC PAIN 625.9 [place], [place] [id number] [facility] 103 05 May, 2012 PELVIC PAIN 625.9 ; [facility] Irregular bleeding NOS [place], [place] [id number] 626.4 and IUD SURVEILLANCE V25.42 [facility] 103 Apr, Irregular bleeding NOS [facility] 626.4 and PELVIC PAIN 625.9 [place], [place] [id number] [facility] 103 Feb, [place] [id number] [facility] 103 Feb, Irregular bleeding NOS [facility] 626.4 ; PELVIC PAIN 625.9 [place], [place] [id number] and Abdominal pain, epigastric 789.06 [facility] Nov, Vitamin D deficiency NOS [facility] 268.9 [place], [place] [id number] [facility] 103 Nov, [place] [id number] [facility] 103 Nov, Irregular bleeding NOS [facility] 626.4 and IUD SURVEILLANCE [place], [place] [id number] V25.42 [facility] 103 Nov, ROUTINE CUSTOMER SUPPORT EXECUTIVE EXAMINATION [facility] V72.31 ; Irregular bleeding [place], [place] [id number] NOS 626.4 ; PAP SMEAR W/O CUSTOMER SUPPORT EXECUTIVE EXAM V76.2 ; IUD SURVEILLANCE V25.42 and SCREEN MALIG NEOP-COLON V76.[address] [facility] Nov, [place] [id number] [facility] 103 Nov, Irregular bleeding NOS [facility] 626.4 and IUD SURVEILLANCE [place] [id number] V25.42 [facility] 103 Nov, [place] [id number] [facility] 103 Oct, Irregular bleeding NOS OBGYN [facility] 626.4 [place], [place] [id number] [facility] 103 Oct, [place] [id number] [facility] 103 Sep, [place] [id number] [facility] 103 Sep, GENITAL HERPES NOS 054.10 [place] [id number] [facility] Sep, [place] [id number] [facility] Sep, [place] [id number] [facility] 103 Sep, Gross hematuria 599.71 [place] [id number] [facility] Aug, [place] [id number] [facility] 103 Aug, HEMATURIA NOS 599.70 [place] [id number] [facility] 103 Aug, Abdominal pain, generalized OBGYN [facility] 789.07 ; Irregular bleeding [place], [place] [id number] NOS 626.4 and Dysuria 788.1 [facility] 103 Aug, PELVIC PAIN 625.9 and IUD OBGYN [facility] SURVEILLANCE V25.42 [place], [place] [id number] [facility] 103 Jul, Abdominal pain, generalized OBGYN [facility] 789.07 and Irregular [place], [place] [id number] bleeding NOS 626.4 [facility] 103 Jul, [place] [id number] [facility] 103 Jun, Abdominal pain, generalized OBGYN [facility] 789.07 and Irregular [place], [place] [id number] bleeding NOS 626.4 [facility] May, Abdominal pain, right lower OBGYN [facility] quadrant 789.03 and [place], [place] [id number] Irregular bleeding NOS 626.4 [facility] Apr, [place] [id number] [facility] 103 Apr, IUD SURVEILLANCE V25.42 [place], [place] [id number] [facility] 103 Mar, INSERTION OF IUD V25.11 [place], [place] [id number] [facility] 103 Feb, [place], [place] [id number] [facility] 103 Feb, [place]BG[place] [id number] [facility] 103 Feb, Menorrhagia 626.2 ; Ovarian OBGYN [facility] cyst NOS 620.2 and [place] [id number] Dysmenorrhea 625.3 [facility] Feb, [place], [place] [id number] [facility] [address], Feb, [facility] [id number] [facility] 103 Feb, Menorrhagia 626.2 ; Ovarian OBGYN [facility] cyst NOS 620.2 and [place], [place] [id number] Dysmenorrhea 625.3 [facility] January, [place], [place] [id number] [facility] 103 January, Menorrhagia 626.2 ; Ovarian OBGYN [facility] cyst NOS 620.2 and [place], [place] [id number] Dysmenorrhea 625.3 [facility] 103 January, Ovarian cyst NOS 620.2 ; OBGYN [facility] Menorrhagia 626.2 and [place], [place] [id number] Dysmenorrhea 625.3 [facility] 103 Nov, [place], [place] [id number] [facility] 103 Nov, ROUTINE CUSTOMER SUPPORT EXECUTIVE EXAMINATION OBGYN [facility] V72.31 and PAP SMEAR W/O [place], [place] [id number] CUSTOMER SUPPORT EXECUTIVE EXAM V76.2 [facility] 103 Nov, OBG[place], [place] [id number] [facility] 103 Nov, Menorrhagia 626.2 and OBGYN [facility] Ovarian cyst NOS 620.2 [place], [place] [id number] [facility] 103 Nov, Menorrhagia 626.2 [place], [place] [id number] [facility] 103 Nov, Menorrhagia 626.2 [place], [place] [id number] [facility] 103 Nov, Menorrhagia 626.2 and OBGYN [facility] Ovarian cyst NOS 620.2 [place], [place] [id number] [facility] 103 Oct, [place], [place] [id number] [facility] 103 Oct, OBG[place], [place] [id number] [facility] 103 Oct, Menorrhagia 626.2 [place], [place] [id number] [facility] 103 Feb, ROUTINE CUSTOMER SUPPORT EXECUTIVE EXAMINATION OBGYN [facility] V72.31 [place], [place] [id number] [facility] 103 May, PELVIC PAIN 625.9 [place] [id number] [facility] 103 May, PELVIC PAIN 625.9 [place], [place] [id number] [facility] 103 May, PELVIC PAIN 625.9 [place], [place] [id number] [facility] 103 Apr, [place], [place] [id number] [facility] 103 Apr, Dysuria 788.1 and HEMATURIA OBGYN [facility] NOS 599.70 [place], [place] [id number] [facility] 103 Apr, PELVIC PAIN 625.9 [place], [place] [id number] [facility] 103 Mar, [place], [place] [id number] [facility] 103 Mar, Ovarian cyst NOS 620.2 and OBGYN [facility] PELVIC PAIN 625.9 [place], [place] [id number] [facility] 103 Mar, Ovarian cyst NOS 620.2 and OBGYN [facility] PELVIC PAIN 625.9 [place], [place] [id number] [facility] 103 Feb, [place]BG[place], [place] [id number] [facility] 103 Feb, Ovarian cyst NOS 620.2 and OBGYN [facility] PELVIC PAIN 625.9 [place], [place] [id number] [facility] 103 Feb, Ovarian cyst NOS 620.2 and OBGYN [facility] PELVIC PAIN 625.9 [place], [place] [id number] [facility] 103 Feb, PELVIC PAIN 625.9 and OBGYN [facility] Ovarian cyst NOS 620.2 [place], [place] [id number] [facility] 103 12 Feb, 2009 ROUTINE CUSTOMER SUPPORT EXECUTIVE EXAMINATION OBGYN [facility] V72.31 [place], [place] [id number] [facility] 103 11 Feb, 2009 PELVIC PAIN 625.9 and OBGYN [facility] Ovarian cyst NOS 620.2 [place], [place] [id number] [facility] 103 09 Feb, 2009 PELVIC PAIN 625.9 and OBGYN [facility] Ovarian cyst NOS 620.2 [place], [place] [id number] [facility] 103 Feb, Menorrhagia 626.2 and OBGYN [facility] PELVIC PAIN 625.9 [place], [place] [id number] [facility] 103 January, [place], [place] [id number] [facility] 103 January, Menorrhagia 626.2 and OBGYN [facility] Irregular bleeding NOS [place], [place] [id number] 626.4 [facility] 103 January, Menorrhagia 626.2 [place], [place] [id number] [facility] 103 Nov, [place], [place] [id number] [facility] 103 Nov, Menorrhagia 626.2 [place], [place] [id number] [facility] 103 Jun, [place], [place] [id number] [facility] 103 Jun, Menorrhagia 626.2 [place] [id number] [facility] 103 Jun, Menorrhagia 626.2 [place], [place] [id number] [facility] 103 29 Sep, 2008 OBG[place], [place] [id number] [facility] 103 May, Menorrhagia 626.2 and OBGYN [facility] PELVIC PAIN 625.9 [place], [place] [id number] [facility] 103 May, Ovarian cyst NOS 620.2 [place], [place] [id number] [facility] 103 May, Ovarian cyst NOS 620.2 and OBGYN [facility] PELVIC PAIN 625.9 [place], [place] [id number] [facility] 103 May, [place], [place] [id number] [facility] 103 Apr, Cervical polyp 622.7 [place], [place] [id number] [facility] 103 Sep, [place], [place] [id number] [facility] 103 Sep, [place], [place] [id number] [facility] 103 Sep, OBG[place], [place] [id number] [facility] 103 Sep, Menorrhagia 626.2 [place], [place] [id number] [facility] 103 Aug, [place], [place] [id number] [facility] 103 Aug, Menorrhagia 626.2 [place], [place] [id number] [facility] 103 Jun, [place], [place] [id number] [facility] 103 Jun, [place]BG[place], [place] [id number] [facility] 103 Jun, OBG[place], [place] [id number] [facility] 103 Jun, Menorrhagia 626.2 [place] [id number] [facility] 103 May, Menorrhagia 626.2 [place] [id number] [facility] 103 May, Menorrhagia 626.2 [place] [id number] [facility] 103 Apr, PELVIC PAIN 625.9 [place], [place] [id number] [facility] 103 Apr, PELVIC PAIN 625.9 [place], [place] [id number] [facility] 103 Apr, [place], [place] [id number] [facility] 103 Apr, ROUTINE CUSTOMER SUPPORT EXECUTIVE EXAMINATION OBGYN [facility] V72.31 ; Dysuria 788.1 ; [place], [place] [id number] PELVIC PAIN 625.9 and Hemorrhoids NOS 455.6 [facility] 103 Mar, Ovarian cyst NOS 620.2 [place] [id number] [facility] 103 Mar, [place], [place] [id number] [facility] 103 Mar, Ovarian cyst NOS 620.2 [place], [place] [id number] [facility] 103 Feb, [place], [place] [id number] [facility] 103 January, Menorrhagia 626.2 ; Ovarian OBGYN [facility] cyst NOS 620.2 and PELVIC [place], [place] [id number] PAIN 625.9 [facility] 103 January, Menorrhagia 626.2 ; Ovarian OBGYN [facility] cyst NOS 620.2 and PELVIC [place], [place] [id number] PAIN 625.9 [facility] 103 January, Ovarian cyst NOS 620.2 ; OBGYN [facility] PELVIC PAIN 625.9 and [place], [place] [id number] Irregular bleeding NOS 626.4 [facility] 103 January, Ovarian cyst NOS 620.2 and OBGYN [facility] PELVIC PAIN 625.9 [place], [place] [id number] [facility] 103 Aug, [place], [place] [id number] [facility] 103 Aug, [place] [id number] [facility] 103 Aug, [place], [place] [id number] [facility] 103 Aug, Menorrhagia 626.2 ; OBGYN [facility] Follicular cyst of ovary [place], [place] [id number] 620.0 and Dysmenorrhea 625.3 [facility] 103 Jun, Menorrhagia 626.2 and OBGYN [facility] Ovarian cyst NOS 620.2 [place], [place] [id number] [facility] 103 Feb, Candidal vulvovaginitis OBGYN [facility] 112.1 [place], [place] [id number] [facility] 103 Dec, [place], [place] [id number] [facility] 103 Oct, Mastalgia 611.71 O[place], [place] [id number] [facility] 103 Oct, Follicular cyst of ovary OBGYN [facility] 620.0 [place], [place] [id number] [facility] 103 Sep, Follicular cyst of ovary OBGYN [facility] 620.0 and Dysmenorrhea [place], [place] [id number] 625.3 UNKNOWN Aug, [facility] 103 Aug, Follicular cyst of ovary OBGYN [facility] 620.0 and Dysmenorrhea [place], [place] [id number] 625.3 UNKNOWN Aug, [facility] 103 Aug, Menorrhagia 626.2 [place] [id number] [facility] 103 Aug, [place] [id number] [facility] 103 Aug, [facility] 627.[facility] and Menorrhagia 626.2 [place], [place] [id number] UNKNOWN Jul, [facility] 103 Jul, [facility] of [facility] without infection [place], [place] [id number] 911.0 IMMUNIZATIONS No Known Immunizations SOCIAL HISTORY Never Assessed REASON FOR REFERRAL FUNCTIONAL STATUS PLAN OF CARE Activity Details Follow Up annual - Reason: VITAL SIGNS Height 62 in 2018-06-03 Weight 143 lbs 2018-06-03 BMI 26.15 kg/m2 2018-06-03 Blood pressure systolic 110 mm Hg 2018-06-03 Blood pressure diastolic 74 mm Hg 2018-06-03 MEDICATIONS Medication Instructions Dosage Frequency Start End Duration Status Date Date Hydrocortisone, applied topically 1 valente 8h Jun, day(s) Active Topical 2.5% 3 times a day 2016 Premarin Vaginal intravaginally 0.5 grams Apr, day(s) Active 0.625 mg/g twice a week 2017 omeprazole 20 mg orally once a day 1 cap(s) 24h Active nystatin topical applied topically 1 valente 8h 04 May, day(s) Active 020745 units/g to affected area 2017 3 times a day aspirin 81 mg orally QD 1 tab(s) 24h Active naproxen 500 mg orally QD 1 tab(s) 24h Active Estradiol Vaginal intravaginally 2 1 g Apr, day(s) Active 0.1 mg/g times a week 2017 clotrimazole applied topically 1 valente 12h 19 Sep, 14 days Active topical 1% 2 times a day 2017 Fish Oil 1200 mg orally qd 1 cap(s) 24h Active nystatin topical applied topically 1 valente 12h 19 Sep, 30 days Active 288575 units/g BID 2017 Triamcinolone applied topically 1 valente 8h 16 Aug, 7 day(s) Active Acetonide Topical to affected area 2018 0.1% 3 times a day PROCEDURES No Known procedures RESULTS No Results REASON FOR VISIT Rash on Breast (Patient didnt state which) Insurance Providers [facility] Health Member Patient Patient Patient Patient Patient Subscriber Subscriber Subscriber Group Insurance Plan Plan Plan Plan ID Relationship Address Phone Name Date of ID Name Date of No Type Insurance Insurance Insurance Coverage to Subscriber Address Phone Name Dates Medicare [phone] Medicare self [place] [id number] [facility] [address] Medicaid [phone] Medicaid self Ashley [id number] [address] [facility] [address] [facility] [address] [place] [phone] [place] self Ashley [id number] [address] [address] MEDICAL (GENERAL) HISTORY Type Description Date Medical History Esophageal reflux Medical History Genital herpes Medical History Atopic dermatitis Medical History high cholesterol Medical History stroke Medical History pneumonia Medical History px COPD Medical History Barretts Esophegus Medical History hx CVA Medical History anxiety Medical History costochondritis Surgical History hysteroscopy,D&C 8- Surgical History LSO Surgical History D&C 2 Surgical History D&C 4 Surgical History Hysteroscopy/D&C/polypectomy/Mirena removal and 01/05/13 [facility] Surgical History colonoscopy 03/2014 Surgical History US [...]
[2018-06-29 12:50] VITALS: BP 122/84
--- NOTE | 2018-06-29 13:23 | UC ---
Headache HPI - HPI Summary HPI Summary: The patient is a 57-year-old female that presents here for evaluation of headaches. She has had headaches for approximately a month to month and a half. Last night she awoke about 1 AM with a severe frontal headache. She has had no nausea or vomiting. She has had no photophobia. She denies any sinus pressure or pain. She states that she had a CVA back in 2013 that was diagnosed on an [place]. - History Of Current Complaint Chief Complaint: UCHeadache Stated Complaint: HEADACHE Time Seen by Provider: 06/29/18 13:03 Hx Obtained From: Patient Hx Last Menstrual Period: n/a Onset/Duration: Sudden Onset, Lasting Hours Onset Of Symptoms: Sudden Initially Headache Was: "Worst Headache Ever", Initial Pain Scale(0-10)= - 9 Pain Intensity: 9 Pain Scale Used: 0-10 Numeric Timing: Constant Location of Headache: Frontal Aggravating Factor(s): Nothing Allevating Factor(s): Nothing Associated Signs And Symptoms: Negative: Dizziness, Seizure, Nausea, Vomiting, Sinus Pressure, Fever, Neck Pain, Neck Stiffness, Decreased LOC, Visual Changes - Allergies/Home Medications Allergies/Adverse Reactions: Allergies Allergy/AdvReac Type Severity Reaction Status Date / Time latex Allergy Hives Verified 06/29/18 12:43 levofloxacin Allergy Vomiting Verified 06/29/18 12:43 Penicillins Allergy Hives Verified 06/29/18 12:43 PMH/Surg Hx/FS Hx/Imm Hx Previously Healthy: Yes Endocrine History: Dyslipidemia Respiratory History: COPD Neurological History: CVA Other History Of: Negative For: HIV, Hepatitis B, Hepatitis C - Surgical History Surgical History: Yes Surgery Procedure, Year, and Place: ablation 2015-[facility]. LEFT OVARY REMOVED. STENT IN PANCREAS - Family History Known Family History: Positive: Hypertension, Diabetes, Other - cancer, alzheimers Negative: Cardiac Disease - Social History Alcohol Use: None Substance Use Type: None Smoking Status (MU): Never Smoked Tobacco Have You Smoked in the Last Year: No - Immunization History Most Recent Influenza Vaccination: 11/2016 Review of Systems Constitutional: Negative Skin: Negative Eyes: Negative ENT: Negative Respiratory: Negative Cardiovascular: Negative Gastrointestinal: Negative Genitourinary: Negative Motor: Negative Neurovascular: Negative Musculoskeletal: Negative Neurological: Headache Psychological: Negative All Other Systems Reviewed And Are Negative: Yes Physical Exam Triage Information Reviewed: Yes Appearance: Well-Appearing, No Pain Distress, Well-Nourished Vital Signs: Initial Vital Signs Temp 99.8 F 06/29/18 12:44 Pulse 78 06/29/18 12:44 Resp 16 06/29/18 12:44 BP 122/84 06/29/18 12:44 Pulse Ox 100 06/29/18 12:44 Vital Signs Reviewed: Yes Eyes: Positive: Conjunctiva Clear ENT: Positive: Hearing grossly normal. Negative: Nasal congestion, Nasal drainage, Tonsillar swelling, Tonsillar exudate, Sinus tenderness, Uvula midline Neck: Positive: Supple, Nontender, No Lymphadenopathy Respiratory: Positive: Lungs clear, Normal breath sounds, No respiratory distress Cardiovascular: Positive: RRR, No Murmur Musculoskeletal: Positive: ROM Intact, No Edema Neurological: Positive: Alert, Muscle Tone Normal, Other: - cn2-12 intact, strength 5/5, senory intact, nl gait , DTRs brisk and symmetric Psychological Exam: Normal Skin Exam: Normal Diagnostics - Radiology No standard instances Xray Interpretation: No Acute Changes - CT brain Radiology Interpretation Completed By: Radiologist Headache Course/Dx - Differential Dx/Diagnosis Provider Diagnoses: acute headache Discharge - Sign-Out/Discharge Documenting (check all that apply): Patient Departure All imaging exams completed and their final reports reviewed: Yes - Discharge Plan Condition: Stable Disposition: HOME Patient Education Materials: Acute Headache (ED) Referrals: Ashley Piper MD [Primary Care Provider] - 1 Day (if not better) Additional Instructions: rest fluids see your provider tomorrow if not better - Billing Disposition and Condition Condition: STABLE Disposition: Home
--- NOTE | 2018-06-29 13:42 | RAD ---
HISTORY: Headache COMPARISONS: MRI dated November 09, 2015 TECHNIQUE: Multiple contiguous axial CT scans were obtained of the head without intravenous contrast. FINDINGS: HEMORRHAGE/INFARCT: There is no hemorrhage or acute infarct. MASSES/SHIFT: There is no mass or shift. EXTRA-AXIAL SPACES: There are no extra-axial fluid collections. SULCI AND VENTRICLES: The sulci and ventricles are normal in size and position for the patient's stated age. CEREBRUM: There are no focal parenchymal abnormalities. BRAINSTEM: There are no focal parenchymal abnormalities. CEREBELLUM: There are no focal parenchymal abnormalities. VESSELS: The vessels are grossly normal. PARANASAL SINUSES: The paranasal sinuses are clear. ORBITS: The orbits are unremarkable. BONES AND SOFT TISSUE: No bone or soft tissue abnormalities are noted. OTHER: None IMPRESSION: NO ACUTE INTRACRANIAL PATHOLOGY.
[2018-06-29] MEDS ORDERED: Ketorolac INJ* 30 MG/ML 1 ML VIAL IM ONE (13:59)
== END 2018-06-29 14:36 | disposition home or self-care (01) ==
LOC: UCCORT 12:13
DX: R51 Headache (principal); Z86.73 Personal history of transient ischemic attack (TIA), and cerebral infarction without residual deficits; Z88.0 Allergy status to penicillin; Z88.1 Allergy status to other antibiotic agents
CPT/HCPCS: 70450; 96372; 99211; G0463; J1885

== ENCOUNTER 2018-09-05 17:16 | Emergency (ER) | payer OTHER ==
[2018-09-05 17:33] VITALS: BP 124/80
--- NOTE | 2018-09-05 17:42 | UC ---
Throat Pain/Nasal Mansoor HPI - HPI Summary HPI Summary: Pt c/o sudden onset of feeling of "something in my throat, I think it is phlegm " that began today. Denies any FB or any small boned food item. Denies pain. with - History of Current Complaint Chief Complaint: UCGeneralIllness Stated Complaint: POSSIBLE OBJECT IN THROAT Time Seen by Provider: 09/05/18 17:36 Hx Obtained From: Patient Hx Last Menstrual Period: Uterine Ablasion ?: No Onset/Duration: Sudden Onset, Lasting Hours Severity: Moderate Pain Intensity: 7 Cough: None Associated Signs & Symptoms: Positive: Nasal Discharge, Other - PND - Epiglottits Risk Factors Epiglottis Risk Factors: Sudden Onset - Allergies/Home Medications Allergies/Adverse Reactions: Allergies Allergy/AdvReac Type Severity Reaction Status Date / Time latex Allergy Hives Verified 09/05/18 17:26 levofloxacin Allergy Vomiting Verified 09/05/18 17:26 Penicillins Allergy Hives Verified 09/05/18 17:26 PMH/Surg Hx/FS Hx/Imm Hx Previously Healthy: Yes Other History Of: Negative For: HIV, Hepatitis B, Hepatitis C - Surgical History Surgical History: Yes Surgery Procedure, Year, and Place: ablation 2014-[facility]. LEFT OVARY REMOVED. STENT IN PANCREAS- removed. Scheduled for ERCP - Family History Known Family History: Positive: Hypertension, Diabetes, Other - cancer, alzheimers Negative: Cardiac Disease - Social History Lives: With Family Alcohol Use: None Substance Use Type: None Smoking Status (MU): Never Smoked Tobacco Have You Smoked in the Last Year: No - Immunization History Most Recent Influenza Vaccination: 11/2016 Review of Systems All Other Systems Reviewed And Are Negative: Yes Constitutional: Positive: Negative Skin: Positive: Negative Eyes: Positive: Negative ENT: Positive: Sore Throat, Nasal Discharge, Sinus Congestion Respiratory: Positive: Negative Cardiovascular: Positive: Negative Gastrointestinal: Positive: Negative Genitourinary: Positive: Negative Motor: Positive: Negative Neurovascular: Positive: Negative Musculoskeletal: Positive: Negative Neurological: Positive: Negative Psychological: Positive: Negative Is Patient Immunocompromised?: No Physical Exam Triage Information Reviewed: Yes Appearance: Well-Appearing Vital Signs: Initial Vital Signs Temp 98.7 F 09/05/18 17:26 Pulse 98 09/05/18 17:26 Resp 16 09/05/18 17:26 BP 124/80 09/05/18 17:26 Pulse Ox 97 09/05/18 17:26 Vital Signs Reviewed: Yes Eye Exam: Normal ENT: Positive: Nasal congestion, Other - PND Dental Exam: Normal Neck exam: Normal Respiratory Exam: Normal Cardiovascular Exam: Normal Musculoskeletal Exam: Normal Neurological Exam: Normal Psychological Exam: Normal Skin Exam: Normal Throat Pain/Nasal Course/Dx - Differential Dx/Diagnosis Differential Diagnosis/HQI/PQRI: Foreign Body, URI Provider Diagnosis: Post-nasal drip, Viral syndrome Discharge - Sign-Out/Discharge Documenting (check all that apply): Patient Departure All imaging exams completed and their final reports reviewed: No Studies - Discharge Plan Condition: Stable Disposition: HOME Patient Education Materials: Pharyngitis (ED), Viral Syndrome (ED) Referrals: Ashley Piper MD [Primary Care Provider] - If Needed Additional Instructions: Add a teaspoon of salt to a cup of warm water. Gargle, 5 ml in your mouth every four hours X 2 days. - Billing Disposition and Condition Condition: STABLE Disposition: Home
== END 2018-09-05 17:50 | disposition home or self-care (01) ==
LOC: UCCORT 17:16
DX: B34.9 Viral infection, unspecified (principal); Z88.0 Allergy status to penicillin; Z88.1 Allergy status to other antibiotic agents
CPT/HCPCS: 99211; G0463

== ENCOUNTER 2018-10-26 13:26 | Emergency (ER) | payer OTHER ==
--- OUTSIDE RECORDS SUMMARY | 2018-10-26 13:38 | XMS REPORT | Continuity of Care Document ---
:1960 External Reference #:[id number] Author Name Hiral Vargas Care Team Providers Name Role Phone Galen Rose PA Care Team Information Clinical Genetics Laboratory Chief Unavailable Ashley Piper MD Primary Care Physician Unavailable Payers Type Date Identification Numbers Payment Provider Subscriber Expires: 2017 Policy Number: [id number] Medicaid Ashley Myranda PayID: [id number] [address] [place] [address] Expires: 2017 Policy Number: [id number] [place] Ashley Myranda PayID: [id number] [address] [place] [address] Policy Number: [id number] [place] [employer] Ashley Willettd PayID: [id number] [address] [place] [address] Advance Directives Description No Information Available Problems Date Description Provider Status Onset: 08/24/2015 [...] pt Social History Type Date Description Comments Sex Unknown Marital Status Single Lives With Alone Home Environment Lives Alone Diet Patient follows no dietary restrictions Occupation Disabled Work Status Unemployed Tobacco Use Start: Unknown Never Smoked Cigarettes ETOH Use Denies alcohol use Recreational Drug Use Denies Drug Use Tobacco Use Start: Unknown Patient has never smoked Smoking Status Reviewed: 09/04/18 Patient has never smoked Exercise Type/Frequency Exercises regularly Allergies, Adverse Reactions, Alerts Date Description Reaction Status Severity Comments 11/24/2012 Penicillin Active Medications Medication Date Status Form Strength Qnty SIG Indications Ordering Provider Aspir-81 00/ Active Tablets DR 81mg 1 by mouth Unknown 0000 every day Omeprazole 00/ Active Capsules DR 40mg take 1 Unknown 0000 capsule by mouth once daily if needed Fish Oil / Active Capsules 600mg 1 po daily Unknown 0000 Lipitor 00/ Active Tablets 40mg 1 by mouth Unknown 0000 every day Ofloxacin 07/15/ Hx Solution 0.3% 1unit 1 drop H25.813 Tho (Ophthalmic) 2017 - s right eye MD Dion 2016 daily for 10 days beginning three days prior to the operation Prednisolone 07/15/ Hx Suspension 1% 5ml 1 drop H25.813 Tho Acetate 2017 - right eye MD Dion 2016 daily for four weeks; please begin after surgery Diclofenac 07/15/ Hx Solution 0.1% 1unit 1 drop H25.813 Tho Sodium 2017 - s right eye MD Dion 2016 daily for 2 weeks beginning three days before operation Famotidine 10/08/ Hx Tablets 20mg 30tab 1 by mouth K21.9 Ramon 2017 s every day , ankita Ashley the MD evening Linzess 02/26/ Hx Capsules 145mcg 90cap 1 cap by K58.9 Kemar, 2015 s mouth Josr, every night, hold for unformed bm Osmoprep 09/14/ Hx Tablets 1.102-0.39 32tab 4 tab PO q R19.5 Kemar 2014 - 8gm s 15' x 5 Josr, 10/31/ doses 2015 evening; repeat regimen x3 doses 3 - 5 h morning; give each dose w/ 8 oz of clear liquids Lidocaine 09/05/ Hx Cream 5% 90gm Apply to Kemar (Anorectal) 2014 - perianal Josr, 02/26/ area qid 2015 prn Linzess 08/24/ Hx Capsules 290mcg 90cap take 1 K58.9 Kemar, 2014 - s capsule Josr, 09/14/ (290 mcg) 2014 by mouth daily on empty stomach (hold for unformed bm) Anusol-HC 08/24/ Hx Cream 2.5% 60gm apply to K58.9 Kemar 2014 - perianal Josr, 09/05/ area tid 2014 prn Prevacid / Hx Capsules DR 30cap 1 po qd Unknown 0000 - s 2014 Colace / Hx Capsules 100mg 1 po prn Unknown 0000 Atorvastatin 00/ Hx Tablets 80mg take 1 Unknown Calcium [...] twice daily. rinse mouth after use. Azithromycin 00/ Hx Tablets 250mg 1 tabs by Unknown 0000 mouth daily x 5 days Nystatin / Hx Cream [id number] AD Villapian 0000 /GM oAshley MD Acyclovir / Hx Tablets 800mg Take 1 Unknown 0000 - Tablet By 2017 Every 8 Hours For 5 Days Medications Administered in Office Medication Date Status Form Strength Qnty SIG Indications Ordering Provider Methylprednisolone 11/24 Administered Injection Lazo, Opal (Depomedrol) 80mg S., RPAC injection Immunizations Description No Information Available Vital Signs Date Vital Result Comment 04/08/2018 1:01pm BP Systolic Sitting Left Arm 110 mmHg BP Diastolic Sitting Left Arm 78 mmHg Heart Rate 67 /min Respiratory Rate 18 /min Height 62 inches 5'2" Weight 145.00 lb BMI (Body Mass Index) 26.5 kg/m2 BSA (Body Surface Area) 1.67 m2 [place] body weight in kilograms 50 kg O2 % BldC Oximetry 98 % Ora 03/19/2018 3:52pm BP Systolic Sitting Left Arm 115 mmHg BP Diastolic Sitting Left Arm 68 mmHg Heart Rate 90 /min Respiratory Rate 18 /min Height 62 inches 5'2" Weight 151.00 lb BMI (Body Mass Index) 27.6 kg/m2 BSA (Body Surface Area) 1.70 m2 [place] body weight in kilograms 50 kg O2 % BldC Oximetry 96 % 01/06/2018 10:44am BP Systolic Sitting Left Arm 120 mmHg BP Diastolic Sitting Left Arm 76 mmHg Heart Rate 63 /min Respiratory Rate 16 /min Height 62 inches 5'2" Weight 154.00 lb BMI (Body Mass Index) 28.2 kg/m2 BSA (Body Surface Area) 1.71 m2 [place] body weight in kilograms 50 kg 11/25/2017 10:58am BP Systolic Sitting Left Arm 115 mmHg BP Diastolic Sitting Left Arm 78 mmHg Heart Rate 89 /min Respiratory Rate 18 /min Height 62 inches 5'2" Weight 156.00 lb BMI (Body Mass Index) 28.5 kg/m2 BSA (Body Surface Area) 1.72 m2 [place] body weight in kilograms 50 kg 11/24/2017 2:02pm BP Systolic Sitting Left Arm 121 mmHg BP Diastolic Sitting Left Arm 82 mmHg Body Temperature 98.3 F Heart Rate 87 /min Respiratory Rate 18 /min Height 62 inches 5'2" Weight 154.00 lb BMI (Body Mass Index) 28.2 kg/m2 BSA (Body Surface Area) 1.71 m2 [place] body weight in kilograms 50 kg 11/18/2017 1:40pm BP Systolic Sitting Left Arm 132 mmHg BP Diastolic Sitting Left Arm 82 mmHg Heart Rate 86 /min Respiratory Rate 16 /min Height 62 inches 5'2" Weight 149.00 lb BMI (Body Mass Index) 27.2 kg/m2 BSA (Body Surface Area) 1.69 m2 [place] body weight in kilograms 50 kg 10/20/2017 10:05am BP Systolic Sitting Left Arm 115 mmHg BP Diastolic Sitting Left Arm 72 mmHg Heart Rate 75 /min Height 62 inches 5'2" Weight 154.00 lb BMI (Body Mass Index) 28.2 kg/m2 BSA (Body Surface Area) 1.71 m2 [place] body weight in kilograms 50 kg 08/20/2017 11:04am BP Systolic Sitting Left Arm 120 mmHg BP Diastolic Sitting Left Arm 80 mmHg Heart Rate 80 /min Respiratory Rate 16 /min Height 62 inches 5'2" Weight 152.00 lb BMI (Body Mass Index) 27.8 kg/m2 BSA (Body Surface Area) 1.70 m2 [place] body weight in kilograms 50 kg 05/21/2017 1:03pm BP Systolic Sitting Left Arm 132 mmHg BP Diastolic Sitting Left Arm 88 mmHg Heart Rate 74 /min Respiratory Rate 16 /min Height 62 inches 5'2" Weight 152.00 lb BMI (Body Mass Index) 27.8 kg/m2 BSA (Body Surface Area) 1.70 m2 [place] body weight in kilograms 50 kg 04/23/2017 10:28am BP Systolic Sitting Left Arm 140 mmHg BP Diastolic Sitting Left Arm 80 mmHg Heart Rate 84 /min Respiratory Rate 16 /min Height 62 inches 5'2" Weight 153.00 lb BMI (Body Mass Index) 28.0 kg/m2 BSA (Body Surface Area) 1.71 m2 [place] body weight in kilograms 50 kg 04/02/2017 3:29pm BP Systolic Sitting Left Arm 118 mmHg BP Diastolic Sitting Left Arm 82 mmHg Heart Rate 90 /min Respiratory Rate 16 /min Height 62 inches 5'2" Weight 154.00 lb BMI (Body Mass Index) 28.2 kg/m2 BSA (Body Surface Area) 1.71 m2 [place] body weight in kilograms 50 kg O2 % BldC Oximetry 98 % on room air 03/20/2017 1:04pm BP Systolic Sitting Left Arm 118 mmHg BP Diastolic Sitting Left Arm 78 mmHg Heart Rate 88 /min Respiratory Rate 18 /min Height 62 inches 5'2" Weight 155.00 lb BMI (Body Mass Index) 28.3 kg/m2 BSA (Body Surface Area) 1.72 m2 [place] body weight in kilograms 50 kg 02/27/2017 9:22am BP Systolic Sitting Left Arm 122 mmHg BP Diastolic Sitting Left Arm 80 mmHg Heart Rate 69 /min Respiratory Rate 16 /min Height 62 inches 5'2" Weight 155.00 lb BMI (Body Mass Index) 28.3 kg/m2 BSA (Body Surface Area) 1.72 m2 [place] body weight in kilograms 50 kg 12/12/2016 1:12pm BP Systolic Sitting Left Arm 110 mmHg BP Diastolic Sitting Left Arm 78 mmHg Heart Rate 97 /min Respiratory Rate 16 /min Height 62 inches 5'2" Weight 154.00 lb BMI (Body Mass Index) 28.2 kg/m2 BSA (Body Surface Area) 1.71 m2 [place] body weight in kilograms 50 kg 10/08/2016 11:02am BP Systolic Sitting Left Arm 122 mmHg BP Diastolic Sitting Left Arm 80 mmHg Heart Rate 85 /min Respiratory Rate 16 /min Weight 150.00 lb 07/18/2016 2:06pm BP Systolic Sitting Right Arm 116 mmHg BP Diastolic Sitting Right Arm 16 mmHg Heart Rate 81 /min Respiratory Rate 16 /min Weight 151.00 lb O2 % BldC Oximetry 98 % 05/08/2016 12:58pm BP Systolic Sitting Left Arm 128 mmHg BP Diastolic Sitting Left Arm 80 mmHg Heart Rate 76 /min Respiratory Rate 16 /min Height 62 inches 5'2" Weight 147.00 lb BMI (Body Mass Index) 26.9 kg/m2 BSA (Body Surface Area) 1.68 m2 04/24/2016 3:11pm BP Systolic Sitting Left Arm 116 mmHg BP Diastolic Sitting Left Arm 74 mmHg Heart Rate 77 /min Respiratory Rate 16 /min Height 62 inches 5'2" Weight 148.00 lb BMI (Body Mass Index) 27.1 kg/m2 BSA (Body Surface Area) 1.68 m2 O2 % BldC Oximetry 98 % 02/27/2016 3:08pm BP Systolic 115 mmHg BP Diastolic 80 mmHg Heart Rate 76 /min Height 62 inches 5'2" Weight 1455.00 lb BMI (Body Mass Index) 266.1 kg/m2 BSA (Body Surface Area) 4.44 m2 01/24/2016 8:23am Height 62 inches Weight 143.00 lb 01/24/2016 8:23am BP Systolic 113 mmHg BP Diastolic 78 mmHg Body Temperature 98.0 F Heart Rate 77 /min Respiratory Rate 16 /min Height 62.00 inches 5'2.00" Weight 143.25 lb BMI (Body Mass Index) 26.25 kg/m2 BSA (Body Surface Area) 1.66 m2 O2 % BldC Oximetry 99 % 10/31/2015 8:51am BP Systolic 110 mmHg BP Diastolic 73 mmHg Heart Rate 82 /min Height 62.5 inches 5'2.50" Weight 136.00 lb BMI (Body Mass Index) 24.5 kg/m2 BSA (Body Surface Area) 1.63 m2 09/14/2015 10:00am BP Systolic 113 mmHg BP Diastolic 79 mmHg Heart Rate 90 /min Height 62.5 inches 5'2.50" Weight 134.00 lb BMI (Body Mass Index) 24.1 kg/m2 BSA (Body Surface Area) 1.62 m2 08/24/2015 1:11pm BP Systolic 125 mmHg BP Diastolic 83 mmHg Heart Rate 88 /min Height 62.5 inches 5'2.50" Weight 137.00 lb BMI (Body Mass Index) 24.7 kg/m2 BSA (Body Surface Area) 1.64 m2 11/24/2012 1:01pm BP Systolic Sitting Right Arm 112 mmHg BP Diastolic Sitting Right Arm 84 mmHg Height 62.5 inches 5'2.50" Weight 147.00 lb BMI (Body Mass Index) 26.5 kg/m2 Results Test Date Facility Test Result H/L Range Note RDW RBC Auto N2N/CCD Import RDW RBC Auto 39.1 3-47 018 RDW RBC Auto-Rto N2N/CCD Import RDW RBC Auto-Rto 12.7 11.7-14.4 018 Serum carbon N2N/CCD Import Serum carbon 24 21-32 dioxide measurement 018 dioxide measurement Serum or plasma N2N/CCD Import Serum or plasma 3.9 3.4-5.0 albumin measurement 018 albumin (mass/volume) measurement (mass/volume) Serum or plasma N2N/CCD Import Serum or plasma 116 45-117 alkaline 018 alkaline phosphatase phosphatase measurement ( measurement (enzymatic activity/volume) Serum or plasma N2N/CCD Import Serum or plasma 28 15-37 aspartate 018 aspartate aminotransferase aminotransferase measure measurement (enzymatic activity/volume) Serum or plasma N2N/CCD Import Serum or plasma 8.8 8.5-10.1 calcium measurement 018 calcium (mass/volume) measurement (mass/volume) Serum or plasma N2N/CCD Import Serum or plasma 117 26-192 creatine kinase 018 creatine kinase measurement (enzym measurement (enzymatic activity/volume) Serum or plasma N2N/CCD Import Serum or plasma 0.7 0.6-1.3 creatinine 018 creatinine measurement measurement (mass/volum (mass/volume) Serum or plasma N2N/CCD Import Serum or plasma 86 74-106 glucose measurement 018 glucose (mass/volume) measurement (mass/volume) Serum or plasma N2N/CCD Import Serum or plasma 8.0 6.4-8.2 protein measurement 018 protein (mass/volume) measurement (mass/volume) Serum or plasma N2N/CCD Import Serum or plasma 0.5 0.2-1.0 total bilirubin 018 total bilirubin measurement (mass/ measurement (mass/volume) Serum or plasma N2N/CCD Import Serum or plasma 15 7-18 urea nitrogen 018 urea nitrogen measurement measurement (mass/vo (mass/volume) Serum sodium N2N/CCD Import Serum sodium 144 136-145 measurement 018 measurement Automated blood N2N/CCD Import Automated blood 41.3 36.0-46.1 hematocrit (volume 018 hematocrit (volume fraction) fraction) Automated blood N2N/CCD Import Automated blood 0.05 0.0-0.5 eosinophil count 018 eosinophil count Automated blood N2N/CCD Import Automated blood 0.04 0.0-0.1 basophil count 018 basophil count (count/volume) (count/volume) Anion Gap N2N/CCD Import Anion Gap 8 8-16 SerPl-sCnc 018 SerPl-sCnc Albumin/Glob SerPl N2N/CCD Import Albumin/Glob SerPl 1.0 018 Activated partial N2N/CCD Import Activated partial 27.8 23.4- 35.0 thromboplastin time 018 thromboplastin (aPTT) in pl time (aPTT) in platelet poor plasma by coagulation assay Alt SerPl-cCnc N2N/CCD Import Alt SerPl-cCnc 28 12-78 018 Automated blood N2N/CCD Import Automated blood 1.41 1.0-4.0 lymphocyte count 018 lymphocyte count (number/volume) (number/volume) Automated blood N2N/CCD Import Automated blood 212 155-360 platelet count 018 platelet count Automated blood N2N/CCD Import Automated blood 10.6 8.9-12.4 platelet mean 018 platelet mean volume measurement volume measurement Automated N2N/CCD Import Automated 30.0 25.9-32.7 erythrocyte mean 018 erythrocyte mean corpuscular corpuscular hemoglobin hemoglobin (mass per erythrocyte) Automated N2N/CCD Import Automated 34.6 High 30.8-34.3 erythrocyte mean 018 erythrocyte mean corpuscular corpuscular hemoglobin hemoglobin concentration measurement (mass/volume) Automated N2N/CCD Import Automated 86.6 80.9-99.0 erythrocyte mean 018 erythrocyte mean corpuscular volume corpuscular volume BUN/Creat SerPl N2N/CCD Import BUN/Creat SerPl 21.4 018 Basophils/leuk NFr N2N/CCD Import Basophils/leuk NFr 0.8 0.0- 1.1 Bld Auto 018 Bld Auto Blood erythrocytes N2N/CCD Import Blood erythrocytes 4.77 3.90- 5.40 automated count 018 automated count (number/volume) (number/volume) Blood hemoglobin N2N/CCD Import Blood hemoglobin 14.3 11.6-15.8 measurement 018 measurement (mass/volume) (mass/volume) Blood leukocytes N2N/CCD Import Blood leukocytes 5.3 3.1-10.7 automated count 018 automated count (number/volume) (number/volume) Prothrombin time N2N/CCD Import Prothrombin time 13.2 12.0-14.4 (PT) in platelet 018 (PT) in platelet poor plasma poor plasma Potassium N2N/CCD Import Potassium 3.7 3.5-5.1 SerPl-sCnc 018 SerPl-sCnc Platelet poor N2N/CCD Import Platelet poor 1.0 0.9-1.1 plasma 018 plasma international international normalized rati normalized ratio (Inr) by coagulation assay (relative time) Neutrophils/leuk N2N/CCD Import Neutrophils/leuk 64.0 40.4-72.8 NFr Bld Auto 018 NFr Bld Auto Neutrophils # Bld N2N/CCD Import Neutrophils # Bld 3.37 1.8-7.0 Auto 018 Auto Monocytes/leuk NFr N2N/CCD Import Monocytes/leuk NFr 7.4 4.3- 13.2 Bld Auto 018 Bld Auto Lymphocytes/leuk N2N/CCD Import Lymphocytes/leuk 26.8 20.0-42.0 NFr Bld Auto 018 NFr Bld Auto Globulin Ser N2N/CCD Import Globulin Ser 4.1 1.9-4.3 Calc-mCnc 018 Calc-mCnc Eosinophil/leuk NFr N2N/CCD Import Eosinophil/leuk 1.0 0.0-6.6 Bld Auto 018 NFr Bld Auto Chloride SerPl-sCnc N2N/CCD Import Chloride 112 High 98-107 018 SerPl-sCnc Blood monocytes N2N/CCD Import Blood monocytes 0.39 0.3-0.9 automated count 018 automated count (number/volume) (number/volume) Serum or plasma N2N/CCD Import Serum or plasma 2.4 1.8-2.4 magnesium 018 magnesium measurement measurement (mass/volume (mass/volume) Serum or plasma N2N/CCD Import Serum or plasma 409 High 56-289 lipase measurement 018 lipase measurement (enzymatic acti (enzymatic activity/volume) Serum or plasma N2N/CCD Import Serum or plasma 134 High 25-115 amylase measurement 018 amylase (enzymatic act measurement (enzymatic activity/volume) Serum or plasma N2N/CCD Import Serum or plasma 0.1 0.0-0.9 indirect bilirubin 018 indirect bilirubin measurement (ma measurement (mass/volume) Laboratory test [facility] Anti-Nuclear Negative Negative 1 finding 017 [address] [facility] Antibodies Direct AU/[place] [address] [phone] Actin (Smooth Muscle) Antibody <1:20 units 0-19 2 Mitochondrial (M2) Antibodies 3.6 units 0.0-20.0 3 Nftfw-4-Vlgpiqwsevu,Serum 141 mg/dL 90-200 Ceruloplasmin 23.8 mg/dL 19.0-39.0 Protein 05/22/2017 [facility] Protein,Total,Serum 7.1 g/dL 6.0-8.5 Electro.,[address] [place] [address] [phone] Albumin 3.9 g/dL 2.9-4.4 Whzkq-2-Tmdpyahq 0.2 g/dL 0.0-0.4 Fqqxh-9-Osdzfmvz 0.8 g/dL 0.4-1.0 Beta Globulin 1.1 g/dL 0.7-1.3 Gamma Globulin 1.1 g/dL 0.4-1.8 M-Marco Not Observed g/dL Not Observed Globulin, Total 3.2 g/dL 2.2-3.9 A/G Ratio 1.2 0.7-1.7 Please Note: (SEE NOTE) 4 P E Interpretation, Serum (SEE NOTE) 5 Laboratory test 05/22/2017 [facility] Hepatitis A Negative Negative finding [address] [facility] [place] [address] [phone] Hepatitis A AB, Total Negative Negative Hepatitis B Core Antibody-IgM Negative Negative Hep B Core AB Total Negative Negative Hepatitis C Antibody < 0.1 s/corat 0.0-0.9 6 Celiac Disease 05/22/2017 [facility] Immunoglobulin A 247 mg/dL 87-352 Comp AB Profile [address] [place] [address] [phone] Antigliadin Abs, IgG 5 units 0-19 7 Antigliadin Abs, IgA 6 units 0-19 8 Endomysial IgA Antibody Negative Negative t-Transglutaminase IgA <2 U/mL 0-3 9 t-Transglutaminase IgG <2 U/mL 0-5 10 Iron-Tibc-%Sat 05/22/2017 [facility] Serum Iron 102 g/dL N 50-170 [address] [place] [place] [address] [phone] Total Iron Binding Capacity 308 g/dL N 250-450 Transferrin %Saturation 33 % N 12-57 Laboratory test 05/22/2017 [facility] Ferritin 86 ng/mL N 8-[address] [place] [address] [phone] HCV Rna 05/22/2017 [facility] Hepatitis C HCV Not . 11 PCR,Quant [address] Quantitation [place] [address] IU/mL [phone] HCV Rna Copies Log 10 (SEE NOTE) [id number] Test Information: (SEE NOTE) 13 HCV Genotype (SEE NOTE) 14 Ova & 04/24/2017 [facility] Cryptosporidium NEGATIVE FOR 15, [address] Specific Ag [place] <[place] [address] NOTE> Screen [phone] Giardia Specific Antigen NEGATIVE FOR CARMEN <SEE NOTE> 17 Stool Culture 04/24/2017 [facility] Stool Culture NO ENTERIC PATHO [address] <SEE NOTE> [place] [address] [phone] . ................ <SEE NOTE> N 19 Note: INCLUDES TESTING <SEE NOTE> N 20 . PLESIOMONAS, CAM <SEE NOTE> N 21 . ................ <SEE NOTE> N 22 . YERSINIA AND VIB <SEE NOTE> N 23 . SHOULD BE REQUES <SEE NOTE> N 24 Shiga Toxin 1 Antigen SHIGA TOXIN 1 NO <SEE NOTE> 25 Shiga Toxin 2 Antigen SHIGA TOXIN 2 NO <SEE NOTE> 26 Fecal Fat, Qualitative 04/24/2017 [facility] Fats, Neutral Normal . 27 [address] [place] [address] [phone] Fats, Total Normal . 28 Laboratory test 04/24/2017 [facility] Calprotectin, Fecal < 16 ug/g 0-120 [address] [place], [place] [address] [phone] Pancreatic Elastase (Pe-1) > 500.0 ug/g >200 30 Laboratory test 04/23/2017 [facility] Sedimentation Rate 28 mm/hr N 0-30 31 finding [address] [place] [address] [phone] Celiac Disease 04/23/2017 [facility] Immunoglobulin A 267 mg/dL 87-352 Comp AB Profile [address] [place], [place] [id number] [phone] Antigliadin Abs, IgG 5 units 0-19 32 Antigliadin Abs, IgA 8 units 0-19 33 Endomysial IgA Antibody Negative Negative t-Transglutaminase IgA <2 U/mL 0-3 34 t-Transglutaminase IgG <2 U/mL 0-5 35 Laboratory test finding 04/23/2017 [facility] Lipase 425 U/L High 73-393 [address] [place], [place] [id number] [phone] Comprehensive Metabolic 04/23/2017 [facility] Glucose 92 mg/dL N 74-106 Panel [address] [place], [place] [address] [phone] BUN 16 mg/dL N 7-18 Creatinine 0.8 mg/dL N 0.6-1.3 Glom Filtration Rate, Estimate >60 mL/min >60 If >60 mL/min >60 36 BUN/Creat 20.0 ratio Sodium 140 mmol/L N 136-145 Potassium 4.0 mmol/L N 3.5-5.1 Chloride 107 mmol/L N 98-107 Carbon Dioxide 27 mmol/L N 21-32 Anion Gap 6 mEq/L Low 8-16 Calcium 9.6 mg/dL N 8.5-10.1 Total Protein 8.3 g/dL High 6.4-8.2 Albumin 4.2 g/dL N 3.4-5.0 Globulin 4.1 g/dL N 1.9-4.3 Alb/Glob 1.0 ratio Bilirubin,Total 0.4 mg/dL N 0.2-1.0 Sgot/Ast 27 U/L N 15-37 SGPT/Alt 34 U/L N 12-78 Alkaline Phosphatase 134 U/L High 45-117 Laboratory test 04/23/2017 [facility] Anti-Nuclear Negative Negative finding [address] [facility] Antibodies AU/[place] [address] Direct [phone] Immunoglobulin G Subclass 4 16 mg/dL 2-96 Laboratory test 04/23/2017 [facility] TSH Reflex 1.55 N 0.30-4.20 finding [address] [facility] FT4 and/or uIU/[place] [address] FT3 [phone] Laboratory test 02/27/2017 [facility] Amylase 128 U/L High 25-115 37 finding [address] [place], [place] [address] [phone] Lipase 356 U/L N 73-393 LDL Cholesterol Profile 02/27/2017 [facility] Cholesterol 182 mg/dL <200 38 [address] [place], [place] [address] [phone] Triglycerides 154 mg/dL High <150 39 HDL Cholesterol 48 mg/dL >40 40 LDL-Cholesterol 103 mg/dL < 100 41 Comprehensive Metabolic 02/27/2017 [facility] Glucose 84 mg/dL N 74-106 Panel [address] [place], [place] [id number] [phone] BUN 16 mg/dL N 7-18 Creatinine 0.8 mg/dL N 0.6-1.3 Glom Filtration Rate, Estimate >60 mL/min >60 If >60 mL/min >60 42 BUN/Creat 20.0 ratio Sodium 141 mmol/L N 136-145 Potassium 4.3 mmol/L N 3.5-5.1 Chloride 109 mmol/L High 98-107 Carbon Dioxide 27 mmol/L N 21-32 Anion Gap 5 mEq/L Low 8-16 Calcium 9.3 mg/dL N 8.5-10.1 Total Protein 8.0 g/dL N 6.4-8.2 Albumin 4.2 g/dL N 3.4-5.0 Globulin 3.8 g/dL N 1.9-4.3 Alb/Glob 1.1 ratio Bilirubin,Total 0.4 mg/dL N 0.2-1.0 Sgot/Ast 35 U/L N 15-37 SGPT/Alt 35 U/L N 12-78 Alkaline Phosphatase 126 U/L High 45-117 Monocytes/leuk NFr 02/02/2017 N2N/CCD Import Monocytes/leuk NFr 8.2 4.3- 13.2 Bld Auto Bld Auto Neutrophils # Bld 02/02/2017 N2N/CCD Import Neutrophils # Bld 4.70 1.8- 7.0 Auto Auto Neutrophils/leuk 02/02/2017 N2N/CCD Import Neutrophils/leuk 68.0 40.4- 72.8 NFr Bld Auto NFr Bld Auto PMV Bld Auto 02/02/2017 N2N/CCD Import PMV Bld Auto 10.8 8.9-12.4 Platelets 02/02/2017 N2N/CCD Import Platelets 243 150-400 [#/volume] in Blood [#/volume] in by Automated count Blood by Automated count Potassium 02/02/2017 N2N/CCD Import Potassium 3.7 3.5-5.1 SerPl-sCnc SerPl-sCnc Prot SerPl-mCnc 02/02/2017 N2N/CCD Import Prot SerPl-mCnc 8.1 6.4-8.2 RBC # Bld Auto 02/02/2017 N2N/CCD Import RBC # Bld Auto 4.68 3.90-5.40 RDW RBC Auto 02/02/2017 N2N/CCD Import RDW RBC Auto 38.4 3-47 RDW RBC Auto-Rto 02/02/2017 N2N/CCD Import RDW RBC Auto-Rto 12.4 11.7- 14.4 Serum or plasma 02/02/2017 N2N/CCD Import Serum or plasma 142 26-192 creatine kinase creatine kinase measurement (enzym measurement (enzymatic activity/volume) Sodium SerPl-sCnc 02/02/2017 N2N/CCD Import Sodium SerPl-sCnc 143 136- 145 WBC # Bld Auto 02/02/2017 N2N/CCD Import WBC # Bld Auto 6.9 3.1-10.7 Alp SerPl-cCnc 02/02/2017 N2N/CCD Import Alp SerPl-cCnc 131 High 45-117 Alt SerPl-cCnc 02/02/2017 N2N/CCD Import Alt SerPl-cCnc 30 12-78 Albumin SerPl-mCnc 02/02/2017 N2N/CCD Import Albumin SerPl-mCnc 4.0 3.4- 5.0 Albumin/Glob SerPl 02/02/2017 N2N/CCD Import Albumin/Glob SerPl 1.0 Anion Gap 02/02/2017 N2N/CCD Import Anion Gap 8 8-16 SerPl-sCnc SerPl-sCnc Aspartate 02/02/2017 N2N/CCD Import Aspartate 25 15-37 aminotransferase aminotransferase [Enzymatic [Enzymatic activity/vol activity/volume] in Serum or Plasma BUN SerPl-mCnc 02/02/2017 N2N/CCD Import BUN SerPl-mCnc 17 7-18 BUN/Creat SerPl 02/02/2017 N2N/CCD Import BUN/Creat SerPl 18.8 Basophils 02/02/2017 N2N/CCD Import Basophils 0.05 0.0-0.1 [#/volume] in Blood [#/volume] in by Automated count Blood by Automated count Basophils/leuk NFr 02/02/2017 N2N/CCD Import Basophils/leuk NFr 0.7 0.0- 1.1 Bld Auto Bld Auto Bilirub SerPl-mCnc 02/02/2017 N2N/CCD Import Bilirub SerPl-mCnc 0.2 0.2- 1.0 Co2 SerPl-sCnc 02/02/2017 N2N/CCD Import Co2 SerPl-sCnc 26 21-32 Calcium SerPl-mCnc 02/02/2017 N2N/CCD Import Calcium SerPl-mCnc 9.6 8.5- 10.1 Eosinophil # Bld 02/02/2017 N2N/CCD Import Eosinophil # Bld 0.11 0.0- 0.5 Auto Auto Creat SerPl-mCnc 02/02/2017 N2N/CCD Import Creat SerPl-mCnc 0.9 0.6-1.3 MCV RBC Auto 02/02/2017 N2N/CCD Import MCV RBC Auto 86.5 80.9-99.0 Monocytes # Bld 02/02/2017 N2N/CCD Import Monocytes # Bld 0.57 0.3-0.9 Auto Auto Eosinophil/leuk NFr 02/02/2017 N2N/CCD Import Eosinophil/leuk 1.6 0.0- 6.6 Bld Auto NFr Bld Auto Globulin Ser 02/02/2017 N2N/CCD Import Globulin Ser 4.1 1.9-4.3 Calc-mCnc Calc-mCnc Glucose 02/02/2017 N2N/CCD Import Glucose 94 74-106 [Mass/volume] in [Mass/volume] in Serum or Plasma Serum or Plasma Hct VFr Bld Auto 02/02/2017 N2N/CCD Import Hct VFr Bld Auto 40.5 36.0- 46.1 Hgb Bld-mCnc 02/02/2017 N2N/CCD Import Hgb Bld-mCnc 13.9 11.6-15.8 Lymphocytes 02/02/2017 N2N/CCD Import Lymphocytes 1.49 1.0-4.0 [#/volume] in Blood [#/volume] in by Automated count Blood by Automated count MCHC RBC Auto-mCnc 02/02/2017 N2N/CCD Import MCHC RBC Auto-mCnc 34.3 30.8-34.3 MCH RBC Qn Auto 02/02/2017 N2N/CCD Import MCH RBC Qn Auto 29.7 25.9- 32.7 Lymphocytes/leuk 02/02/2017 N2N/CCD Import Lymphocytes/leuk 21.5 20.0- 42.0 NFr Bld Auto NFr Bld Auto Chloride SerPl-sCnc 02/02/2017 N2N/CCD Import Chloride 109 High 98-107 SerPl-sCnc Blood glucose mean 01/24/2017 N2N/CCD Import Blood glucose mean 114 value measurement value measurement estimated fro estimated from glycated hemoglobin (mass/volume) Hgb A1c MFr Bld 01/24/2017 N2N/CCD Import Hgb A1c MFr Bld 5.6 4.2-6.3 Serum or plasma 01/24/2017 N2N/CCD Import Serum or plasma 1.19 0.76- 1.46 thyroxine (T4) free thyroxine (T4) measurement (m free measurement (mass/volume) TSH SerPl-aCnc 01/24/2017 N2N/CCD Import TSH SerPl-aCnc 1.57 0.30-4.20 Bacteria Ur Cult 01/24/2017 N2N/CCD Import Bacteria Ur Cult Organism: Urethral Pam Bilirub Ur Ql 01/01/2017 N2N/CCD Import Bilirub Ur Ql Negative Negative Strip.auto Strip.auto Color Ur 01/01/2017 N2N/CCD Import Color Ur Straw Yellow Ketones Ur 01/01/2017 N2N/CCD Import Ketones Ur Negative Negative Strip.auto-mCnc Strip.auto-mCnc Leukocyte esterase 01/01/2017 N2N/CCD Import Leukocyte esterase Negative Negative Ur Ql Strip.auto Ur Ql Strip.auto Nitrite Ur Ql 01/01/2017 N2N/CCD Import Nitrite Ur Ql Negative Negative Strip.auto Strip.auto Prot Ur 01/01/2017 N2N/CCD Import Prot Ur Negative Negative Strip.auto-mCnc Strip.auto-mCnc Urine appearance 01/01/2017 N2N/CCD Import Urine appearance Clear Clear determination determination pH Ur Strip.auto 01/01/2017 N2N/CCD Import pH Ur Strip.auto 6.5 6.5-7.5 Urobilinogen Ur 01/01/2017 N2N/CCD Import Urobilinogen Ur 0.2 0.2-1.0 Strip-aCnc Strip-aCnc Urine hemoglobin 01/01/2017 N2N/CCD Import Urine hemoglobin Negative Negative detection by detection by automated test automated test strip strip Urine glucose 01/01/2017 N2N/CCD Import Urine glucose Negative Negative measurement by measurement by automated test automated test strip strip (mass/volume) Lipase SerPl-cCnc 12/12/2016 N2N/CCD Import Lipase SerPl-cCnc 385 73- 393 Laboratory test 12/12/2016 [facility] Amylase 140 U/L High 25-115 finding [address] [place] [address] [phone] Lipase 385 U/L N 73-393 Bilirubin,Total 0.2 mg/dL N 0.2-1.0 Bilirubin,Direct < 0.1 mg/dL N 0.0-0.2 Serum or plasma 11/18/2016 N2N/CCD Import Serum or plasma 83 <150 triglyceride triglyceride measurement measurement (mass/vol (mass/volume) Serum or plasma 11/18/2016 N2N/CCD Import Serum or plasma 201 High <200 cholesterol cholesterol measurement measurement (mass/volu (mass/volume) Serum or plasma 11/18/2016 N2N/CCD Import Serum or plasma 44 >40 cholesterol in HDL cholesterol in HDL measurement (ma measurement (mass/volume) LDLc SerPl 11/18/2016 N2N/CCD Import LDLc SerPl 140 < 100 Calc-mCnc Calc-mCnc Laboratory test 10/11/2015 [facility] Esophageal Biopsy See Note 43 finding [address] [place] [address] [phone] Xray 10/01/2012 [facility] - Radiology Ultrasound, <pending> [address] [facility] [address] [phone] Xray 02/17/2002 [facility] - Radiology CT Abdomen, With <pending> [address] [facility] [place] [address] [phone] 1 R94.5 2 Negative 0 - 19 [...] scan will follow via computer, mail, or hospice consultant delivery. 5 The SPE pattern appears essentially unremarkable. Evidence of monoclonal protein is not apparent. 6 INFCE Result Units: s/co ratio Negative: < 0.8 Indeterminate: 0.8 - 0.9 Positive: > 0.9 The CDC recommends that a positive HCV antibody result be followed up with a HCV Nucleic Acid Amplification test (447569). Performed at: [facility] [id number] Show Horse Driver: Fiordaliza Henry MD, Phone: [phone] Negative 0 - 19 Weak Positive [...] 100 - 200 Normal: >200 Performed at: [address] [id number] Show Horse Driver: Fiordaliza Henry MD, Phone: [phone] Performed at: [address] [id number] Show Horse Driver: Francisco Flores MD, Phone: [phone] Method: Sediplast Modified Westergren 32 Negative [...] 6 - 9 Positive >9 Performed at: [address] [id number] Show Horse Driver: Fiordaliza Henry MD, Phone: [phone] Performed at: [address] [id number] Show Horse Driver: Francisco Flores MD, Phone: [phone] Note: Persistent reduction for 3 months [...] OR DYSPLASIA ARE IDENTIFIED. - SEE COMMENT. /clf 1030 INTERPRETATION COMMENT The presence of gastric [...] signed MATT FRANCO MD 1131 Procedures Date Code Description Status 09/04/2018 25403 Eye Exam Est Patient Comprehensive Completed 07/06/2018 66632 Eye Exam Est Patient Comprehensive Completed 02/05/2018 78090 Eye Exam Est Patient Comprehensive Completed 12/30/2017 84812 Echocardiogram Complete Completed 12/30/2017 42589 Stress Test Interpre And Report Only Completed 12/30/2017 84181 Stress Test Physician Super Only Completed 11/25/2017 51489 EKG-Tracing And Report Completed 11/24/2017 55926 Asp./Injection major joint Completed 10/20/2017 48441 Radiology, Knee 3 Views Completed 07/23/2017 93339 Extracapsular Cataract Extraction W/Intraocular Lens Completed 07/15/2017 76472 Ophthalmic Biometry By Partial Coherence Interferometry Completed W/Intra 07/07/2017 80229 Gonioscopy Completed 07/07/2017 54561 Eye Exam Est Patient Comprehensive Completed 02/11/2017 21354 Bronchospasm Provocation Evaluation Multi Spirometric Completed Determinati 02/11/2017 35529 Spirometry Completed 05/13/2016 45110 EGD With Biopsy Completed 04/29/2016 37828 Bronchospasm Provocation Evaluation Multi Spirometric Completed Determinati 04/29/2016 78810 Spirometry Completed 11/30/2015 07165 Gonioscopy Completed 11/30/2015 26943 Eye Exam New Patient Comprehensive Completed 10/11/2015 01773 Colonoscopy With Biopsy Completed 10/11/2015 44148 Endoscopy Small Intestine W/Biopsy Completed 10/11/2015 65133064 Colonoscopy Completed 12/21/2014 43121 ECHO Transthoracic Inc Performance Continuous Completed Electrocardio 12/19/2014 79439 Echocardiogram Complete Completed 12/19/2014 21950 EKG Interpretation And Report Only Completed 12/14/2014 73840 Anesthesia, Hysteroscopy, Hystersalpingography Completed 04/04/2014 [id number] Colonoscopy Completed 01/05/2013 65911 Anesthesia, Hysteroscopy, Hystersalpingography Completed 01/04/2013 72392 EKG Interpretation And Report Only Completed 02/26/2010 02558874 Colonoscopy Completed Encounters Type Date Location Provider Dx Diagnosis Office Visit 04/08/2018 Cardiology Office SabaAlex R07.9 Chest pain, 1:00p Yasir Main, [facility] unspecified Office Visit 03/19/2018 Pulmonology Jorge Cervantes MD R07.89 Other chest pain 4:00p R06.02 Shortness of breath Office Visit 01/06/2018 11:20a Cardiology Office Ady, R07.9 Chest pain, Marlyss B., PA unspecified G45.9 Transient cerebral ischemic attack, unspecified E78.5 Hyperlipidemia, unspecified K86.9 Disease of pancreas, unspecified Office Visit 11/25/2017 10:40a Cardiology Office Ady, R07.9 Chest pain, Marlyss B., PA unspecified G45.9 Transient cerebral ischemic attack, unspecified E78.5 Hyperlipidemia, unspecified Office Visit 11/18/2017 Dion Maya, K86.9 Disease of 1:45p pancreas, unspecified Office Visit 10/20/2017 Orthopaedic Opal Lazo M25.561 Pain in right 11:15a Office S., [facility] knee M17.11 Unilateral primary osteoarthritis, right knee Office Visit 08/20/2017 11:15a BENNETT Young MD K86.9 Disease of pancreas, unspecified R94.5 Abnormal results of liver function studies Office Visit 05/21/2017 1:15p BENNETT Young MD K86.9 Disease of pancreas, unspecified R94.5 Abnormal results of liver function studies Office Visit 04/23/2017 11:30a BENNETT Young MD K86.9 Disease of pancreas, unspecified R19.4 Change in bowel habit Office Visit 04/02/2017 3:45p Pulmonology Jorge Cervantes MD R07.9 Chest pain, unspecified R06.02 Shortness of breath Office Visit 03/20/2017 1:15p Dion Maya MD R10.84 Generalized abdominal pain Office Visit 02/27/2017 9:00a Dion Maya MD R10.84 Generalized abdominal pain K85.90 Acute pancreatitis without necrosis or infection, unsp Office Visit 12/12/2016 1:15p GI Dion Navarro MD K85.90 Acute pancreatitis without necrosis or infection, unsp Office Visit 10/08/2016 11:00a Dion Maya MD K21.9 Gastro- esophageal reflux disease without esophagitis R10.84 Generalized abdominal pain Office Visit 07/18/2016 2:30p Pulmonology Jorge Cervantes MD R06.02 Shortness of breath K21.9 Gastro-esophageal reflux disease without esophagitis R07.9 Chest pain, unspecified Office Visit 05/08/2016 1:00p Dion Maya MD R07.0 Pain in throat K22.70 Diaz's esophagus without dysplasia Office Visit 04/24/2016 3:30p Pulmonology Jorge Cervantes MD R06.02 Shortness of breath K21.9 Gastro-esophageal reflux disease without esophagitis Office Visit 02/27/2016 3:30p Josr Crawford MD K58.9 Irritable bowel syndrome without diarrhea K22.70 Diaz's esophagus without dysplasia K21.9 Gastro-esophageal reflux disease without esophagitis K86.1 Other chronic pancreatitis Office Visit 10/31/2015 9:15a Josr Crawford MD K58.9 Irritable bowel syndrome without diarrhea K22.70 Diaz's esophagus without dysplasia K21.9 Gastro-esophageal reflux disease without esophagitis K86.1 Other chronic pancreatitis Office Visit 09/14/2015 10:15a Josr Crawford MD R19.5 Other fecal abnormalities K58.9 Irritable bowel syndrome without diarrhea K22.70 Diaz's esophagus without dysplasia K21.9 Gastro-esophageal reflux disease without esophagitis K86.1 Other chronic pancreatitis Office Visit 08/24/2015 1:00p GI La Antoine, K58.9 Irritable bowel PA-C syndrome without diarrhea R19.5 Other fecal abnormalities K22.70 Diaz's esophagus without dysplasia K21.9 Gastro-esophageal reflux disease without esophagitis K86.1 Other chronic pancreatitis K64.9 Unspecified hemorrhoids Office Visit 04/25/2015 11:21a Cardiology Office Alex Walter 786.50 Pain Chest Yasir Main, [facility] Unspec 401.1 Hypertension Benign Office Visit 12/19/2014 9:34a Cardiology Office Isai Vargas, 786.50 Pain Chest MD Unspec Office Visit 11/24/2012 1:30p Orthopaedic Office Francisco, 844.9 Sprains & Lucien Rob MD Strains Knee & Leg Unspec E001.1 Actvities Involving Running Plan of Treatment Future Appointment(s):09/06/2019 10:30 am - Dion Nettles MD at Ophthalmology
--- OUTSIDE RECORDS SUMMARY | 2018-10-26 13:39 | XMS REPORT ---
:1960 Demographics Address 6 09/16 [place] [address] Email Address Preferred Language Persian Marital Status Not or Catholic Affiliation Unknown Race White Ethnic Group Not or Author Organization [facility] Address [address] [place] [address] Support Name Relationship Address Phone Ashley Whitmore Unavailable 6 09/16 [facility] [phone] [place] [address] Care Team Providers Name Role Phone Annie Mark Unavailable Unavailable PROBLEMS Type Condition ICD9-CM Code [id number] Onset Condition SNOMED Code Code Dates Status Problem Other acute K85.80 Active 708374730 pancreatitis without necrosis or infection Problem Mastodynia N64.4 Active 91473470 Problem Candidiasis of skin B37.2 Active 375258114 and nail Problem Postmenopausal N95.2 Active 33955060 atrophic vaginitis ALLERGIES Substance Reaction Event Type Date Status penicillin hives Drug Allergy Sep, Active Pneumovax 23 swelling, itching, hives Drug Allergy Sep, Active ENCOUNTERS Encounter Location Date Diagnosis [facility] Sep, Encounter for screening [facility] mammogram for malignant [place], [place] [id number] neoplasm of breast Z12.31 and Candidiasis of skin and nail B37.2 [facility] Sep, Candidiasis of skin and [facility]BG[facility] nail B37.2 [place] [id number] [facility] Jul, Dysuria R30.0 [place] [id number] [place] [facility] 103 Jul, Candidiasis of skin and [facility]BG[facility] nail B37.2 [place] [id number] [facility] May, OBGYN [place] [id number] [facility] May, Candidiasis of skin and OBGYN [facility] nail B37.2 [place] [id number] [place] [facility] May, OBGYN [place] [id number] [place] [facility] 103 Apr, Candidiasis of skin and [facility]BGYN [facility] nail B37.2 [place] [id number] [place] [facility] 103 Apr, Rash and other nonspecific OBG[facility] skin eruption R21 [place] [id number] [place] [facility] Apr, [place]YN [place] [id number] [place] [facility] Apr, OBGYN [place] [id number] [place] [facility] 103 Apr, Encounter for gynecological OBGYN [facility] examination (general) [place], [place] [id number] (routine) without abnormal findings Z01.419 ; Encounter for screening for malignant neoplasm of cervix Z12.4 ; Encounter for screening for malignant neoplasm of colon Z12.11 ; Encounter for screening mammogram for malignant neoplasm of breast Z12.31 ; Postmenopausal atrophic vaginitis N95.2 and Dysuria R30.0 [place] [facility] 103 Feb, Postmenopausal atrophic OBG[facility] vaginitis N95.2 [place] [id number] [place] [facility] 103 Feb, Pelvic and perineal pain [facility] R10.2 and Dysuria R30.0 [place] [id number] [place] [facility] 103 Feb, Pelvic and perineal pain OBG[facility] R10.2 ; Dysuria R30.0 and [place] [id number] Postmenopausal atrophic vaginitis N95.2 [place] [facility] 103 Feb, Pelvic and perineal pain [facility] R10.2 [place] [id number] [place] [facility] 103 January, Rash and other nonspecific OBGYN [facility] skin eruption R21 [place] [id number] [place] [facility] January, [place]BG[place] [id number] [place] [facility] January, [place] [id number] [place] [facility] 103 January, Dysuria R30.0 ; Pelvic and [facility]BGYN [facility] perineal pain R10.2 ; [place] [id number] Mastodynia N64.4 and Other specified noninflammatory disorders of vagina N89.8 [place] [facility] 103 Dec, Candidiasis, unspecified [facility]BG[facility] B37.9 [place] [id number] [place] [facility] Dec, Candidiasis, unspecified [facility] B37.9 [place] [id number] [place] [facility] 103 Dec, Candidiasis, unspecified OBGYN [place] [address] [place] [id number] [place] [facility] 103 Jun, Postmenopausal bleeding OBGYN [facility] N95.0 [place] [id number] [place] [facility] Jun, OBGYN [place] [id number] [place] [facility] Jun, [place] [id number] [place] [facility] Jun, [place] [id number] [place] [facility] 103 Jun, Postmenopausal bleeding OBGYN [facility] N95.0 [place] [id number] [place] [facility] 103 Jun, OBGYN [place] [id number] [place] [facility] 103 Jun, Postmenopausal bleeding OBGYN [facility] N95.0 [place] [id number] [place] [facility] 103 Jun, Postmenopausal bleeding OBG[facility] N95.0 [place] [id number] [place] [facility] 103 Jun, OBGYN [place] [id number] [place] [facility] Jun, OBGYN [place] [id number] [place] [facility] 103 Apr, Encounter for gynecological OBGYN [facility] examination (general) [place], [place] [id number] (routine) with abnormal findings Z01.411 ; Dysuria R30.0 ; Encounter for screening mammogram for malignant neoplasm of breast Z12.31 and Encounter for screening for malignant neoplasm of colon Z12.11 [place] [facility] Mar, OBGYN [place] [id number] [place] [facility] 103 Mar, OBGYN [place] [id number] [place] [facility] Mar, OBGYN [place] [id number] [place] [facility] 103 Mar, Candidiasis of skin and OBGYN [facility] nail B37.2 [place] [id number] [place] [facility] 103 January, Mastodynia N64.4 OBGYN [place], [place] [id number] [place] [facility] 103 Dec, Pelvic and perineal pain OBG[facility] R10.2 and Dysuria R30.0 [place] [id number] [place] [facility] 103 Dec, PELVIC PAIN 625.9 OBGYN [place] [id number] [place] [facility] 103 Dec, Pelvic and perineal pain OBGYN [facility] [address] R10.2 [place] [id number] [place] [facility] 103 Nov, Idiopathic urticaria L50.[address] [facility] [address] and Mastodynia N64.4 [place] [id number] [place] [facility] Oct, Generalized abdominal pain OBGYN [facility] R10.84 and Mastodynia N64.4 [place] [id number] [place] [facility] Sep, Dermatitis, unspecified [facility]BG[facility] L30.9 [place] [id number] [place] [facility] Sep, Pelvic and perineal pain O[facility] R10.2 [place] [id number] [place] [facility] Sep, Postmenopausal bleeding OBGYN [facility] N95.0 [place] [id number] [place] [facility] [address] [place], Sep, Medical [facility] [id number] [place] [facility] 103 Sep, OBGYN [place] [id number] [place] [facility] Sep, [place] [id number] [place] [facility] 103 Sep, Postmenopausal bleeding OBGYN [facility] N95.0 [place] [id number] [place] [facility] 103 Aug, Postmenopausal bleeding OBGYN [facility] N95.0 [place] [id number] [place] [facility] 103 Aug, Postmenopausal bleeding OBGYN [facility] N95.0 and Pelvic and [place] [id number] perineal pain R10.2 [place] [facility] Jul, OBGYN [place] [id number] [place] [facility] 103 Jul, Postmenopausal bleeding OBGYN [facility] N95.0 and Pelvic and [place] [id number] perineal pain R10.2 [place] [facility] Jul, [place] [id number] [place] [facility] 103 Jul, Mastodynia N64.4 ; OBGYN [facility] Postmenopausal bleeding [place], [place] [id number] N95.0 and Pelvic and perineal pain R10.2 [place] [facility] Jul, OBGYN [place], [place] [id number] [place] [facility] 103 Jun, Mastodynia N64.4 [place] [id number] [place] [facility] Jun, [place] [id number] [place] [facility] 103 May, Mastodynia N64.4 OBGYN [place] [id number] [place] [facility] Apr, [facility] [place] [id number] (routine) without abnormal findings Z01.419 ; Encounter for screening mammogram for malignant neoplasm of breast Z12.31 and Encounter for screening for malignant neoplasm of colon Z12.11 [place] [facility] Mar, Disorder of the skin and OBGYN [facility] subcutaneous tissue, [place], [place] [id number] unspecified L98.9 [place] [facility] 103 January, Mastodynia N64.4 OBGYN [place] [id number] [place] [facility] January, OBG[place] [id number] [place] [facility] 103 Dec, Other pruritus L29.8 OBGYN [place] [id number] [place] [facility] 103 Dec, Dysuria R30.0 ; Pelvic and OBGYN [facility] perineal pain R10.2 and [place] [id number] Postmenopausal bleeding N95.0 [place] [facility] 103 Dec, Pelvic and perineal pain OBGYN [facility] R10.2 [place] [id number] [place] [facility] 103 Dec, Pelvic and perineal pain OBGYN [facility] R10.2 [place] [id number] [place] [facility] 103 Dec, Dysuria R30.0 OBGYN [place] [id number] [place] [facility] 103 Dec, Postmenopausal bleeding OBGYN [facility] N95.0 and Dysuria R30.0 [place] [id number] [place] [facility] 103 Nov, Postmenopausal bleeding OBGYN [facility] N95.0 [place] [id number] [place] [facility] 103 Nov, Postmenopausal bleeding OBGYN [place] [address] [place] [id number] [place] [facility] 103 Nov, OBGYN [place] [id number] [place] [facility] 103 Nov, Mastodynia N64.4 [place]YN [place] [id number] [place] [facility] Aug, [place] [id number] [place] [facility] Aug, OBGYN [place], [place] [id number] [place] [facility] 103 Aug, Postmenopausal bleeding OBGYN [address] [id number] [place] [facility] 103 Aug, Dysuria R30.0 and OBGYN [facility] Postmenopausal bleeding [place] [id number] N95.0 [place] [facility] 103 Jun, Postmenopausal bleeding OBGYN [facility] N95.0 [place] [id number] [place] [facility] 103 Jun, Postmenopausal bleeding OBGYN [facility] N95.0 [place] [id number] [place] [facility] Jun, OBG[place] [id number] [place] [facility] Jun, O[place] [id number] [place] [facility] 103 Jun, Postmenopausal bleeding OBGYN [facility] N95.0 and Dysuria R30.0 [place] [id number] [place] [facility] 103 May, Postmenopausal bleeding OBGYN [facility] 627.1 [place] [id number] [place] [facility] May, Postmenopausal bleeding OBGYN [facility] 627.1 [place] [id number] [place] [facility] May, Urinary frequency 788.41 ; OBGYN [facility] Postmenopausal bleeding [place], [place] [id number] 627.1 and Atrophic vulvovaginitis 627.3 [place] [facility] Mar, Mastalgia 611.71 OBGYN [place] [id number] [place] [facility] Feb, Mastalgia 611.71 O[place]YN [place] [id number] [place] [facility] Feb, BREAST DISORDER NOS 611.9 [place] [id number] [place] [facility] January, OBGYN [place] [id number] [place] [facility] 103 Dec, DERMATITIS NOS 692.9 O[place]YN [place] [id number] [place] [facility] 103 Dec, Postmenopausal bleeding OBGYN [address] [id number] [place] [facility] Dec, O[place] [id number] [place] [facility] 103 Dec, OBGYN [place] [id number] Counts Include 234 [facility] [address] [place], Dec, [place] [id number] [place] [facility] Nov, Postmenopausal bleeding OBGYN [address] [id number] [place] [facility] 103 Nov, OBGYN [place] [id number] [facility] Nov, OBGYN [place] [id number] Counts Include 234 [facility] [address] [place], Nov, Medical [facility] [id number] [place] [facility] Nov, OBGYN [place] [id number] [facility] Oct, Postmenopausal bleeding OBGYN [address] [id number] [place] [facility] 103 Oct, [place] [id number] [facility] Oct, O[place]YN [place] [id number] [place] [facility] Oct, OBGYN [place] [id number] [place] [facility] Oct, OBGYN [place] [id number] [place] [facility] 103 Oct, Postmenopausal bleeding OBGYN [address] [id number] [place] [facility] 103 Oct, O[place] [id number] [place] [facility] 103 Oct, Postmenopausal bleeding OBGYN [facility] 627.1 [place] [id number] [place] [facility] 103 Oct, Dysuria 788.1 and OBGYN [facility] Postmenopausal bleeding [place], [place] [id number] 627.1 [place] [facility] 103 Jul, Dysuria 788.1 OBGYN [place] [id number] [place] [facility] 103 Jun, Atopic dermatitis 691.8 OBGYN [place] [id number] [place] [facility] May, [place] [id number] [place] [facility] May, OBG[place] [id number] [place] [facility] 103 Apr, ROUTINE INTERNETWORKING TECHNICIAN EXAMINATION OBGYN [facility] V72.31 ; SCREEN MALIG [place] [id number] NEOP-COLON V76.51 ; SCREEN MAMMOGRAM NEC V76.12 and Urinary tract infection NOS 599.0 [place] [facility] Apr, Breast Mass 611.72 [place] [id number] [place] [facility] Apr, Dysuria 788.1 O[place]YN [place], [place] [id number] [place] [facility] Dec, OBG[place] [id number] [place] [facility] Dec, Hematuria, microscopic OBGYN [facility] 599.72 and Dysuria 788.1 [place] [id number] [place] [facility] Dec, [place] [id number] [place] [facility] Nov, Atopic dermatitis 691.8 OBGYN [place], [place] [id number] [facility] Aug, OBGYN [place] [id number] [place] [facility] Aug, [place] [id number] [place] [facility] Aug, OBGYN [place], [place] [id number] [place] [facility] 103 Aug, Atopic dermatitis 691.8 [place] [id number] [place] [facility] Aug, [place] [id number] [place] [facility] Aug, [place] [id number] [place] [facility] Aug, [place] [id number] [place] [facility] Aug, [place] [id number] [place] [facility] Jul, Atopic eczema 691.8 and OBGYN [facility] BREAST DISORDER NOS 611.9 [place] [id number] [facility] Jul, [place] [id number] [place] [facility] Jul, Atopic eczema 691.8 [facility] BREAST DISORDER NOS 611.9 [place] [id number] [facility] Jul, OBGYN [place] [id number] [place] [facility] Jul, HEMATURIA NOS 599.70 [place] [id number] [place] [facility] 05 Sep, 2013 OBGYN [place] [id number] [place] [facility] Apr, GYNECOLOGIC EXAMINATION OBGYN [facility] V72.31 ; PAP SMEAR W/O INTERNETWORKING TECHNICIAN [place], [place] [id number] EXAM V76.2 ; SCREEN MALIG NEOP-COLON V76.51 and SCREEN MAMMOGRAM NEC V76.12 [place] [facility] Apr, OBG[place], [place] [id number] [facility] Apr, PELVIC PAIN 625.9 OBGYN [place], [place] [id number] [place] [facility] Apr, Menometrorrhagia 626.2 ; OBGYN [facility] Dysuria 788.1 and PELVIC [place], [place] [id number] PAIN 625.9 [place] [facility] 103 Mar, OBGYN [place] [id number] [facility] Mar, OBGYN [place], [place] [id number] [facility] Mar, Hematuria, microscopic OBGYN [facility] 599.72 [place], [place] [id number] [place] [facility] Feb, OBG[place] [id number] [place] [facility] Feb, OBG[place] [id number] [place] [facility] Feb, [place] [id number] [place] [facility] 103 Feb, Menometrorrhagia 626.2 OBGYN [place] [id number] [place] [facility] January, [place] [id number] [facility] [address] [place] [address] January, [address]ia [address] [place], [place] [id number] [place] [facility] January, OBGYN [place], [place] [id number] [place] [facility] January, OBGYN [place] [id number] [place] [facility] January, Menometrorrhagia 626.2 OBGYN [place] [id number] Counts Include 234 Beds [facility] [address] [place], Dec, Medical [facility] [id number] [place] [facility] 103 Dec, Menometrorrhagia 626.2 and OBGYN [facility] IUD SURVEILLANCE V25.42 [place] [id number] [place] [facility] 103 Dec, [place] [id number] [facility] Dec, O[place] [id number] [place] [facility] Nov, [place] [id number] [address] Triphamm Nov, Menometrorrhagia [address] [place], [place] [id number] [place] [facility] 103 Nov, Menometrorrhagia 626.2 OBGYN [place], [place] [id number] [place] [facility] 103 Nov, Menometrorrhagia 626.2 O[place]YN [place] [id number] [place] [facility] 103 Nov, Menometrorrhagia 626.2 ; OBGYN [facility] IUD SURVEILLANCE V25.42 and [place], [place] [id number] Endometrial polyp 621.0 [place] [facility] 103 Nov, Menometrorrhagia 626.2 OBGYN [place] [id number] [place] [facility] Oct, OBG[place] [id number] [place] [facility] 103 Sep, OBGYN [place], [place] [id number] [place] [facility] 103 Sep, OBG[place] [id number] [place] [facility] 103 Sep, [place] [id number] [place] [facility] Sep, OBGYN [place] [id number] [place] [facility] Sep, PELVIC PAIN 625.9 ; OBGYN [facility] HEMATURIA NOS 599.70 and [place], [place] [id number] Abdominal pain, right upper quadrant 789.01 [place] [facility] Sep, PELVIC PAIN 625.9 and IUD OBGYN [facility] SURVEILLANCE V25.[address] [place] [address] [id number] [place] [facility] Sep, PELVIC PAIN 625.9 OBGYN [place] [id number] [place] [facility] Aug, [place] [id number] [facility] Jul, Irregular bleeding NOS [address]BGYN [address] [place], 626.4 ; Hydrosalpinx 614.1 [place] [id number] and PELVIC PAIN 625.9 [place] [facility] Jul, Hydrosalpinx 614.1 and IUD OBGYN [facility] SURVEILLANCE V25.[address] [place] [address] [id number] [place] [facility] Jun, [place] [id number] [place] [facility] Jun, Irregular bleeding NOS OBGYN [facility] 626.4 and Hydrosalpinx [place], [place] [id number] 614.1 [place] [facility] May, OBGYN [place] [id number] [place] [facility] May, Irregular bleeding NOS OBGYN [facility] [address] 626.4 [place], [place] [id number] [place] [facility] May, Irregular bleeding NOS OBGYN [facility] [address] 626.4 [place] [id number] [place] [facility] May, Irregular bleeding NOS OBGYN [facility] [address] 626.4 and Menorrhagia 626.2 [place], [place] [id number] [place] [facility] May, Irregular bleeding NOS OBGYN [facility] [address] 626.4 and PELVIC PAIN 625.9 [place] [id number] [place] [facility] May, PELVIC PAIN 625.9 ; OBGYN [facility] Irregular bleeding NOS [place] [id number] 626.4 and IUD SURVEILLANCE V25.42 [place] [facility] Apr, Irregular bleeding NOS [facility] 626.4 and PELVIC PAIN 625.9 [place], [place] [id number] [facility] Feb, OBGYN [place] [id number] [facility] Feb, Irregular bleeding NOS OBGYN [facility] [address] 626.4 ; PELVIC PAIN 625.9 [place], [place] [id number] and Abdominal pain, epigastric 789.06 [place] [facility] Nov, Vitamin D deficiency NOS OBGYN [facility] 268.9 [place], [place] [id number] [place] [facility] Nov, OBGYN [place] [id number] [place] [facility] Nov, Irregular bleeding NOS OBGYN [facility] 626.4 and IUD SURVEILLANCE [place], [place] [id number] V25.42 [place] [facility] Nov, ROUTINE INTERNETWORKING TECHNICIAN EXAMINATION OBGYN [facility] V72.31 ; Irregular bleeding [place], [place] [id number] NOS 626.4 ; PAP SMEAR W/O INTERNETWORKING TECHNICIAN EXAM V76.2 ; IUD SURVEILLANCE V25.42 and SCREEN MALIG NEOP-COLON V76.51 [place] [facility] 16 Nov, 2011 [place] [id number] [place] [facility] 15 Nov, 2011 [facility] 626.4 [facility] IUD SUR[place] [id number] V25.42 [place] [facility] Nov, [place] [id number] [place] [facility] Oct, [facility] 626.4 [place] [id number] [place] [facility] Oct, [place] [id number] [place] [facility] Sep, [place] [id number] [place] [facility] Sep, GENITAL HERPES NOS 054.10 [place] [id number] [place] [facility] Sep, [place] [id number] [place] [facility] Sep, [place] [id number] [place] [facility] Sep, Gross hematuria 599.71 [place] [id number] [place] [facility] Aug, [place] [id number] [place] [facility] Aug, HEMATURIA NOS 599.70 [place] [id number] [place] [facility] Aug, Abdominal pain, generalized OBGYN [facility] 789.07 ; Irregular bleeding [place], [place] [id number] NOS 626.4 and Dysuria 788.1 [place] [facility] Aug, PELVIC PAIN 625.9 and IUD OBGYN [facility] SURVEILLANCE V25.42 [place], [place] [id number] [place] [facility] Jul, Abdominal pain, generalized OBGYN [facility] 789.07 and Irregular [place], [place] [id number] bleeding NOS 626.4 [place] [facility] Jul, [place], [place] [id number] [place] [facility] Jun, Abdominal pain, generalized OBGYN [facility] 789.07 and Irregular [place], [place] [id number] bleeding NOS 626.4 [place] [facility] May, Abdominal pain, right lower OBGYN [facility] quadrant 789.03 and [place], [place] [id number] Irregular bleeding NOS 626.4 [place] [facility] Apr, [place], [place] [id number] [place] [facility] Apr, IUD SURVEILLANCE V25.42 [place]YN [place], [place] [id number] [place] [facility] Mar, INSERTION OF IUD V25.11 [place]YN [place], [place] [id number] [place] [facility] Feb, [place], [place] [id number] [place] [facility] Feb, OBG[place], [place] [id number] [place] [facility] Feb, Menorrhagia 626.2 ; Ovarian OBGYN [facility] cyst NOS 620.2 and [place], [place] [id number] Dysmenorrhea 625.3 [place] [facility] Feb, OBGYN [place], [place] [id number] Counts Include 234 [facility] [address], Feb, [facility] [id number] [place] [facility] Feb, Menorrhagia 626.2 ; Ovarian OBGYN [facility] cyst NOS 620.2 and [place], [place] [id number] Dysmenorrhea 625.3 [facility] [facility] January, OBGYN [place], [place] [id number] [facility] January, Menorrhagia 626.2 ; Ovarian OBGYN [facility] cyst NOS 620.2 and [place], [place] [id number] Dysmenorrhea 625.3 [facility] January, Ovarian cyst NOS 620.2 ; OBGYN [facility] Menorrhagia 626.2 and [place], [place] [id number] Dysmenorrhea 625.3 [facility] Nov, OBG[place], [place] [id number] [facility] Nov, ROUTINE INTERNETWORKING TECHNICIAN EXAMINATION OBGYN [facility] V72.31 and PAP SMEAR W/O [place], [place] [id number] INTERNETWORKING TECHNICIAN EXAM V76.2 [facility] Nov, OBGYN [place], [place] [id number] [facility] Nov, Menorrhagia 626.2 and OBGYN [facility] Ovarian cyst NOS 620.2 [place], [place] [id number] [facility] [facility] Nov, Menorrhagia 626.2 [place]BGYN [place], [place] [id number] [place] [facility] Nov, Menorrhagia 626.2 OBGYN [place], [place] [id number] [place] [facility] Nov, Menorrhagia 626.2 and OBGYN [facility] Ovarian cyst NOS 620.2 [place] [id number] [place] [facility] Oct, [place], [place] [id number] [place] [facility] Oct, [place], [place] [id number] [place] [facility] Oct, Menorrhagia 626.2 OBGYN [place], [place] [id number] [place] [facility] Feb, ROUTINE INTERNETWORKING TECHNICIAN EXAMINATION [facility] V72.31 [place], [place] [id number] [place] [facility] May, PELVIC PAIN 625.9 [place], [place] [id number] [place] [facility] May, PELVIC PAIN 625.9 [place], [place] [id number] [place] [facility] May, PELVIC PAIN 625.9 [place] [id number] [place] [facility] Apr, OBG[place] [id number] [place] [facility] Apr, Dysuria 788.1 and HEMATURIA OBGYN [facility] NOS 599.70 [place] [id number] [place] [facility] Apr, PELVIC PAIN 625.9 [place] [id number] [place] [facility] Mar, [place], [place] [id number] [place] [facility] Mar, Ovarian cyst NOS 620.2 and OBGYN [facility] PELVIC PAIN 625.9 [place] [id number] [place] [facility] 14 Mar, 2009 Ovarian cyst NOS 620.2 and OBGYN [facility] PELVIC PAIN 625.9 [place] [id number] [place] [facility] 24 Feb, 2009 [place], [place] [id number] [place] [facility] 18 Feb, 2009 Ovarian cyst NOS 620.2 and OBGYN [facility] PELVIC PAIN 625.9 [place], [place] [id number] [place] [facility] 15 Feb, 2009 Ovarian cyst NOS 620.2 and OBGYN [facility] PELVIC PAIN 625.9 [place], [place] [id number] [place] [facility] 15 Feb, 2009 PELVIC PAIN 625.9 and OBGYN [facility] Ovarian cyst NOS 620.2 [place] [id number] [place] [facility] 12 Feb, 2009 ROUTINE INTERNETWORKING TECHNICIAN EXAMINATION [facility] V72.31 [place] [id number] [place] [facility] 11 Feb, 2009 PELVIC PAIN 625.9 [facility] Ovarian cyst NOS 620.2 [place] [id number] [place] [facility] 09 Feb, 2009 PELVIC PAIN 625.9 [facility] Ovarian cyst NOS 620.2 [place] [id number] [place] [facility] 09 Feb, 2009 Menorrhagia 626.2 and OBGYN [facility] PELVIC PAIN 625.9 [place] [id number] [place] [facility] January, [place], [place] [id number] [place] [facility] January, Menorrhagia 626.2 and OBGYN [facility] Irregular bleeding NOS [place], [place] [id number] 626.4 [place] [facility] January, Menorrhagia 626.2 [place] [id number] [place] [facility] Nov, [place] [id number] [place] [facility] Nov, Menorrhagia 626.2 [place]YN [place], [place] [id number] [place] [facility] Jun, [place], [place] [id number] [place] [facility] Jun, Menorrhagia 626.2 [place] [id number] [place] [facility] Jun, Menorrhagia 626.2 [place]YN [place], [place] [id number] [place] [facility] May, [place], [place] [id number] [place] [facility] May, Menorrhagia 626.2 and OBGYN [facility] PELVIC PAIN 625.9 [place] [id number] [place] [facility] May, Ovarian cyst NOS 620.2 [place]YN [place], [place] [id number] [place] [facility] May, Ovarian cyst NOS 620.2 and OBGYN [facility] PELVIC PAIN 625.9 [place], [place] [id number] [place] [facility] May, OBG[place], [place] [id number] [place] [facility] Apr, Cervical polyp 622.7 OBGYN [place], [place] [id number] [place] [facility] Sep, [place] [id number] [place] [facility] Sep, [place] [id number] [place] [facility] Sep, [place], [place] [id number] [place] [facility] Sep, Menorrhagia 626.2 [place] [id number] [place] [facility] Aug, [place] [id number] [place] [facility] Aug, Menorrhagia 626.2 OBGYN [place], [place] [id number] [place] [facility] Jun, [place], [place] [id number] [place] [facility] Jun, [place] [id number] [place] [facility] Jun, [place] [id number] [place] [facility] Jun, Menorrhagia 626.2 [place], [place] [id number] [place] [facility] May, Menorrhagia 626.2 [place] [id number] [place] [facility] May, Menorrhagia 626.2 [place] [id number] [place] [facility] Apr, PELVIC PAIN 625.9 [place] [id number] [place] [facility] Apr, PELVIC PAIN 625.9 [place], [place] [id number] [place] [facility] Apr, [place] [id number] [place] [facility] Apr, 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 [facility] V72.31 ; Dysuria 788.1 ; [place] [id number] PELVIC PAIN 625.9 and Hemorrhoids NOS 455.6 [place] [facility] Mar, Ovarian cyst NOS 620.2 [place] [id number] [place] [facility] Mar, [place] [id number] [place] [facility] Mar, Ovarian cyst NOS 620.2 [place] [id number] [place] [facility] Feb, [place]BG[place] [id number] [place] [facility] January, Menorrhagia 626.2 ; Ovarian OBGYN [facility] cyst NOS 620.2 and P[place]VIC [place] [id number] PAIN 625.9 [place] [facility] January, Menorrhagia 626.2 ; Ovarian OBGYN [facility] cyst NOS 620.2 and P[place]VIC [place] [id number] PAIN 625.9 [place] [facility] January, Ovarian cyst NOS 620.2 ; OBGYN [facility] PELVIC PAIN 625.9 and [place], [place] [id number] Irregular bleeding NOS 626.4 [place] [facility] January, Ovarian cyst NOS 620.2 and OBGYN [facility] PELVIC PAIN 625.9 [place], [place] [id number] [place] [facility] Aug, [place] [id number] [place] [facility] Aug, [place] [id number] [place] [facility] Aug, [place]YN [place] [id number] [place] [facility] Aug, Menorrhagia 626.2 ; OBGYN [facility] Follicular cyst of ovary [place], [place] [id number] 620.0 and Dysmenorrhea 625.3 [place] [facility] 30 Jun, 2006 Menorrhagia 626.2 and OBGYN [facility] Ovarian cyst NOS 620.2 [place], [place] [id number] [place] [facility] Feb, Candidal vulvovaginitis OBGYN [facility] 112.1 [place], [place] [id number] [place] [facility] Dec, [place], [place] [id number] [place] [facility] Oct, Mastalgia 611.71 [place] [id number] [place] [facility] Oct, Follicular cyst of ovary OBG[facility] 620.0 [place] [id number] [place] [facility] Sep, Follicular cyst of ovary OBGYN [facility] 620.0 and Dysmenorrhea [place], [place] [id number] 625.3 UNKNOWN Aug, [place] [facility] Aug, Follicular cyst of ovary OBGYN [facility] 620.0 and Dysmenorrhea [place], [place] [id number] 625.3 UNKNOWN Aug, [place] [facility] Aug, Menorrhagia 626.2 [place]YN [place] [id number] [place] [facility] Aug, [place], [place] [id number] [place] [facility] Aug, PREMENOPAUSE MENORRHAGIA OBGYN [facility] 627.0 and Menorrhagia 626.2 [place], [place] [id number] UNKNOWN Jul, [place] [facility] Jul, Abrasion or friction burn OBGYN [facility] of vagina without infection [place], [place] [id number] 911.0 IMMUNIZATIONS No Known Immunizations SOCIAL HISTORY Never Assessed REASON FOR REFERRAL FUNCTIONAL STATUS PLAN OF CARE Activity Details Follow Up mammo 6-19, annual 8-19 Reason: Pending Test Mammogram, Routine Screening - bilateral VITAL SIGNS Height 62 in 2018-09-28 Weight 135 lbs 2018-09-28 BMI 24.69 kg/m2 2018-09-28 Blood pressure systolic 122 mm Hg 2018-09-28 Blood pressure diastolic 72 mm Hg 2018-09-28 MEDICATIONS Medication Instructions Dosage Frequency Start End Duration Status Date Date Hydrocortisone, applied topically 1 valente 8h Jun, day(s) Active Topical 2.5% 3 times a day 2016 naproxen 500 mg orally QD 1 tab(s) 24h Active Premarin Vaginal intravaginally 0.5 grams Apr, day(s) Active 0.625 mg/g twice a week 2017 omeprazole 20 mg orally once a day 1 cap(s) 24h Active Estradiol intravaginally 2 1 g Apr, day(s) Active Vaginal 0.1 mg/g times a week 2017 nystatin topical applied topically 1 valente 12h 19 May, 30 days Active 259872 units/g BID 2017 clotrimazole applied topically 1 valente 90 days Active topical 1% 3 times a day, then 2-3 x a week aspirin 81 mg orally QD 1 tab(s) 24h Active Fish Oil 1200 mg orally qd 1 cap(s) 24h Active PROCEDURES No Known procedures RESULTS No Results REASON FOR VISIT 2 week breast check, lab f/u Insurance Providers [facility] Patient Patient Patient Patient Patient Subscriber Subscriber Subscriber Group Insurance Plan Plan Plan Plan ID Relationship Address Phone Name Date of ID Name Date of No Type Insurance Insurance Insurance Coverage to Subscriber Address Phone Name Dates Medicare [address] Medicare self [place] [id number] [facility] [address] Medicaid [phone] Medicaid self [place] [id number] [facility] 00 [facility] [address] [place] [phone] [place] self [place] [id number] [address] [address] MEDICAL (GENERAL) HISTORY Type Description Date Medical History Esophageal reflux Medical History Genital herpes Medical History Atopic dermatitis Medical History high cholesterol Medical History stroke Medical History pneumonia Medical History px COPD Medical History Barretts Esophegus Medical History hx CVA Medical History anxiety Medical History costochondritis Surgical History hysteroscopy,D&C 8- Surgical History LSO 10 Surgical History D&C [...]
[2018-10-26 14:24] VITALS: BP 132/73
--- NOTE | 2018-10-26 14:30 | UC ---
Respiratory Complaint HPI - HPI Summary HPI Summary: 58 yo female presents with intermittently productive cough for the last 5 days. She tells me that she has a long history of bronchitis turning into pneumonia. She is requesting a zpak at this time as this always "makes it go away". She is currently undergoing treatment at [facility] for chronic pancreatitis and is scheduled for surgery next month. She does not smoke. Has not been taking anything OTC. Denies fever, chills, sinus symptoms, sore throat, SOB, chest pain , rash. - History of Current Complaint Chief Complaint: UCRespiratory Stated Complaint: COUGH Time Seen by Provider: 10/26/18 14:30 Hx Obtained From: Patient Hx Last Menstrual Period: Uterine Ablasion Onset/Duration: Gradual Onset Severity Currently: None Pain Intensity: 0 Pain Scale Used: 0-10 Numeric Character: Cough: Nonproductive - Allergies/Home Medications Allergies/Adverse Reactions: Allergies Allergy/AdvReac Type Severity Reaction Status Date / Time latex Allergy Hives Verified 10/26/18 14:24 levofloxacin Allergy Vomiting Verified 10/26/18 14:24 Penicillins Allergy Hives Verified 10/26/18 14:24 PMH/Surg Hx/FS Hx/Imm Hx - Additional Past Medical History Additional PMH: Pancreatitis Endocrine History: Dyslipidemia Cardiovascular History: Hypertension Other History Of: Negative For: HIV, Hepatitis B, Hepatitis C - Surgical History Surgical History: Yes Surgery Procedure, Year, and Place: ablation 2015-[facility]. LEFT OVARY REMOVED. STENT IN PANCREAS- removed. Scheduled for ERCP - Family History Known Family History: Positive: Hypertension, Diabetes, Other - cancer, alzheimers Negative: Cardiac Disease - Social History Lives: With Family Alcohol Use: None Substance Use Type: None Smoking Status (MU): Never Smoked Tobacco Have You Smoked in the Last Year: No - Immunization History Most Recent Influenza Vaccination: 11/2016 Review of Systems All Other Systems Reviewed And Are Negative: Yes Constitutional: Positive: Negative Skin: Positive: Negative Eyes: Positive: Negative ENT: Positive: Negative Respiratory: Positive: Cough Cardiovascular: Positive: Negative Gastrointestinal: Positive: Negative Neurovascular: Positive: Negative Neurological: Positive: Negative Psychological: Positive: Negative Physical Exam - Summary Physical Exam Summary: GENERAL: NAD. WDWN. No pain distress. SKIN: No rashes, sores, lesions, or open wounds. HEENT: Head: AT/NC Eyes: EOM intact. Conjunctiva clear without inflammation or discharge. Ears: Hearing grossly normal. TMs intact, no bulging, erythema, or edema. Nose: Nasal mucosa pink and moist. NTTP maxillary and frontal sinus. Throat: Posterior oropharynx without exudates, erythema, or tonsillar enlargement. Uvula midline. NECK: Supple. Nontender. No lymphadenopathy. CHEST: CTAB. No r/r/w. No accessory muscle use. Breathing comfortably and in no distress. CV: RRR. Without m/r/g. Pulses intact. Cap refill <2seconds NEURO: Alert. PSYCH: Age appropriate behavior. Triage Information Reviewed: Yes Vital Signs: Initial Vital Signs Temp 98.1 F 10/26/18 14:20 Pulse 70 10/26/18 14:20 Resp 18 10/26/18 14:20 BP 132/73 10/26/18 14:20 Pulse Ox 95 10/26/18 14:20 Vital Signs Reviewed: Yes UC Diagnostic Evaluation - Laboratory O2 Sat by Pulse Oximetry: 95 Respiratory Course/Dx - Course Course Of Treatment: Suspect bronchitis. Discussed viral vs bacterial causes and pt prefers to be on antibiotics at this time instead of trying OTC medications. - Differential Dx/Diagnosis Provider Diagnosis: Bronchitis Discharge - Sign-Out/Discharge Documenting (check all that apply): Patient Departure All imaging exams completed and their final reports reviewed: No Studies - Discharge Plan Condition: Stable Disposition: HOME Prescriptions: Azithromycin TAB* [Zithromax TAB (Z-RENATA) 250 mg #6 tabs] 2 tab PO .TODAY, THEN 1 DAILY #1 renata Patient Education Materials: Acute Bronchitis (ED) Referrals: Ashley Piper MD [Primary Care Provider] - Additional Instructions: If you develop a fever, shortness of breath, chest pain, new or worsening symptoms - please call your PCP or go to the ED. - Billing Disposition and Condition Condition: STABLE Disposition: Home
== END 2018-10-26 14:37 | disposition home or self-care (01) ==
LOC: UCCORT 13:26
DX: J40 Bronchitis, not specified as acute or chronic (principal); K86.1 Other chronic pancreatitis; I10 Essential (primary) hypertension; Z91.040 Latex allergy status; Z88.0 Allergy status to penicillin; Z88.8 Allergy status to other drugs, medicaments and biological substances
CPT/HCPCS: 99212; G0463

== ENCOUNTER 2018-12-01 10:13 | Emergency (ER) | payer OTHER ==
[2018-12-01 11:00] VITALS: BP 111/77
--- NOTE | 2018-12-01 11:17 | UC ---
UC General HPI - HPI Summary HPI Summary: Pt states she had a dry cough last pm. no associated fever, cp, sob, asthma or copd. scheduled to have her pancreatic stent replaced tomorrow thus wants to ensure she is ok. - History of Current Complaint Chief Complaint: UCRespiratory Stated Complaint: COUGH Time Seen by Provider: 12/01/18 10:59 Hx Obtained From: Patient Hx Last Menstrual Period: Uterine Ablasion Pain Intensity: 7 Associated Signs & Symptoms: Positive: Cough. Negative: Chest Pain, Fever, SOB , Wheezing - Allergy/Home Medications Allergies/Adverse Reactions: Allergies Allergy/AdvReac Type Severity Reaction Status Date / Time latex Allergy Hives Verified 12/01/18 10:58 levofloxacin Allergy Vomiting Verified 12/01/18 10:58 Penicillins Allergy Hives Verified 12/01/18 10:58 PMH/Surg Hx/FS Hx/Imm Hx - Additional Past Medical History Additional PMH: FATTY LIVER, PANCREATIC DUCT STRICTURE WITH STENT, TIA Endocrine History: Dyslipidemia Other History Of: Negative For: HIV, Hepatitis B, Hepatitis C - Surgical History Surgical History: Yes Surgery Procedure, Year, and Place: ablation 2014-[facility]. LEFT OVARY REMOVED. STENT IN PANCREAS. - Family History Known Family History: Positive: Hypertension, Diabetes, Other - cancer, alzheimers Negative: Cardiac Disease - Social History Alcohol Use: None Substance Use Type: None Smoking Status (MU): Never Smoked Tobacco Have You Smoked in the Last Year: No - Immunization History Most Recent Influenza Vaccination: 11/2016 Review of Systems All Other Systems Reviewed And Are Negative: Yes Respiratory: Positive: Cough Physical Exam Triage Information Reviewed: Yes Appearance: Well-Appearing Vital Signs: Initial Vital Signs Temp 97.6 F 12/01/18 10:58 Pulse 84 12/01/18 10:58 Resp 16 12/01/18 10:58 BP 111/77 12/01/18 10:58 Pulse Ox 99 12/01/18 10:58 Vital Signs Reviewed: Yes Eyes: Positive: Conjunctiva Clear ENT: Positive: Pharynx normal, TMs normal. Negative: Nasal congestion, Nasal drainage Neck: Positive: Supple, Nontender, No Lymphadenopathy Respiratory: Positive: Lungs clear, Normal breath sounds, No respiratory distress, Other: - No cough during visit. Negative: Crackles, Rhonchi, Wheezing Cardiovascular: Positive: RRR, No Murmur Abdomen Description: Positive: Nontender, No Organomegaly, Soft Bowel Sounds: Positive: Present Musculoskeletal: Positive: ROM Intact Neurological: Positive: Alert Psychological: Positive: Age Appropriate Behavior Skin Exam: Normal Course/Dx - Diagnoses Provider Diagnosis: Normal exam Discharge - Sign-Out/Discharge Documenting (check all that apply): Patient Departure All imaging exams completed and their final reports reviewed: No Studies - Discharge Plan Condition: Stable Disposition: HOME Patient Education Materials: Acute Cough (ED) Referrals: Ashley Piper MD [Primary Care Provider] - If Needed Additional Instructions: BP 111/77. - Billing Disposition and Condition Condition: STABLE Disposition: Home - Attestation Statements Provider Attestation: I was available for consult. This patient was seen by the CHRISTIE. The patient was not presented to, seen by, or examined by me. -Carl
== END 2018-12-01 11:22 | disposition home or self-care (01) ==
LOC: UCCORT 10:13
DX: R05 Cough (principal); Z91.040 Latex allergy status; Z88.1 Allergy status to other antibiotic agents; Z88.0 Allergy status to penicillin
CPT/HCPCS: 99211; G0463

== ENCOUNTER 2018-12-15 19:17 | Emergency (ER) | payer OTHER ==
[2018-12-15 19:59] VITALS: BP 114/74
--- NOTE | 2018-12-15 20:26 | UC ---
UC General HPI - HPI Summary HPI Summary: PER TRIAGE, c/o chest congestion and non-productive cough x 2 days. History of pneumonia. NO FEVER OR SOB. - History of Current Complaint Chief Complaint: UCRespiratory Stated Complaint: CHEST CONGESTION Time Seen by Provider: 12/15/18 20:19 Hx Obtained From: Patient Hx Last Menstrual Period: Uterine Ablasion Pain Intensity: 0 Associated Signs & Symptoms: Negative: Chest Pain - Allergy/Home Medications Allergies/Adverse Reactions: Allergies Allergy/AdvReac Type Severity Reaction Status Date / Time latex Allergy Hives Verified 12/15/18 19:56 levofloxacin Allergy Vomiting Verified 12/15/18 19:56 Penicillins Allergy Hives Verified 12/15/18 19:56 PMH/Surg Hx/FS Hx/Imm Hx - Additional Past Medical History Additional PMH: FATTY LIVER, PANCREATIC DUCT STRICTURE WITH STENT, TIA Respiratory History: Pneumonia Other History Of: Negative For: HIV, Hepatitis B, Hepatitis C - Surgical History Surgical History: Yes Surgery Procedure, Year, and Place: ablation 2014-[facility]. LEFT OVARY REMOVED. STENT IN PANCREAS. - Family History Known Family History: Positive: Hypertension, Diabetes, Other - cancer, alzheimers Negative: Cardiac Disease - Social History Alcohol Use: None Substance Use Type: None Smoking Status (MU): Never Smoked Tobacco Have You Smoked in the Last Year: No - Immunization History Most Recent Influenza Vaccination: 11/2016 Review of Systems All Other Systems Reviewed And Are Negative: Yes Respiratory: Positive: Cough Physical Exam Triage Information Reviewed: Yes Appearance: Well-Appearing Vital Signs: Initial Vital Signs Temp 98.3 F 12/15/18 19:56 Pulse 79 12/15/18 19:56 Resp 16 12/15/18 19:56 BP 114/74 12/15/18 19:56 Pulse Ox 100 12/15/18 19:56 Vital Signs Reviewed: Yes Eyes: Positive: Conjunctiva Clear ENT: Positive: Pharynx normal, TMs normal. Negative: Nasal congestion, Nasal drainage Neck: Positive: Supple, Nontender Respiratory: Positive: Lungs clear, Normal breath sounds, No respiratory distress, Other: - no coughing during evaluation. Cardiovascular: Positive: RRR, No Murmur Abdomen Description: Positive: Nontender Bowel Sounds: Positive: Present Musculoskeletal: Positive: ROM Intact Neurological: Positive: Alert Psychological: Positive: Age Appropriate Behavior Skin Exam: Normal Course/Dx - Differential Dx - Multi-Symptom Differential Diagnoses: Other - no concern for pneumonia. - Diagnoses Provider Diagnosis: Cough in adult Discharge - Sign-Out/Discharge Documenting (check all that apply): Patient Departure All imaging exams completed and their final reports reviewed: No Studies - Discharge Plan Condition: Stable Disposition: HOME Patient Education Materials: Acute Cough (ED) Referrals: Ashley Piper MD [Primary Care Provider] - Additional Instructions: FOLLOW UP PRIMARY CARE IF NOT BETTER IN 3 DAYS OR SOONER IF WORSE - Billing Disposition and Condition Condition: STABLE Disposition: Home
== END 2018-12-15 20:30 | disposition home or self-care (01) ==
LOC: UCCORT 19:17
DX: R05 Cough (principal); Z88.0 Allergy status to penicillin; Z88.1 Allergy status to other antibiotic agents
CPT/HCPCS: 99211; G0463

== ENCOUNTER 2018-12-19 14:56 | Emergency (ER) | payer OTHER ==
[2018-12-19 16:29] VITALS: BP 120/81
--- NOTE | 2018-12-19 16:54 | UC ---
Respiratory Complaint HPI - HPI Summary HPI Summary: Pt c/o cough, and wheezing X 2 days. Pt states that she thinks she has pneumonia. Denies, SOB fever, chills or generalized malaise. Pt states she is out of her Albuterol INH and requested a refill. Pt is sitting comfortably on exam room chair, no cough, no nasal congestion, no obvious SOB. Pt ambulates without wheezing, cough or SOB. - History of Current Complaint Chief Complaint: UCRespiratory Stated Complaint: CONGESTION Time Seen by Provider: 12/19/18 16:30 Hx Obtained From: Patient Hx Last Menstrual Period: Uterine Ablasion ?: No Onset/Duration: Sudden Onset, Lasting Days, Still Present Timing: Intermittent Episodes Severity Initially: Mild Severity Currently: None Pain Intensity: 7 Character: Cough: Nonproductive Aggravating Factors: Exertion, Deep Breaths, Recumbent Position Alleviating Factors: Nothing Associated Signs And Symptoms: Positive: Wheezing Related History: Seasonal Allergies - Risk Factors Pulmonary Embolism Risk Factors: Negative Cardiac Risk Factors: Negative Pseudomonas Risk Factors: Chronic Lung Disease Tuberculosis Risk Factors: Negative - Allergies/Home Medications Allergies/Adverse Reactions: Allergies Allergy/AdvReac Type Severity Reaction Status Date / Time latex Allergy Hives Verified 12/19/18 16:29 levofloxacin Allergy Vomiting Verified 12/19/18 16:29 Penicillins Allergy Hives Verified 12/19/18 16:29 PMH/Surg Hx/FS Hx/Imm Hx Previously Healthy: Yes Respiratory History: COPD, Asthma Other History Of: Negative For: HIV, Hepatitis B, Hepatitis C - Surgical History Surgical History: Yes Surgery Procedure, Year, and Place: ablation 2014-[facility]. LEFT OVARY REMOVED. STENT IN PANCREAS. - Family History Known Family History: Positive: Hypertension, Diabetes, Other - cancer, alzheimers Negative: Cardiac Disease - Social History Occupation: Works From/At Home Lives: With Family Alcohol Use: None Substance Use Type: None Smoking Status (MU): Never Smoked Tobacco Have You Smoked in the Last Year: No - Immunization History Most Recent Influenza Vaccination: 11/2016 Review of Systems All Other Systems Reviewed And Are Negative: Yes Constitutional: Positive: Negative Skin: Positive: Negative Eyes: Positive: Negative ENT: Positive: Negative Respiratory: Positive: Cough, Other - wheezing Cardiovascular: Positive: Negative Gastrointestinal: Positive: Negative Genitourinary: Positive: Negative Motor: Positive: Negative Neurovascular: Positive: Negative Musculoskeletal: Positive: Negative Neurological: Positive: Negative Psychological: Positive: Negative Is Patient Immunocompromised?: No Physical Exam Triage Information Reviewed: Yes Appearance: Well-Appearing Vital Signs: Initial Vital Signs Temp 98.8 F 12/19/18 16:22 Pulse 85 12/19/18 16:22 Resp 18 12/19/18 16:22 BP 120/81 12/19/18 16:22 Pulse Ox 100 12/19/18 16:22 Vital Signs Reviewed: Yes Eye Exam: Normal ENT Exam: Normal Dental Exam: Normal Neck exam: Normal Respiratory Exam: Normal Respiratory: Positive: Chest non-tender, Lungs clear, Normal breath sounds, No respiratory distress, No accessory muscle use Cardiovascular Exam: Normal Abdominal Exam: Normal Musculoskeletal Exam: Normal Neurological Exam: Normal Psychological Exam: Normal Skin Exam: Normal Respiratory Course/Dx - Differential Dx/Diagnosis Differential Diagnosis/HQI/PQRI: Asthma, Bronchitis, Exacerbation Of COPD Provider Diagnosis: Cough, Medication refill Discharge - Sign-Out/Discharge Documenting (check all that apply): Patient Departure All imaging exams completed and their final reports reviewed: No Studies - Discharge Plan Condition: Stable Disposition: HOME Prescriptions: Albuterol HFA INHALER* [Ventolin HFA Inhaler*] 1 - 2 puff INH Q6H PRN #1 mdi PRN Reason: Sob/Wheezing predniSONE TAB* [Deltasone 20 MG TAB*] 20 mg PO DAILY #4 tab Patient Education Materials: Acute Cough (ED) Referrals: Ashley Piper MD [Primary Care Provider] - If Needed - Billing Disposition and Condition Condition: STABLE Disposition: Home
== END 2018-12-19 17:09 | disposition home or self-care (01) ==
LOC: UCCORT 14:56
DX: R05 Cough (principal); J44.9 Chronic obstructive pulmonary disease, unspecified; Z76.0 Encounter for issue of repeat prescription; Z91.040 Latex allergy status; Z88.1 Allergy status to other antibiotic agents; Z88.0 Allergy status to penicillin
CPT/HCPCS: 99212; G0463

== ENCOUNTER 2018-12-29 12:15 | Emergency (ER) | payer OTHER ==
[2018-12-29 13:15] VITALS: BP 125/84
--- NOTE | 2018-12-29 13:46 | UC ---
Respiratory Complaint HPI - HPI Summary HPI Summary: Patient complains of upper respiratory illness over the past 2 or 3 days with a cough. She states she has some mid chest pain associated when she coughs however she states over the past 2 or 3 months she's had intermittent chest pain with exertion. She has seen her primary care provider although states she has never had an EKG done or chest x-ray. She denies any fever. - History of Current Complaint Chief Complaint: UCRespiratory Stated Complaint: CHEST CONGESTION Time Seen by Provider: 12/29/18 13:34 Hx Obtained From: Patient Hx Last Menstrual Period: Uterine Ablasion ?: No Onset/Duration: Gradual Onset Severity Initially: Mild Severity Currently: Mild Pain Intensity: 8 Character: Cough: Nonproductive Aggravating Factors: Exertion Alleviating Factors: Nothing Associated Signs And Symptoms: Positive: URI, Nasal Congestion - Risk Factors Pulmonary Embolism Risk Factors: Negative Cardiac Risk Factors: Negative Pseudomonas Risk Factors: Negative Tuberculosis Risk Factors: Negative - Allergies/Home Medications Allergies/Adverse Reactions: Allergies Allergy/AdvReac Type Severity Reaction Status Date / Time latex Allergy Hives Verified 12/29/18 13:13 levofloxacin Allergy Vomiting Verified 12/29/18 13:13 Penicillins Allergy Hives Verified 12/29/18 13:13 PMH/Surg Hx/FS Hx/Imm Hx Previously Healthy: Yes Other History Of: Negative For: HIV, Hepatitis B, Hepatitis C - Surgical History Surgical History: Yes Surgery Procedure, Year, and Place: ablation 2014-[facility]. LEFT OVARY REMOVED. STENT IN PANCREAS. - Family History Known Family History: Positive: Hypertension, Diabetes, Other - cancer, alzheimers Negative: Cardiac Disease - Social History Alcohol Use: None Substance Use Type: None Smoking Status (MU): Never Smoked Tobacco Have You Smoked in the Last Year: No - Immunization History Most Recent Influenza Vaccination: 11/2016 Review of Systems All Other Systems Reviewed And Are Negative: Yes ENT: Positive: Nasal Discharge Respiratory: Positive: Cough - Non-Productive cough Cardiovascular: Positive: Chest Pain - Patient states she has had mid chest pain with coughing however states the chest pain has been chronic over the past 2-3 months. She states she saw her primary care physician but "they did nothing ". She states she's never had an EKG. She says occasionally when she exerts herself she will feel some mid chest pain about denies any shortness of breath, no diaphoresis, no radiation of pain, no nausea or vomiting. Genitourinary: Positive: Negative Is Patient Immunocompromised?: No Physical Exam Triage Information Reviewed: Yes Appearance: Well-Appearing, No Pain Distress, Well-Nourished Vital Signs: Initial Vital Signs Temp 98.5 F 12/29/18 13:11 Pulse 74 12/29/18 13:11 Resp 18 12/29/18 13:11 BP 125/84 12/29/18 13:11 Pulse Ox 99 12/29/18 13:11 Vital Signs Reviewed: Yes Eye Exam: Normal ENT Exam: Normal Neck exam: Normal Respiratory Exam: Normal Cardiovascular Exam: Normal Abdominal Exam: Normal Bowel Sounds: Positive: Present Musculoskeletal Exam: Normal Neurological Exam: Normal Psychological Exam: Normal Skin Exam: Normal Respiratory Course/Dx - Course Course Of Treatment: She has been comfortable here. EKG showed no changes from previous EKGs according to Dr. Nicol Collins who interpreted the EKG. CXR was negative for infiltrate. This point time I feel this is a viral upper upper respiratory illness. I did talk with the patient about going back to see her primary care physician for possible referral to a algebra teacher to address the chronic chest pain that is occasionally worse on exertion. She was agreeable to this plan of action. She may go to the emergency room for any worsening symptoms. - Differential Dx/Diagnosis Provider Diagnosis: URI (upper respiratory infection) Discharge - Sign-Out/Discharge Documenting (check all that apply): Patient Departure All imaging exams completed and their final reports reviewed: Yes - Discharge Plan Condition: Good Disposition: HOME Patient Education Materials: Upper Respiratory Infection (DC) Referrals: Ashley Piper MD [Primary Care Provider] - Additional Instructions: Follow-up with your primary care provider in 4 or 5 days if no improvement in symptoms. Go to the emergency room if you have any worsening of chest pain if it radiates up into your jaw down your arms you feel nauseous or a break out in sweats. - Billing Disposition and Condition Condition: GOOD Disposition: Home - Attestation Statements Provider Attestation: I was available for consult. This patient was seen by the CHRISTIE. The patient was not presented to, seen by, or examined by me. -Carl
== END 2018-12-29 14:53 | disposition home or self-care (01) ==
LOC: UCCORT 12:15
DX: J06.9 Acute upper respiratory infection, unspecified (principal); Z91.040 Latex allergy status; Z88.3 Allergy status to other anti-infective agents; Z88.0 Allergy status to penicillin
CPT/HCPCS: 71046; 93005; 99211; G0463

== ENCOUNTER 2019-01-13 17:45 | Emergency (ER) | payer OTHER ==
[2019-01-13 18:11] VITALS: BP 134/83
--- NOTE | 2019-01-13 18:40 | ED ---
HPI Cardiac - HPI Summary HPI Summary: 58 yr old with the complaint of " I have an ache in my chest". Onset of ache a week ago, and it comes and goes. It is associated with SOB, nausea, vomiting, sweating. She has had vomiting twice today. The patient has a history of pancreatitis as well. Her ache is moderate. She denies fever, chills. SHe has had a mild cough. - History of Current Complaint Chief Complaint: UCGeneralIllness Stated Complaint: CONGESTION VOMITING Time Seen by Provider: 01/13/19 18:14 Hx Last Menstrual Period: Uterine Ablasion Pain Intensity: 6 - Allergy/Home Medications Allergies/Adverse Reactions: Allergies Allergy/AdvReac Type Severity Reaction Status Date / Time latex Allergy Hives Verified 12/29/18 13:13 levofloxacin Allergy Vomiting Verified 12/29/18 13:13 Penicillins Allergy Hives Verified 12/29/18 13:13 PMH/Surg Hx/FS Hx/Imm Hx Endocrine/Hematology History: Denies: Hx Diabetes, Hx Thyroid Disease Cardiovascular History: Reports: Hx Hypertension - taken off meds by PCP, Other Cardiovascular Problems/Disorders - dyslipediamia Denies: Hx Congestive Heart Failure, Hx Deep Vein Thrombosis, Hx Myocardial Infarction, Hx Pacemaker/ICD Respiratory History: Reports: Hx Pneumonia Denies: Hx Asthma, Hx Chronic Obstructive Pulmonary Disease (COPD), Hx Lung Cancer, Hx Pulmonary Embolism GI History: Reports: Hx Gastroesophageal Reflux Disease Denies: Hx Gall Bladder Disease, Hx Gastrointestinal Bleed, Hx Ulcer, Hx Urosepsis History: Denies: Hx Kidney Stones, Hx Renal Disease Sensory History: Denies: Hx Hearing Aid Neurological History: Denies: Hx Dementia, Hx Migraine, Hx Seizures, Hx Transient Ischemic Attacks (TIA) Psychiatric History: Denies: Hx Anxiety, Hx Depression, Hx Panic Disorder, Hx Schizophrenia, Hx Bipolar Disorder - Surgical History Surgery Procedure, Year, and Place: ablation 2015-[facility]. LEFT OVARY REMOVED. STENT IN PANCREAS. Infectious Disease History: No Infectious Disease History: Denies: Hx Clostridium Difficile, Hx Hepatitis, Hx Human Immunodeficiency Virus (HIV), Hx of Known/Suspected MRSA, Hx Shingles, Hx Tuberculosis, Hx Known/ Suspected VRE, Hx Known/Suspected VRSA, History Other Infectious Disease, Traveled Outside the [place] in Last 30 Days - Family History Known Family History: Positive: Hypertension, Diabetes, Other - cancer, alzheimers Negative: Cardiac Disease - Social History Alcohol Use: None Substance Use Type: Reports: None Smoking Status (MU): Never Smoked Tobacco Have You Smoked in the Last Year: No Review of Systems Constitutional: Negative Positive: Chest Pain Positive: Shortness Of Breath, Cough Positive: Vomiting, Nausea All Other Systems Reviewed And Are Negative: Yes Physical Exam Vital Signs On Initial Exam: Initial Vitals Temp Pulse Resp BP Pulse Ox 98 F 76 16 134/83 100 01/13/19 18:05 01/13/19 18:05 01/13/19 18:05 01/13/19 18:05 01/13/19 18:05 Diagnostics - Vital Signs Vital Signs Temp Pulse Resp BP Pulse Ox 01/13/19 18:05 98 F 76 16 134/83 100 - Laboratory Lab Statement: Any lab studies that have been ordered have been reviewed, and results considered in the medical decision making process. - EKG 01/13/19 Cardiac Rate: NL EKG Rhythm: Sinus Rhythm ST Segment: Normal Ectopy: None - No STEMI Disposition - Course Course Of Treatment: 58 yr old with chest pain, SOB, and vomiting with a history of pancreatitis. She needs to go to the ER, but refuses ambulance transport. She signed out AMA> - Diagnoses Provider Diagnoses: Chest pain Discharge - Sign-Out/Discharge Documenting (check all that apply): Patient Departure All imaging exams completed and their final reports reviewed: No Studies - Discharge Plan Condition: Good Disposition: AGAINST MEDICAL ADVICE Patient Education Materials: Chest Pain (ED) Referrals: Ashley Piper MD [Primary Care Provider] - - Billing Disposition and Condition Condition: GOOD Disposition: Against Medical Advice
== END 2019-01-13 18:45 | disposition left against medical advice (07) ==
LOC: UCCORT 17:45
DX: R07.89 Other chest pain (principal); R06.02 Shortness of breath; R11.2 Nausea with vomiting, unspecified; R61 Generalized hyperhidrosis; R05 Cough; K85.90 Acute pancreatitis without necrosis or infection, unspecified; I10 Essential (primary) hypertension; E78.5 Hyperlipidemia, unspecified; K21.9 Gastro-esophageal reflux disease without esophagitis; Z88.0 Allergy status to penicillin; Z88.1 Allergy status to other antibiotic agents; Z91.040 Latex allergy status
CPT/HCPCS: 93005; 99212; G0463

== ENCOUNTER 2019-02-15 15:39 | Emergency (ER) | payer OTHER ==
--- OUTSIDE RECORDS SUMMARY | 2019-02-15 15:46 | XMS REPORT | Continuity of Care Document ---
:1960 External Reference #:[id number] Author Name Awilda Gomez Care Team Providers Name Role Phone Aziza Quintana MD Care Team Information Direct Care Worker Unavailable Aziza Quintana MD Primary Care Physician Unavailable Payers Date Identification Numbers Payment Provider Subscriber Policy Number: [id number] [employer] Ashley Whitmore PayID: [id number] [address] [place] [address] Expires: 2016 Policy Number: [id number] [facility] Ashley Whitmore PayID: [id number] [address] [place] [address] Policy Number: [id number] Medicaid Ashley Whitmore PayID: [id number] [address] [place] [address] Family History Date Family Member(s) Observation Comments Mother Cancer Social History Type Date Description Comments Sex Unknown Tobacco Use Start: Unknown Never Smoked Cigarettes ETOH Use Quit Using Alcohol. Recreational Drug Use Never Used Drugs Allergies, Adverse Reactions, Alerts Active Allergies Reaction Severity Comments Date Penicillin rash 11/26/2016 Medications Active Medications SIG Qnty Indications Ordering Provider Date Dexamethasone 1 by mouth 7tabs Fortino Watson M.D. 01/18/2019 2mg Tablets every day Fish Oil Unknown Capsules Aspirin Adult Low Dose 1 by mouth Unknown 81mg every day Tablets DR Omeprazole 1 by mouth Unknown 40mg Capsules DR every day Vital Signs Date Vital Result Comment 01/18/2019 1:55pm Weight 147.00 lb Height 63 inches 5'3" BMI (Body Mass Index) 26.0 kg/m2 BP Systolic 96 mmHg BP Diastolic 63 mmHg Heart Rate 90 /min O2 % BldC Oximetry 97 % Body Temperature 97.6 F Pain Level 0 08/04/2018 3:32pm Weight 145.00 lb Height 63 inches 5'3" BMI (Body Mass Index) 25.7 kg/m2 BP Systolic 120 mmHg BP Diastolic 84 mmHg Heart Rate 92 /min O2 % BldC Oximetry 98 % Body Temperature 98.6 F Pain Level 2 02/16/2018 3:31pm Weight 152.00 lb Height 63 inches 5'3" BMI (Body Mass Index) 26.9 kg/m2 BP Systolic 118 mmHg BP Diastolic 80 mmHg Heart Rate 79 /min O2 % BldC Oximetry 97 % Body Temperature 98.2 F Pain Level 0 11/19/2017 10:49am Weight 154.00 lb Height 63 inches 5'3" BMI (Body Mass Index) 27.3 kg/m2 BP Systolic 108 mmHg BP Diastolic 75 mmHg Heart Rate 67 /min O2 % BldC Oximetry 98 % Body Temperature 98.6 F Pain Level 0 05/21/2017 8:31am Weight 152.25 lb Height 63 inches 5'3" BMI (Body Mass Index) 27.0 kg/m2 BP Systolic 126 mmHg BP Diastolic 80 mmHg Heart Rate 67 /min O2 % BldC Oximetry 95 % Body Temperature 97.1 F Pain Level 0 02/19/2017 2:53pm Weight 158.00 lb Height 63 inches 5'3" BMI (Body Mass Index) 28.0 kg/m2 BP Systolic 146 mmHg BP Diastolic 74 mmHg Heart Rate 67 /min O2 % BldC Oximetry 93 % Body Temperature 97.3 F [place] Score 3 11/26/2016 9:32am Weight 156.00 lb Height 63 inches 5'3" BMI (Body Mass Index) 27.6 kg/m2 BP Systolic 108 mmHg BP Diastolic 76 mmHg Heart Rate 83 /min O2 % BldC Oximetry 96 % Body Temperature 97.8 F Results Test Date Facility Test Result H/L Range Note TSH+Free T4 08/04/2018 [facility] Thyroid Stim 1.12 uIU/mL N 0.30-4.20 [address] [place], [place] [id number] [phone] Free T4 1.09 ng/dL N 0.76-1.46 1 E07.9 Procedures Date Code Description Status 08/04/2018 67559 Fiberoptic Laryngoscopy,Diag. Completed 02/16/2018 34792 Nasal Endoscopy, Diag. Completed 01/06/2017 25707 Dil. Of Esoph. By Sound Or Bougie Completed 01/06/2017 61332 Esophagoscopy/Diagnostic Completed 01/06/2017 88522 Anesthesia, Chest Surgery Closed Completed 12/10/2016 95631 Fiberoptic Laryngoscopy,Diag. Completed 11/26/2016 77807 Remove Impacted Cerumen Completed Encounters Type Date Location Provider Dx Diagnosis Office Visit 08/04/2018 Main Office Fortino Watson M.D. K21.9 Gastro- esophageal 4:15p reflux disease without esophagitis E07.9 Disorder of thyroid, unspecified Office Visit 02/16/2018 4:15p Main Office Fortino Watson, J32.0 Chronic maxillary M.D. sinusitis J34.3 Hypertrophy of nasal turbinates K21.9 Gastro-esophageal reflux disease without esophagitis Office Visit 11/19/2017 10:45a Main Office Fortino Watson, R13.10 Dysphagia, M.D. unspecified K21.9 Gastro-esophageal reflux disease without esophagitis Office Visit 05/21/2017 9:00a Main Office Fortino Watson, R13.10 Dysphagia, M.D. unspecified K21.9 Gastro-esophageal reflux disease without esophagitis K13.79 Other lesions of oral mucosa Office Visit 12/10/2016 10:30a Main Office Fortino Watson, K21.9 Gastro- esophageal reflux M.D. 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
[2019-02-15 15:57] VITALS: BP 121/86
--- NOTE | 2019-02-15 16:27 | ED ---
Respiratory - HPI Summary HPI Summary: Pt presents with a 2 day history of productive white thick cough which as progressed from clear and thin phlegm. she states that this is how it felt when she had pneumonia in the past. she denies any chest pain, n/v/diarrhea. she denies any fever or chills. she denies any sick contacts and she lives alone. she denies feeling light headed or dizzy. - History of Current Complaint Chief Complaint: UCRespiratory Stated Complaint: COUGH Hx Obtained From: Patient Onset/Duration: Lasting Days - 2 days Initial Severity: Mild Current Severity: None Pain Intensity: 2 Character: Cough (Productive) Sputum Amount: Small Sputum Color: White Aggravating Factor(s): Nothing - Allergy/Home Medications Allergies/Adverse Reactions: Allergies Allergy/AdvReac Type Severity Reaction Status Date / Time latex Allergy Hives Verified 02/15/19 15:46 levofloxacin Allergy Vomiting Verified 02/15/19 15:46 Penicillins Allergy Hives Verified 02/15/19 15:46 Home Medications: Home Medications Omeprazole 20 mg PO DAILY 02/15/19 [History Confirmed 02/15/19] PMH/Surg Hx/FS Hx/Imm Hx Previously Healthy: Yes Endocrine/Hematology History: Denies: Hx Diabetes, Hx Thyroid Disease Cardiovascular History: Reports: Hx Hypertension - taken off meds by PCP, Other Cardiovascular Problems/Disorders - dyslipediamia Denies: Hx Congestive Heart Failure, Hx Deep Vein Thrombosis, Hx Myocardial Infarction, Hx Pacemaker/ICD Respiratory History: Reports: Hx Pneumonia Denies: Hx Asthma, Hx Chronic Obstructive Pulmonary Disease (COPD), Hx Lung Cancer, Hx Pulmonary Embolism GI History: Reports: Hx Gastroesophageal Reflux Disease Denies: Hx Gall Bladder Disease, Hx Gastrointestinal Bleed, Hx Ulcer, Hx Urosepsis History: Denies: Hx Kidney Stones, Hx Renal Disease Sensory History: Denies: Hx Hearing Aid Neurological History: Denies: Hx Dementia, Hx Migraine, Hx Seizures, Hx Transient Ischemic Attacks (TIA) Psychiatric History: Denies: Hx Anxiety, Hx Depression, Hx Panic Disorder, Hx Schizophrenia, Hx Bipolar Disorder - Surgical History Surgery Procedure, Year, and Place: ablation 2015-[facility]. LEFT OVARY REMOVED. STENT IN PANCREAS. Infectious Disease History: No Infectious Disease History: Denies: Hx Clostridium Difficile, Hx Hepatitis, Hx Human Immunodeficiency Virus (HIV), Hx of Known/Suspected MRSA, Hx Shingles, Hx Tuberculosis, Hx Known/ Suspected VRE, Hx Known/Suspected VRSA, History Other Infectious Disease, Traveled Outside the [place] in Last 30 Days - Family History Known Family History: Positive: Hypertension, Diabetes, Other - cancer, alzheimers Negative: Cardiac Disease - Social History Alcohol Use: None Substance Use Type: Reports: None Smoking Status (MU): Never Smoked Tobacco Have You Smoked in the Last Year: No Review of Systems Constitutional: Negative Eyes: Negative ENT: Negative Cardiovascular: Negative Positive: Cough Gastrointestinal: Negative Genitourinary: Negative Musculoskeletal: Negative Skin: Negative Neurological: Negative Psychological: Normal All Other Systems Reviewed And Are Negative: No Physical Exam Triage Information Reviewed: Yes Vital Signs On Initial Exam: Initial Vitals Temp Pulse Resp BP Pulse Ox 98.6 F 90 16 121/86 99 02/15/19 15:47 02/15/19 15:47 02/15/19 15:47 02/15/19 15:47 02/15/19 15:47 Vital Signs Reviewed: Yes Appearance: Positive: Well-Appearing, No Pain Distress, Well-Nourished Skin: Positive: Warm, Dry Head/Face: Positive: Normal Head/Face Inspection Eyes: Positive: Normal, EOMI, CUONG Neck: Positive: Supple, Nontender Respiratory/Lung Sounds: Positive: Clear to Auscultation, Breath Sounds Present Cardiovascular: Positive: Normal, RRR Abdomen Description: Positive: Nontender, Soft Bowel Sounds: Positive: Present Musculoskeletal: Positive: Normal, Strength/ROM Intact Neurological: Positive: Normal, Sensory/Motor Intact, Alert, Oriented to Person Place, Time, CN Intact II-III Psychiatric: Positive: Normal AVPU Assessment: Alert Diagnostics - Vital Signs Vital Signs Temp Pulse Resp BP Pulse Ox 02/15/19 15:47 98.6 F 90 16 121/86 99 - Laboratory Lab Statement: Any lab studies that have been ordered have been reviewed, and results considered in the medical decision making process. Disposition - Course Course Of Treatment: Pt is non-toxic. her chest xray is negative. she has been having a thick white productive cough. she is a non-smoker. she states that her infections typically progress quickly. will send rx to pharmacy for zpak. - Diagnoses Provider Diagnoses: URI (upper respiratory infection) Discharge - Sign-Out/Discharge Documenting (check all that apply): Patient Departure All imaging exams completed and their final reports reviewed: Yes - Discharge Plan Condition: Stable Disposition: HOME Prescriptions: Azithromyxin RENATA (NF) [Z-Renata (Zithromax) 250 mg tabs #6] 2 tab PO .TODAY, THEN 1 DAILY #6 tab Patient Education Materials: Acute Bronchitis (ED) Referrals: Ashley Piper MD [Primary Care Provider] - Additional Instructions: Follow up with your primary care physician. take the antibiotic as instructed. return if worse or any new symptoms. - Billing Disposition and Condition Condition: STABLE Disposition: Home
== END 2019-02-15 16:33 | disposition home or self-care (01) ==
LOC: UCCORT 15:39
DX: J06.9 Acute upper respiratory infection, unspecified (principal); I10 Essential (primary) hypertension; Z88.0 Allergy status to penicillin; Z88.1 Allergy status to other antibiotic agents; Z91.040 Latex allergy status
CPT/HCPCS: 71046; 99212; G0463

== ENCOUNTER 2019-03-01 20:45 | Emergency (ER) | payer OTHER ==
--- OUTSIDE RECORDS SUMMARY | 2019-03-01 21:14 | XMS REPORT | Continuity of Care Document ---
:1960 External Reference #:[id number] Author Name Candice Medeiros Care Team Providers Name Role Phone Aziza Quintana MD Care Team Information Nurse Anesthetist Unavailable Aziza Quintana MD Primary Care Physician Unavailable Payers Date Identification Numbers Payment Provider Subscriber Policy Number: [id number] [employer] Ashley Whitmore PayID: [id number] [address] [place] [address] Expires: 2016 Policy Number: [id number] [facility] Ashley Whitmore PayID: [id number] [address] [place] [address] Policy Number: [id number] Medicaid Ashley Whitmore PayID: [id number] [address] [place] [address] Family History Date Family Member(s) Observation Comments Mother Cancer Social History Type Date Description Comments Sex Unknown Tobacco Use Start: Unknown Never Smoked Cigarettes ETOH Use Quit Using Alcohol. Recreational Drug Use Never Used Drugs Allergies, Adverse Reactions, Alerts Active Allergies Reaction Severity Comments Date Penicillin rash 11/26/2016 Medications Active Medications SIG Qnty Indications Ordering Provider Date Fish Oil Unknown Capsules Aspirin Adult Low Dose 1 by mouth every Unknown 81mg day Tablets DR Omeprazole 1 by mouth every Unknown 40mg Capsules DR day History Medications Dexamethasone 1 by mouth every 7tabs Fortino Watson, 01/18/2019 - 2mg Tablets day M.D. 02/22/2019 Vital Signs Date Vital Result Comment 02/23/2019 1:04pm Weight 147.00 lb Height 63 inches 5'3" BMI (Body Mass Index) 26.0 kg/m2 BP Systolic 114 mmHg BP Diastolic 78 mmHg Heart Rate 80 /min O2 % BldC Oximetry 98 % Body Temperature 98.3 F Pain Level 2 01/18/2019 1:55pm Weight 147.00 lb Height 63 [...] Oximetry 93 % Body Temperature 97.3 F [place] Score 3 11/26/2016 9:32am Weight 156.00 lb Height 63 inches 5'3" BMI (Body Mass Index) 27.6 kg/m2 BP Systolic 108 mmHg BP Diastolic 76 mmHg Heart Rate 83 /min O2 % BldC Oximetry 96 % Body Temperature 97.8 F Results Test Date Facility Test Result H/L Range Note TSH+Free T4 08/04/2018 [facility] Thyroid Stim 1.12 uIU/mL N 0.30-4.[address] [place] [address] [phone] Free T4 1.09 ng/dL N 0.76-1.46 1 E07.9 Procedures Date Code Description Status 01/18/2019 13739 Fiberoptic Laryngoscopy,Diag. Completed 08/04/2018 77394 Fiberoptic Laryngoscopy,Diag. Completed 02/16/2018 97575 Nasal Endoscopy, Diag. Completed 01/06/2017 61257 Dil. Of Esoph. By Sound Or Bougie Completed 01/06/2017 23956 Esophagoscopy/Diagnostic Completed 01/06/2017 09980 Anesthesia, Chest Surgery Closed Completed 12/10/2016 29553 Fiberoptic Laryngoscopy,Diag. Completed 11/26/2016 16539 Remove Impacted Cerumen Completed Encounters Type Date Location Provider Dx Diagnosis Office Visit 01/18/2019 Main Office Fortino Watson M.D. K21.9 Gastro- esophageal 2:00p reflux disease without esophagitis J31.2 Chronic pharyngitis Office Visit 08/04/2018 4:15p Main Office Fortino Watson K21.9 Gastro- esophageal reflux M.D. disease without esophagitis E07.9 Disorder of thyroid, unspecified Office Visit 02/16/2018 4:15p Main Office Fortino Watson J32.0 Chronic maxillary M.D. sinusitis J34.3 Hypertrophy of nasal turbinates K21.9 Gastro-esophageal reflux disease without esophagitis Office Visit 11/19/2017 10:45a Main Office Fortino Watson, R13.10 Dysphagia, M.D. unspecified K21.9 Gastro-esophageal reflux disease without esophagitis Office Visit 05/21/2017 9:00a Main Office Fortino Watson R13.10 Dysphagia, M.D. unspecified K21.9 Gastro-esophageal reflux disease without esophagitis K13.79 Other lesions of oral mucosa Office Visit 12/10/2016 10:30a Main Office Fortino Watson K21.9 Gastro- esophageal reflux M.D. 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
[2019-03-01 21:27] VITALS: BP 138/87
[2019-03-01] MEDS ORDERED: Acetaminophen TAB* 325 MG PO ONE (21:39)
--- NOTE | 2019-03-01 22:50 | UC ---
Upper Extremity HPI - HPI Summary HPI Summary: 58 year old female presents for right small finger pain. Patient states was at [employer], was lifting a luggage and a sewing machine fell out, crushing her finger on the floor. no bleeding, + pain, occurred at 8PM - History of Current Complaint Chief Complaint: UCUpperExtremity Stated Complaint: RIGHT PINKY INJURY Time Seen by Provider: 03/01/19 22:28 Hx Obtained From: Patient Hx Last Menstrual Period: UTERINE ABLATION ?: No Onset/Duration: Sudden Onset, Lasting Hours Severity Initially: Severe Severity Currently: Severe Pain Intensity: 9 Pain Scale Used: 0-10 Numeric Location Of Pain: Is Discrete @ - right small finger Aggravating Factor(s): Movement Alleviating Factor(s): Rest Associated Signs And Symptoms: Positive: Swelling - Allergies/Home Medications Allergies/Adverse Reactions: Allergies Allergy/AdvReac Type Severity Reaction Status Date / Time latex Allergy Hives Verified 03/01/19 21:23 levofloxacin Allergy Vomiting Verified 03/01/19 21:23 Penicillins Allergy Hives Verified 03/01/19 21:23 PMH/Surg Hx/FS Hx/Imm Hx Previously Healthy: Yes Other History Of: Negative For: HIV, Hepatitis B, Hepatitis C - Surgical History Surgical History: Yes Surgery Procedure, Year, and Place: ablation 2014-[facility]. LEFT OVARY REMOVED. STENT IN PANCREAS. - Family History Known Family History: Positive: Hypertension, Diabetes, Other - cancer, alzheimers Negative: Cardiac Disease - Social History Alcohol Use: None Substance Use Type: None Smoking Status (MU): Never Smoked Tobacco Have You Smoked in the Last Year: No - Immunization History Most Recent Influenza Vaccination: 11/2016 Review of Systems All Other Systems Reviewed And Are Negative: Yes Musculoskeletal: Positive: Arthralgia, Decreased ROM, Myalgia Neurological: Positive: Negative Is Patient Immunocompromised?: No Physical Exam Triage Information Reviewed: Yes Appearance: Well-Appearing, No Pain Distress, Well-Nourished Vital Signs: Initial Vital Signs Temp 96.9 F 03/01/19 21:24 Pulse 89 03/01/19 21:24 Resp 16 03/01/19 21:24 BP 138/87 03/01/19 21:24 Pulse Ox 100 03/01/19 21:24 Vital Signs Reviewed: Yes Eyes: Positive: Conjunctiva Clear Musculoskeletal: Positive: ROM Intact - INitially painful, however after distaction PROM intact of DIP, PIP, MCP. + ttp over MCP, distal metacarpal, however initially patient stated pain was only at DIP., Strength Limited @ - due to pain in mcp, dip, pip Neurological Exam: Normal Psychological Exam: Normal Skin Exam: Normal Skin: Positive: Other - no open wounds, sores Upper Extremity Course/Dx - Course Course Of Treatment: radiograph- negative, reviewed by Dr. Sanchez. splint placed for comfort, follow up with PCP/ ortho if no improvement - Wear splint at all times until pain resolves - If no improvement within 2-3 days, follow up with orthopedics - Tylenol/ motrin as needed for pain - Differential Dx/Diagnosis Differential Diagnosis/HQI/PQRI: Contusion, Fracture (Closed), Laceration, Strain, Sprain Provider Diagnosis: Contusion, finger Discharge - Sign-Out/Discharge Documenting (check all that apply): Patient Departure All imaging exams completed and their final reports reviewed: Yes - Discharge Plan Condition: Good Disposition: HOME Patient Education Materials: Crush Injury (ED), Contusion in Adults (ED) Referrals: John Rojas MD [Medical Doctor] - Ashley Piper MD [Primary Care Provider] - Additional Instructions: - Wear splint at all times until pain resolves - If no improvement within 2-3 days, follow up with orthopedics - Tylenol/ motrin as needed for pain - Billing Disposition and Condition Condition: GOOD Disposition: Home
== END 2019-03-01 22:47 | disposition home or self-care (01) ==
LOC: UCCORT 20:45
DX: S60.051A Contusion of right little finger without damage to nail, initial encounter (principal); W20.8XXA Other cause of strike by thrown, projected or falling object, initial encounter; Y92.22 Religious institution as the place of occurrence of the external cause; Z88.0 Allergy status to penicillin; Z88.1 Allergy status to other antibiotic agents
CPT/HCPCS: 73140; 99212; A9270-GY; G0463

== ENCOUNTER 2019-08-13 15:58 | Emergency (ER) | payer MEDICAID, OTHER ==
--- NOTE | 2019-08-13 16:20 | UC ---
Respiratory Complaint HPI - HPI Summary HPI Summary: 58 yo female presents with cough. She tells me that for the last 2-3 days she has had an intermittently productive cough. She has been using her inhaler at home with little change in her symptoms. Nothing OTC for her symptoms. Denies fever, chills, sinus symptoms, SOB, chest pain. - History of Current Complaint Stated Complaint: COUGH Time Seen by Provider: 08/13/19 16:19 Hx Obtained From: Patient Hx Last Menstrual Period: UTERINE ABLATION Onset/Duration: Sudden Onset Severity Initially: Mild Severity Currently: Mild Pain Intensity: 3 Pain Scale Used: 0-10 Numeric - 3 - Allergies/Home Medications Allergies/Adverse Reactions: Allergies Allergy/AdvReac Type Severity Reaction Status Date / Time latex Allergy Hives Verified 08/13/19 16:26 levofloxacin Allergy Vomiting Verified 08/13/19 16:26 Penicillins Allergy Hives Verified 08/13/19 16:26 PMH/Surg Hx/FS Hx/Imm Hx Endocrine History: Dyslipidemia Respiratory History: Asthma GI/ History: Gastroesophageal Reflux Other History Of: Negative For: HIV, Hepatitis B, Hepatitis C - Surgical History Surgical History: Yes Surgery Procedure, Year, and Place: ablation 2014-[facility]. LEFT OVARY REMOVED. STENT IN PANCREAS. - Family History Known Family History: Positive: Hypertension, Diabetes, Other - cancer, alzheimers Negative: Cardiac Disease - Social History Lives: With Family Alcohol Use: None Substance Use Type: None Smoking Status (MU): Never Smoked Tobacco Have You Smoked in the Last Year: No - Immunization History Most Recent Influenza Vaccination: 11/2016 Review of Systems All Other Systems Reviewed And Are Negative: No Constitutional: Positive: Negative Skin: Positive: Negative Eyes: Positive: Negative ENT: Positive: Negative Respiratory: Positive: Cough Cardiovascular: Positive: Negative Gastrointestinal: Positive: Negative Neurological: Positive: Negative Psychological: Positive: Negative Physical Exam - Summary Physical Exam Summary: GENERAL: NAD. WDWN. No pain distress. SKIN: No rashes, sores, lesions, or open wounds. HEENT: Head: AT/NC Eyes: EOM intact. Conjunctiva clear without inflammation or discharge. Ears: Hearing grossly normal. TMs intact, no bulging, erythema, or edema. Nose: Nasal mucosa pink and moist. NTTP maxillary and frontal sinus. Throat: Posterior oropharynx without exudates, erythema, or tonsillar enlargement. Uvula midline. NECK: Supple. Nontender. No lymphadenopathy. CHEST: CTAB. No accessory muscle use. Breathing comfortably and in no distress. CV: RRR. Pulses intact. Cap refill <2seconds NEURO: Alert. PSYCH: Age appropriate behavior. Triage Information Reviewed: Yes Vital Signs: Vital Signs: Temp Pulse Resp BP Pulse Ox 99.6 F 85 16 122/67 100 08/13/19 16:20 08/13/19 16:20 08/13/19 16:20 08/13/19 16:20 08/13/19 16:20 Vital Signs Reviewed: Yes Respiratory Course/Dx - Course Course Of Treatment: Exam WNL and afebrile. She does not smoke. Discussed viral vs bacterial causes with the pt and she prefers to be on anbx at this time - Differential Dx/Diagnosis Provider Diagnosis: Cough Discharge ED - Sign-Out/Discharge Documenting (check all that apply): Patient Departure All imaging exams completed and their final reports reviewed: No Studies - Discharge Plan Condition: Stable Disposition: HOME Prescriptions: Azithromycin TAB* [Zithromax TAB (Z-RENATA) 250 mg #6 tabs] 2 tab PO .TODAY, THEN 1 DAILY #1 renata Patient Education Materials: Acute Cough (ED) Referrals: Ashley Piper MD [Primary Care Provider] - Additional Instructions: If you develop a fever, shortness of breath, chest pain, new or worsening symptoms - please call your PCP or go to the ED immediately. - Billing Disposition and Condition Condition: STABLE Disposition: Home
[2019-08-13 16:25] VITALS: BP 122/67
== END 2019-08-13 16:41 | disposition home or self-care (01) ==
LOC: UCCORT 15:58
DX: R05 Cough (principal); Z91.040 Latex allergy status; Z88.0 Allergy status to penicillin; Z88.1 Allergy status to other antibiotic agents; J45.909 Unspecified asthma, uncomplicated
CPT/HCPCS: 99212; G0463

== ENCOUNTER 2019-09-09 14:40 | Emergency (ER) | payer OTHER ==
--- OUTSIDE RECORDS SUMMARY | 2019-09-09 14:49 | XMS REPORT | Continuity of Care Document ---
:1960 External Reference #:[id number] Author Name Dion Nettles MD Address [address] [place] [address] Care Team Providers Name Role Phone Enoc Hirsch NP - Family Care Team Information Coach Driver Ashley Piper MD - Family Care Team Information Coach Driver Medicine Problems Active Problems Provider Date Irritable bowel syndrome La Antoine PA-C Onset: 08/24/2015 Note: colonoscopy to TI Bx Sep 2015 (on Na2SO4); CT a&p, GES, SB series 2010. 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 Onset: 08/24/2015 Note: Barlow Diaz's esophagus La Antoine PA-C Onset: 08/24/2015 Note: high Gastroesophageal reflux disease La Antoine PA-C Onset: 08/24/2015 Note: upper to 70 cm beyond angle of Treitz Bx 2016 Chronic pancreatitis La Antoine PA-C Onset: 08/24/2015 Disorder of pancreas Randall Young MD Onset: 04/23/2017 Digestive symptom Randall Young MD Onset: 04/23/2017 Liver function tests abnormal Randall Young MD Onset: 05/21/2017 Social History Type Date Description Comments Sex Unknown Tobacco Use Start: Unknown Never Smoked Cigarettes ETOH Use Denies alcohol use Recreational Drug Use Denies Drug Use Tobacco Use Start: Unknown Patient has never smoked Smoking Status Reviewed: 09/06/19 Patient has never smoked Exercise Type/Frequency Exercises regularly Allergies, Adverse Reactions, Alerts Active Allergies Reaction Severity Comments Date Penicillin 11/24/2012 Medications Active Medications SIG Qnty Indications Ordering Provider Date Artificial Tears instill 1 drop 15units H04.123 Dion Nettles MD 2018 1.4% in each eye four Solution times a day as needed for dryness Aspir-81 1 by mouth every Unknown 81mg Tablets day DR Omeprazole take 1 capsule Unknown 40mg by mouth once Capsules DR daily if needed Fish Oil 1 po daily Unknown 600mg Capsules Lipitor 1 by mouth every Unknown 40mg Tablets day Medications Administered in Office Medication SIG Qnty Indications Ordering Provider Date Methylprednisolone acetate Opal Lazo, 11/24/2017 (Depomedrol) 80mg injection RPAC Injection Immunizations Description No Information Available Vital Signs Date Vital Result Comment 04/08/2018 1:01pm BP Systolic Sitting Left Arm 110 mmHg BP Diastolic Sitting Left Arm 78 mmHg Heart Rate 67 /min Respiratory Rate 18 /min Height 62 inches 5'2" Weight 145.00 lb BMI (Body Mass Index) 26.5 kg/m2 BSA (Body Surface Area) 1.67 m2 [place] body weight in kilograms 50 kg O2 % BldC Oximetry 98 % Ora 03/19/2018 3:52pm BP Systolic Sitting Left Arm 115 mmHg BP Diastolic Sitting Left Arm 68 mmHg Heart Rate 90 /min Respiratory Rate 18 /min Height 62 inches 5'2" Weight 151.00 lb BMI (Body Mass Index) 27.6 kg/m2 BSA (Body Surface Area) 1.70 m2 [place] body weight in kilograms 50 kg O2 % BldC Oximetry 96 % Results Description No Information Available Procedures Date Code Description Status 09/06/2019 88126 Eye Exam Est Patient Comprehensive Completed 06/29/2019 02400 Eye Exam Est Patient Comprehensive Completed 10/11/2015 38001085 Colonoscopy Completed 04/04/2014 53640125 Colonoscopy Completed 02/26/2010 80023276 Colonoscopy Completed Medical Devices Description No Information Available Encounters Description No Information Available Assessments Date Code Description Provider 09/06/2019 H04.123 Dry eye syndrome of bilateral lacrimal glands Dion Nettles MD 09/06/2019 Z96.1 Presence of intraocular lens Dion Nettles MD 09/06/2019 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, left eye Dion Nettles MD 06/29/2019 H04.123 Dry eye syndrome of bilateral lacrimal glands Dion Nettles MD 06/29/2019 Z96.1 Presence of intraocular lens Dion Nettles MD 06/29/2019 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, left eye Dion Nettles MD Plan of Treatment Future Appointment(s):09/11/2020 2:00 pm - Dion Nettles MD at [facility]/ 23/2019 - Dion Netltes MDH04.123 Dry eye syndrome of bilateral lacrimal glandsComments:- please consider: - warm compresses - artificial tears both eyes - consider ointment at nightFollow up:1 year examZ96.1 Presence of intraocular lensComments:- good result- s/p ce, iol right eye 07/23/2017- provided updated rx from glasses - blur in right eye is due to patient wearing glasses of a script that is prior to cataract [id number] Combined forms of age-related cataract, left eyeComments:- pt doing well; can follow Functional Status Description No Information Available Mental Status Description No Information Available Referrals Description No Information Available
--- OUTSIDE RECORDS SUMMARY | 2019-09-09 14:49 | XMS REPORT | Continuity of Care Document ---
:1960 External Reference #:[id number] Demographics Address [address] [place] [address] Home Phone [phone] Mobile Phone [phone] Preferred Language en Marital Status Not or Jain Affiliation Unknown Race White Ethnic Group Not or Author Name Fortino Watson M.D. (transmitted by agent of provider Awilda Gomez) Address [address] [place] [address] Care Team Providers Name Role Phone Ashley Piper M.D. - Care Team Information See Supervisor Pediatrics Problems Active Problems Provider Date Gastroesophageal reflux disease Annie Manning NP Onset: 05/13/2019 Social History Type Date Description Comments Sex [...] mouth every Unknown 40mg Capsules DR day Immunizations Description No Information Available Vital Signs Date Vital Result Comment 08/25/2019 10:36am Weight 147.00 lb Height 63 inches 5'3" BMI (Body Mass Index) 26.0 kg/m2 BP Systolic 116 mmHg BP Diastolic 73 mmHg Heart Rate 71 /min O2 % BldC Oximetry 98 % Body Temperature 97.5 F Pain Level 0 06/16/2019 1:07pm Weight 144.00 lb Height 63 inches 5'3" BMI (Body Mass Index) 25.5 kg/m2 BP Systolic 105 mmHg BP Diastolic 73 mmHg Heart Rate 93 /min O2 % BldC Oximetry 98 % Body Temperature 97.5 F Pain Level 2 Results Test Acquired Date Facility Test Result H/L Range Note TSH+Free T4 06/16/2019 [facility] TSH 1.04 mcIU/mL Normal 0.34 -5.[address] ([place] [address] Stim Horm) [phone] Free T4 (Free Thyroxine) 1.00 ng/dL Normal 0.61-1.12 2 1 [id number] 2 [id number] Procedures Date Code Description Status 08/25/2019 11332 Fiberoptic Laryngoscopy,Diag. Completed 06/16/2019 76026 Fiberoptic Laryngoscopy,Diag. Completed 05/13/2019 60757 Fiberoptic Laryngoscopy,Diag. Completed Medical Devices Description No Information Available Encounters Type Date Location Provider Dx Diagnosis Office Visit 08/25/2019 Main Office Fortino Watson M.D. K21.9 Gastro- esophageal 11:15a reflux disease without esophagitis E07.9 Disorder of thyroid, unspecified Office Visit 06/16/2019 1:15p Main Office Fortino Watson K21.Danilo Gastro- esophageal reflux M.DRoni disease without esophagitis R07.0 Pain in throat E07.9 Disorder of thyroid, unspecified Office Visit 05/13/2019 8:30a Main Office Annie Stein K21.9 Gastro- esophageal LAYNE Manning reflux disease without esophagitis Assessments Date Code Description Provider 08/25/2019 K21.9 Gastro-esophageal reflux disease without Fortino Watson M.D. esophagitis 08/25/2019 E07.9 Disorder of thyroid, unspecified Fortino Watson M.D. 06/16/2019 K21.Danilo Gastro-esophageal reflux disease without Fortino Watson M.D. esophagitis 06/16/2019 R07.0 Pain in throat Fortino Watson M.D. 06/16/2019 E07.9 Disorder of thyroid, unspecified Fortino Watson M.D. 05/13/2019 K21.9 Gastro-esophageal reflux disease without Annie Manning NP esophagitis Plan of Treatment Future Appointment(s):02/24/2020 2:15 pm - Fortino Watson M.D. at Main Office Functional Status Description No Information Available Mental Status Description No Information Available Referrals Description No Information Available
[2019-09-09 15:18] VITALS: BP 115/78
--- NOTE | 2019-09-09 15:38 | ED ---
Respiratory - HPI Summary HPI Summary: 58 yr old female with the complaint of coughing for four days. The patient states she believes she has pneumonia. The patient has a cough that is non productive. She denies runny nose, post nasal drip. She denies fever and chills. She has no other complaints. - History of Current Complaint Chief Complaint: UCGeneralIllness Stated Complaint: COUGH Time Seen by Provider: 09/09/19 15:28 Pain Intensity: 5 - Allergy/Home Medications Allergies/Adverse Reactions: Allergies Allergy/AdvReac Type Severity Reaction Status Date / Time latex Allergy Hives Verified 09/09/19 15:19 levofloxacin Allergy Vomiting Verified 09/09/19 15:19 Penicillins Allergy Hives Verified 09/09/19 15:19 PMH/Surg Hx/FS Hx/Imm Hx Endocrine/Hematology History: Denies: Hx Diabetes, Hx Thyroid Disease Cardiovascular History: Reports: Hx Hypertension - taken off meds by PCP, Other Cardiovascular Problems/Disorders - dyslipediamia Denies: Hx Congestive Heart Failure, Hx Deep Vein Thrombosis, Hx Myocardial Infarction, Hx Pacemaker/ICD Respiratory History: Reports: Hx Pneumonia Denies: Hx Asthma, Hx Chronic Obstructive Pulmonary Disease (COPD), Hx Lung Cancer, Hx Pulmonary Embolism GI History: Reports: Hx Gastroesophageal Reflux Disease Denies: Hx Gall Bladder Disease, Hx Gastrointestinal Bleed, Hx Ulcer, Hx Urosepsis History: Denies: Hx Kidney Stones, Hx Renal Disease Sensory History: Denies: Hx Hearing Aid Neurological History: Denies: Hx Dementia, Hx Migraine, Hx Seizures, Hx Transient Ischemic Attacks (TIA) Psychiatric History: Denies: Hx Anxiety, Hx Depression, Hx Panic Disorder, Hx Schizophrenia, Hx Bipolar Disorder - Surgical History Surgery Procedure, Year, and Place: ablation 2015-[facility]. LEFT OVARY REMOVED. STENT IN PANCREAS. Infectious Disease History: No Infectious Disease History: Denies: Hx Clostridium Difficile, Hx Hepatitis, Hx Human Immunodeficiency Virus (HIV), Hx of Known/Suspected MRSA, Hx Shingles, Hx Tuberculosis, Hx Known/ Suspected VRE, Hx Known/Suspected VRSA, History Other Infectious Disease, Traveled Outside the [place] in Last 30 Days - Family History Known Family History: Positive: Hypertension, Diabetes, Other - cancer, alzheimers Negative: Cardiac Disease - Social History Occupation: Unemployed Alcohol Use: None Substance Use Type: Reports: None Smoking Status (MU): Never Smoked Tobacco Have You Smoked in the Last Year: No Review of Systems Constitutional: Negative Positive: Cough All Other Systems Reviewed And Are Negative: Yes Physical Exam Triage Information Reviewed: Yes Vital Signs On Initial Exam: Initial Vitals Temp Pulse Resp BP Pulse Ox 99.1 F 81 18 115/78 99 09/09/19 15:13 09/09/19 15:13 09/09/19 15:13 09/09/19 15:13 09/09/19 15:13 Vital Signs Reviewed: Yes Appearance: Positive: Well-Appearing, No Pain Distress Skin: Positive: Warm, Skin Color Reflects Adequate Perfusion Head/Face: Positive: Normal Head/Face Inspection Eyes: Positive: EOMI ENT: Positive: Normal ENT inspection Neck: Positive: Nontender Respiratory/Lung Sounds: Positive: Clear to Auscultation, Breath Sounds Present Cardiovascular: Positive: RRR. Negative: Murmur Abdomen Description: Negative: Distended Musculoskeletal: Negative: Strength/ROM Intact Neurological: Positive: Sensory/Motor Intact, Alert, Oriented to Person Place, Time, CN Intact II-III, Normal Gait, Speech Normal Diagnostics - Vital Signs Vital Signs Temp Pulse Resp BP Pulse Ox 09/09/19 15:13 99.1 F 81 18 115/78 99 - Laboratory Lab Statement: Any lab studies that have been ordered have been reviewed, and results considered in the medical decision making process. - Radiology shania lion chest Radiology Interpretation Completed By: Radiologist - nad Disposition - Course Course Of Treatment: 58 yr old with coughing. DC home. FU with PMD. - Diagnoses Provider Diagnoses: Cough in adult Discharge ED - Sign-Out/Discharge Documenting (check all that apply): Patient Departure All imaging exams completed and their final reports reviewed: Yes - Discharge Plan Condition: Good Disposition: HOME Patient Education Materials: Upper Respiratory Infection (DC) Referrals: Ashley Piper MD [Primary Care Provider] - 3 Days - Billing Disposition and Condition Condition: GOOD Disposition: Home
== END 2019-09-09 16:58 | disposition home or self-care (01) ==
LOC: UCCORT 14:40
DX: R05 Cough (principal); I10 Essential (primary) hypertension; Z91.040 Latex allergy status; Z88.1 Allergy status to other antibiotic agents; Z88.0 Allergy status to penicillin
CPT/HCPCS: 71046; 99211; G0463

== ENCOUNTER 2019-11-24 14:49 | Emergency (ER) | payer MEDICARE, OTHER ==
[2019-11-24 15:53] VITALS: BP 121/79
--- NOTE | 2019-11-24 17:07 | UC ---
Respiratory Complaint HPI - HPI Summary HPI Summary: Pt presents with c/o sudden onset of cough that began last night. Pt denies fever, chill s or SOB. - History of Current Complaint Chief Complaint: UCGeneralIllness Stated Complaint: COUGH,CONGESTION Time Seen by Provider: 11/24/19 16:42 Hx Obtained From: Patient Hx Last Menstrual Period: UTERINE ABLATION ?: No Onset/Duration: Sudden Onset, Lasting Hours Timing: Intermittent Episodes Severity Initially: Mild Severity Currently: None Pain Intensity: 6 Character: Cough: Nonproductive Aggravating Factors: Deep Breaths, Recumbent Position Alleviating Factors: Nothing Associated Signs And Symptoms: Positive: Negative - Risk Factors Pulmonary Embolism Risk Factors: Negative Cardiac Risk Factors: Negative Pseudomonas Risk Factors: Negative Tuberculosis Risk Factors: Negative - Allergies/Home Medications Allergies/Adverse Reactions: Allergies Allergy/AdvReac Type Severity Reaction Status Date / Time latex Allergy Hives Verified 11/24/19 15:54 levofloxacin Allergy Vomiting Verified 11/24/19 15:54 Penicillins Allergy Hives Verified 11/24/19 15:54 Home Medications: Home Medications Aspirin [Aspirin Adult Low Dose 81 MG] 81 mg PO DAILY 10/05/15 [History Confirmed 11/24/19] Atorvastatin* [Lipitor 40 MG*] 1 tab PO QPM 01/02/17 [History Confirmed 11/24/19 ] Omeprazole 20 mg PO DAILY PRN 02/15/19 [History Confirmed 11/24/19] PMH/Surg Hx/FS Hx/Imm Hx Previously Healthy: Yes Other History Of: Negative For: HIV, Hepatitis B, Hepatitis C - Surgical History Surgical History: Yes Surgery Procedure, Year, and Place: ablation 2014-[facility]. LEFT OVARY REMOVED. STENT IN PANCREAS. - Family History Known Family History: Positive: Hypertension, Diabetes, Other - cancer, alzheimers Negative: Cardiac Disease - Social History Occupation: Unemployed, Disabled Lives: With Family Alcohol Use: None Substance Use Type: None Smoking Status (MU): Never Smoked Tobacco Have You Smoked in the Last Year: No - Immunization History Most Recent Influenza Vaccination: 11/2016 Review of Systems All Other Systems Reviewed And Are Negative: Yes Constitutional: Positive: Negative Skin: Positive: Negative Eyes: Positive: Negative ENT: Positive: Negative Respiratory: Positive: Cough Cardiovascular: Positive: Negative Gastrointestinal: Positive: Negative Genitourinary: Positive: Negative Motor: Positive: Negative Neurovascular: Positive: Negative Musculoskeletal: Positive: Negative Neurological/Mental Status: Positive: Negative Psychological: Positive: Negative Is Patient Immunocompromised?: No Physical Exam Triage Information Reviewed: Yes Appearance: Well-Appearing Vital Signs: Initial Vital Signs Temp 98.9 F 11/24/19 15:50 Pulse 84 11/24/19 15:50 Resp 16 11/24/19 15:50 BP 121/79 11/24/19 15:50 Pulse Ox 100 11/24/19 15:50 Vital Signs Reviewed: Yes Eye Exam: Normal ENT Exam: Normal Dental Exam: Normal Neck exam: Normal Respiratory Exam: Normal Cardiovascular Exam: Normal Musculoskeletal Exam: Normal Neurological Exam: Normal Psychological Exam: Normal Skin Exam: Normal Respiratory Course/Dx - Differential Dx/Diagnosis Differential Diagnosis/HQI/PQRI: Bronchitis, Exacerbation Of COPD, Influenza Provider Diagnosis: Cough Discharge ED - Sign-Out/Discharge Documenting (check all that apply): Patient Departure All imaging exams completed and their final reports reviewed: No Studies - Discharge Plan Condition: Stable Disposition: HOME Patient Education Materials: Acute Cough (ED) Referrals: Ashley Piper MD [Primary Care Provider] - If Needed - Billing Disposition and Condition Condition: STABLE Disposition: Home
== END 2019-11-24 17:12 | disposition home or self-care (01) ==
LOC: UCCORT 14:49
DX: R05 Cough (principal); Z88.0 Allergy status to penicillin; Z88.1 Allergy status to other antibiotic agents; Z91.040 Latex allergy status; Z79.82 Long term (current) use of aspirin
CPT/HCPCS: 99211; G0463

== ENCOUNTER 2019-12-01 13:03 | Emergency (ER) | payer MEDICARE ==
--- OUTSIDE RECORDS SUMMARY | 2019-12-01 13:12 | XMS REPORT ---
:1960 Demographics Address 6 09/16 [place] [address] Email Address Preferred Language Arabic Marital Status Not or Uatsdin Affiliation Unknown Race White Ethnic Group Not or Author Organization [facility] Address [address] [place] [address] Support Name Relationship Address Phone Ashley Whitmore Unavailable 6 09/16 [facility] [phone] [place] [address] Care Team Providers Name Role Phone Annie Mark Unavailable Unavailable PROBLEMS Type Condition ICD9-CM Code [id number] Onset Condition SNOMED Code Code Dates Status Problem Postmenopausal N95.2 Active 37472308 atrophic vaginitis Problem Candidiasis of skin B37.2 Active 495140697 and nail Problem Mastodynia N64.4 Active 90366932 Problem Other specified N94.89 Active 620500959 conditions associated with female genital organs and menstrual cycle Problem Pelvic and perineal R10.2 Active 034833161 pain Problem Other acute K85.80 Active 248986798 pancreatitis without necrosis or infection Problem Dysuria R30.0 Active 68767394 Problem Unspecified K64.9 Active 56114690 hemorrhoids Problem Anal spasm K59.4 Active 46229100 ALLERGIES Substance Reaction Event Type Date Status penicillin hives Drug Allergy Sep, Active Pneumovax 23 swelling, itching, hives Drug Allergy Sep, Active ENCOUNTERS Encounter Location Date Diagnosis [facility] Apr, [place] [id number] [facility] 103 Nov, [place], [place] [id number] [facility] 103 Sep, Pelvic and perineal pain OBGYN [facility] R10.2 [place], [place] [id number] [facility] 103 Sep, Pelvic and perineal pain OBGYN [place] 870540.[address] [place], [place] [id number] [facility] 103 Sep, Pelvic and perineal pain OBGYN [facility] R10.2 and Anal spasm K59.4 [place], [place] [id number] [facility] 103 Aug, [place], [place] [id number] [facility] 103 Jul, Mastodynia N64.4 [place] [id number] [facility] 103 Jul, Mastodynia N64.4 [place] [id number] [facility] 103 Jun, Unspecified hemorrhoids OBGYN [facility] K64.9 and Dysuria R30.0 [place], [place] [id number] [facility] 103 Apr, [place] [id number] [facility] 103 Apr, Encounter for gynecological OBGYN [facility] examination (general) [place], [place] [id number] (routine) without abnormal findings Z01.419 ; Encounter for screening mammogram for malignant neoplasm of breast Z12.31 ; Encounter for screening for malignant neoplasm of colon Z12.11 and Dysuria R30.0 [facility] 103 Mar, Other signs and symptoms in OBGYN [facility] breast N64.59 and [place], [place] [id number] Candidiasis of skin and nail B37.2 [facility] 103 Dec, Mastodynia N64.4 [place], [place] [id number] [facility] 103 Nov, [place] [id number] [facility] 103 Nov, [place] [id number] [facility] 103 Nov, Other signs and symptoms in OBGYN [address] breast N64.59 [place], [place] [id number] [facility] 103 14 Nov, 2018 Mastodynia N64.4 and OBGYN [facility] Candidiasis of skin and [place], [place] [id number] nail B37.2 [facility] 103 Oct, [facility] K64.9 [place], [place] [id number] [facility] 103 Oct, Unspecified hemorrhoids [facility] K64.9 [place], [place] [id number] [facility] 103 Sep, Encounter for screening [facility] mammogram for malignant [place], [place] [id number] neoplasm of breast Z12.31 and Candidiasis of skin and nail B37.2 [facility] 103 Sep, [facility]idiasis of [facility] nail B37.2 [place], [place] [id number] [facility] 103 Jul, Dysuria R30.0 [place], [place] [id number] [facility] 103 Jul, Candidiasis of skin and [facility] nail B37.2 [place], [place] [id number] [facility] 103 May, [place] [id number] [facility] 103 May, Candidiasis of skin and [facility] nail B37.2 [place], [place] [id number] [facility] 103 May, [place] [id number] [facility] 103 Apr, Candidiasis of skin and [facility] nail B37.2 [place], [place] [id number] [facility] 103 Apr, Rash and other nonspecific [facility] skin eruption R21 [place], [place] [id number] [facility] 103 Apr, [place], [place] [id number] [facility] 103 Apr, [place], [place] [id number] [facility] 103 Apr, Encounter for gynecological OBGYN [facility] examination (general) [place], [place] [id number] (routine) without abnormal findings Z01.419 ; Encounter for screening for malignant neoplasm of cervix Z12.4 ; Encounter for screening for malignant neoplasm of colon Z12.11 ; Encounter for screening mammogram for malignant neoplasm of breast Z12.31 ; Postmenopausal atrophic vaginitis N95.2 and Dysuria R30.0 [facility] 103 Feb, Postmenopausal atrophic OBGYN [facility] vaginitis N95.2 [place], [place] [id number] [facility] 103 Feb, Pelvic and perineal pain OBGYN [facility] R10.2 and Dysuria R30.0 [place], [place] [id number] [facility] 103 Feb, Pelvic and perineal pain OBGYN [facility] R10.2 ; Dysuria R30.0 and [place], [place] [id number] Postmenopausal atrophic vaginitis N95.2 [facility] 103 Feb, Pelvic and perineal pain OBGYN [facility] R10.2 [place], [place] [id number] [facility] 103 January, Rash and other nonspecific OBGYN [facility] skin eruption R21 [place], [place] [id number] [facility] 103 January, [place], [place] [id number] [facility] 103 January, [place], [place] [id number] [facility] 103 04 May, 2018 Dysuria R30.0 ; Pelvic and OBGYN [facility] perineal pain R10.2 ; [place], [place] [id number] Mastodynia N64.4 and Other specified noninflammatory disorders of vagina N89.8 [facility] 103 Dec, Candidiasis, unspecified OBGYN [facility] B37.9 [place], [place] [id number] [facility] 103 Dec, Candidiasis, unspecified OBGYN [facility] B37.9 [place], [place] [id number] [facility] 103 Dec, Candidiasis, unspecified OBGYN [place] 120907.[address] [place] [id number] [facility] 103 Jun, Postmenopausal bleeding [address] [id number] [facility] 103 Jun, [place] [id number] [facility] 103 Jun, [place] [id number] [facility] Jun, [place] [id number] [facility] 103 Jun, Postmenopausal bleeding [address] [id number] [facility] 103 Jun, [place] [id number] [facility] 103 Jun, Postmenopausal bleeding [address] [id number] [facility] 103 Jun, Postmenopausal bleeding [address] [id number] [facility] 103 Jun, [place] [id number] [facility] 103 Jun, [place], [place] [id number] [facility] 103 Apr, Encounter for gynecological OBGYN [facility] examination (general) [place], [place] [id number] (routine) with abnormal findings Z01.411 ; Dysuria R30.0 ; Encounter for screening mammogram for malignant neoplasm of breast Z12.31 and Encounter for screening for malignant neoplasm of colon Z12.11 [facility] 103 Mar, [place], [place] 140226921 [facility] 103 Mar, [place], [place] [id number] [facility] 103 Mar, [place] 577351708 [facility] 103 Mar, Candidiasis of skin and OBGYN [facility] nail B37.2 [place], [place] [id number] [facility] 103 January, Mastodynia N64.4 [place] [id number] [facility] 103 Dec, Pelvic and perineal pain OBGYN [facility] R10.2 and Dysuria R30.0 [place], [place] [id number] [facility] 103 Dec, PELVIC PAIN 625.9 [place]BGYN [place], [place] [id number] [facility] 103 Dec, Pelvic and perineal pain OBGYN [facility] R10.2 [place], [place] [id number] [facility] 103 Nov, Idiopathic urticaria L50.1 OBGYN [facility] and Mastodynia N64.4 [place], [place] [id number] [facility] 103 Oct, Generalized abdominal pain OBGYN [facility] R10.84 and Mastodynia N64.4 [place], [place] [id number] [facility] 103 Sep, Dermatitis, unspecified OBGYN [facility] L30.9 [place], [place] [id number] [facility] 103 Sep, Pelvic and perineal pain OBGYN [facility] R10.2 [place], [place] [id number] [facility] 103 Sep, Postmenopausal bleeding OBGYN [facility] N95.0 [place], [place] [id number] [place] [address] Sep, [place] [id number] [facility] 103 Sep, [place] [id number] [facility] 103 Sep, [place] [id number] [facility] 103 Sep, Postmenopausal bleeding OBGYN [facility] N95.0 [place], [place] [id number] [facility] 103 Aug, Postmenopausal bleeding OBGYN [facility] N95.0 [place], [place] [id number] [facility] 103 Aug, Postmenopausal bleeding OBGYN [facility] N95.0 and Pelvic and [place] [id number] perineal pain R10.2 [facility] 103 Jul, [place] [id number] [facility] 103 Jul, Postmenopausal bleeding OBGYN [facility] N95.0 and Pelvic and [place], [place] [id number] perineal pain R10.2 [facility] 103 Jul, [place] [id number] [facility] 103 Jul, Mastodynia N64.4 ; OBGYN [facility] Postmenopausal bleeding [place], [place] [id number] N95.0 and Pelvic and perineal pain R10.2 [facility] 103 Jul, [place] [id number] [facility] 103 Jun, Mastodynia N64.4 [place] [id number] [facility] 103 Jun, [place], [place] [id number] [facility] 103 May, Mastodynia N64.4 [place]YN [place] [id number] [facility] 103 Apr, Encounter for gynecological OBGYN [facility] examination (general) [place], [place] [id number] (routine) without abnormal findings Z01.419 ; Encounter for screening mammogram for malignant neoplasm of breast Z12.31 and Encounter for screening for malignant neoplasm of colon Z12.11 [facility] 103 Mar, Disorder of the skin and OBGYN [facility] subcutaneous tissue, [place], [place] [id number] unspecified L98.9 [facility] 103 January, Mastodynia N64.4 [place], [place] [id number] [facility] 103 January, [place] [id number] [facility] 103 Dec, Other pruritus L29.8 [place] [id number] [facility] 103 Dec, Dysuria R30.0 ; Pelvic and OBGYN [facility] perineal pain R10.2 and [place], [place] [id number] Postmenopausal bleeding N95.0 [facility] 103 Dec, Pelvic and perineal pain OBGYN [facility] R10.2 [place], [place] [id number] [facility] 103 Dec, Pelvic and perineal pain OBGYN [facility] R10.2 [place], [place] [id number] [facility] 103 Dec, Dysuria R30.0 [place] [id number] [facility] 103 Dec, Postmenopausal bleeding OBGYN [place] [address] and Dysuria R30.0 [place], [place] 179761907 [facility] 103 Nov, Postmenopausal bleeding OBGYN [address] [id number] [facility] 103 Nov, Postmenopausal bleeding OBGYN [address] [id number] [facility] 103 Nov, O[place] [id number] [facility] 103 Nov, Mastodynia N64.4 [place], [place] [id number] [facility] 103 Aug, [place] [id number] [facility] 103 Aug, [place] [id number] [facility] 103 Aug, Postmenopausal bleeding OBGYN [address] [id number] [facility] 103 Aug, Dysuria R30.0 and OBGYN [facility] Postmenopausal bleeding [place] 710147245 [address] [place] [address] [facility] Jun, Postmenopausal bleeding OBGYN [address] [id number] [facility] 103 Jun, Postmenopausal bleeding OBGYN [address] [id number] [facility] 103 Jun, [place] [id number] [facility] 103 Jun, [place] [id number] [facility] 103 Jun, Postmenopausal bleeding OBGYN [facility] N95.0 and Dysuria R30.0 [place], [place] [id number] [facility] 103 May, Postmenopausal bleeding OBGYN [facility] 627.1 [place], [place] [id number] [facility] 103 May, Postmenopausal bleeding OBGYN [facility] 627.1 [place], [place] [id number] [facility] 103 May, Urinary frequency 788.41 ; OBGYN [facility] Postmenopausal bleeding [place], [place] [id number] 627.1 and Atrophic vulvovaginitis 627.3 [facility] 103 Mar, Mastalgia 611.71 [place] [id number] [facility] Feb, Mastalgia 611.71 [place] [id number] [facility] 103 Feb, BREAST DISORDER NOS 611.9 [place] 147953539 [facility] January, [place] [id number] [facility] 103 Dec, DERMATITIS NOS 692.9 [place] [id number] [facility] 103 Dec, [facility] 627.1 [place], [place] 231682583 [facility] 103 Dec, [place] [id number] [facility] Dec, [place] [id number] [place] [address] Dec, [place] [id number] [facility] 103 Nov, Postmenopausal bleeding OBN [address] [id number] [facility] 103 Nov, [place] [id number] [facility] Nov, [place], [place] [id number] [facility] [address] Nov, [place], [place] 179781568 [facility] 103 Nov, [place] [id number] [facility] 103 Oct, Postmenopausal bleeding OBN [address] [id number] [facility] 103 Oct, [place] [id number] [facility] 103 Oct, [place] [id number] [facility] 103 Oct, [place], [place] [id number] [facility] 103 Oct, [place] 734229688 [facility] 103 Oct, Postmenopausal bleeding OBN [address] [id number] [facility] 103 Oct, OBG[place], [place] [id number] [facility] 103 Oct, Postmenopausal bleeding OBN [address] [id number] [facility] 103 Oct, Dysuria 788.1 and OBGYN [facility] Postmenopausal bleeding [place], [place] 308977894 [address] [place] [address] [facility] Jul, Dysuria 788.1 [place], [place] 350606700 [facility] 103 Jun, Atopic dermatitis 691.8 [place]YN [place], [place] [id number] [facility] 103 May, [place] 448447617 [facility] 103 May, [place] [id number] [facility] 103 Apr, ROUTINE INHALATION THERAPY AIDE EXAMINATION OBGYN [facility] V72.31 ; SCREEN MALIG [place], [place] [id number] NEOP-COLON V76.51 ; SCREEN MAMMOGRAM NEC V76.12 and Urinary tract infection NOS 599.0 [facility] 103 Apr, Breast Mass 611.72 [place], [place] [id number] [facility] Apr, Dysuria 788.1 [place] [id number] [facility] 103 Dec, [place] [id number] [facility] 103 Dec, Hematuria, microscopic OBGYN [facility] 599.72 and Dysuria 788.1 [place], [place] [id number] [facility] Dec, [place] [id number] [facility] 103 Nov, Atopic dermatitis 691.8 [place], [place] [id number] [facility] Aug, [place] [id number] [facility] Aug, [place] [id number] [facility] Aug, [place] [id number] [facility] Aug, Atopic dermatitis 691.8 [place] [id number] [facility] Aug, [place] 680256961 [facility] Aug, [place] [id number] [facility] Aug, [place] [id number] [facility] Aug, [place] [id number] [facility] Jul, Atopic eczema 691.8 and [facility] BREAST DISORDER NOS 611.9 [place], [place] [id number] [facility] Jul, [place] [id number] [facility] Jul, Atopic eczema 691.8 and [facility] BREAST DISORDER NOS 611.9 [place], [place] [id number] [facility] Jul, [place] 743576201 [facility] Jul, HEMATURIA NOS 599.70 [place] [id number] [facility] May, [place] [id number] [facility] 103 Apr, GYNECOLOGIC EXAMINATION [facility] V72.31 ; PAP SMEAR W/O INHALATION THERAPY AIDE [place], [place] [id number] EXAM V76.2 ; SCREEN MALIG NEOP-COLON V76.51 and SCREEN MAMMOGRAM NEC V76.12 [facility] Apr, [place], [place] [id number] [facility] 103 Apr, PELVIC PAIN 625.9 [place], [place] 708283615 [facility] 103 Apr, Menometrorrhagia 626.2 ; OBGYN [facility] Dysuria 788.1 and PELVIC [place], [place] [id number] PAIN 625.9 [facility] 103 Mar, OBG[place], [place] [id number] [facility] 103 Mar, O[place], [place] [id number] [facility] 103 Mar, Hematuria, microscopic OBGYN [facility] 599.72 [place], [place] [id number] [facility] 103 Feb, [place] [id number] [facility] 103 Feb, [place] [id number] [facility] Feb, [place], [place] 105285785 [facility] 103 Feb, Menometrorrhagia 626.2 [place]YN [place], [place] [id number] [facility] January, [place] [id number] [facility] January, [address]rorrhagia [address] [place], [place] [id number] [facility] January, [place] [id number] [facility] January, [place] [id number] [facility] January, Menometrorrhagia 626.2 [place], [place] [id number] [facility] [address] 23 Dec, 2012 Medical [place], [place] [id number] [facility] 103 Dec, Menometrorrhagia 626.2 and OBGYN [facility] IUD SURVEILLANCE V25.42 [place], [place] 488185513 [facility] 103 16 Dec, 2012 OBG[place] [id number] [facility] 103 Dec, [place] [id number] [facility] Nov, [place], [place] [id number] [facility] [address] [place] [address] Nov, [address] [place], [place] [id number] [facility] 103 Nov, Menometrorrhagia 626.2 O[place]YN [place], [place] [id number] [facility] 103 Nov, Menometrorrhagia 626.2 [place], [place] [id number] [facility] 103 Nov, Menometrorrhagia 626.2 ; [facility] IUD SURVEILLANCE V25.42 and [place], [place] [id number] Endometrial polyp 621.0 [facility] 103 Nov, Menometrorrhagia 626.2 O[place]YN [place], [place] [id number] [facility] Oct, [place] 532008665 [facility] Sep, [place] 425541789 [facility] 103 Sep, [place] 900179963 [facility] 103 Sep, [place], [place] [id number] [facility] Sep, [place] [id number] [facility] 103 Sep, PELVIC PAIN 625.9 ; OBGYN [facility] HEMATURIA NOS 599.70 and [place], [place] [id number] Abdominal pain, right upper quadrant 789.01 [facility] 103 Sep, PELVIC PAIN 625.9 and IUD OBGYN [facility] SURVEILLANCE [address] [place] [address] [id number] [facility] Sep, PELVIC PAIN 625.9 [place], [place] [id number] [facility] Aug, [place] 578759712 [facility] Jul, Irregular bleeding NOS [address]YN [address] [place], 626.4 ; Hydrosalpinx 614.1 [place] [id number] and PELVIC PAIN 625.9 [facility] 103 Jul, Hydrosalpinx 614.1 and IUD OBGYN [facility] V25.[address] [place] [address] [id number] [facility] Jun, [place] [id number] [facility] Jun, Irregular bleeding NOS OBGYN [facility] 626.4 and Hydrosalpinx [place], [place] 928161341 614.1 [facility] 103 May, OBGYN [place], [place] [id number] [facility] May, Irregular bleeding NOS OBGYN [facility] 626.4 [place], [place] [id number] [facility] May, Irregular bleeding NOS OBGYN [facility] 626.4 [place], [place] [id number] [facility] May, Irregular bleeding N[facility] 626.4 and Menorrhagia 626.2 [place], [place] [id number] [facility] May, Irregular bleeding NOS [facility] 626.4 and PELVIC PAIN 625.9 [place], [place] [id number] [facility] May, PELVIC PAIN 625.9 ; [facility] Center Irregular bleeding NOS [place], [place] [id number] 626.4 and IUD SURVEILLANCE V25.42 [facility] 103 Apr, [facility] 626.4 and PELVIC PAIN 625.9 [place], [place] [id number] [facility] 103 Feb, [place] [id number] [facility] Feb, [facility] 626.4 ; PELVIC PAIN 625.9 [place], [place] [id number] and Abdominal pain, epigastric 789.06 [facility] Nov, Vitamin D deficiency [facility] 268.9 [place], [place] [id number] [facility] 103 Nov, [place] [id number] [facility] 103 Nov, Irregular bleeding [facility] 626.4 and IUD SURVEILLANCE [place], [place] [id number] V25.42 [facility] 103 Nov, ROUTINE INHALATION THERAPY AIDE EXAMINATION [facility] V72.31 ; Irregular bleeding [place], [place] [id number] NOS 626.4 ; PAP SMEAR W/O INHALATION THERAPY AIDE EXAM V76.2 ; IUD SURVEILLANCE V25.42 and SCREEN MALIG NEOP-COLON V76.51 [facility] Nov, [place] [id number] [facility] 103 Nov, Irregular bleeding NOS OBGYN [facility] 626.4 and IUD SURVEILLANCE [place], [place] [id number] V25.42 [facility] 103 Nov, [place], [place] [id number] [facility] 103 Oct, Irregular bleeding NOS OBGYN [facility] 626.4 [place], [place] [id number] [facility] 103 Oct, [place] [id number] [facility] 103 Sep, [place] [id number] [facility] 103 Sep, GENITAL HERPES NOS 054.10 [place] [id number] [facility] 103 Sep, [place] [id number] [facility] 103 Sep, [place] [id number] [facility] 103 Sep, Gross hematuria 599.71 [place] [id number] [facility] 103 Aug, [place] [id number] [facility] 103 Aug, HEMATURIA NOS 599.70 [place], [place] [id number] [facility] 103 Aug, Abdominal pain, generalized OBGYN [facility] 789.07 ; Irregular bleeding [place], [place] [id number] NOS 626.4 and Dysuria 788.1 [facility] 103 Aug, PELVIC PAIN 625.9 and IUD OBGYN [facility] SURVEILLANCE V25.42 [place], [place] [id number] [facility] 103 07 Jul, 2011 Abdominal pain, generalized OBGYN [facility] 789.07 and Irregular [place], [place] [id number] bleeding NOS 626.4 [facility] 103 Jul, [place], [place] [id number] [facility] 103 Jun, Abdominal pain, generalized OBGYN [facility] 789.07 and Irregular [place], [place] [id number] bleeding NOS 626.4 [facility] 103 May, Abdominal pain, right lower OBGYN [facility] quadrant 789.03 and [place], [place] [id number] Irregular bleeding NOS 626.4 [facility] 103 Apr, [place]BG[place] [id number] [facility] 103 Apr, IUD SURVEILLANCE V25.42 [place]BGYN [place], [place] [id number] [facility] 103 Mar, INSERTION OF IUD V25.11 [place]BG[place], [place] [id number] [facility] 103 Feb, [place] [id number] [facility] 103 Feb, [place], [place] [id number] [facility] 103 Feb, Menorrhagia 626.2 ; Ovarian OBGYN [facility] cyst NOS 620.2 and [place], [place] [id number] Dysmenorrhea 625.3 [facility] 103 Feb, [place]BG[place], [place] [id number] [place] [address] Feb, Medical [place], [place] [id number] [facility] 103 13 Feb, 2011 Menorrhagia 626.2 ; Ovarian OBGYN [facility] cyst NOS 620.2 and [place], [place] [id number] Dysmenorrhea 625.3 [facility] 103 January, OBG[place], [place] [id number] [facility] 103 January, Menorrhagia 626.2 ; Ovarian OBGYN [facility] cyst NOS 620.2 and [place], [place] [id number] Dysmenorrhea 625.3 [facility] 103 January, Ovarian cyst NOS 620.2 ; OBGYN [facility] Menorrhagia 626.2 and [place], [place] [id number] Dysmenorrhea 625.3 [facility] 103 Nov, [place], [place] [id number] [place] [facility] 103 Nov, ROUTINE INHALATION THERAPY AIDE EXAMINATION OBGYN [facility] V72.31 and PAP SMEAR W/O [place], [place] [id number] INHALATION THERAPY AIDE EXAM V76.2 [place] [facility] 103 Nov, [place], [place] [id number] [facility] 103 Nov, Menorrhagia 626.2 and OBGYN [facility] Ovarian cyst NOS 620.2 [place], [place] [id number] [facility] 103 Nov, Menorrhagia 626.2 [place], [place] [id number] [facility] 103 Nov, Menorrhagia 626.2 [place], [place] [id number] [facility] 103 Nov, Menorrhagia 626.2 and OBGYN [facility] Ovarian cyst NOS 620.2 [place], [place] [id number] [facility] 103 Oct, [place] [id number] [facility] 103 Oct, [place] [id number] [facility] 103 14 Oct, 2010 Menorrhagia 626.2 O[place], [place] [id number] [facility] 103 Feb, ROUTINE INHALATION THERAPY AIDE EXAMINATION [facility] V72.31 [place] [id number] [facility] 103 May, PELVIC PAIN 625.9 OBGYN [place], [place] [id number] [facility] 103 May, PELVIC PAIN 625.9 [place] [id number] [facility] 103 May, PELVIC PAIN 625.9 [place] [id number] [facility] 103 Apr, OBG[place], [place] [id number] [facility] 103 Apr, Dysuria 788.1 and [facility] NOS 599.70 [place] [id number] [facility] 103 Apr, PELVIC PAIN 625.9 [place] [id number] [facility] 103 Mar, [place], [place] [id number] [facility] 103 Mar, Ovarian cyst NOS 620.2 and OBGYN [facility] PELVIC PAIN 625.9 [place], [place] [id number] [facility] 103 Mar, Ovarian cyst NOS 620.2 and OBGYN [facility] PELVIC PAIN 625.9 [place], [place] [id number] [facility] 103 Feb, [place], [place] [id number] [facility] 103 Feb, Ovarian cyst NOS 620.2 and OBGYN [facility] PELVIC PAIN 625.9 [place], [place] [id number] [facility] 103 15 Feb, 2009 Ovarian cyst NOS 620.2 and OBGYN [facility] PELVIC PAIN 625.9 [place], [place] [id number] [facility] 103 15 Feb, 2009 PELVIC PAIN 625.9 and OBGYN [facility] Ovarian cyst NOS 620.2 [place], [place] [id number] [facility] 103 12 Feb, 2009 ROUTINE INHALATION THERAPY AIDE EXAMINATION [facility] V72.31 [place], [place] [id number] [facility] 11 Feb, 2009 PELVIC PAIN 625.9 and OBGYN [facility] Ovarian cyst NOS 620.2 [place], [place] [id number] [facility] 103 09 Feb, 2009 PELVIC PAIN 625.9 and OBGYN [facility] Ovarian cyst NOS 620.2 [place], [place] [id number] [facility] 103 Feb, Menorrhagia 626.2 and OBGYN [facility] PELVIC PAIN 625.9 [place], [place] [id number] [facility] 103 January, [place] [id number] [facility] 103 January, Menorrhagia 626.2 and OBGYN [facility] Irregular bleeding NOS [place], [place] [id number] 626.4 [facility] 103 January, Menorrhagia 626.2 [place], [place] [id number] [facility] 103 Nov, [place], [place] [id number] [facility] 103 Nov, Menorrhagia 626.2 [place], [place] [id number] [facility] 103 Jun, [place], [place] [id number] [facility] 103 Jun, Menorrhagia 626.2 [place], [place] [id number] [facility] 103 Jun, Menorrhagia 626.2 O[place], [place] [id number] [facility] 103 May, [place], [place] [id number] [facility] 103 May, Menorrhagia 626.2 and OBGYN [facility] PELVIC PAIN 625.9 [place], [place] [id number] [facility] 103 May, Ovarian cyst NOS 620.2 O[place]YN [place], [place] [id number] [facility] 103 May, Ovarian cyst NOS 620.2 and OBGYN [facility] PELVIC PAIN 625.9 [place], [place] [id number] [facility] 103 May, [place], [place] [id number] [facility] 103 Apr, Cervical polyp 622.7 O[place], [place] [id number] [facility] 103 Sep, [place] [id number] [facility] 103 Sep, [place], [place] [id number] [facility] 103 Sep, [place], [place] [id number] [facility] 103 Sep, Menorrhagia 626.2 O[place], [place] [id number] [facility] 103 Aug, [place], [place] [id number] [facility] 103 Aug, Menorrhagia 626.2 [place], [place] [id number] [facility] 103 Jun, [place], [place] [id number] [facility] 103 Jun, [place], [place] [id number] [facility] 103 Jun, [place] [id number] [facility] 103 Jun, Menorrhagia 626.2 [place], [place] [id number] [facility] 103 May, Menorrhagia 626.2 [place], [place] [id number] [facility] 103 May, Menorrhagia 626.2 [place], [place] [id number] [facility] 103 Apr, PELVIC PAIN 625.9 [place], [place] [id number] [facility] 103 Apr, PELVIC PAIN 625.9 O[place]YN [place], [place] [id number] [facility] 103 Apr, [place], [place] [id number] [facility] 103 Apr, ROUTINE INHALATION THERAPY AIDE EXAMINATION OBGYN [facility] V72.31 ; Dysuria 788.1 ; [place] [id number] P[facility]IC PAIN 625.9 and Hemorrhoids NOS 455.6 [facility] 103 Mar, Ovarian cyst NOS 620.2 O[place] [id number] [facility] 103 Mar, [place], [place] [id number] [facility] 103 Mar, Ovarian cyst NOS 620.2 [place], [place] [id number] [facility] 11 Feb, 2007 OBG[place], [place] [id number] [facility] 103 January, Menorrhagia 626.2 ; Ovarian OBGYN [facility] cyst NOS 620.2 and PELVIC [place] [id number] PAIN 625.9 [facility] 103 January, Menorrhagia 626.2 ; Ovarian OBGYN [facility] cyst NOS 620.2 and PELVIC [place], [place] [id number] PAIN 625.9 [facility] 103 January, Ovarian cyst NOS 620.2 ; OBGYN [facility] PELVIC PAIN 625.9 and [place], [place] [id number] Irregular bleeding NOS 626.4 [facility] 103 January, Ovarian cyst NOS 620.2 and OBGYN [facility] PELVIC PAIN 625.9 [place], [place] [id number] [facility] 103 Aug, [place] [id number] [facility] 103 Aug, [place], [place] [id number] [facility] 103 Aug, [place], [place] [id number] [facility] 103 Aug, Menorrhagia 626.2 ; OBGYN [facility] Follicular cyst of ovary [place], [place] [id number] 620.0 and Dysmenorrhea 625.3 [facility] 103 Jun, Menorrhagia 626.2 and OBGYN [facility] Ovarian cyst NOS 620.2 [place], [place] [id number] [facility] 103 Feb, Candidal vulvovaginitis OBGYN [facility] 112.1 [place], [place] [id number] [facility] 103 Dec, [place], [place] [id number] [facility] 103 Oct, Mastalgia 611.71 [place], [place] [id number] [facility] 103 Oct, Follicular cyst of ovary OBGYN [facility] 620.0 [place], [place] [id number] [facility] 103 Sep, Follicular cyst of ovary OBGYN [facility] 620.0 and Dysmenorrhea [place], [place] [id number] 625.3 UNKNOWN Aug, [facility] [facility] 103 Aug, Follicular cyst of ovary OBGYN [facility] 620.0 and Dysmenorrhea [place], [place] [id number] 625.3 UNKNOWN Aug, [facility] 103 Aug, Menorrhagia 626.2 [place] [id number] [place] [facility] 103 Aug, [place], [place] [id number] [facility] 103 Aug, PREMENOPAUSE [facility]RHAGIA [facility] 627.0 and Menorrhagia 626.2 [place], [place] [id number] UNKNOWN Jul, [facility] [facility] 103 Jul, Abrasion or friction burn [facility] of vagina without infection [place], [place] [id number] 911.0 IMMUNIZATIONS No Known Immunizations SOCIAL HISTORY Never Assessed REASON FOR REFERRAL FUNCTIONAL STATUS PLAN OF CARE Activity Details Follow Up PT referral done ([facility], Liliana was to call & let her know, f/u on PT 6 wk Reason: VITAL SIGNS Height 62 in 2019-10-14 Weight 148 lbs 2019-10-14 BMI 27.07 kg/m2 2019-10-14 Blood pressure systolic 110 mm Hg 2019-10-14 Blood pressure diastolic 80 mm Hg 2019-10-14 MEDICATIONS Medication Instructions Dosage Frequency Start End Date Duration Status Date naproxen 500 mg orally QD 1 tab(s) 24h Active omeprazole 20 mg orally once a 1 cap(s) 24h Active day Proctocort 1% applied 1 valente 8h 07 Oct, 10 days Active topically 3 2019 times a day Hydrocortisone, applied 1 valente 8h 10 Oct, 14 day(s) Active Topical 2.5% topically 3 2017 times a day atorvastatin 20 orally once a 1 tab(s) 24h Active mg day clotrimazole applied 1 valente 16 Aug, 90 days Active topical 1% topically 3 2019 times a day, then 2-3 x a week aspirin 81 mg orally QD 1 tab(s) 24h Active PROCEDURES No Known procedures RESULTS No Results REASON FOR VISIT [facility] Insurance Providers [facility] Health Member Patient Patient Patient Patient Patient Subscriber Subscriber Subscriber Group Insurance Plan Plan Plan Plan ID Relationship Address Phone Name Date of ID Name Date of No Type Insurance Insurance Insurance Coverage to Subscriber Address Phone Name Dates Medicaid [phone] Medicaid self [place] [id number] [facility] [address] [place] [address] [phone] [place] [id number] [address] MEDICAL (GENERAL) HISTORY Type Description Date Medical History Esophageal reflux Medical History Genital herpes Medical History Atopic dermatitis Medical History high cholesterol Medical History stroke Medical History pneumonia Medical History px COPD Medical History Barretts Esophegus Medical History hx CVA Medical History anxiety Medical History costochondritis Medical History hypercholesteremia Medical History pancreatitis Surgical History hysteroscopy,D&C 8-03 Surgical History LSO 10 Surgical History D&C 2-98 Surgical History D&C 4- Surgical History Hysteroscopy/D&C/polypectomy/Mirena removal and 01/05/13 Novasure Surgical History colonoscopy 03/2014 Surgical History US guided hysteroscopy, D&C 12/14/14 Surgical History endoscopy and colonoscopy- Dr. Reinoso 10/11/15 Surgical History hysteroscopy, D&C 09/25/16 Surgical History stent put in pancreas 02/2018 Surgical History stent placed in pancreas summer 2018 Hospitalization History see above Hospitalization History childbirth Hospitalization History mini stroke 05/2014 Hospitalization History GERD 11/27? Hospitalization History Pneumonia 2015 Hospitalization History chest pain - acid reflux 08/25/16 Hospitalization History pancreatitis 2018
--- OUTSIDE RECORDS SUMMARY | 2019-12-01 13:12 | XMS REPORT ---
:1960 Demographics Address 6 09/16 [place] [address] Email Address Preferred Language Latvian Marital Status Not or Sikh Affiliation Unknown Race White Ethnic Group Not or Author Organization [facility] Address [address] [place] [address] Support Name Relationship Address Phone Ashley Whitmore Unavailable 6 09/16 [facility] [phone] [place] [address] Care Team Providers Name Role Phone Annie Mark Unavailable Unavailable PROBLEMS Type Condition ICD9-CM Code [id number] Onset Condition SNOMED Code Code Dates Status Problem Postmenopausal N95.2 Active 78141727 atrophic vaginitis Problem Candidiasis of skin B37.2 Active 980425623 and nail Problem Mastodynia N64.4 Active 74885139 Problem Other specified N94.89 Active 587528517 conditions associated with female genital organs and menstrual cycle Problem Pelvic and perineal R10.2 Active 093627159 pain Problem Other acute K85.80 Active 999119941 pancreatitis without necrosis or infection Problem Dysuria R30.0 Active 18080183 Problem Unspecified K64.9 Active 24842259 hemorrhoids Problem Anal spasm K59.4 Active 77687835 ALLERGIES No Information ENCOUNTERS Encounter Location Date Diagnosis [facility] Apr, OBGYN [place] [id number] [place] [facility] Nov, OBGYN [place] [id number] [facility] Nov, OBGYN [place] [id number] [facility] 103 Sep, Pelvic and perineal pain OBGYN [facility] R10.2 [place], [place] [id number] [facility] Sep, Pelvic and perineal pain OBGYN [place] [address]250.[address] [place], [place] [id number] [place] [facility] 103 Sep, Pelvic and perineal pain OBGYN [facility] R10.2 and Anal spasm K59.4 [place], [place] [id number] [facility] 103 Aug, OBGYN [place], [place] [id number] [facility] 103 Jul, Mastodynia N64.4 OBGYN [place], [place] [id number] [facility] 103 Jul, Mastodynia N64.4 OBGYN [place] [id number] [place] [facility] 103 Jun, Unspecified hemorrhoids OBGYN [facility] K64.9 and Dysuria R30.0 [place], [place] [id number] [facility] 103 Apr, OBGYN [place], [place] [id number] [facility] 103 Apr, Encounter for gynecological OBGYN [facility] examination (general) [place], [place] [id number] (routine) without abnormal findings Z01.419 ; Encounter for screening mammogram for malignant neoplasm of breast Z12.31 ; Encounter for screening for malignant neoplasm of colon Z12.11 and Dysuria R30.0 [facility] 103 Mar, Other signs and symptoms in OBGYN [facility] breast N64.59 and [place], [place] [id number] Candidiasis of skin and nail B37.2 [facility] 103 Dec, Mastodynia N64.4 OBGYN [place], [place] [id number] [facility] 103 Nov, OBGYN [place], [place] [id number] [facility] 103 Nov, OBGYN [place], [place] [id number] [facility] 103 Nov, Other signs and symptoms in OBGYN [address] breast N64.59 [place], [place] [id number] [facility] 14 Nov, 2018 Mastodynia N64.4 and OBGYN [facility] Candidiasis of skin and [place], [place] [id number] nail B37.2 [place] [facility] 103 Oct, Unspecified [facility]oids [facility] K64.9 [place], [place] [id number] [facility] 103 Oct, Unspecified hemorrhoids [facility] K64.9 [place], [place] [id number] [facility] 103 Sep, Encounter for screening [facility] mammogram for malignant [place], [place] [id number] neoplasm of breast Z12.31 and Candidiasis of skin and nail B37.2 [facility] 103 Sep, Candidiasis of skin and [facility] nail B37.2 [place], [place] [id number] [facility] 103 Jul, Dysuria R30.0 [place] [id number] [facility] 103 Jul, Candidiasis of skin and [facility] nail B37.2 [place], [place] [id number] [facility] 103 May, [place] [id number] [facility] 103 May, Candidiasis of skin and [facility] nail B37.2 [place], [place] [id number] [facility] 103 May, [place] [id number] [facility] 103 Apr, Candidiasis of skin and [facility] nail B37.2 [place], [place] [id number] [facility] 103 Apr, Rash and other nonspecific [facility] skin eruption R21 [place], [place] [id number] [facility] 103 Apr, OBGYN [place], [place] [id number] [facility] 103 Apr, OBGYN [place], [place] [id number] [facility] 103 Apr, Encounter for gynecological OBGYN [facility] examination (general) [place], [place] [id number] (routine) without abnormal findings Z01.419 ; Encounter for screening for malignant neoplasm of cervix Z12.4 ; Encounter for screening for malignant neoplasm of colon Z12.11 ; Encounter for screening mammogram for malignant neoplasm of breast Z12.31 ; Postmenopausal atrophic vaginitis N95.2 and Dysuria R30.0 [facility] 103 Feb, Postmenopausal atrophic OBGYN [facility] vaginitis N95.2 [place], [place] [id number] [facility] 103 Feb, Pelvic and perineal pain OBGYN [facility] R10.2 and Dysuria R30.0 [place], [place] [id number] [facility] 103 Feb, Pelvic and perineal pain OBGYN [facility] R10.2 ; Dysuria R30.0 and [place], [place] [id number] Postmenopausal atrophic vaginitis N95.2 [facility] 103 Feb, Pelvic and perineal pain OBGYN [facility] R10.2 [place], [place] [id number] [facility] 103 January, Rash and other nonspecific OBGYN [facility] skin eruption R21 [place], [place] [id number] [facility] 103 January, OBGYN [place], [place] [id number] [facility] 103 January, OBGYN [place], [place] [id number] [facility] 103 04 May, 2018 Dysuria R30.0 ; Pelvic and OBGYN [facility] perineal pain R10.2 ; [place], [place] [id number] Mastodynia N64.4 and Other specified noninflammatory disorders of vagina N89.8 [facility] 103 Dec, Candidiasis, unspecified OBGYN [facility] B37.9 [place], [place] [id number] [facility] 103 Dec, Candidiasis, unspecified OBGYN [facility] B37.9 [place], [place] [id number] [facility] 103 Dec, Candidiasis, unspecified OBGYN [place] 359917.9 [place], [place] [id number] [facility] 103 Jun, Postmenopausal bleeding [address] [id number] [facility] 103 Jun, [place] [id number] [facility] 103 Jun, [place] [id number] [facility] 103 Jun, [place] [id number] [facility] 103 Jun, Postmenopausal bleeding [address] [id number] [facility] 103 Jun, [place] [address] [facility] 103 Jun, Postmenopausal bleeding [address] [id number] [facility] 103 Jun, Postmenopausal bleeding [address] [id number] [facility] 103 Jun, [place] [address] [facility] 103 Jun, OBGYN [place], [place] [id number] [facility] 103 Apr, Encounter for gynecological OBGYN [facility] examination (general) [place], [place] [id number] (routine) with abnormal findings Z01.411 ; Dysuria R30.0 ; Encounter for screening mammogram for malignant neoplasm of breast Z12.31 and Encounter for screening for malignant neoplasm of colon Z12.11 [facility] 103 Mar, OBGYN [place], [place] [id number] [facility] 103 Mar, OBGYN [place], [place] [id number] [facility] 103 Mar, OBGYN [place], [place] 85[address] [facility] 103 Mar, Candidiasis of skin and OBGYN [facility] nail B37.2 [place], [place] [id number] [facility] 103 January, Mastodynia N64.4 OBGYN [place] [id number] [facility] 103 Dec, Pelvic and perineal pain OBGYN [facility] R10.2 and Dysuria R30.0 [place], [place] [id number] [facility] 103 Dec, PELVIC PAIN 625.9 OBGYN [place], [place] [id number] [facility] 103 Dec, Pelvic and perineal pain OBGYN [facility] R10.2 [place], [place] [id number] [facility] 103 Nov, Idiopathic urticaria L50.1 OBGYN [facility] and Mastodynia N64.4 [place], [place] [id number] [facility] 103 Oct, Generalized abdominal pain OBGYN [facility] R10.84 and Mastodynia N64.4 [place], [place] [id number] [facility] Sep, Dermatitis, unspecified OBGYN [facility] L30.9 [place], [place] [id number] [facility] 103 Sep, Pelvic and perineal pain OBGYN [facility] R10.2 [place], [place] [id number] [facility] 103 Sep, Postmenopausal bleeding OBGYN [facility] N95.0 [place], [place] [id number] [place] [address] Sep, [place], [place] [id number] [facility] 103 Sep, OBGYN [place], [place] [id number] [facility] 103 Sep, OBGYN [place], [place] [id number] [facility] 103 Sep, Postmenopausal bleeding OBGYN [facility] N95.0 [place], [place] [id number] [facility] 103 Aug, Postmenopausal bleeding OBGYN [facility] N95.0 [place], [place] [id number] [facility] 103 Aug, Postmenopausal bleeding OBGYN [facility] N95.0 and Pelvic and [place], [place] [id number] perineal pain R10.2 [facility] Jul, OBGYN [place], [place] [id number] [facility] 103 Jul, Postmenopausal bleeding OBGYN [facility] N95.0 and Pelvic and [place], [place] [id number] perineal pain R10.2 [facility] 103 Jul, OBGYN [place], [place] [id number] [facility] 103 Jul, Mastodynia N64.4 ; OBGYN [facility] Postmenopausal bleeding [place], [place] [id number] N95.0 and Pelvic and perineal pain R10.2 [facility] 103 Jul, OBGYN [place], [place] [id number] [facility] 103 Jun, Mastodynia N64.4 OBGYN [place] [id number] [facility] 103 Jun, OBGYN [place], [place] 16807[address] [facility] 103 May, Mastodynia N64.4 OBGYN [place] [id number] [facility] 103 Apr, Encounter for gynecological OBGYN [facility] examination (general) [place], [place] [id number] (routine) without abnormal findings Z01.419 ; Encounter for screening mammogram for malignant neoplasm of breast Z12.31 and Encounter for screening for malignant neoplasm of colon Z12.11 [facility] Mar, Disorder of the skin and OBGYN [facility] subcutaneous tissue, [place], [place] 911[address] unspecified L98.9 [facility] 103 January, Mastodynia N64.4 OBGYN [place], [place] [id number] [facility] January, OBGYN [place], [place] [id number] [facility] 103 Dec, Other pruritus L29.8 OBGYN [place], [place] [id number] [facility] 103 Dec, Dysuria R30.0 ; Pelvic and OBGYN [facility] perineal pain R10.2 and [place], [place] [id number] Postmenopausal bleeding N95.0 [facility] 103 Dec, Pelvic and perineal pain OBGYN [facility] R10.2 [place], [place] [id number] [facility] 103 Dec, Pelvic and perineal pain OBGYN [facility] R10.2 [place], [place] [id number] [facility] 103 Dec, Dysuria R30.0 OBGYN [place], [place] [id number] [facility] 103 Dec, Postmenopausal bleeding OBGYN [place] [address] and Dysuria R30.0 [place], [place] [id number] [facility] Nov, Postmenopausal bleeding OBGYN [address] [id number] [facility] 103 Nov, Postmenopausal bleeding OBGYN [address] [id number] [facility] Nov, OBGYN [place], [place] [id number] [facility] 103 Nov, Mastodynia N64.4 OBGYN [place], [place] [id number] [facility] Aug, OBGYN [place], [place] [id number] [facility] Aug, OBGYN [place], [place] [id number] [facility] 103 Aug, Postmenopausal bleeding OBGYN [address] [id number] [facility] 103 Aug, Dysuria R30.0 and OBGYN [facility] Postmenopausal bleeding [place], [place] [id number] [address] [place] [address] [facility] Jun, Postmenopausal bleeding OBGYN [address] [id number] [facility] 103 Jun, Postmenopausal bleeding OBGYN [address] [id number] [facility] 103 Jun, OBGYN [place], [place] [id number] [facility] 103 Jun, OBGYN [place], [place] [id number] [facility] 103 Jun, Postmenopausal bleeding OBGYN [facility] N95.0 and Dysuria R30.0 [place], [place] [id number] [facility] 103 May, Postmenopausal bleeding OBGYN [facility] 627.1 [place], [place] [id number] [place] [facility] 103 May, Postmenopausal bleeding OBGYN [facility] 627.1 [place], [place] [id number] [facility] 103 May, Urinary frequency 788.41 ; OBGYN [facility] Postmenopausal bleeding [place], [place] [id number] 627.1 and Atrophic vulvovaginitis 627.3 [facility] Mar, Mastalgia 611.71 [place] 16187[address] [facility] Feb, Mastalgia 611.71 [place] [id number] [facility] Feb, BREAST DISORDER NOS 611.9 [place] 324128020 [facility] January, [place] [id number] [facility] 103 Dec, DERMATITIS NOS 692.9 [place] [id number] [facility] 103 Dec, Postmenopausal bleeding [facility] 627.1 [place], [place] 10145[address] [facility] Dec, OBGYN [place], [place] [id number] [facility] 103 Dec, [place] [id number] [place] [address] Dec, [place] [id number] [facility] 103 Nov, Postmenopausal bleeding OBN [address] [id number] [facility] 103 Nov, OBGYN [place], [place] [id number] [facility] Nov, OBN [place], [place] [id number] [facility] [address] Nov, [place] [id number] [facility] Nov, OBGYN [place], [place] [id number] [facility] 103 Oct, Postmenopausal bleeding OBN [address] [id number] [facility] Oct, OBGYN [place], [place] 0308898[address] [facility] 103 Oct, OBGYN [place], [place] 927209730 [facility] Oct, OBGYN [place], [place] [id number] [facility] Oct, OBN [place], [place] [id number] [facility] 103 Oct, Postmenopausal bleeding OBN [address] [id number] [facility] 103 Oct, OBGYN [place], [place] 9651027[address] [facility] 103 Oct, Postmenopausal bleeding OBN [address] [id number] [facility] 103 Oct, Dysuria 788.1 and OBGYN [facility] Postmenopausal bleeding [place], [place] 120070775 [address] [place] [address] [facility] Jul, Dysuria 788.1 OBGYN [place], [place] [id number] [facility] 103 Jun, Atopic dermatitis 691.8 OBGYN [place], [place] [id number] [facility] May, OBGYN [place], [place] [id number] [facility] 103 May, OBGYN [place], [place] 261708082 [facility] 103 Apr, 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 OBGYN [facility] V72.31 ; SCREEN MALIG [place], [place] [id number] NEOP-COLON V76.51 ; SCREEN MAMMOGRAM NEC V76.12 and Urinary tract infection NOS 599.0 [facility] Apr, Breast Mass 611.72 OBGYN [place], [place] [id number] [facility] Apr, Dysuria 788.1 OBGYN [place], [place] 781763120 [facility] Dec, OBGYN [place], [place] [id number] [facility] 103 Dec, Hematuria, microscopic OBGYN [facility] 599.72 and Dysuria 788.1 [place], [place] [id number] [facility] Dec, OBGYN [place], [place] 9884026[address] [facility] 103 Nov, Atopic dermatitis 691.8 OBGYN [place], [place] 2466904[address] [facility] Aug, OBGYN [place], [place] [id number] [facility] 103 Aug, OBGYN [place], [place] 443744582 [facility] Aug, [place] 0577525[address] [facility] 103 Aug, Atopic dermatitis 691.8 [place] 859978051 [facility] Aug, [place] [id number] [facility] Aug, [place] [id number] [facility] Aug, [place] [id number] [facility] Aug, [place] [id number] [facility] Jul, Atopic eczema 691.8 and [facility] BREAST DISORDER NOS 611.9 [place], [place] [id number] [facility] Jul, [place] [id number] [facility] Jul, Atopic eczema 691.8 and [facility] BREAST DISORDER NOS 611.9 [place], [place] [id number] [facility] Jul, [place] [id number] [facility] Jul, HEMATURIA NOS 599.70 [place] [id number] [facility] May, [place] [id number] [facility] 103 Apr, GYNECOLOGIC EXAMINATION [facility] V72.31 ; PAP SMEAR W/O CLEANING LABORER [place], [place] 162118514 EXAM V76.2 ; SCREEN MALIG NEOP-COLON V76.51 and SCREEN MAMMOGRAM NEC V76.12 [facility] Apr, [place], [place] [id number] [facility] Apr, PELVIC PAIN 625.9 O[place]YN [place], [place] [id number] [facility] 103 Apr, Menometrorrhagia 626.2 ; OBGYN [facility] Dysuria 788.1 and PELVIC [place], [place] [id number] PAIN 625.9 [facility] Mar, OBGYN [place], [place] [id number] [facility] Mar, OBGYN [place], [place] [id number] [facility] 103 Mar, Hematuria, microscopic OBGYN [facility] 599.72 [place], [place] 241101118 [facility] Feb, OBGYN [place], [place] [id number] [facility] 103 Feb, OBGYN [place], [place] 511340126 [facility] Feb, OBGYN [place], [place] [id number] [facility] 103 Feb, Menometrorrhagia 626.2 OBGYN [place], [place] [id number] [facility] January, OBGYN [place], [place] [id number] [facility] [address] January, Menometrorrhagia [address] [place], [place] [address] [facility] January, OBGYN [place], [place] [id number] [facility] January, OBGYN [place], [place] [id number] [facility] 103 January, Menometrorrhagia 626.2 OBGYN [place], [place] 216783087 [facility] [address] 23 Dec, 2012 Medical [place], [place] [id number] [facility] 103 Dec, Menometrorrhagia 626.2 and OBGYN [facility] IUD SURVEILLANCE V25.42 [place], [place] [id number] [facility] 16 Dec, 2012 OBGYN [place], [place] [id number] [facility] Dec, OBGYN [place], [place] 113952031 [facility] Nov, OBGYN [place], [place] [id number] [place] [facility] [address] [place] [address] Nov, [address]ia [address] [place], [place] 95[address] [facility] 103 Nov, Menometrorrhagia 626.2 OBGYN [place], [place] [id number] [facility] 103 Nov, Menometrorrhagia 626.2 OBGYN [place], [place] [id number] [facility] 103 Nov, Menometrorrhagia 626.2 ; [facility] IUD SURVEILLANCE V25.42 and [place], [place] 784085668 Endometrial polyp 621.0 [facility] Nov, Menometrorrhagia 626.2 OBGYN [place], [place] [id number] [facility] Oct, OBGYN [place], [place] [id number] [facility] 103 Sep, OBGYN [place], [place] [id number] [facility] Sep, OBGYN [place], [place] [id number] [facility] 103 Sep, OBGYN [place], [place] [id number] [facility] Sep, OBGYN [place], [place] [id number] [facility] Sep, PELVIC PAIN 625.9 ; OBGYN [facility] HEMATURIA NOS 599.70 and [place], [place] [id number] Abdominal pain, right upper quadrant 789.01 [facility] Sep, PELVIC PAIN 625.9 and IUD OBGYN [facility] SURVEILLANCE V25.[address] [place] [address] [id number] [facility] 103 Sep, PELVIC PAIN 625.9 OBGYN [place], [place] [id number] [facility] Aug, OBGYN [place], [place] [id number] [facility] [address] Jul, Irregular bleeding NOS [address]YN [address] [place], 626.4 ; Hydrosalpinx 614.1 [place] [id number] and PELVIC PAIN 625.9 [facility] Jul, Hydrosalpinx 614.1 and IUD OBGYN [facility] V25.[address] [place] [address] [id number] [facility] Jun, OBGYN [place], [place] [id number] [facility] Jun, Irregular bleeding NOS OBGYN [facility] 626.4 and Hydrosalpinx [place] [id number] 614.1 [facility] May, OBGYN [place], [place] [id number] [facility] 103 May, Irregular bleeding NOS OBGYN [facility] 626.4 [place], [place] [id number] [facility] 103 May, Irregular bleeding NOS OBGYN [facility] 626.4 [place], [place] [id number] [facility] 103 May, [facility] 626.4 and Menorrhagia 626.2 [place], [place] [id number] [facility] May, [facility] 626.4 and PELVIC PAIN 625.9 [place], [place] [id number] [facility] 103 May, PELVIC PAIN 625.9 ; [facility]regular bleeding NOS [place], [place] [id number] 626.4 and IUD SURVEILLANCE V25.[address] [facility] 103 Apr, [facility]regular [facility] 626.4 and PELVIC PAIN 625.9 [place], [place] [id number] [facility] Feb, [place] [id number] [facility] Feb, [facility]regular bleeding [facility] 626.4 ; PELVIC PAIN 625.9 [place], [place] [id number] and Abdominal pain, epigastric 789.06 [facility] Nov, Vitamin D deficiency [facility] 268.9 [place], [place] [id number] [facility] Nov, [place] [id number] [facility] 103 Nov, Irregular bleeding NOS [facility] 626.4 and IUD SURVEILLANCE [place], [place] [id number] V25.[address] [facility] 103 Nov, 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 [facility] V72.31 ; Irregular bleeding [place], [place] [id number] NOS 626.4 ; PAP SMEAR W/O CLEANING LABORER EXAM V76.2 ; IUD SURVEILLANCE V25.42 and SCREEN MALIG NEOP-COLON V76.51 [facility] Nov, OBGYN [place], [place] [id number] [facility] 103 Nov, Irregular bleeding NOS OBGYN [facility] 626.4 and IUD SURVEILLANCE [place], [place] [id number] V25.42 [facility] 103 Nov, OBGYN [place], [place] [id number] [facility] 103 Oct, Irregular bleeding NOS OBGYN [facility] 626.4 [place], [place] [id number] [facility] 103 Oct, OBGYN [place], [place] [id number] [facility] 103 Sep, [place] [id number] [facility] 103 Sep, GENITAL HERPES NOS 054.10 [place] [id number] [facility] 103 Sep, [place] [id number] [facility] 103 Sep, [place] [id number] [facility] 103 Sep, Gross hematuria 599.71 [place] [id number] [facility] 103 Aug, OBGYN [place], [place] [id number] [facility] 103 Aug, HEMATURIA NOS 599.70 OBGYN [place], [place] [id number] [facility] 103 Aug, Abdominal pain, generalized OBGYN [facility] 789.07 ; Irregular bleeding [place], [place] [id number] NOS 626.4 and Dysuria 788.1 [facility] 103 Aug, PELVIC PAIN 625.9 and IUD OBGYN [facility] SURVEILLANCE V25.42 [place], [place] [id number] [facility] 103 07 Jul, 2011 Abdominal pain, generalized OBGYN [facility] 789.07 and Irregular [place], [place] [id number] bleeding NOS 626.4 [facility] 103 Jul, OBGYN [place], [place] [id number] [facility] 103 Jun, Abdominal pain, generalized OBGYN [facility] 789.07 and Irregular [place], [place] [id number] bleeding NOS 626.4 [facility] 103 May, Abdominal pain, right lower OBGYN [facility] quadrant 789.03 and [place], [place] [id number] Irregular bleeding NOS 626.4 [facility] 103 Apr, OBGYN [place], [place] [id number] [facility] 103 Apr, IUD SURVEILLANCE V25.42 OBGYN [place], [place] [id number] [facility] 103 Mar, INSERTION OF IUD V25.11 OBGYN [place], [place] [id number] [facility] 103 Feb, OBGYN [place], [place] [id number] [facility] 103 Feb, OBGYN [place], [place] [id number] [facility] 103 Feb, Menorrhagia 626.2 ; Ovarian OBGYN [facility] cyst NOS 620.2 and [place], [place] [id number] Dysmenorrhea 625.3 [facility] 103 Feb, OBGYN [place], [place] [id number] [place] [address] Feb, Medical [place], [place] [id number] [facility] 103 13 Feb, 2011 Menorrhagia 626.2 ; Ovarian OBGYN [facility] cyst NOS 620.2 and [place], [place] [id number] Dysmenorrhea 625.3 [facility] 103 January, OBGYN [place], [place] [id number] [facility] 103 January, Menorrhagia 626.2 ; Ovarian OBGYN [facility] cyst NOS 620.2 and [place], [place] [id number] Dysmenorrhea 625.3 [facility] 103 January, Ovarian cyst NOS 620.2 ; OBGYN [facility] Menorrhagia 626.2 and [place], [place] [id number] Dysmenorrhea 625.3 [facility] 103 Nov, OBGYN [place], [place] [id number] [facility] 103 Nov, 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 OBGYN [facility] V72.31 and PAP SMEAR W/O [place], [place] [id number] CLEANING LABORER EXAM V76.2 [facility] Nov, OBGYN [place], [place] [id number] [facility] 103 Nov, Menorrhagia 626.2 and OBGYN [facility] Ovarian cyst NOS 620.2 [place], [place] [id number] [facility] 103 Nov, Menorrhagia 626.2 OBGYN [place], [place] [id number] [facility] 103 Nov, Menorrhagia 626.2 OBGYN [place], [place] [id number] [facility] 103 Nov, Menorrhagia 626.2 and OBGYN [facility] Ovarian cyst NOS 620.2 [place], [place] [id number] [facility] 103 Oct, OBGYN [place], [place] [id number] [facility] 103 Oct, OBGYN [place], [place] [id number] [facility] 103 14 Oct, 2010 Menorrhagia 626.2 OBGYN [place], [place] [id number] [facility] 103 Feb, 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 [facility] V72.31 [place], [place] [id number] [facility] 103 May, PELVIC PAIN 625.9 OBGYN [place], [place] [id number] [facility] 103 May, PELVIC PAIN 625.9 [place] [id number] [facility] 103 May, PELVIC PAIN 625.9 [place] [id number] [facility] 103 Apr, OBGYN [place], [place] [id number] [facility] 103 Apr, Dysuria 788.1 and [facility] NOS 599.70 [place], [place] [id number] [facility] 103 Apr, PELVIC PAIN 625.9 [place] [id number] [facility] 103 Mar, OBGYN [place], [place] [id number] [facility] 103 Mar, Ovarian cyst NOS 620.2 and OBGYN [facility] PELVIC PAIN 625.9 [place], [place] [id number] [facility] 103 Mar, Ovarian cyst NOS 620.2 and OBGYN [facility] PELVIC PAIN 625.9 [place], [place] [id number] [facility] 103 Feb, OBGYN [place], [place] [id number] [facility] 103 Feb, Ovarian cyst NOS 620.2 and OBGYN [facility] PELVIC PAIN 625.9 [place], [place] [id number] [facility] 103 15 Feb, 2009 Ovarian cyst NOS 620.2 and OBGYN [facility] PELVIC PAIN 625.9 [place], [place] [id number] [facility] 103 15 Feb, 2009 PELVIC PAIN 625.9 and OBGYN [facility] Ovarian cyst NOS 620.2 [place], [place] [id number] [facility] 103 12 Feb, 2009 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 [facility] V72.31 [place], [place] [id number] [facility] 103 11 Feb, 2009 PELVIC PAIN 625.9 and OBGYN [facility] Ovarian cyst NOS 620.2 [place], [place] [id number] [facility] 103 09 Feb, 2009 PELVIC PAIN 625.9 and OBGYN [facility] Ovarian cyst NOS 620.2 [place], [place] [id number] [facility] 103 Feb, Menorrhagia 626.2 and OBGYN [facility] PELVIC PAIN 625.9 [place], [place] [id number] [facility] 103 January, OBGYN [place], [place] [id number] [facility] 103 January, Menorrhagia 626.2 and OBGYN [facility] Irregular bleeding NOS [place], [place] [id number] 626.4 [facility] 103 January, Menorrhagia 626.2 OBGYN [place], [place] [id number] [facility] 103 Nov, OBGYN [place], [place] [id number] [facility] 103 Nov, Menorrhagia 626.2 OBGYN [place], [place] [id number] [facility] 103 Jun, OBGYN [place], [place] [id number] [facility] 103 Jun, Menorrhagia 626.2 OBGYN [place], [place] [id number] [facility] 103 Jun, Menorrhagia 626.2 OBGYN [place], [place] [id number] [facility] 103 May, OBGYN [place], [place] [id number] [facility] 103 May, Menorrhagia 626.2 and OBGYN [facility] PELVIC PAIN 625.9 [place], [place] [id number] [facility] 103 May, Ovarian cyst NOS 620.2 OBGYN [place], [place] [id number] [facility] 103 May, Ovarian cyst NOS 620.2 and OBGYN [facility] PELVIC PAIN 625.9 [place], [place] [id number] [facility] 103 May, OBGYN [place], [place] [id number] [facility] 103 Apr, Cervical polyp 622.7 OBGYN [place], [place] [id number] [facility] 103 Sep, OBGYN [place], [place] [id number] [facility] 103 Sep, OBGYN [place], [place] [id number] [facility] 103 Sep, OBGYN [place], [place] [id number] [facility] 103 Sep, Menorrhagia 626.2 OBGYN [place], [place] [id number] [facility] 103 Aug, OBGYN [place], [place] [id number] [facility] 103 Aug, Menorrhagia 626.2 OBGYN [place], [place] [id number] [facility] 103 Jun, OBGYN [place], [place] [id number] [facility] 103 Jun, OBGYN [place], [place] [id number] [facility] 103 Jun, OBGYN [place], [place] [id number] [facility] 103 Jun, Menorrhagia 626.2 OBGYN [place], [place] [id number] [facility] 103 May, Menorrhagia 626.2 OBGYN [place], [place] [id number] [facility] 103 May, Menorrhagia 626.2 OBGYN [place], [place] [id number] [facility] 103 Apr, PELVIC PAIN 625.9 OBGYN [place], [place] [id number] [facility] 103 Apr, PELVIC PAIN 625.9 OBGYN [place], [place] [id number] [facility] 103 Apr, OBGYN [place], [place] [id number] [facility] 103 Apr, 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 OBGYN [facility] V72.31 ; Dysuria 788.1 ; [place], [place] [id number] PELVIC PAIN 625.9 and Hemorrhoids NOS 455.6 [facility] 103 Mar, Ovarian cyst NOS 620.2 OBGYN [place], [place] [id number] [facility] 103 Mar, OBGYN [place], [place] [id number] [facility] 103 Mar, Ovarian cyst NOS 620.2 OBGYN [place], [place] [id number] [facility] 103 11 Feb, 2007 OBGYN [place], [place] [id number] [facility] 103 January, Menorrhagia 626.2 ; Ovarian OBGYN [facility] cyst NOS 620.2 and PELVIC [place], [place] [id number] PAIN 625.9 [facility] 103 January, Menorrhagia 626.2 ; Ovarian OBGYN [facility] cyst NOS 620.2 and PELVIC [place], [place] [id number] PAIN 625.9 [facility] 103 January, Ovarian cyst NOS 620.2 ; OBGYN [facility] PELVIC PAIN 625.9 and [place], [place] [id number] Irregular bleeding NOS 626.4 [facility] 103 January, Ovarian cyst NOS 620.2 and OBGYN [facility] PELVIC PAIN 625.9 [place], [place] [id number] [facility] 103 Aug, OBGYN [place], [place] [id number] [facility] 103 Aug, OBGYN [place], [place] [id number] [facility] 103 Aug, OBGYN [place], [place] [id number] [facility] 103 Aug, Menorrhagia 626.2 ; OBGYN [facility] Follicular cyst of ovary [place], [place] [id number] 620.0 and Dysmenorrhea 625.3 [facility] 103 Jun, Menorrhagia 626.2 and OBGYN [facility] Ovarian cyst NOS 620.2 [place], [place] [id number] [facility] 103 Feb, Candidal vulvovaginitis OBGYN [facility] 112.1 [place], [place] [id number] [facility] 103 Dec, OBGYN [place], [place] [id number] [facility] 103 27 Oct, 2005 Mastalgia 611.71 OBGYN [place], [place] [id number] [facility] 103 14 Oct, 2005 Follicular cyst of ovary OBGYN [facility] 620.0 [place], [place] [id number] [facility] 103 Sep, Follicular cyst of ovary OBGYN [facility] 620.0 and Dysmenorrhea [place], [place] [id number] 625.3 UNKNOWN Aug, [facility] 103 Aug, Follicular cyst of ovary OBGYN [facility] 620.0 and Dysmenorrhea [place], [place] [id number] 625.3 UNKNOWN Aug, [facility] 103 Aug, Menorrhagia 626.2 OBGYN [place], [place] [id number] [facility] 103 Aug, OBGYN [place], [place] [id number] [facility] 103 Aug, PREMENOPAUSE MENORRHAGIA OBGYN [facility] 627.0 and Menorrhagia 626.2 [place], [place] [id number] UNKNOWN Jul, [facility] 103 Jul, [facility]asion or friction [facility] without infection [place], [place] [id number] 911.0 IMMUNIZATIONS No Known Immunizations SOCIAL HISTORY Never Assessed REASON FOR REFERRAL FUNCTIONAL STATUS PLAN OF CARE VITAL SIGNS MEDICATIONS Medication Instructions Dosage Frequency Start Date End Date Duration Status clotrimazole applied topically 1 valente 12h 16 Aug, 90 days Active topical 1% 2 times a day 2019 PROCEDURES No Known procedures RESULTS No Results REASON FOR VISIT script Insurance Providers [facility] Member Patient Patient Patient Patient Patient Subscriber Subscriber Subscriber Group Insurance Plan Plan Plan Plan ID Relationship Address Phone Name Date of ID Name Date of No Type Insurance Insurance Insurance Coverage to Subscriber Address Phone Name Dates Medicaid [phone] Medicaid self [place] [id number] [facility] [address] [place] [id number] [phone] [place] self [place] [id number] [address] [address] MEDICAL (GENERAL) HISTORY Type Description Date Medical History Esophageal reflux Medical History Genital herpes Medical History Atopic dermatitis Medical History high cholesterol Medical History stroke Medical History pneumonia Medical History px COPD Medical History Barretts Esophegus Medical History hx CVA Medical History anxiety Medical History costochondritis Medical History hypercholesteremia Medical History pancreatitis Surgical History hysteroscopy,D&C 8 Surgical History LSO [...]
--- OUTSIDE RECORDS SUMMARY | 2019-12-01 13:12 | XMS REPORT ---
:1960 Demographics Address 6 09/16 [place] [address] Email Address Preferred Language Lithuanian Marital Status Not or Quaker Affiliation Unknown Race White Ethnic Group Not or Author Name sound, ultra Support Name Relationship Address Phone Ashley Whitmore Unavailable 09/16 [facility] [phone] [place] [address] Care Team Providers Name Role Phone sound, ultra Unavailable Unavailable PROBLEMS Type Condition ICD9-CM Code [id number] Onset Condition SNOMED Code Code Dates Status Problem Postmenopausal N95.2 Active 48545640 atrophic vaginitis Problem Candidiasis of skin B37.2 Active 888100303 and nail Problem Mastodynia N64.4 Active 83119965 Problem Other specified N94.89 Active 941902412 conditions associated with female genital organs and menstrual cycle Problem Pelvic and perineal R10.2 Active 245152579 pain Problem Other acute K85.80 Active 031208429 pancreatitis without necrosis or infection Problem Dysuria R30.0 Active 49394750 Problem Unspecified K64.9 Active 94796356 hemorrhoids Problem Anal spasm K59.4 Active 16726097 ALLERGIES No Information ENCOUNTERS Encounter Location Date Diagnosis [facility] Apr, [place] [id number] [facility] Nov, [place] [id number] [facility] Sep, Pelvic and perineal pain OBGYN [facility] R10.2 [place] [id number] [facility] Sep, Pelvic and perineal pain OBGYN [facility] R10.2 [place] [id number] [facility] Sep, Pelvic and perineal pain OBGYN [facility] R10.2 and Anal spasm K59.4 [place] [id number] [facility] 16 Aug, 2019 OBGYN [place] [id number] [facility] Jul, Mastodynia N64.4 [place] [id number] [facility] 08 Jul, 2019 Mastodynia N64.4 [place] [id number] [facility] Jun, [facility] K64.9 and Dysuria R30.0 [place] [id number] [facility] Apr, [place] [id number] [facility] Apr, [facility] [place] [id number] (routine) without abnormal findings Z01.419 ; Encounter for screening mammogram for malignant neoplasm of breast Z12.31 ; Encounter for screening for malignant neoplasm of colon Z12.11 and Dysuria R30.0 [facility] Mar, Other signs and symptoms in [facility] N64.59 and [place], [place] [id number] Candidiasis of skin and nail B37.2 [facility] Dec, Mastodynia N64.4 [place] [id number] [facility] Nov, [place] [id number] [facility] Nov, [place] [id number] [facility] Nov, Other signs and symptoms in [facility] breast N64.59 [place] [id number] [facility] Nov, Mastodynia N64.4 and [facility] Candidiasis of skin and [place] [id number] nail B37.2 [facility] Oct, [facility]specified [facility] K64.9 [place] [id number] [facility] Oct, Unspecified hemorrhoids [facility] K64.9 [place] [id number] [facility] Sep, Encounter for screening [facility] mammogram for malignant [place] [id number] neoplasm of breast Z12.31 and Candidiasis of skin and nail B37.2 [facility] Sep, Candidiasis of skin and OBGYN [facility] nail B37.2 [place], [place] [id number] [facility] Jul, Dysuria R30.0 OBN [place] [id number] [facility] Jul, Candidiasis of skin and OBGYN [facility] nail B37.2 [place] [id number] [facility] May, [place] [id number] [facility] May, Candidiasis of skin and OBGYN [facility] nail B37.2 [place] [id number] [facility] May, [place] [id number] [facility] Apr, Candidiasis of skin and OBGYN [facility] nail B37.2 [place], [place] [id number] [facility] Apr, Rash and other nonspecific [facility] skin eruption R21 [place], [place] [id number] [facility] Apr, [place] [id number] [facility] Apr, [place] [id number] [facility] Apr, Encounter for gynecological OBGYN [facility] examination (general) [place], [place] [id number] (routine) without abnormal findings Z01.419 ; Encounter for screening for malignant neoplasm of cervix Z12.4 ; Encounter for screening for malignant neoplasm of colon Z12.11 ; Encounter for screening mammogram for malignant neoplasm of breast Z12.31 ; Postmenopausal atrophic vaginitis N95.2 and Dysuria R30.0 [facility] Feb, Postmenopausal atrophic OBGYN [facility] vaginitis N95.2 [place] [id number] [facility] Feb, Pelvic and perineal pain OBGYN [facility] R10.2 and Dysuria R30.0 [place] [id number] [facility] Feb, Pelvic and perineal pain OBGYN [facility] R10.2 ; Dysuria R30.0 and [place] [id number] Postmenopausal atrophic vaginitis N95.2 [facility] Feb, Pelvic and perineal pain OBGYN [facility] R10.2 [place] [id number] [facility] January, Rash and other nonspecific OBGYN [facility] skin eruption R21 [place] [id number] [facility] January, [place]BG[place] [id number] [facility] January, [place] [id number] [facility] January, Dysuria R30.0 ; Pelvic and OBGYN [facility] perineal pain R10.2 ; [place] [id number] Mastodynia N64.4 and Other specified noninflammatory disorders of vagina N89.8 [facility] Dec, Candidiasis, unspecified OBGYN [address] [id number] [facility] Dec, Candidiasis, unspecified OBGYN [address] [id number] [facility] Dec, Candidiasis, unspecified OBGYN [address] [id number] [facility] Jun, Postmenopausal bleeding OBGYN [address] [id number] [facility] Jun, [place] [id number] [facility] Jun, [place] [id number] [facility] Jun, [place] [id number] [facility] Jun, Postmenopausal bleeding OBGYN [address] [id number] [facility] Jun, [place] [id number] [facility] Jun, Postmenopausal bleeding OBGYN [address] [id number] [facility] Jun, Postmenopausal bleeding OBGYN [address] [id number] [facility] Jun, [place] [id number] [facility] Jun, [place] [id number] [facility] Apr, Encounter for gynecological OBGYN [facility] examination (general) [place], [place] [id number] (routine) with abnormal findings Z01.411 ; Dysuria R30.0 ; Encounter for screening mammogram for malignant neoplasm of breast Z12.31 and Encounter for screening for malignant neoplasm of colon Z12.11 [facility] Mar, [place] [id number] [facility] Mar, [place] [id number] [facility] Mar, [place] [id number] [facility] Mar, Candidiasis of skin and OBGYN [facility] nail B37.2 [place], [place] [id number] [facility] January, Mastodynia N64.4 [place]BG[place] [id number] [facility] Dec, Pelvic and perineal pain OBGYN [facility] R10.2 and Dysuria R30.0 [place] [id number] [facility] Dec, PELVIC PAIN 625.9 OBGYN [place] [id number] [facility] Dec, Pelvic and perineal pain OBGYN [facility] R10.2 [place] [id number] [facility] Nov, Idiopathic urticaria L50.1 OBGYN [facility] and Mastodynia N64.4 [place] [id number] [facility] Oct, Generalized abdominal pain OBGYN [facility] R10.84 and Mastodynia N64.4 [place] [id number] [facility] Sep, Dermatitis, unspecified OBGYN [facility] L30.9 [place] [id number] [facility] Sep, Pelvic and perineal pain OBGYN [facility] R10.2 [place] [id number] [facility] Sep, Postmenopausal bleeding OBN [facility] N95.0 [place] [id number] [facility] [address] Sep, [place] [id number] [facility] Sep, [place] [id number] [facility] Sep, [place] [id number] [facility] Sep, Postmenopausal bleeding OBGYN [facility] N95.0 [place] [id number] [facility] Aug, Postmenopausal bleeding OBGYN [facility] [place] [place] [id number] [facility] Aug, Postmenopausal bleeding [facility] [place]. and [facility] and [place] [id number] perineal pain R10.2 [facility] Jul, [place] [id number] [facility] Jul, Postmenopausal bleeding OBN [facility] N95. and [facility] and [place] [id number] perineal pain R10.2 [facility] Jul, [place] [id number] [facility] Jul, Mastodynia N64.4 ; OBGYN [facility] Postmenopausal bleeding [place] [id number] N95.0 and Pelvic and perineal pain R10.2 [facility] Jul, [place] [id number] [facility] Jun, Mastodynia N64.4 [place] [id number] [facility] Jun, [place] [address] [facility] May, Mastodynia N64.4 [place]BGYN [place] [id number] [facility] Apr, Encounter for gynecological OBGYN [facility] examination (general) [place], [place] [id number] (routine) without abnormal findings Z01.419 ; Encounter for screening mammogram for malignant neoplasm of breast Z12.31 and Encounter for screening for malignant neoplasm of colon Z12.11 [facility] 27 Mar, 2016 Disorder of the skin and OBGYN [facility] subcutaneous tissue, [place] [id number] unspecified L98.9 [facility] January, Mastodynia N64.4 OBGYN [place] [id number] [facility] January, [place] [id number] [facility] Dec, Other pruritus L29.8 [place]BGYN [place] [id number] [facility] Dec, Dysuria R30.0 ; Pelvic and [facility] perineal pain R10.2 and [place] [id number] Postmenopausal bleeding N95.0 [facility] Dec, Pelvic and perineal pain OBGYN [facility] R10.2 [place] [id number] [facility] Dec, Pelvic and perineal pain OBGYN [facility] R10.2 [place] [id number] [facility] Dec, Dysuria R30.0 [place] [id number] [facility] Dec, Postmenopausal bleeding OBGYN [facility] N95.0 and Dysuria R30.0 [place] [id number] [facility] Nov, Postmenopausal bleeding OBGYN [place] [address] [place] [id number] [facility] Nov, Postmenopausal bleeding OBGYN [address] [id number] [facility] Nov, [place] [id number] [facility] Nov, Mastodynia N64.4 OBGYN [place] [id number] [facility] Aug, [place] [id number] [facility] Aug, [place] [id number] [facility] Aug, Postmenopausal bleeding OBGYN [place] [address] [place] [address] [id number] [facility] Aug, Dysuria R30.0 and OBGYN [facility] Postmenopausal bleeding [place] [id number] N95.0 [facility] Jun, Postmenopausal bleeding OBGYN [place] [address] [place] [address] [id number] [facility] Jun, Postmenopausal bleeding OBGYN [address] [id number] [facility] Jun, [place] [id number] [facility] Jun, [place] [id number] [facility] Jun, Postmenopausal bleeding OBGYN [facility] N95. and Dysuria R30.0 [place] [id number] [facility] May, Postmenopausal bleeding OBGYN [facility] 627.1 [place] [id number] [facility] May, Postmenopausal bleeding OBGYN [facility] 627.1 [place], [place] [id number] [facility] May, Urinary frequency 788.41 ; OBGYN [facility] Postmenopausal bleeding [place] [id number] 627.1 and Atrophic vulvovaginitis 627.3 [facility] Mar, Mastalgia 611.71 OBGYN [place] [id number] [facility] Feb, Mastalgia 611.71 [place] [id number] [facility] Feb, BREAST DISORDER NOS 611.9 [place] [id number] [facility] January, [place] [id number] [facility] Dec, DERMATITIS NOS 692.9 [place] [id number] [facility] Dec, Postmenopausal bleeding OBGYN [place] [address] [place] [address] [id number] [facility] Dec, [place] [id number] [facility] Dec, [place] [id number] [facility] [address] Dec, Medical [place] [id number] [facility] Nov, Postmenopausal bleeding OBGYN [facility] [address] [place] [address] [id number] [facility] Nov, [place] [id number] [facility] Nov, [place] [id number] [facility] [address] Nov, [place], [place] [id number] [facility] Nov, [place] [id number] [facility] Oct, Postmenopausal bleeding [address] [id number] [facility] Oct, [place] 88852[address] [facility] Oct, [place] [id number] [facility] Oct, [place] [id number] [facility] Oct, [place] [id number] [facility] Oct, Postmenopausal bleeding OBN [address] [id number] [facility] Oct, [place] [id number] [facility] Oct, Postmenopausal bleeding [address] [id number] [facility] Oct, Dysuria 788.1 and OBGYN [facility] Postmenopausal bleeding [place] 87[address]39[address] 627.1 [facility] Jul, Dysuria 788.1 OBG[place] [id number] [facility] Jun, Atopic dermatitis 691.8 OBGYN [place] 8866912[address] [facility] May, [place] [id number] [facility] May, [place] [id number] [facility] Apr, ROUTINE HAND EDGER EXAMINATION OBGYN [facility] V72.31 ; SCREEN MALIG [place] [id number] NEOP-COLON V76.51 ; SCREEN MAMMOGRAM NEC V76.12 and Urinary tract infection NOS 599.0 [facility] Apr, Breast Mass 611.72 OBGYN [place] [id number] [facility] Apr, Dysuria 788.1 OBGYN [place] 1598860[address] [facility] Dec, [place] [id number] [facility] Dec, Hematuria, microscopic OBGYN [facility] 599.72 and Dysuria 788.1 [place] [id number] [facility] Dec, [place] [id number] [facility] Nov, Atopic dermatitis 691.8 OBGYN [place] [id number] [facility] Aug, [place] [id number] [facility] Aug, [place] [id number] [facility] Aug, [place] [id number] [facility] Aug, Atopic dermatitis 691.8 OBGYN [place] [id number] [facility] Aug, [place] [id number] [facility] Aug, [place] 587883817 [facility] Aug, [place] [id number] [facility] Aug, [place] [id number] [facility] Jul, Atopic eczema 691.8 and OBGYN [facility] BREAST DISORDER NOS 611.9 [place] [id number] [facility] Jul, [place] [id number] [facility] Jul, Atopic eczema 691.8 and OBGYN [facility] BREAST DISORDER NOS 611.9 [place] [id number] [facility] Jul, [place] [id number] [facility] Jul, HEMATURIA NOS 599.70 O[place]YN [place] [id number] [facility] May, [place] [id number] [facility] Apr, GYNECOLOGIC EXAMINATION OBN [facility] V72.31 ; PAP SMEAR W/O HAND EDGER [place], [place] [id number] EXAM V76.2 ; SCREEN MALIG NEOP-COLON V76.51 and SCREEN MAMMOGRAM NEC V76.12 [facility] Apr, [place] 84166[address] [facility] Apr, PELVIC PAIN 625.9 OBGYN [place], [place] [id number] [facility] Apr, Menometrorrhagia 626.2 ; OBGYN [facility] Dysuria 788.1 and PELVIC [place] [id number] PAIN 625.9 [facility] Mar, [place] [id number] [facility] Mar, [place] [id number] [facility] Mar, Hematuria, microscopic OBGYN [facility] 599.72 [place] [id number] [facility] Feb, [place] [id number] [facility] Feb, [place] [id number] [facility] Feb, [place] 924378550 [facility] Feb, Menometrorrhagia 626.2 OBGYN [place] [id number] [facility] January, [place] [id number] [facility] [address] [place] [address] January, [address]ia [address] [place], [place] [id number] [facility] January, [place] 470397210 [facility] January, [place] [id number] [facility] January, Menometrorrhagia 626.2 OBGYN [place] 421952539 [facility] [address] Dec, [place] [id number] [facility] 19 Apr, 2013 Menometrorrhagia 626.2 and OBGYN [facility] IUD SURVEILLANCE V25.42 [place] [id number] [facility] 16 Dec, 2012 OBG[place] [id number] [facility] Dec, [place] [id number] [facility] Nov, [place] [id number] [facility] [address] [place] [address] Nov, [address]ia [address] [place], [place] [id number] [facility] Nov, Menometrorrhagia 626.2 OBGYN [place] [id number] [facility] Nov, Menometrorrhagia 626.2 OBGYN [place] [id number] [facility] Nov, Menometrorrhagia 626.2 ; OBGYN [facility] IUD SURVEILLANCE V25.42 and [place] [id number] Endometrial polyp 621.0 [facility] Nov, Menometrorrhagia 626.2 OBGYN [place] 453912220 [facility] Oct, [place] [id number] [facility] Sep, [place] 975252438 [facility] Sep, [place] [id number] [facility] Sep, [place] 755696636 [facility] Sep, [place] [id number] [facility] 14 Sep, 2012 PELVIC PAIN 625.9 ; OBGYN [facility] HEMATURIA NOS 599.70 and [place] [id number] Abdominal pain, right upper quadrant 789.01 [facility] 14 Sep, 2012 PELVIC PAIN 625.9 and IUD OBGYN [facility] SURVEILLANCE V25.42 [place] [id number] [facility] Sep, PELVIC PAIN 625.9 OBGYN [place] [id number] [facility] Aug, [place] 51956[address] [facility] Jul, Irregular bleeding NOS OBGYN [address] [place], 626.4 ; Hydrosalpinx 614.1 [place] [id number] and PELVIC PAIN 625.9 [facility] Jul, Hydrosalpinx 614.1 and IUD OBGYN [facility] V25.[address] [place] [address] [id number] [facility] Jun, [place] [id number] [facility] Jun, Irregular bleeding NOS OBGYN [facility] 626.4 and Hydrosalpinx [place] 354756029 614.1 [facility] May, [place] [id number] [facility] May, Irregular bleeding NOS OBGYN [facility] [address] 626.4 [place], [place] [id number] [facility] May, Irregular bleeding NOS OBGYN [facility] [address] 626.4 [place] [id number] [facility] May, Irregular bleeding NOS OBGYN [facility] [address] 626.4 and Menorrhagia 626.2 [place], [place] [id number] [facility] 103 May, Irregular bleeding [facility] 626.4 and PELVIC PAIN 625.9 [place], [place] [id number] [facility] 103 May, PELVIC PAIN 625.9 ; OBGYN [facility] Irregular bleeding NOS [place], [place] [id number] 626.4 and IUD SURVEILLANCE V25.42 [facility] O[facility]YN 103 Apr, Irregular [facility] 626.4 and PELVIC PAIN 625.9 [place], [place] [id number] [facility] 103 Feb, [place] [id number] [facility] 103 Feb, Irregular bleeding [facility] 626.4 ; PELVIC PAIN 625.9 [place], [place] [id number] and Abdominal pain, epigastric 789.06 [facility] 103 Nov, Vitamin D deficiency N[facility] 268.9 [place], [place] [id number] [facility] 103 Nov, [place] [id number] [facility] O[facility]YN 103 Nov, Irregular bleeding [facility] 626.4 and IUD SURVEILLANCE [place] [id number] V25.42 [facility] OBGYN 103 Nov, ROUTINE HAND EDGER EXAMINATION [facility] V72.31 ; Irregular bleeding [place] [id number] NOS 626.4 ; PAP SMEAR W/O HAND EDGER EXAM V76.2 ; IUD SURVEILLANCE V25.42 and SCREEN MALIG NEOP-COLON V76.51 [facility] OBGYN 103 16 Nov, 2011 [place] [id number] [facility] OBGYN 103 15 Nov, 2011 Irregular bleeding [facility] 626.4 and IUD SURVEILLANCE [place], [place] [id number] V25.42 [facility] 103 Nov, OBGYN [place], [place] [id number] [facility] 103 Oct, Irregular bleeding NOS OBGYN [facility] 626.4 [place], [place] [id number] [facility] 103 Oct, OBG[place], [place] [id number] [facility] 103 Sep, [place] [id number] [facility] 103 Sep, GENITAL HERPES NOS 054.10 [place] [id number] [facility] 103 Sep, [place] [id number] [facility] 103 Sep, [place] [id number] [facility] 103 Sep, Gross hematuria 599.71 [place] [id number] [facility] 103 Aug, OBG[place] [id number] [facility] 103 Aug, HEMATURIA NOS 599.70 OBGYN [place], [place] [id number] [facility] 103 Aug, Abdominal pain, generalized OBGYN [facility] 789.07 ; Irregular bleeding [place], [place] [id number] NOS 626.4 and Dysuria 788.1 [facility] 103 Aug, PELVIC PAIN 625.9 and IUD OBGYN [facility] SURVEILLANCE V25.42 [place], [place] [id number] [facility] 103 Jul, Abdominal pain, generalized OBGYN [facility] 789.07 and Irregular [place], [place] [id number] bleeding NOS 626.4 [facility] 103 Jul, OBGYN [place], [place] [id number] [facility] 103 Jun, Abdominal pain, generalized OBGYN [facility] 789.07 and Irregular [place], [place] [id number] bleeding NOS 626.4 [facility] 103 May, Abdominal pain, right lower OBGYN [facility] quadrant 789.03 and [place], [place] [id number] Irregular bleeding NOS 626.4 [facility] 103 Apr, OBGYN [place], [place] [id number] [facility] 103 Apr, IUD SURVEILLANCE V25.42 OBGYN [place], [place] [id number] [facility] 103 Mar, INSERTION OF IUD V25.11 OBGYN [place], [place] [id number] [facility] 103 Feb, OBGYN [place], [place] [id number] [facility] 103 Feb, OBGYN [place], [place] [id number] [facility] 103 Feb, Menorrhagia 626.2 ; Ovarian OBGYN [facility] cyst NOS 620.2 and [place] [id number] Dysmenorrhea 625.3 [facility] 103 Feb, OBGYN [place], [place] [id number] [facility] [address] Feb, Medical Center [place] [id number] [facility] 103 Feb, Menorrhagia 626.2 ; Ovarian OBGYN [facility] cyst NOS 620.2 and [place], [place] [id number] Dysmenorrhea 625.3 [facility] 103 January, OBGYN [place], [place] [id number] [facility] 103 January, Menorrhagia 626.2 ; Ovarian OBGYN [facility] cyst NOS 620.2 and [place] [id number] Dysmenorrhea 625.3 [facility] 103 January, Ovarian cyst NOS 620.2 ; OBGYN [facility] Menorrhagia 626.2 and [place], [place] [id number] Dysmenorrhea 625.3 [facility] 103 23 Nov, 2010 OBGYN [place], [place] [id number] [facility] 103 Nov, ROUTINE HAND EDGER EXAMINATION OBGYN [facility] V72.31 and PAP SMEAR W/O [place], [place] [id number] HAND EDGER EXAM V76.2 [facility] 103 15 Nov, 2010 OBGYN [place] [id number] [facility] 103 15 Nov, 2010 Menorrhagia 626.2 and OBGYN [facility] Ovarian cyst NOS 620.2 [place] [id number] [facility] 103 Nov, Menorrhagia 626.2 OBGYN [place], [place] [id number] [facility] 103 Nov, Menorrhagia 626.2 OBGYN [place], [place] [id number] [facility] 103 Nov, Menorrhagia 626.2 and OBGYN [facility] Ovarian cyst NOS 620.2 [place] [id number] [facility] 103 Oct, OBGYN [place], [place] [id number] [facility] 103 Oct, OBG[place], [place] [id number] [facility] 103 Oct, Menorrhagia 626.2 OBGYN [place], [place] [id number] [facility] 103 14 Feb, 2010 ROUTINE HAND EDGER EXAMINATION OBGYN [facility] V72.31 [place] [id number] [facility] 103 May, PELVIC PAIN 625.9 OBGYN [place], [place] [id number] [facility] 103 May, PELVIC PAIN 625.9 OBGYN [place], [place] [id number] [facility] 103 May, PELVIC PAIN 625.9 OBGYN [place], [place] [id number] [facility] 103 Apr, OBG[place] [id number] [facility] 103 Apr, Dysuria 788.1 and HEMATURIA OBGYN [facility] NOS 599.70 [place], [place] [id number] [facility] 103 Apr, PELVIC PAIN 625.9 OBGYN [place], [place] [id number] [facility] 103 Mar, OBG[place], [place] [id number] [facility] 103 Mar, Ovarian cyst NOS 620.2 and OBGYN [facility] PELVIC PAIN 625.9 [place] [id number] [facility] 103 Mar, Ovarian cyst NOS 620.2 and OBGYN [facility] PELVIC PAIN 625.9 [place], [place] [id number] [facility] 103 24 Feb, 2009 OBGYN [place], [place] [id number] [facility] 103 Feb, Ovarian cyst NOS 620.2 and OBGYN [facility] PELVIC PAIN 625.9 [place], [place] [id number] [facility] 103 Feb, Ovarian cyst NOS 620.2 and OBGYN [facility] PELVIC PAIN 625.9 [place], [place] [id number] [facility] 103 15 Feb, 2009 PELVIC PAIN 625.9 and OBGYN [facility] Ovarian cyst NOS 620.2 [place], [place] [id number] [facility] 103 12 Feb, 2009 ROUTINE HAND EDGER EXAMINATION OBGYN [facility] V72.31 [place] [id number] [facility] 103 11 Feb, 2009 PELVIC PAIN 625.9 and OBGYN [facility] Ovarian cyst NOS 620.2 [place] [id number] [facility] 103 09 Feb, 2009 PELVIC PAIN 625.9 and OBGYN [facility] Ovarian cyst NOS 620.2 [place], [place] [id number] [facility] 103 Feb, Menorrhagia 626.2 and OBGYN [facility] PELVIC PAIN 625.9 [place] [id number] [facility] 103 January, OBG[place], [place] [id number] [facility] 103 January, Menorrhagia 626.2 and OBGYN [facility] Irregular bleeding NOS [place] [id number] 626.4 [facility] 103 January, Menorrhagia 626.2 OBGYN [place], [place] [id number] [facility] 103 Nov, OBG[place] [id number] [facility] 103 Nov, Menorrhagia 626.2 OBGYN [place] [id number] [facility] 103 Jun, OBG[place], [place] [id number] [facility] 103 Jun, Menorrhagia 626.2 OBGYN [place], [place] [id number] [facility] 103 Jun, Menorrhagia 626.2 OBGYN [place] [id number] [facility] 103 May, OBG[place], [place] [id number] [facility] 103 May, Menorrhagia 626.2 and OBGYN [facility] PELVIC PAIN 625.9 [place], [place] [id number] [facility] 103 May, Ovarian cyst NOS 620.2 OBGYN [place], [place] [id number] [facility] 103 May, Ovarian cyst NOS 620.2 and OBGYN [facility] PELVIC PAIN 625.9 [place], [place] [id number] [facility] 103 May, [place] [id number] [facility] 103 Apr, Cervical polyp 622.7 OBGYN [place] [id number] [facility] 103 Sep, O[place] [id number] [facility] 103 Sep, [place] [id number] [facility] 103 Sep, O[place] [id number] [facility] 103 Sep, Menorrhagia 626.2 OBGYN [place], [place] [id number] [facility] 103 Aug, OBG[place], [place] [id number] [facility] 103 Aug, Menorrhagia 626.2 OBGYN [place], [place] [id number] [facility] 103 Jun, OBG[place] [id number] [facility] 103 Jun, O[place] [id number] [facility] 103 Jun, [place] [id number] [facility] 103 Jun, Menorrhagia 626.2 OBGYN [place], [place] [id number] [facility] 103 May, Menorrhagia 626.2 OBGYN [place], [place] [id number] [facility] 103 May, Menorrhagia 626.2 OBGYN [place], [place] [id number] [facility] 103 Apr, PELVIC PAIN 625.9 OBGYN [place], [place] [id number] [facility] 103 Apr, PELVIC PAIN 625.9 OBGYN [place], [place] [id number] [facility] 103 Apr, OBG[place] [id number] [facility] 103 Apr, ROUTINE HAND EDGER EXAMINATION OBGYN [facility] V72.31 ; Dysuria 788.1 ; [place] [id number] PELVIC PAIN 625.9 and Hemorrhoids NOS 455.6 [facility] 103 Mar, Ovarian cyst NOS 620.2 OBGYN [place], [place] [id number] [facility] 103 Mar, OBG[place], [place] [id number] [facility] 103 Mar, Ovarian cyst NOS 620.2 OBGYN [place], [place] [id number] [facility] 103 Feb, OBG[place], [place] [id number] [facility] 103 January, Menorrhagia 626.2 ; Ovarian OBGYN [facility] cyst NOS 620.2 and PELVIC [place] [id number] PAIN 625.9 [facility] 103 January, Menorrhagia 626.2 ; Ovarian OBGYN [facility] cyst NOS 620.2 and PELVIC [place] [id number] PAIN 625.9 [facility] 103 January, Ovarian cyst NOS 620.2 ; OBGYN [facility] PELVIC PAIN 625.9 and [place] [id number] Irregular bleeding NOS 626.4 [facility] 103 January, Ovarian cyst NOS 620.2 and OBGYN [facility] PELVIC PAIN 625.9 [place], [place] [id number] [facility] 103 Aug, [place] [id number] [facility] 103 Aug, [place] [id number] [facility] 103 Aug, OBG[place], [place] [id number] [facility] 103 Aug, Menorrhagia 626.2 ; [facility] Follicular cyst of ovary [place] [id number] 620.0 and Dysmenorrhea 625.3 [facility] 103 Jun, Menorrhagia 626.2 and OBGYN [facility] Ovarian cyst NOS 620.2 [place], [place] [id number] [facility] 103 Feb, Candidal vulvovaginitis OBGYN [facility] 112.1 [place], [place] [id number] [facility] 103 Dec, O[place], [place] [id number] [facility] 103 Oct, Mastalgia 611.71 OBGYN [place], [place] [id number] [facility] 103 14 Oct, 2005 Follicular cyst of ovary OBGYN [facility] 620.0 [place], [place] [id number] [facility] 103 27 Sep, 2005 Follicular cyst of ovary OBGYN [facility] 620.0 and Dysmenorrhea [place], [place] [id number] 625.3 UNKNOWN Aug, [facility] 103 Aug, Follicular cyst of ovary OBGYN [facility] 620.0 and Dysmenorrhea [place], [place] [id number] 625.3 UNKNOWN Aug, [facility] 103 Aug, Menorrhagia 626.2 OBGYN [place], [place] [id number] [facility] 103 Aug, OBG[place], [place] [id number] [facility] 103 Aug, PREMENOPAUSE MENORRHAGIA OBGYN [facility] 627.0 and Menorrhagia 626.2 [place], [place] [id number] UNKNOWN Jul, [facility] 103 Jul, [facility]asion or friction [facility] without infection [place] [id number] 911.0 IMMUNIZATIONS No Known Immunizations SOCIAL HISTORY Never Assessed REASON FOR REFERRAL FUNCTIONAL STATUS PLAN OF CARE VITAL SIGNS MEDICATIONS Unknown Medications PROCEDURES Procedure Date Ordered Result Body Site TRANSVAGINAL US, NON-OB Oct 14, 2019 RESULTS Name Result Date Reference Range Ultrasound : Pelvis REASON FOR VISIT pelvic US Insurance Providers [facility] Member Patient Patient Patient Patient Patient Subscriber Subscriber Subscriber Group Insurance Plan Plan Plan Plan ID Relationship Address Phone Name Date of ID Name Date of No Type Insurance Insurance Insurance Coverage to Subscriber Address Phone Name Dates Medicaid [phone] Medicaid self [place] [id number] [facility] [address] [place] [address] [phone] [place] [id number] [place] [address] [facility] [id number] MEDICAL (GENERAL) HISTORY Type Description Date Medical History Esophageal reflux Medical History Genital herpes Medical History Atopic dermatitis Medical History high cholesterol Medical History stroke Medical History pneumonia Medical History px COPD Medical History Barretts Esophegus Medical History hx CVA Medical History anxiety Medical History costochondritis Medical History hypercholesteremia Medical History pancreatitis Surgical History hysteroscopy,D&C 8- Surgical History LSO [...]
--- OUTSIDE RECORDS SUMMARY | 2019-12-01 13:12 | XMS REPORT ---
:1960 Demographics Address 6 09/16 [place] [address] Email Address Preferred Language Arabic Marital Status Not or Orthodox Affiliation Unknown Race White Ethnic Group Not or Author Organization [facility] Address [address] [place] [address] Support Name Relationship Address Phone Ashley Whitmore Unavailable 6 09/16 [facility] [phone] [place] [address] Care Team Providers Name Role Phone Annie Mark Unavailable Unavailable PROBLEMS Type Condition ICD9-CM Code [id number] Onset Condition SNOMED Code Code Dates Status Problem Postmenopausal N95.2 Active 77526916 atrophic vaginitis Problem Candidiasis of skin B37.2 Active 713945613 and nail Problem Mastodynia N64.4 Active 00000419 Problem Other specified N94.89 Active 773948963 conditions associated with female genital organs and menstrual cycle Problem Pelvic and perineal R10.2 Active 358021323 pain Problem Other acute K85.80 Active 881970820 pancreatitis without necrosis or infection Problem Dysuria R30.0 Active 14315134 Problem Unspecified K64.9 Active 80465891 hemorrhoids Problem Anal spasm K59.4 Active 70022624 ALLERGIES Substance Reaction Event Type Date Status penicillin hives Drug Allergy Nov, Active Pneumovax 23 swelling, itching, hives Drug Allergy Nov, Active ENCOUNTERS Encounter Location Date Diagnosis [facility] 103 Apr, OBGYN [place], [place] [id number] [facility] 103 Nov, Pelvic and perineal pain OBGYN [facility] R10.2 ; Anal spasm K59.4 [place], [place] [id number] and Candidiasis of skin and nail B37.2 [facility] 103 11 Nov, 2019 OBGYN [place], [place] [id number] [facility] 103 30 Sep, 2019 Pelvic and perineal pain OBGYN [facility] R10.2 [place] [id number] [facility] 103 Sep, Pelvic and perineal pain OBGYN [facility] R10.2 [place] [id number] [facility] 103 Sep, Pelvic and perineal pain OBGYN [facility] R10.2 and Anal spasm K59.4 [place] [id number] [facility] 103 Aug, OBGYN [place], [place] [id number] [facility] 103 Jul, Mastodynia N64.4 [place] [id number] [facility] 103 Jul, Mastodynia N64.4 [place] [id number] [facility] 103 Jun, Unspecified hemorrhoids OBGYN [facility] K64.9 and Dysuria R30.0 [place], [place] [id number] [facility] 103 Apr, OBGYN [place] [id number] [facility] 103 Apr, [facility] [place], [place] [id number] (routine) without abnormal findings Z01.419 ; Encounter for screening mammogram for malignant neoplasm of breast Z12.31 ; Encounter for screening for malignant neoplasm of colon Z12.11 and Dysuria R30.0 [facility] 103 Mar, Other signs [facility] breast N64.59 and [place], [place] [id number] Candidiasis of skin and nail B37.2 [facility] 103 Dec, Mastodynia N64.4 OBGYN [place] [id number] [facility] 103 Nov, OBGYN [place] [id number] [facility] 103 Nov, OBGYN [place], [place] [id number] [facility] 103 Nov, Other signs and symptoms in [facility] breast N64.59 [place], [place] [id number] [facility] 103 Nov, Mastodynia N64.4 and OBGYN [facility] Candidiasis of skin and [place], [place] [id number] nail B37.2 [facility] 103 Oct, [facility]specified [facility] K64.9 [place] [id number] [facility] 103 Oct, Unspecified [facility]oids [facility] K64.9 [place] [id number] [facility] 103 Sep, Encounter for screening [facility] mammogram for malignant [place], [place] [id number] neoplasm of breast Z12.31 and Candidiasis of skin and nail B37.2 [facility] 103 Sep, [facility]idiasis [facility] nail B37.2 [place], [place] [id number] [facility] 103 Jul, Dysuria R30.0 [place] [id number] [facility] 103 Jul, Candidiasis of skin and OBGYN [facility] nail B37.2 [place], [place] [id number] [facility] 103 May, [place] [id number] [facility] 103 May, Candidiasis of skin and [facility] nail B37.2 [place], [place] [id number] [facility] 103 May, [place] [id number] [facility] 103 Apr, Candidiasis of skin and OBGYN [facility] nail B37.2 [place], [place] [id number] [facility] 103 Apr, Rash and other nonspecific OBGYN [facility] skin eruption R21 [place], [place] [id number] [facility] 103 Apr, OBGYN [place], [place] [id number] [facility] 103 Apr, OBGYN [place] [id number] [facility] 103 Apr, Encounter for gynecological OBGYN [facility] examination (general) [place], [place] [id number] (routine) without abnormal findings Z01.419 ; Encounter for screening for malignant neoplasm of cervix Z12.4 ; Encounter for screening for malignant neoplasm of colon Z12.11 ; Encounter for screening mammogram for malignant neoplasm of breast Z12.31 ; Postmenopausal atrophic vaginitis N95.2 and Dysuria R30.0 [facility] 103 Feb, Postmenopausal atrophic OBGYN [facility] vaginitis N95.2 [place], [place] [id number] [facility] 103 Feb, Pelvic and perineal pain OBGYN [facility] R10.2 and Dysuria R30.0 [place], [place] [id number] [facility] 103 Feb, Pelvic and perineal pain OBGYN [facility] R10.2 ; Dysuria R30.0 and [place], [place] [id number] Postmenopausal atrophic vaginitis N95.2 [facility] 103 Feb, Pelvic and perineal pain OBGYN [facility] R10.2 [place] [id number] [facility] 103 January, Rash and other nonspecific OBGYN [facility] skin eruption R21 [place], [place] [id number] [facility] 103 January, OBGYN [place] [id number] [facility] 103 January, OBGYN [place] [id number] [facility] 103 January, Dysuria R30.0 ; Pelvic and OBGYN [facility] perineal pain R10.2 ; [place], [place] [id number] Mastodynia N64.4 and Other specified noninflammatory disorders of vagina N89.8 [facility] 103 Dec, Candidiasis, unspecified OBGYN [address] [id number] [facility] 103 Dec, Candidiasis, unspecified OBGYN [address] [id number] [facility] 103 Dec, Candidiasis, unspecified OBGYN [address] [id number] [facility] 103 Jun, Postmenopausal bleeding [address] [id number] [facility] 103 Jun, OBGYN [place] [id number] [facility] 103 Jun, OBGYN [place], [place] [id number] [facility] 103 Jun, OBGYN [place], [place] [id number] [facility] 103 Jun, Postmenopausal bleeding [address] [id number] [facility] 103 Jun, OBG[place] [id number] [facility] 103 Jun, Postmenopausal bleeding [address] [id number] [facility] 103 Jun, Postmenopausal bleeding [address] [id number] [facility] 103 Jun, OBGYN [place] [id number] [facility] 103 Jun, OBGYN [place], [place] [id number] [facility] 103 Apr, Encounter for gynecological OBGYN [facility] examination (general) [place], [place] [id number] (routine) with abnormal findings Z01.411 ; Dysuria R30.0 ; Encounter for screening mammogram for malignant neoplasm of breast Z12.31 and Encounter for screening for malignant neoplasm of colon Z12.11 [facility] 103 Mar, OBGYN [place], [place] [id number] [facility] 103 Mar, OBGYN [place], [place] [id number] [facility] 103 Mar, OBGYN [place] [id number] [facility] 103 Mar, Candidiasis of skin and OBGYN [facility] nail B37.2 [place], [place] [id number] [facility] 103 January, Mastodynia N64.4 OBGYN [place], [place] [id number] [facility] 103 Dec, Pelvic and perineal pain OBGYN [facility] R10.2 and Dysuria R30.0 [place], [place] [id number] [facility] 103 Dec, PELVIC PAIN 625.9 OBGYN [place], [place] [id number] [facility] 103 Dec, Pelvic and perineal pain OBGYN [facility] R10.2 [place], [place] [id number] [facility] 103 Nov, Idiopathic urticaria L50.1 OBGYN [facility] and Mastodynia N64.4 [place], [place] [id number] [facility] 103 Oct, Generalized abdominal pain OBGYN [facility] R10.84 and Mastodynia N64.4 [place], [place] [id number] [facility] 103 Sep, Dermatitis, unspecified OBGYN [facility] L30.9 [place] [id number] [facility] 103 Sep, Pelvic and perineal pain OBGYN [facility] R10.2 [place], [place] [id number] [facility] 103 Sep, Postmenopausal bleeding OBGYN [facility] N95.0 [place], [place] [id number] [place] [address] Sep, [place], [place] [id number] [facility] 103 Sep, OBGYN [place] [id number] [facility] 103 Sep, OBGYN [place], [place] [id number] [facility] 103 Sep, Postmenopausal bleeding OBGYN [facility] N95.0 [place] [id number] [facility] 103 Aug, Postmenopausal bleeding OBGYN [facility] N95.0 [place], [place] [id number] [facility] 103 Aug, Postmenopausal bleeding OBGYN [facility] N95.0 and Pelvic and [place], [place] [id number] perineal pain R10.2 [facility] 103 Jul, OBGYN [place] [id number] [facility] 103 Jul, Postmenopausal bleeding OBGYN [facility] N95.0 and Pelvic and [place], [place] [id number] perineal pain R10.2 [facility] 103 Jul, OBGYN [place], [place] [id number] [facility] 103 Jul, Mastodynia N64.4 ; OBGYN [facility] Postmenopausal bleeding [place], [place] [id number] N95.0 and Pelvic and perineal pain R10.2 [facility] 103 Jul, OBGYN [place], [place] [id number] [facility] 103 Jun, Mastodynia N64.4 OBGYN [place], [place] [id number] [facility] 103 Jun, OBGYN [place] [id number] [facility] 103 May, Mastodynia N64.4 OBGYN [place] [address] [facility] 103 Apr, Encounter for gynecological OBGYN [facility] examination (general) [place], [place] [id number] (routine) without abnormal findings Z01.419 ; Encounter for screening mammogram for malignant neoplasm of breast Z12.31 and Encounter for screening for malignant neoplasm of colon Z12.11 [facility] 103 Mar, Disorder of the skin and [facility] subcutaneous tissue, [place], [place] [id number] unspecified L98.9 [facility] 103 January, Mastodynia N64.4 OBGYN [place] [id number] [facility] 103 January, OBGYN [place] [id number] [facility] 103 Dec, Other pruritus L29.8 OBGYN [place] [id number] [facility] 103 Dec, Dysuria R30.0 ; Pelvic and OBGYN [facility] perineal pain R10.2 and [place], [place] [id number] Postmenopausal bleeding N95.0 [facility] 103 Dec, Pelvic and perineal pain OBGYN [facility] R10.2 [place], [place] [id number] [facility] 103 Dec, Pelvic and perineal pain OBGYN [facility] R10.2 [place], [place] [id number] [facility] 103 Dec, Dysuria R30.0 OBGYN [place] [id number] [facility] 103 Dec, Postmenopausal bleeding OBGYN [place] [address] and Dysuria R30.0 [place] [id number] [facility] 103 Nov, Postmenopausal bleeding OBGYN [address] [id number] [facility] 103 Nov, Postmenopausal bleeding OBGYN [address] [id number] [facility] 103 Nov, OBGYN [place], [place] [address] [facility] 103 Nov, Mastodynia N64.4 OBGYN [place], [place] [id number] [facility] 103 Aug, OBGYN [place] [id number] [facility] 103 Aug, O[place] [id number] [facility] 103 Aug, Postmenopausal bleeding OBGYN [address] [id number] [facility] 103 Aug, Dysuria R30.0 and OBGYN [facility] Postmenopausal bleeding [place], [place] [id number] [facility].[address] [place] [address] [facility] Jun, Postmenopausal bleeding OBGYN [address] [id number] [facility] 103 Jun, Postmenopausal bleeding OBGYN [address] [id number] [facility] 103 Jun, OBGYN [place] [id number] [facility] 103 Jun, OBGYN [place], [place] [id number] [facility] 103 Jun, Postmenopausal bleeding OBGYN [facility] N95.0 and Dysuria R30.0 [place], [place] [id number] [facility] 103 May, Postmenopausal bleeding OBGYN [facility] 627.1 [place] [id number] [facility] 103 May, Postmenopausal bleeding OBGYN [facility] [address] [place] [id number] [facility] 103 May, Urinary frequency 788.41 ; OBGYN [facility] Postmenopausal bleeding [place], [place] [id number] 627.1 and Atrophic vulvovaginitis 627.3 [facility] 103 Mar, Mastalgia 611.71 OBGYN [place] [id number] [facility] 103 Feb, Mastalgia 611.71 [place] [id number] [facility] 103 Feb, BREAST DISORDER NOS 611.9 OBGYN [place], [place] [id number] [facility] 103 January, OBGYN [place] [id number] [facility] 103 Dec, DERMATITIS NOS 692.9 [place] [id number] [facility] 103 Dec, [facility] 627.1 [place] [id number] [facility] 103 Dec, OBGYN [place], [place] [id number] [facility] 103 Dec, OBGYN [place] [id number] [facility] [address] Dec, [place], [place] [id number] [facility] 103 Nov, Postmenopausal bleeding OBGYN [address] [id number] [facility] 103 Nov, OBGYN [place], [place] [id number] [facility] 103 Nov, OBGYN [place] [id number] [facility] [address] Nov, [place], [place] [id number] [facility] 103 Nov, OBGYN [place] [id number] [facility] 103 Oct, Postmenopausal bleeding OBGYN [address] [id number] [facility] 103 Oct, OBGYN [place] [id number] [facility] 103 Oct, OBGYN [place] [id number] [facility] 103 Oct, OBGYN [place], [place] [id number] [facility] 103 Oct, OBGYN [place], [place] [id number] [facility] 103 Oct, Postmenopausal bleeding OBN [address] [id number] [facility] 103 Oct, OBGYN [place] [id number] [facility] 103 Oct, Postmenopausal bleeding OBGYN [address] [id number] [facility] 103 16 Oct, 2014 Dysuria 788.1 and OBGYN [place], [place] [id number] 627.1 [facility] 103 Jul, Dysuria 788.1 OBGYN [place] [id number] [facility] 103 Jun, Atopic dermatitis 691.8 OBGYN [place], [place] [id number] [facility] 103 May, OBGYN [place], [place] [id number] [facility] May, OBGYN [place] [id number] [facility] 103 Apr, 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 [facility] V72.31 ; SCREEN MALIG [place], [place] [id number] NEOP-COLON V76.51 ; SCREEN MAMMOGRAM NEC V76.12 and Urinary tract infection NOS 599.0 [facility] Apr, Breast Mass 611.72 OBGYN [place], [place] [id number] [facility] Apr, Dysuria 788.1 OBGYN [place], [place] [id number] [facility] Dec, OBGYN [place], [place] [id number] [facility] 103 Dec, Hematuria, microscopic OBGYN [facility] 599.72 and Dysuria 788.1 [place] [id number] [facility] Dec, OBGYN [place], [place] [id number] [facility] 103 Nov, Atopic dermatitis 691.8 OBGYN [place], [place] [id number] [facility] Aug, OBGYN [place] [id number] [facility] Aug, OBGYN [place], [place] 727886576 [facility] 103 Aug, OBGYN [place] [id number] [facility] 103 Aug, Atopic dermatitis 691.8 OBGYN [place], [place] [id number] [facility] 103 Aug, OBGYN [place] [id number] [facility] 103 Aug, OBGYN [place] [id number] [facility] 103 Aug, [place] [id number] [facility] Aug, OBGYN [place] [id number] [facility] 103 Jul, Atopic eczema 691.8 [facility] BREAST DISORDER NOS 611.9 [place] [id number] [facility] Jul, OBGYN [place], [place] [id number] [facility] Jul, Atopic eczema 691.8 and [facility] BREAST DISORDER NOS 611.9 [place], [place] 900193440 [facility] Jul, OBGYN [place], [place] [id number] [facility] 103 Jul, HEMATURIA NOS 599.70 OBGYN [place] [id number] [facility] 103 May, [place] [id number] [facility] 103 Apr, GYNECOLOGIC EXAMINATION OBN [facility] V72.31 ; PAP SMEAR W/O ACID PURIFICATION EQUIPMENT OPERATOR [place], [place] [id number] EXAM V76.2 ; SCREEN MALIG NEOP-COLON V76.51 and SCREEN MAMMOGRAM NEC V76.12 [facility] Apr, OBG[place] [id number] [facility] 103 Apr, PELVIC PAIN 625.9 OBGYN [place] [id number] [facility] 103 Apr, Menometrorrhagia 626.2 ; OBGYN [facility] Dysuria 788.1 and PELVIC [place], [place] [id number] PAIN 625.9 [facility] 103 Mar, OBGYN [place], [place] [id number] [facility] Mar, OBGYN [place], [place] [id number] [facility] 103 Mar, Hematuria, microscopic OBGYN [facility] 599.72 [place], [place] [id number] [facility] Feb, OBGYN [place], [place] [id number] [facility] Feb, OBGYN [place], [place] [id number] [facility] Feb, OBGYN [place], [place] [id number] [facility] 103 Feb, Menometrorrhagia 626.2 OBGYN [place], [place] [id number] [facility] January, [place] [id number] [facility] January, Menometrorrhagia [address] [place], [place] [id number] [facility] January, OBGYN [place], [place] [id number] [facility] January, OBG[place] [id number] [facility] 103 January, Menometrorrhagia 626.2 OBGYN [place], [place] [id number] [facility] [address] Dec, [place], [place] [id number] [facility] 103 Dec, Menometrorrhagia 626.2 and OBGYN [facility] IUD SURVEILLANCE V25.42 [place], [place] [id number] [facility] 103 Dec, OBGYN [place], [place] [id number] [facility] 103 Dec, OBGYN [place], [place] [id number] [facility] Nov, OBG[place] [id number] [facility] Nov, Menometrorrhagia [address] [place], [place] [id number] [facility] Nov, Menometrorrhagia 626.2 OBGYN [place], [place] [id number] [facility] Nov, Menometrorrhagia 626.2 OBGYN [place], [place] [id number] [facility] 103 Nov, Menometrorrhagia 626.2 ; OBGYN [facility] IUD SURVEILLANCE V25.42 and [place], [place] [id number] Endometrial polyp 621.0 [facility] 103 Nov, Menometrorrhagia 626.2 OBGYN [place], [place] [id number] [facility] Oct, OBGYN [place], [place] [id number] [facility] 103 Sep, [place] [id number] [facility] 103 Sep, OBGYN [place], [place] [id number] [facility] 103 Sep, OBGYN [place], [place] [id number] [facility] Sep, OBGYN [place], [place] [id number] [facility] 103 Sep, PELVIC PAIN 625.9 ; OBGYN [facility] HEMATURIA NOS 599.70 and [place], [place] [id number] Abdominal pain, right upper quadrant 789.01 [facility] Sep, PELVIC PAIN 625.9 and IUD OBGYN [facility] V25.[address] [place] [address] [id number] [facility] 103 Sep, PELVIC PAIN 625.9 OBGYN [place], [place] [id number] [facility] Aug, [place] [id number] [facility] [address] Jul, Irregular bleeding NOS [facility] [address] [place], 626.4 ; Hydrosalpinx 614.1 [place] [id number] and PELVIC PAIN 625.9 [facility] Jul, Hydrosalpinx 614.1 and IUD OBGYN [facility] V25.[address] [place] [id number] [facility] Jun, OBG[place] [id number] [facility] 103 Jun, [facility] 626.4 and Hydrosalpinx [place], [place] [id number] 614.1 [facility] 103 May, OBGYN [place] [id number] [facility] 103 May, Irregular bleeding NOS OBGYN [facility] [address] 626.4 [place], [place] [id number] [facility] 103 May, Irregular bleeding NOS OBGYN [facility] [address] 626.4 [place], [place] [id number] [facility] 103 May, Irregular bleeding NOS OBGYN [facility] [address] 626.4 and Menorrhagia 626.2 [place], [place] [id number] [facility] 103 May, Irregular bleeding NOS OBGYN [facility] [address] 626.4 and PELVIC PAIN 625.9 [place], [place] [id number] [facility] 103 May, PELVIC PAIN 625.9 ; OBGYN [facility] Irregular bleeding NOS [place], [place] [id number] 626.4 and IUD SURVEILLANCE V25.42 [facility] 103 Apr, Irregular bleeding NOS [facility] 626.4 and PELVIC PAIN 625.9 [place], [place] [id number] [facility] Feb, OBGYN [place], [place] [id number] [facility] 103 Feb, Irregular bleeding NOS [facility] [address] 626.4 ; PELVIC PAIN 625.9 [place], [place] [id number] and Abdominal pain, epigastric 789.06 [facility] Nov, Vitamin D deficiency NOS [facility] 268.9 [place], [place] [id number] [facility] Nov, OBGYN [place], [place] [id number] [facility] 103 Nov, Irregular bleeding NOS [facility] [address] 626.4 and IUD SURVEILLANCE [place], [place] [id number] V25.42 [facility] 103 Nov, 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 OBN [facility] V72.31 ; Irregular bleeding [place], [place] [id number] NOS 626.4 ; PAP SMEAR W/O ACID PURIFICATION EQUIPMENT OPERATOR EXAM V76.2 ; IUD SURVEILLANCE V25.42 and SCREEN MALIG NEOP-COLON V76.51 [facility] 103 16 Nov, 2011 OBGYN [place], [place] [id number] [facility] 15 Nov, 2011 Irregular bleeding NOS OBGYN [facility] 626.4 and IUD SURVEILLANCE [place], [place] [id number] V25.42 [facility] Nov, OBGYN [place], [place] [id number] [facility] 103 Oct, [facility] 626.4 [place], [place] [id number] [facility] Oct, OBGYN [place] [id number] [facility] Sep, OBG[place], [place] [id number] [facility] Sep, GENITAL HERPES NOS 054.10 [place] [id number] [facility] Sep, OBGYN [place] [id number] [facility] Sep, OBGYN [place], [place] [id number] [facility] Sep, Gross hematuria 599.71 OBGYN [place], [place] [id number] [facility] Aug, OBGYN [place] [id number] [facility] Aug, HEMATURIA NOS 599.70 OBGYN [place], [place] [id number] [facility] Aug, Abdominal pain, generalized OBGYN [facility] 789.07 ; Irregular bleeding [place], [place] [id number] NOS 626.4 and Dysuria 788.1 [facility] Aug, PELVIC PAIN 625.9 and IUD OBGYN [facility] SURVEILLANCE V25.42 [place], [place] [id number] [facility] 07 Jul, 2011 Abdominal pain, generalized OBGYN [facility] 789.07 and Irregular [place], [place] [id number] bleeding NOS 626.4 [facility] Jul, OBGYN [place] [id number] [facility] Jun, Abdominal pain, generalized OBGYN [facility] 789.07 and Irregular [place], [place] [id number] bleeding NOS 626.4 [facility] 103 May, Abdominal pain, right lower OBGYN [facility] quadrant 789.03 and [place], [place] [id number] Irregular bleeding NOS 626.4 [facility] Apr, OBGYN [place] [id number] [facility] 103 Apr, IUD SURVEILLANCE V25.42 [place] [id number] [facility] 103 Mar, INSERTION OF IUD V25.11 OBGYN [place], [place] [id number] [facility] Feb, OBGYN [place], [place] [id number] [facility] Feb, OBGYN [place], [place] [id number] [facility] 103 Feb, Menorrhagia 626.2 ; Ovarian OBGYN [facility] cyst NOS 620.2 and [place], [place] [id number] Dysmenorrhea 625.3 [facility] 103 Feb, OBGYN [place], [place] [id number] [facility] [address] 15 Feb, 2011 Medical Center [place], [place] [id number] [facility] 13 Feb, 2011 Menorrhagia 626.2 ; Ovarian OBGYN [facility] cyst NOS 620.2 and [place], [place] [id number] Dysmenorrhea 625.3 [facility] January, OBGYN [place], [place] [id number] [facility] January, Menorrhagia 626.2 ; Ovarian OBGYN [facility] cyst NOS 620.2 and [place] [id number] Dysmenorrhea 625.3 [facility] 103 January, Ovarian cyst NOS 620.2 ; OBGYN [facility] Menorrhagia 626.2 and [place], [place] [id number] Dysmenorrhea 625.3 [facility] Nov, OBGYN [place], [place] [id number] [facility] 103 Nov, 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 [facility] V72.31 and PAP SMEAR W/O [place], [place] [id number] ACID PURIFICATION EQUIPMENT OPERATOR EXAM V76.2 [facility] Nov, OBGYN [place] [id number] [facility] Nov, Menorrhagia 626.2 and OBGYN [facility] Ovarian cyst NOS 620.2 [place], [place] [id number] [facility] 103 Nov, Menorrhagia 626.2 OBGYN [place], [place] [id number] [facility] 103 Nov, Menorrhagia 626.2 OBGYN [place], [place] [id number] [facility] 103 Nov, Menorrhagia 626.2 and OBGYN [facility] Ovarian cyst NOS 620.2 [place], [place] [id number] [facility] 103 Oct, OBGYN [place], [place] [id number] [facility] Oct, OBGYN [place], [place] [id number] [facility] 103 Oct, Menorrhagia 626.2 OBGYN [place], [place] [id number] [facility] 103 Feb, 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 [facility] V72.31 [place], [place] [id number] [facility] May, PELVIC PAIN 625.9 OBGYN [place] [id number] [facility] 103 May, PELVIC PAIN 625.9 [place] [id number] [facility] May, PELVIC PAIN 625.9 OBGYN [place], [place] [id number] [facility] Apr, OBGYN [place], [place] [id number] [facility] 103 Apr, Dysuria 788.1 and [facility]URIA [facility] NOS 599.70 [place], [place] [id number] [facility] 103 Apr, PELVIC PAIN 625.9 OBGYN [place], [place] [id number] [facility] Mar, OBGYN [place], [place] [id number] [facility] 103 Mar, Ovarian cyst NOS 620.2 and OBGYN [facility] PELVIC PAIN 625.9 [place], [place] [id number] [facility] 103 Mar, Ovarian cyst NOS 620.2 and OBGYN [facility] PELVIC PAIN 625.9 [place] [id number] [facility] 103 24 Feb, 2009 OBGYN [place], [place] [id number] [facility] 18 Feb, 2009 Ovarian cyst NOS 620.2 and OBGYN [facility] PELVIC PAIN 625.9 [place], [place] [id number] [facility] 103 15 Feb, 2009 Ovarian cyst NOS 620.2 and OBGYN [facility] PELVIC PAIN 625.9 [place], [place] [id number] [facility] 103 15 Feb, 2009 PELVIC PAIN 625.9 and OBGYN [facility] Ovarian cyst NOS 620.2 [place], [place] [id number] [facility] 12 Feb, 2009 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 [facility] V72.31 [place], [place] [id number] [facility] 11 Feb, 2009 PELVIC PAIN 625.9 and OBGYN [facility] Ovarian cyst NOS 620.2 [place], [place] [id number] [facility] 09 Feb, 2009 PELVIC PAIN 625.9 and OBGYN [facility] Ovarian cyst NOS 620.2 [place] [id number] [facility] 09 Feb, 2009 Menorrhagia 626.2 and OBGYN [facility] PELVIC PAIN 625.9 [place], [place] [id number] [facility] January, OBGYN [place] [id number] [facility] 103 January, Menorrhagia 626.2 and OBGYN [facility] Irregular bleeding NOS [place], [place] [id number] 626.4 [facility] 103 January, Menorrhagia 626.2 OBGYN [place], [place] [id number] [facility] Nov, OBGYN [place], [place] [id number] [facility] 103 Nov, Menorrhagia 626.2 OBGYN [place], [place] [id number] [facility] Jun, OBGYN [place], [place] [id number] [facility] Jun, Menorrhagia 626.2 OBGYN [place] [id number] [facility] Jun, Menorrhagia 626.2 OBGYN [place], [place] [id number] [facility] May, OBGYN [place], [place] [id number] [facility] May, Menorrhagia 626.2 and OBGYN [facility] PELVIC PAIN 625.9 [place] [id number] [facility] May, Ovarian cyst NOS 620.2 OBGYN [place], [place] [id number] [facility] May, Ovarian cyst NOS 620.2 and OBGYN [facility] PELVIC PAIN 625.9 [place], [place] [id number] [facility] May, OBGYN [place], [place] [id number] [facility] Apr, Cervical polyp 622.7 OBGYN [place], [place] [id number] [facility] Sep, OBGYN [place] [id number] [facility] Sep, OBGYN [place], [place] [id number] [facility] Sep, OBGYN [place], [place] [id number] [facility] Sep, Menorrhagia 626.2 OBGYN [place], [place] [id number] [facility] Aug, OBGYN [place], [place] [id number] [facility] Aug, Menorrhagia 626.2 OBGYN [place], [place] [id number] [facility] Jun, OBGYN [place], [place] [id number] [facility] Jun, OBGYN [place], [place] [id number] [facility] Jun, OBGYN [place], [place] [id number] [facility] 103 Jun, Menorrhagia 626.2 OBGYN [place] [id number] [facility] May, Menorrhagia 626.2 OBGYN [place], [place] [id number] [facility] May, Menorrhagia 626.2 OBGYN [place], [place] [id number] [facility] Apr, PELVIC PAIN 625.9 OBGYN [place] [id number] [facility] Apr, PELVIC PAIN 625.9 OBGYN [place] [id number] [facility] Apr, OBGYN [place], [place] [id number] [facility] Apr, 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 [facility] V72.31 ; Dysuria 788.1 ; [place], [place] [id number] PELVIC PAIN 625.9 and Hemorrhoids NOS 455.6 [place] Mar, Ovarian cyst NOS 620.2 OBGYN [place], [place] [id number] [facility] Mar, OBGYN [place], [place] [id number] [facility] Mar, Ovarian cyst NOS 620.2 OBGYN [place] [id number] [facility] Feb, OBGYN [place], [place] [id number] [facility] January, Menorrhagia 626.2 ; Ovarian OBGYN [facility] cyst NOS 620.2 and PELVIC [place], [place] [id number] PAIN 625.9 [facility] January, Menorrhagia 626.2 ; Ovarian OBGYN [facility] cyst NOS 620.2 and PELVIC [place], [place] [id number] PAIN 625.9 [facility] 103 January, Ovarian cyst NOS 620.2 ; OBGYN [facility] PELVIC PAIN 625.9 and [place] [id number] Irregular bleeding NOS 626.4 [facility] January, Ovarian cyst NOS 620.2 and OBGYN [facility] PELVIC PAIN 625.9 [place], [place] [id number] [facility] Aug, OBGYN [place], [place] [id number] [facility] Aug, OBGYN [place] [id number] [facility] Aug, OBGYN [place], [place] [id number] [facility] 103 Aug, Menorrhagia 626.2 ; OBGYN [facility] Follicular cyst of ovary [place], [place] [id number] 620.0 and Dysmenorrhea 625.3 [facility] Jun, Menorrhagia 626.2 and OBGYN [facility] Ovarian cyst NOS 620.2 [place] [id number] [facility] Feb, [facility] 112.1 [place], [place] [id number] [facility] Dec, OBGYN [place], [place] [id number] [facility] Oct, Mastalgia 611.71 OBGYN [place], [place] [id number] [facility] Oct, Follicular cyst of ovary OBGYN [facility] 620.0 [place], [place] [id number] [facility] Sep, Follicular cyst of ovary OBGYN [facility] 620. and Dysmenorrhea [place], [place] [id number] 625.3 UNKNOWN Aug, [facility] Aug, Follicular cyst of ovary OBGYN [facility] 620. and Dysmenorrhea [place], [place] [id number] 625.3 UNKNOWN Aug, [facility] 103 Aug, Menorrhagia 626.2 [place] [id number] [facility] Aug, OBGYN [place] [id number] [facility] Aug, [facility]IA [facility] 627.0 and Menorrhagia 626.2 [place], [place] [id number] UNKNOWN Jul, [facility] Jul, Abrasion or friction burn [facility] of [facility] without infection [place], [place] [id number] 911.0 IMMUNIZATIONS No Known Immunizations SOCIAL HISTORY Never Assessed REASON FOR REFERRAL FUNCTIONAL STATUS PLAN OF CARE Activity Details Follow Up As scheduled Reason: VITAL SIGNS Height 62 in 2019-11-30 Weight 150 lbs 2019-11-30 BMI 27.43 kg/m2 2019-11-30 Blood pressure systolic 92 mm Hg 2019-11-30 Blood pressure diastolic 60 mm Hg 2019-11-30 MEDICATIONS Medication Instructions Dosage Frequency Start End Date Duration Status Date atorvastatin 20 orally once a 1 tab(s) 24h Active mg day clotrimazole applied 1 valente 16 Aug, 30 days Active topical 1% topically 2 2019 times a day prn Hydrocortisone, applied 1 valente 8h 10 Oct, 14 day(s) Active Topical 2.5% topically 3 2017 times a day aspirin 81 mg orally QD 1 tab(s) 24h Active omeprazole 20 mg orally once a 1 cap(s) 24h Active day naproxen 500 mg orally QD 1 tab(s) 24h Active Proctocort 1% applied 1 valente 8h 07 Jun, 10 days Active topically 3 2019 times a day PROCEDURES No Known procedures RESULTS No Results REASON FOR VISIT 6 week f/u r/t PT serivces.. c/o soreness under breasts Insurance Providers [facility] Member Patient Patient Patient Patient Patient Subscriber Subscriber Subscriber Group Insurance Plan Plan Plan Plan ID Relationship Address Phone Name Date of ID Name Date of No Type Insurance Insurance Insurance Coverage to Subscriber Address Phone Name Dates [place] [phone] [place] [id number] [address] [address] Medicaid [phone] Medicaid self [place] [id number] [facility] [address] [facility] [address] MEDICAL (GENERAL) HISTORY Type Description Date Medical [...] Surgical History D&C 2 Surgical History D&C 12-14 Surgical History Hysteroscopy/D&C/polypectomy/Mirena [...] - acid reflux 08/25/16 Hospitalization History pancreatitis 2019
--- OUTSIDE RECORDS SUMMARY | 2019-12-01 13:12 | XMS REPORT ---
:1960 Demographics Address 6 09/16 [place] [address] Email Address Preferred Language Khmer Marital Status Not or Spiritism Affiliation Unknown Race White Ethnic Group Not or Author Organization [facility] Address [address] [place] [address] Support Name Relationship Address Phone Ashley Whitmore Unavailable 6 09/16 [facility] [phone] [place] [address] Care Team Providers Name Role Phone Annie Mark Unavailable Unavailable PROBLEMS Type Condition ICD9-CM Code [id number] Onset Condition SNOMED Code Code Dates Status Problem Postmenopausal N95.2 Active 77274812 atrophic vaginitis Problem Candidiasis of skin B37.2 Active 284934856 and nail Problem Mastodynia N64.4 Active 75892612 Problem Other specified N94.89 Active 243499345 conditions associated with female genital organs and menstrual cycle Problem Pelvic and perineal R10.2 Active 767421264 pain Problem Other acute K85.80 Active 295662807 pancreatitis without necrosis or infection Problem Dysuria R30.0 Active 39123766 Problem Unspecified K64.9 Active 66871375 hemorrhoids Problem Anal spasm K59.4 Active 15070389 ALLERGIES Substance Reaction Event Type Date Status penicillin hives Drug Allergy Sep, Active Pneumovax 23 swelling, itching, hives Drug Allergy Sep, Active ENCOUNTERS Encounter Location Date Diagnosis [facility] 103 Apr, OBGYN [place] [id number] [facility] 103 Nov, OBGYN [place], [place] [id number] [facility] 103 Sep, Pelvic and perineal pain OBGYN [facility] R10.2 [place], [place] [id number] [facility] 103 Sep, Pelvic and perineal pain OBGYN [place] 309630.2 [place], [place] [id number] [facility] 103 Sep, Pelvic and perineal pain OBGYN [facility] R10.2 and Anal spasm K59.4 [place], [place] [id number] [facility] 103 Aug, OBGYN [place] [id number] [facility] 103 Jul, Mastodynia N64.4 [place] [id number] [facility] 103 Jul, Mastodynia N64.4 [place] [id number] [facility] 103 Jun, Unspecified hemorrhoids OBGYN [facility] K64.9 and Dysuria R30.0 [place], [place] [id number] [facility] 103 Apr, OBGYN [place] [id number] [facility] 103 Apr, Encounter for gynecological OBGYN [facility] examination (general) [place], [place] [id number] (routine) without abnormal findings Z01.419 ; Encounter for screening mammogram for malignant neoplasm of breast Z12.31 ; Encounter for screening for malignant neoplasm of colon Z12.11 and Dysuria R30.0 [facility] 103 Mar, Other signs and symptoms in OBGYN [facility] breast N64.59 and [place], [place] [id number] Candidiasis of skin and nail B37.2 [facility] 103 Dec, Mastodynia N64.4 [place] [id number] [facility] 103 Nov, OBGYN [place] [id number] [facility] 103 Nov, OBGYN [place] [id number] [facility] 103 Nov, Other signs and symptoms in OBGYN [address] breast N64.59 [place], [place] [id number] [facility] 103 14 Nov, 2018 Mastodynia N64.4 and OBGYN [facility] Candidiasis of skin and [place], [place] [id number] nail B37.2 [facility] 103 Oct, [facility] K64.9 [place] [id number] [facility] 103 Oct, Unspecified hemorrhoids [facility] K64.9 [place], [place] [id number] [facility] 103 Sep, Encounter for screening [facility] mammogram for malignant [place], [place] [id number] neoplasm of breast Z12.31 and Candidiasis of skin and nail B37.2 [facility] 103 Sep, [facility]idiasis [facility] nail B37.2 [place], [place] [id number] [facility] 103 Jul, Dysuria R30.0 [place] [id number] [facility] 103 Jul, Candidiasis of [facility] and [facility] nail B37.2 [place], [place] [id number] [facility] 103 May, [place] [id number] [facility] 103 May, Candidiasis of skin and [facility] nail B37.2 [place] [id number] [facility] 103 May, [place] [id number] [facility] 103 Apr, Candidiasis of skin and [facility] nail B37.2 [place], [place] [id number] [facility] 103 Apr, Rash and other nonspecific [facility] skin eruption R21 [place], [place] [id number] [facility] 103 Apr, [place] [id number] [facility] 103 Apr, OBGYN [place], [place] [id number] [facility] 103 Apr, Encounter for gynecological OBGYN [facility] examination (general) [place], [place] [id number] (routine) without abnormal findings Z01.419 ; Encounter for screening for malignant neoplasm of cervix Z12.4 ; Encounter for screening for malignant neoplasm of colon Z12.11 ; Encounter for screening mammogram for malignant neoplasm of breast Z12.31 ; Postmenopausal atrophic vaginitis N95.2 and Dysuria R30.0 [facility] 103 Feb, Postmenopausal atrophic OBGYN [facility] vaginitis N95.2 [place], [place] [id number] [facility] 103 Feb, Pelvic and perineal pain OBGYN [facility] R10.2 and Dysuria R30.0 [place], [place] [id number] [facility] 103 Feb, Pelvic and perineal pain OBGYN [facility] R10.2 ; Dysuria R30.0 and [place], [place] [id number] Postmenopausal atrophic vaginitis N95.2 [facility] 103 Feb, Pelvic and perineal pain OBGYN [facility] R10.2 [place], [place] [id number] [facility] 103 January, Rash and other nonspecific OBGYN [facility] skin eruption R21 [place], [place] [id number] [facility] 103 January, [place], [place] [id number] [facility] 103 January, OBG[place] [id number] [facility] 103 04 May, 2018 Dysuria R30.0 ; Pelvic and OBGYN [facility] perineal pain R10.2 ; [place], [place] [id number] Mastodynia N64.4 and Other specified noninflammatory disorders of vagina N89.8 [facility] 103 Dec, Candidiasis, unspecified OBGYN [facility] B37.9 [place], [place] [id number] [facility] 103 Dec, Candidiasis, unspecified OBGYN [facility] B37.9 [place], [place] [id number] [facility] 103 Dec, Candidiasis, unspecified OBGYN [place] 534577.9 [place], [place] [id number] [facility] 103 Jun, Postmenopausal bleeding [address] [id number] [facility] 103 Jun, [place] [id number] [facility] 103 Jun, [place] [id number] [facility] 103 Jun, [place] [id number] [facility] 103 Jun, Postmenopausal bleeding [address] [id number] [facility] 103 Jun, [place] [id number] [facility] 103 Jun, Postmenopausal bleeding [address] [id number] [facility] 103 Jun, Postmenopausal bleeding [address] [id number] [facility] 103 Jun, [place] [id number] [facility] 103 Jun, [place] [id number] [facility] 103 Apr, Encounter for gynecological OBGYN [facility] examination (general) [place], [place] [id number] (routine) with abnormal findings Z01.411 ; Dysuria R30.0 ; Encounter for screening mammogram for malignant neoplasm of breast Z12.31 and Encounter for screening for malignant neoplasm of colon Z12.11 [facility] 103 Mar, OBG[place] [id number] [facility] 103 Mar, [place] [id number] [facility] 103 Mar, [place], [place] [id number] [facility] 103 Mar, Candidiasis of skin and OBGYN [facility] nail B37.2 [place], [place] [id number] [facility] 103 January, Mastodynia N64.4 [place] [id number] [facility] 103 Dec, Pelvic and perineal pain OBGYN [facility] R10.2 and Dysuria R30.0 [place], [place] [id number] [facility] 103 Dec, PELVIC PAIN 625.9 [place]BGYN [place], [place] [id number] [facility] 103 Dec, Pelvic and perineal pain OBGYN [facility] R10.2 [place], [place] [id number] [facility] 103 Nov, Idiopathic urticaria L50.1 OBGYN [facility] and Mastodynia N64.4 [place], [place] [id number] [facility] 103 Oct, Generalized abdominal pain OBGYN [facility] R10.84 and Mastodynia N64.4 [place], [place] [id number] [facility] 103 Sep, Dermatitis, unspecified OBGYN [facility] L30.9 [place], [place] [id number] [facility] 103 Sep, Pelvic and perineal pain OBGYN [facility] R10.2 [place], [place] [id number] [facility] 103 Sep, Postmenopausal bleeding OBGYN [facility] N95.0 [place], [place] [id number] [place] [address] Sep, [place], [place] [id number] [facility] 103 Sep, [place] [id number] [facility] 103 Sep, [place] [id number] [facility] 103 Sep, Postmenopausal bleeding OBGYN [facility] N95.0 [place], [place] [id number] [facility] 103 Aug, Postmenopausal bleeding OBGYN [facility] N95.0 [place], [place] [id number] [facility] 103 Aug, Postmenopausal bleeding OBGYN [facility] N95.0 and Pelvic and [place], [place] [id number] perineal pain R10.2 [facility] 103 Jul, [place], [place] [id number] [facility] 103 Jul, Postmenopausal bleeding OBGYN [facility] N95.0 and Pelvic and [place], [place] [id number] perineal pain R10.2 [facility] 103 Jul, [place] [id number] [facility] 103 Jul, Mastodynia N64.4 ; OBGYN [facility] Postmenopausal bleeding [place], [place] [id number] N95.0 and Pelvic and perineal pain R10.2 [facility] 103 Jul, [place] [id number] [facility] 103 Jun, Mastodynia N64.4 [place] [id number] [facility] 103 Jun, [place] [id number] [facility] 103 May, Mastodynia N64.4 [place] [id number] [facility] 103 Apr, Encounter for gynecological OBGYN [facility] examination (general) [place], [place] [id number] (routine) without abnormal findings Z01.419 ; Encounter for screening mammogram for malignant neoplasm of breast Z12.31 and Encounter for screening for malignant neoplasm of colon Z12.11 [facility] 103 Mar, Disorder of the skin and OBGYN [facility] subcutaneous tissue, [place], [place] [id number] unspecified L98.9 [facility] 103 January, Mastodynia N64.4 [place] [id number] [facility] 103 January, [place] [id number] [facility] 103 Dec, Other pruritus L29.8 [place] [id number] [facility] 103 Dec, Dysuria R30.0 ; Pelvic and OBGYN [facility] perineal pain R10.2 and [place], [place] [id number] Postmenopausal bleeding N95.0 [facility] 103 Dec, Pelvic and perineal pain OBGYN [facility] R10.2 [place], [place] [id number] [facility] 103 Dec, Pelvic and perineal pain OBGYN [facility] R10.2 [place], [place] [id number] [facility] 103 Dec, Dysuria R30.0 [place] [id number] [facility] 103 Dec, Postmenopausal bleeding OBGYN [place] [address] and Dysuria R30.0 [place] [id number] [facility] 103 Nov, Postmenopausal bleeding OBGYN [address] [id number] [facility] 103 Nov, Postmenopausal bleeding OBGYN [address] [id number] [facility] 103 Nov, [place] [address] [facility] 103 Nov, Mastodynia N64.4 [place] [id number] [facility] 103 Aug, [place] [id number] [facility] 103 Aug, [place] [id number] [facility] 103 Aug, Postmenopausal bleeding OBGYN [address] [id number] [facility] 103 Aug, Dysuria R30.0 and OBGYN [facility] Postmenopausal bleeding [place], [place] [id number] [address] [place] [address] [facility] Jun, Postmenopausal bleeding OBGYN [address] [id number] [facility] 103 Jun, Postmenopausal bleeding OBGYN [address] [id number] [facility] 103 Jun, [place] [id number] [facility] 103 Jun, [place] [id number] [facility] 103 Jun, Postmenopausal bleeding OBGYN [facility] N95.0 and Dysuria R30.0 [place], [place] [id number] [facility] 103 May, Postmenopausal bleeding OBGYN [facility] 627.1 [place], [place] [id number] [facility] 103 May, Postmenopausal bleeding OBGYN [facility] 627.1 [place], [place] [id number] [facility] 103 May, Urinary frequency 788.41 ; OBGYN [facility] Postmenopausal bleeding [place], [place] [id number] 627.1 and Atrophic vulvovaginitis 627.3 [facility] 103 Mar, Mastalgia 611.71 [place] [id number] [facility] 103 Feb, Mastalgia 611.71 [place] [id number] [facility] 103 Feb, BREAST DISORDER NOS 611.9 [place] [id number] [facility] 103 January, [place] [id number] [facility] 103 Dec, DERMATITIS NOS 692.9 [place] [id number] [facility] 103 Dec, [facility] 627.1 [place], [place] [id number] [facility] 103 Dec, [place] [id number] [facility] 103 Dec, [place] [id number] [place] [address] Dec, [place], [place] [id number] [facility] 103 Nov, Postmenopausal bleeding OBN [address] [id number] [facility] 103 Nov, O[place] [id number] [facility] 103 Nov, [place] [id number] [facility] [address] Nov, [place], [place] [address] [facility] 103 Nov, [place] [id number] [facility] 103 Oct, Postmenopausal bleeding O[facility] [address] [id number] [facility] 103 Oct, [place] [id number] [facility] 103 Oct, [place] [id number] [facility] 103 Oct, [place] [id number] [facility] 103 Oct, [place]BN [place] [id number] [facility] 103 Oct, Postmenopausal bleeding O[facility] [address] [id number] [facility] 103 Oct, [place] 6[address] [facility] 103 Oct, Postmenopausal bleeding [facility] [address] [id number] [facility] 103 Oct, Dysuria 788.1 and OBGYN [facility] Postmenopausal bleeding [place] [address]40[address] [address] [place] [address] [facility] Jul, Dysuria 788.1 [place] [id number] [facility] 103 Jun, Atopic dermatitis 691.8 [place], [place] [id number] [facility] 103 May, [place] [id number] [facility] 103 May, [place] [id number] [facility] 103 Apr, 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 OBGYN [facility] V72.31 ; SCREEN MALIG [place], [place] [id number] NEOP-COLON V76.51 ; SCREEN MAMMOGRAM NEC V76.12 and Urinary tract infection NOS 599.0 [facility] 103 Apr, Breast Mass 611.72 [place], [place] [id number] [facility] 103 Apr, Dysuria 788.1 [place], [place] [id number] [facility] 103 Dec, [place] [id number] [facility] 103 Dec, Hematuria, microscopic OBGYN [facility] 599.72 and Dysuria 788.1 [place], [place] [id number] [facility] 103 Dec, [place], [place] [id number] [facility] 103 Nov, Atopic dermatitis 691.8 [place]YN [place] [id number] [facility] 103 Aug, [place] [id number] [facility] 103 Aug, O[place] [id number] [facility] 103 Aug, [place] [id number] [facility] 103 Aug, Atopic dermatitis 691.8 [place] [id number] [facility] 103 Aug, [place] [address] [facility] 103 Aug, [place] [id number] [facility] 103 Aug, [place] [id number] [facility] 103 Aug, [place] [id number] [facility] 103 Jul, Atopic eczema 691.8 [facility] BREAST DISORDER NOS 611.9 [place], [place] [id number] [facility] Jul, [place] [id number] [facility] 103 Jul, Atopic eczema 691.8 and [facility] BREAST DISORDER NOS 611.9 [place], [place] 97864[address] [facility] 103 Jul, [place] 7345986[address] [facility] 103 Jul, HEMATURIA NOS 599.70 [place] [id number] [facility] 103 May, [place] [id number] [facility] 103 Apr, G[facility]ECOLOGIC EXAMINATION [facility] V72.31 ; PAP SMEAR W/O REVERSE ENGINEER [place], [place] [id number] EXAM V76.2 ; SCREEN MALIG NEOP-COLON V76.51 and SCREEN MAMMOGRAM NEC V76.12 [facility] 103 Apr, [place], [place] [address] [facility] 103 Apr, PELVIC PAIN 625.9 [place]YN [place] [id number] [facility] 103 Apr, Menometrorrhagia 626.2 ; OBGYN [facility] Dysuria 788.1 and PELVIC [place], [place] [id number] PAIN 625.9 [facility] 103 Mar, OBG[place], [place] [id number] [facility] 103 Mar, [place], [place] [address]4088[address] [facility] 103 Mar, Hematuria, microscopic OBGYN [facility] 599.72 [place], [place] [id number] [facility] 103 Feb, [place] [id number] [facility] 103 Feb, [place] [id number] [facility] 103 Feb, [place], [place] [id number] [facility] 103 Feb, Menometrorrhagia 626.2 [place], [place] [id number] [facility] 103 January, [facility] [id number] [facility] [address] January, Menometrorrhagia [address] [place], [place] [address] [facility] January, [place] 7[address] [facility] 103 January, [place] [id number] [facility] 103 January, Menometrorrhagia 626.2 [place], [place] 788691268 [facility] [address] 23 Dec, 2012 Medical [place], [place] [id number] [facility] 103 Dec, Menometrorrhagia 626.2 and OBGYN [facility] IUD SURVEILLANCE V25.42 [place], [place] [id number] [facility] 103 16 Dec, 2012 [place], [place] [id number] [facility] 103 Dec, [place], [place] [id number] [facility] 103 Nov, [place], [place] [id number] [facility] [address] [place] [address] Nov, [address]rhagia [address] [place], [place] [address] [facility] 103 Nov, Menometrorrhagia 626.2 [place]YN [place], [place] [id number] [facility] 103 Nov, Menometrorrhagia 626.2 [place]YN [place], [place] [id number] [facility] 103 Nov, Menometrorrhagia 626.2 ; [facility] IUD SURVEILLANCE V25.42 and [place], [place] [id number] Endometrial polyp 621.0 [facility] 103 Nov, Menometrorrhagia 626.2 [place], [place] [id number] [facility] 103 Oct, [place], [place] 781553924 [facility] 103 Sep, [place] [id number] [facility] 103 Sep, [place] [id number] [facility] 103 Sep, [place] [id number] [facility] 103 Sep, [place], [place] [id number] [facility] 103 Sep, PELVIC PAIN 625.9 ; OBGYN [facility] HEMATURIA NOS 599.70 and [place], [place] [id number] Abdominal pain, right upper quadrant 789.01 [facility] 103 Sep, PELVIC PAIN 625.9 and IUD OBGYN [facility] SURVEILLANCE V25.[address] [place] [address] [id number] [facility] 103 Sep, PELVIC PAIN 625.9 [place] [id number] [facility] 103 Aug, [place] [id number] [facility] Jul, Irregular bleeding NOS [facility] [address] [place], 626.4 ; Hydrosalpinx 614.1 [place] [id number] and PELVIC PAIN 625.9 [facility] 103 Jul, Hydrosalpinx 614.1 and IUD OBGYN [facility] [address] [place] [address] [id number] [place] Jun, O[place], [place] [id number] [place] [facility] 103 Jun, Irregular bleeding NOS OBGYN [facility] 626.4 and Hydrosalpinx [place], [place] [id number] 614.1 [place] [facility] 103 May, OBGYN [place], [place] [id number] [place] [facility] 103 May, Irregular bleeding NOS OBGYN [facility] 626.4 [place], [place] [id number] [place] [facility] 103 May, Irregular bleeding NOS OBGYN [facility] 626.4 [place], [place] [id number] [facility] May, [facility] 626.4 and Menorrhagia 626.2 [place], [place] [id number] [place] [facility] May, [facility] 626.4 and PELVIC PAIN 625.9 [place], [place] [id number] [place] [facility] 103 May, PELVIC PAIN 625.9 ; [facility] Irregular bleeding NOS [place] [id number] 626.4 and IUD SURVEILLANCE V25.42 [facility] 103 Apr, [facility] 626.4 and PELVIC PAIN 625.9 [place], [place] [id number] [facility] 103 Feb, [place] [id number] [facility] Feb, [facility]regular [facility] 626.4 ; PELVIC PAIN 625.9 [place], [place] [id number] and Abdominal pain, epigastric 789.06 [facility] Nov, Vitamin D deficiency [facility] 268.9 [place], [place] [id number] [facility] Nov, [place] [id number] [facility] 103 Nov, Irregular bleeding [facility] 626.4 and IUD SURVEILLANCE [place], [place] [id number] V25.42 [facility] 103 Nov, 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 [facility] V72.31 ; Irregular bleeding [place], [place] [id number] NOS 626.4 ; PAP SMEAR W/O REVERSE ENGINEER EXAM V76.2 ; IUD SURVEILLANCE V25.42 and SCREEN MALIG NEOP-COLON V76.51 [facility] Nov, O[place] [id number] [place] [facility] 103 Nov, Irregular bleeding NOS OBGYN [facility] 626.4 and IUD SURVEILLANCE [place], [place] [id number] V25.42 [place] [facility] 103 Nov, OBGYN [place], [place] [id number] [place] [facility] 103 Oct, Irregular bleeding NOS OBGYN [facility] 626.4 [place], [place] [id number] [place] [facility] 103 Oct, OBG[place], [place] [id number] [place] [facility] 103 Sep, [place] [id number] [facility] [facility] 103 Sep, GENITAL HERPES NOS 054.10 [place] [id number] [place] [facility] 103 Sep, [place] [id number] [place] [facility] 103 Sep, [place] [id number] [place] [facility] 103 Sep, Gross hematuria 599.71 [place] [id number] [place] [facility] 103 Aug, OBGYN [place], [place] [id number] [facility] [facility] 103 Aug, HEMATURIA NOS 599.70 [place] [id number] [place] [facility] 103 Aug, Abdominal pain, generalized OBGYN [facility] 789.07 ; Irregular bleeding [place], [place] [id number] NOS 626.4 and Dysuria 788.1 [place] [facility] 103 Aug, PELVIC PAIN 625.9 and IUD OBGYN [facility] SURVEILLANCE V25.42 [place], [place] [id number] [place] [facility] 103 07 Jul, 2011 Abdominal pain, generalized OBGYN [facility] 789.07 and Irregular [place], [place] [id number] bleeding NOS 626.4 [place] [facility] 103 Jul, OBG[place], [place] [id number] [place] [facility] 103 Jun, Abdominal pain, generalized OBGYN [facility] 789.07 and Irregular [place], [place] [id number] bleeding NOS 626.4 [place] [facility] 103 May, Abdominal pain, right lower OBGYN [facility] quadrant 789.03 and [place], [place] [id number] Irregular bleeding NOS 626.4 [place] [facility] 103 Apr, [place], [place] [id number] [facility] 103 Apr, IUD SURVEILLANCE V25.42 OBGYN [place], [place] [id number] [facility] 103 Mar, INSERTION OF IUD V25.11 OBGYN [place], [place] [id number] [place] [facility] 103 Feb, [place] [id number] [place] [facility] 103 Feb, [place] [id number] [place] [facility] 103 Feb, Menorrhagia 626.2 ; Ovarian OBGYN [facility] cyst NOS 620.2 and [place], [place] [id number] Dysmenorrhea 625.3 [place] [facility] 103 Feb, [place], [place] [id number] [place] [address] Feb, Medical [place], [place] [id number] [place] [facility] 103 13 Feb, 2011 Menorrhagia 626.2 ; Ovarian OBGYN [facility] cyst NOS 620.2 and [place], [place] [id number] Dysmenorrhea 625.3 [place] [facility] 103 January, O[place], [place] [id number] [place] [facility] 103 January, Menorrhagia 626.2 ; Ovarian OBGYN [facility] cyst NOS 620.2 and [place], [place] [id number] Dysmenorrhea 625.3 [place] [facility] 103 January, Ovarian cyst NOS 620.2 ; OBGYN [facility] Menorrhagia 626.2 and [place], [place] [id number] Dysmenorrhea 625.3 [place] [facility] 103 Nov, OBG[place], [place] [id number] [place] [facility] Nov, 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 OBGYN [facility] V72.31 and PAP SMEAR W/O [place], [place] [id number] REVERSE ENGINEER EXAM V76.2 [place] [facility] Nov, OBG[place] [id number] [place] [facility] 103 Nov, Menorrhagia 626.2 and OBGYN [facility] Ovarian cyst NOS 620.2 [place] [id number] [place] [facility] 103 Nov, Menorrhagia 626.2 O[place]YN [place], [place] [id number] [place] [facility] 103 Nov, Menorrhagia 626.2 O[place] [id number] [place] [facility] 103 Nov, Menorrhagia 626.2 and OBGYN [facility] Ovarian cyst NOS 620.2 [place], [place] [id number] [place] [facility] 103 Oct, O[place] [id number] [place] [facility] 103 Oct, [place], [place] [id number] [place] [facility] 103 14 Oct, 2010 Menorrhagia 626.2 OBGYN [place], [place] [id number] [place] [facility] 103 Feb, 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 [facility] V72.31 [place] [id number] [place] [facility] 103 May, PELVIC PAIN 625.9 [place] [id number] [place] [facility] 103 May, PELVIC PAIN 625.9 [place] [id number] [place] [facility] 103 May, PELVIC PAIN 625.9 [place] [id number] [place] [facility] 103 Apr, O[place], [place] [id number] [place] [facility] 103 Apr, Dysuria 788.1 and [facility] NOS 599.70 [place] [id number] [place] [facility] 103 Apr, PELVIC PAIN 625.9 [place] [id number] [place] [facility] 103 Mar, [place] [id number] [place] [facility] 103 Mar, Ovarian cyst NOS 620.2 and OBGYN [facility] PELVIC PAIN 625.9 [place], [place] [id number] [facility] 103 Mar, Ovarian cyst NOS 620.2 and OBGYN [facility] PELVIC PAIN 625.9 [place], [place] [id number] [facility] 103 Feb, OBG[place], [place] [id number] [place] [facility] 103 Feb, Ovarian cyst NOS 620.2 and OBGYN [facility] PELVIC PAIN 625.9 [place], [place] [id number] [place] [facility] 103 15 Feb, 2009 Ovarian cyst NOS 620.2 and OBGYN [facility] PELVIC PAIN 625.9 [place], [place] [id number] [place] [facility] 103 15 Feb, 2009 PELVIC PAIN 625.9 and OBGYN [facility] Ovarian cyst NOS 620.2 [place], [place] [id number] [place] [facility] 103 12 Feb, 2009 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 [facility] V72.31 [place], [place] [id number] [place] [facility] 103 11 Feb, 2009 PELVIC PAIN 625.9 and OBGYN [facility] Ovarian cyst NOS 620.2 [place], [place] [id number] [place] [facility] 103 09 Feb, 2009 PELVIC PAIN 625.9 and OBGYN [facility] Ovarian cyst NOS 620.2 [place], [place] [id number] [place] [facility] 103 Feb, Menorrhagia 626.2 and OBGYN [facility] PELVIC PAIN 625.9 [place], [place] [id number] [place] [facility] 103 January, [place], [place] [id number] [place] [facility] 103 January, Menorrhagia 626.2 and OBGYN [facility] Irregular bleeding NOS [place], [place] [id number] 626.4 [place] [facility] 103 January, Menorrhagia 626.2 [place]YN [place], [place] [id number] [place] [facility] 103 Nov, O[place] [id number] [place] [facility] 103 Nov, Menorrhagia 626.2 [place] [id number] [place] [facility] 103 Jun, [place] [id number] [place] [facility] 103 Jun, Menorrhagia 626.2 OBGYN [place] [id number] [place] [facility] 103 Jun, Menorrhagia 626.2 [place]YN [place], [place] [id number] [facility] 103 May, [place], [place] [id number] [place] [facility] 103 May, Menorrhagia 626.2 and OBGYN [facility] PELVIC PAIN 625.9 [place], [place] [id number] [place] [facility] 103 May, Ovarian cyst NOS 620.2 OBGYN [place], [place] [id number] [place] [facility] 103 May, Ovarian cyst NOS 620.2 and OBGYN [facility] PELVIC PAIN 625.9 [place], [place] [id number] [place] [facility] 103 May, [place], [place] [id number] [place] [facility] 103 Apr, Cervical polyp 622.7 [place] [id number] [place] [facility] 103 Sep, [place] [id number] [place] [facility] 103 Sep, [place] [id number] [place] [facility] 103 Sep, [place] [id number] [place] [facility] 103 Sep, Menorrhagia 626.2 [place], [place] [id number] [place] [facility] 103 Aug, O[place], [place] [id number] [place] [facility] 103 Aug, Menorrhagia 626.2 [place], [place] [id number] [place] [facility] 103 Jun, O[place] [id number] [place] [facility] 103 Jun, O[place], [place] [id number] [place] [facility] 103 Jun, [place] [id number] [place] [facility] 103 Jun, Menorrhagia 626.2 O[place], [place] [id number] [place] [facility] 103 May, Menorrhagia 626.2 OBGYN [place], [place] [id number] [place] [facility] 103 May, Menorrhagia 626.2 [place] [id number] [place] [facility] 103 Apr, PELVIC PAIN 625.9 [place], [place] [id number] [place] [facility] 103 Apr, PELVIC PAIN 625.9 [place], [place] [id number] [place] [facility] 103 Apr, O[place] [id number] [place] [facility] 103 Apr, 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 OBGYN [facility] V72.31 ; Dysuria 788.1 ; [place] [id number] [facility] 625.9 and Hemorrhoids NOS 455.6 [place] [facility] 103 Mar, Ovarian cyst NOS 620.2 [place] [id number] [place] [facility] 103 Mar, O[place], [place] [id number] [place] [facility] 103 Mar, Ovarian cyst NOS 620.2 [place] [id number] [place] [facility] 103 11 Feb, 2007 OBG[place], [place] [id number] [place] [facility] 103 January, Menorrhagia 626.2 ; Ovarian OBGYN [facility] cyst NOS 620.2 and PELVIC [place], [place] [id number] PAIN 625.9 [place] [facility] 103 January, Menorrhagia 626.2 ; Ovarian OBGYN [facility] cyst NOS 620.2 and PELVIC [place], [place] [id number] PAIN 625.9 [place] [facility] 103 January, Ovarian cyst NOS 620.2 ; OBGYN [facility] PELVIC PAIN 625.9 and [place], [place] [id number] Irregular bleeding NOS 626.4 [place] [facility] 103 January, Ovarian cyst NOS 620.2 and OBGYN [facility] PELVIC PAIN 625.9 [place], [place] [id number] [place] [facility] 103 Aug, O[place] [id number] [place] [facility] 103 Aug, O[place], [place] [id number] [place] [facility] 103 Aug, [place], [place] [id number] [place] [facility] 103 Aug, Menorrhagia 626.2 ; OBGYN [facility] Follicular cyst of ovary [place], [place] [id number] 620.0 and Dysmenorrhea 625.3 [place] [facility] 103 Jun, Menorrhagia 626.2 and OBGYN [facility] Ovarian cyst NOS 620.2 [place], [place] [id number] [place] [facility] 103 Feb, Candidal vulvovaginitis OBGYN [facility] 112.1 [place], [place] [id number] [place] [facility] 103 Dec, [place] [id number] [place] [facility] 103 Oct, Mastalgia 611.71 [place], [place] [id number] [place] [facility] Oct, Follicular cyst of ovary OBGYN [facility] 620.0 [place], [place] [id number] [place] [facility] 103 Sep, Follicular cyst of ovary OBGYN [facility] 620.0 and Dysmenorrhea [place], [place] [id number] 625.3 UNKNOWN Aug, [place] [facility] 103 Aug, Follicular cyst of ovary OBGYN [facility] 620.0 and Dysmenorrhea [place], [place] [id number] 625.3 UNKNOWN Aug, [facility] 103 Aug, Menorrhagia 626.2 [place] [id number] [facility] 103 Aug, OBG[place], [place] [id number] [facility] 103 Aug, [facility] 627.0 and Menorrhagia 626.2 [place], [place] [id number] UNKNOWN Jul, [place] [facility] 103 Jul, Abrasion or friction burn [facility] of vagina without infection [place], [place] [id number] 911.0 IMMUNIZATIONS No Known Immunizations SOCIAL HISTORY Never Assessed REASON FOR REFERRAL FUNCTIONAL STATUS PLAN OF CARE Activity Details 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 Reason: VITAL SIGNS Height 62 in 2019-10-13 Weight 148 lbs 2019-10-13 BMI 27.07 kg/m2 2019-10-13 Blood pressure systolic 120 mm Hg 2019-10-13 Blood pressure diastolic 80 mm Hg 2019-10-13 MEDICATIONS Medication Instructions Dosage Frequency Start End Date Duration Status Date Hydrocortisone, applied 1 valente 8h 10 Jun, day(s) Active Topical 2.5% topically 3 2017 times a day atorvastatin 20 orally once a 1 tab(s) 24h Active mg day clotrimazole applied 1 valente 16 Aug, days Active topical 1% topically 3 2019 times a day, then 2-3 x a week omeprazole 20 mg orally once a 1 cap(s) 24h Active day naproxen 500 mg orally QD 1 tab(s) 24h Active aspirin 81 mg orally QD 1 tab(s) 24h Active Proctocort 1% applied 1 valente 8h 07 Jun, 10 days Active topically 3 2019 times a day PROCEDURES Procedure Date Ordered Result Body Site URINE-NO MICRO Oct 13, 2019 RESULTS Name Result Date Reference Range Urine dip Glucose blood protein Nitrite Leuko Urobilinogen Keytone Bilirubin pH REASON FOR VISIT Vaginal discomfort since last night..no discharge Insurance Providers [facility] Patient Patient Patient Patient Patient Subscriber Subscriber Subscriber Group Insurance Plan Plan Plan Plan ID Relationship Address Phone Name Date of ID Name Date of No Type Insurance Insurance Insurance Coverage to Subscriber Address Phone Name Dates Medicaid [phone] Medicaid self [place] [id number] [facility] [address] [place] [id number] [phone] [place] self [place] [id number] [address] [address] MEDICAL (GENERAL) HISTORY Type Description Date Medical History Esophageal reflux Medical History Genital herpes Medical History Atopic dermatitis Medical History high cholesterol Medical History stroke Medical History pneumonia Medical History px COPD Medical History Barretts Esophegus Medical History hx CVA Medical History anxiety Medical History costochondritis Medical History hypercholesteremia Medical History pancreatitis Surgical History hysteroscopy,D&C 8-03 Surgical History LSO 10- Surgical History D&C 2-98 Surgical History D&C [...]
--- OUTSIDE RECORDS SUMMARY | 2019-12-01 13:12 | XMS REPORT | Summary of Care ---
:1960 Author Organization [facility] Address [address] [place] [address] Care Team Providers Name Role Phone Ashley Piper MD Primary Care Provider Reason for Visit Auth/Cert Status Reason Specialty Diagnoses / Procedures Referred By Contact Referred To Contact Diagnoses Chronic pancreatitis, unspecified pancreatitis type [K86.1] Kb Spangler MD [address] [facility] [address] [place] [id number] Email: [email or web address] Encounter Details Date Type Department Care Team Description 10/18/2019 Hospital Encounter [id number] [facility] bK Spangler MD [address] [address] [place] [address] [phone] Allergies Active Allergy Reactions Severity Noted Date Comments Penicillins Hives Medium 06/24/2017 Midazolam Other (See Comments) Medium 03/30/2018 Confusion. Pt is still able to use medication documented as of this encounter (statuses as of 10/18/2019) Medications Medication Sig Dispensed Refills Start Date End Date Status omeprazole (PRILOSEC) Take 40 mg by mouth 0 Active 40 MG nightly Indications: capsuleIndications: Gastroesophageal Gastroesophageal Reflux Disease Reflux Disease aspirin 81 MG tablet Take 81 mg by mouth 0 Active every evening atorvastatin Take 20 mg by mouth 0 Active (LIPITOR) 20 MG nightly tablet nystatin (MYCOSTATIN) Apply 1 Application 0 01/05/2018 Active ointment topically as needed VENTOLIN HFA 108 (90 INHALE 2 PUFFS EVERY 0 02/26/2018 Active Base) MCG/ACT inhaler 4 HOURS NEEDED FOR COUGH/ NEEDED [place]-3 Fatty Acids Take 1 capsule by 0 Active (FISH OIL PO) mouth every morning docusate sodium Take 100 mg by mouth 0 Active (COLACE) 100 MG every morning capsule clotrimazole every morning 3 03/15/2019 Active (LOTRIMIN) 1 % cream escitalopram Take 10 mg by mouth 1 02/26/2019 Active (LEXAPRO) 10 MG every evening tablet clotrimazole Apply 1 Application 0 Active (LOTRIMIN) 1 % cream topically Two Times Daily Calcium Carbonate Chew 1 tablet by 0 Active Antacid 500 MG Oral Mouth Four times Tablet Chewable daily as needed for (TUMS) Heartburn documented as of this encounter (statuses as of 10/18/2019) Active Problems Problem Noted Date Acute pancreatitis 12/03/2018 High sweat chloride 06/24/2017 Gastroesophageal reflux disease without esophagitis 06/24/2017 Chronic pansinusitis 06/24/2017 documented as of this encounter (statuses as of 10/18/2019) Social History Tobacco Use Types Packs/Day Years Used Date Never Smoker Smokeless Tobacco: Never Used Comments: wears a mask when she is around smokers Alcohol Use Drinks/Week oz/Week Comments No Sex Assigned at Date Recorded Not on file Job Start Date Occupation Industry Not on file Not on file Not on file Travel History Travel Start Travel End No recent travel history available. documented as of this encounter Last Filed Vital Signs Vital Sign Reading Time Taken Comments Blood Pressure 110/76 10/18/2019 4:15 PM EST Pulse 91 10/18/2019 4:15 PM EST Temperature 36.3 10/18/2019 4:15 PM EST C (97.4 F) Respiratory Rate 16 10/18/2019 4:15 PM EST Oxygen Saturation 97% 10/18/2019 4:15 PM EST Inhaled Oxygen Concentration - - Weight 68 kg (150 lb) 10/18/2019 9:50 AM EST Height 154.9 cm (5' 1") 10/18/2019 9:50 AM EST Body Mass Index 28.34 10/18/2019 9:50 AM EST documented in this encounter Discharge Instructions Patient InstructionsSujatha Borja RN - 10/12/2019 1:31 PM EST PRE-ANESTHESIA INSTRUCTIONS Tentative Date: 10/18/2019 Tentative Arrival Time: 945AM Take medications morning of surgery with a few sips of water/clear liquid TARIQ CRIPPLE CUTTER Medications Medication Sig Note Pre-Anesthesia Instructions for Medications atorvastatin (LIPITOR) 20 MG tablet Take 20 mg by mouth nightly Continue as prescribed Calcium Carbonate Antacid 500 MG Oral Tablet Chewable (TUMS) Chew 1 tablet by Mouth Four times daily as needed for Heartburn 10/12/2019: Not taking Not currently Taking clotrimazole (LOTRIMIN) 1 % cream every morning Continue as prescribed omeprazole (PRILOSEC) 40 MG capsule Take 40 mg by mouth nightly Indications: GastroesophagealReflux Disease Continue as prescribed ADULT AND CHILDREN 12 years old and older: These instructions apply to food and liquids by mouth andfeeding tube. Stop all solid food no later than Midnight (This includes gum and candies) Stop all clear liquids 2 hours before your scheduled arrival at hospital. Examples of Approved Clear Liquids for Adults: Water or ice, apple juice, liliana jaguar, non-red and non-purple Gatorade or Powerade. NOTHING ELSE, NO SUBSTITUTIONS! Examples of solids include: pureed solids, milk, formula, gum, candy, lozenges, pulp juices, nectars, or any liquid you cannot see through. If you are taking Motrin, Advil, Ibuprofen, or other anti-inflammatories, call your surgeon for specific instructions regarding stopping them prior to surgery. You may take Tylenol (acetaminophen) for pain. No alcohol, vitamins and supplements, illegal drugs or smoking 24 hours before surgery. Call your surgeon if you are sick, have a cold or fever. Make arrangements to have a responsible adult drive you home after surgery. Wear comfortable clothes, no valuables, remove all jewelry and piercing, no makeup or nail zimbabwean. Do not use oil, lotion or powder on your skin before coming for your procedure. You will meet with your Anesthesiologist the day of your surgery. The Night before Your Procedure: You should receive a phone call the business day before (Friday for Friday procedures) between 3 and6 PM to confirm your arrival time the next day, as any time given to you before this was only tentative. To finalize your arrival time for your procedure, and if you have not heard from : Adult Operating Room (5E) will only call you if your arrival time has changed. If you have anyquestions, please call Adult Endoscopy The Day of Your Procedure: Please park in the East Garage. Patient and Visitor parking is located on the 1st and 2nd floors of the garage. The garage accepts both oseguera and credit cards for payment of parking fees. There also is an SARAH located in the Main Lobby. Ham Doctor Parking - Ham Doctor Parking is available in the Hospital front [place] for an additional $5.00 on top of regular parking fees. 1st floor - If you park on the 1st floor of the garage, please walk across [facility]. and enter through the Main Hospital entrance. Walk past the Visitor check in and go to the Registration desk on the right, where you will be registered for your procedure and your family will get their visitor passes. All adults need to provide photo ID. You will then be told where to go for your procedure. 2 nd floor - If you park on the 2nd floor of the garage, please walk across bridge over [facility]. Do NOT go to the Visitor checking in on the 2nd floor. Take either the stairs or the elevator to yourright and go down to the 1st floor Main Lobby. Walk past the Visitor check in and go to the Registration desk on the right, where you will be registered for your procedure and your family will get their visitor passes. All adults need to provide photo ID. You will then be told where to go for yourprocedure. 5E Fast Pass Patients: Directions to 5E Pre-Surgical Care Waiting Room For patients seen in Pre-admission testing, attach your 5E Visitor Pass prior to coming to the hospital. Be sure the 5E Visitor pass is visible and you may bypass visitor check in and registration. Main elevators to 5th Floor Exit the elevator and take a right out of the elevator, then take another right and go straightdown Hallway E Continue down the ch approximately 50 feet on the left hand side to the Surgical Care WaitingArea Sign in at the Registration/Medicine Aide Desk Call Ambassador Services between 7:30am - 8:00PM. if you need more assistance documented in this encounter Progress Notes Annie Jean RN - 10/18/2019 4:55 PM ESTprovation reviewed by prev rn, no questions voiced by pt Pt enc light diet today at home/ atul sips water well Remained painfree during stay Ambulating with steady gait piv dcd Awaiting ride home approx 1730 pt ride arrived and pt dcd home to c ar via wc. Pt remained painfree for entire stayElectronically signed by Annie Jean RN at 2019 5:32 PM ESTHerr, Ashley Sotelo RN - 10/18/2019 2:33 PM ESTOkay per MD Spangler for patient to leave at 1630.Electronically signed by Ashley Carrillo RN at 10/18 2:35 PM ESTdocumented in this encounter Plan of Treatment Name Type Priority Associated Diagnoses Order Schedule POCT glucose, Point of Care Routine Once for 1 docked (if Testing-Docked Occurrences starting diabetic) Device 10/18/2019 until 10/18/2019 ERCP - Imaging GI Routine Once for 1 Occurrences starting 10/18/2019 until 10/18/2019 Health Maintenance Due Date Last Done Comments MMR Vaccines (1 of 1 - Standard 1961 series) Varicella Vaccines (1 of 2 - 1961 2-dose childhood series) DTaP,Tdap,and Td Vaccines (1 - 1967 Tdap) HIV Screening 1973 Cervical Cancer Screening 5 years 1981 Breast Cancer Screening 2 years 2010 Colon Cancer Screening 10 yrs 2010 Influenza Vaccine 06/15/2019 Pneumococcal Vaccine: 65+ Years (1 2025 of 2 - PCV13) Hepatitis C Screening (B. Completed 12/03/2018 [id number]) HIB Vaccines Aged Out No longer eligible based on patient's age to complete this topic Hepatitis A Vaccines Aged Out No longer eligible based on patient's age to complete this topic Hepatitis B Vaccines Aged Out No longer eligible based on patient's age to complete this topic IPV Vaccines Aged Out No longer eligible based on patient's age to complete this topic Pneumococcal Vaccine: Pediatrics Aged Out No longer eligible based on (0 to 5 Years) and At-Risk patient's age to complete Patients (6 to 64 Years) this topic documented as of this encounter Implants Implanted Type Area Finisher Card Tender Device Shelf Model / Identifier Expiration Serial / Date Lot Stent Geenan Pancreatic 7-5 - [id number] N/A: Pancreas [employer] 2019 [id number] / Implanted: Qty: 1 on 05/10/2019 by Kb Spangler MD at OR ENDO / [id number] Description:Pancreatic duct Explanted Type Area Finisher Card Tender Device Shelf Model / Identifier Expiration Serial / Date Lot Stent Pancreatic 8.5f 7cm - [id number] N/A: Pancreas [employer] 2021 GEPD-8.5-7 / Implanted: Qty: 1 on 08/09/2019 by Kb Spangler MD at OR ENDO / Explanted: Qty: 1 on 10/18/2019 by Kb Spangler MD at [facility] ENDO [id number] documented as of this encounter Procedures Procedure Name Priority Date/Time Associated Diagnosis Comments ERCP REPORT 10/18/2019 12:00 AM EST documented in this encounter Results Not on filedocumented in this encounter Administered Medications Medication Order MAR Action Action Date Dose Rate Site dextrose 5 % infusion at 0.2-10 mL/hr, Intravenous, PRN, For Meds, Starting 10/18/19 at 0950, For 30 days, Pre-op heparin flush (porcine) 100 UNIT/ML injection 500 Units 500 Units, Intravenous, Continuous PRN, Line Care, Starting 10/18/19 at 0950 , For 30 days, Pre-op, Verify blood return before use. For deaccessing: flush with 10 mL Sodium Chloride 0.9 % followed by 5 mL Heparin 100 units/mL. Flush per CM C- 34C Central Line Policy for Infusaport., heparin lock flush 10 UNIT/ML injection 50 Units 50 Units, Intravenous, Continuous PRN, Line Care, Starting 10/18/19 at 0950, For 30 days, Pre-op, Verify blood return before use. For intermittent access: flush with 10 mL Sodium Chloride 0.9 % followed by 5 mL Heparin 10 units/mL. Flush per CM C-34C Central Line Policy for Infusaport., NaCl infusion 0.9 % at 0.2-10 mL/hr, Intravenous, PRN, For Meds, Starting Fri10/18/19 at 0950, For 30 days, Pre-op sodium chloride (preservative free) 0.9 % flush 10 mL 10 mL, Intravenous, Continuous PRN, Line Care, Starting Fri10/18/19 at 0950, For 30 days, Pre-op, Verify blood return before use. For intermittent access: flush with 10 mL Sodium Chloride 0.9 % followed by 5 mL Heparin 10 units/mL. Flush per CM C-34C Central Line Policy for Infusaport., sodium chloride (preservative free) 0.9 % flush 10 mL 10 mL, Intravenous, Continuous PRN, Line Care, Starting Fri10/18/19 at 0950, For 30 days, Pre-op, Verify blood return before use. For deaccessing: flush with 10 mL Sodium Chloride 0.9 % followed by 5 mL Heparin 100 units/mL. Flush per CM C- 34C Central Line Policy for Infusaport., sodium chloride (preservative free) 0.9 % flush 3 mL 3 mL, Intravenous, Every 8 hours Standard (3 times per day), First dose on Fri10/18/19 at 1700, For 30 days, Pre-op, Saline Lock. Flush Q8H and after each use to Saline Lock., sodium chloride (preservative free) 0.9 % flush 3 mL 3 mL, Intravenous, Continuous PRN, Line Care, Starting Fri10/18/19 at 0950, For 30 days, Pre-op, Saline Lock. Flush Q8H and after each use to Saline Lock., documented in this encounter
[2019-12-01 13:34] VITALS: BP 122/79
--- NOTE | 2019-12-01 13:42 | UC ---
Headache HPI - HPI Summary HPI Summary: 59-year-old female who had a canceled appointment with her primary care provider today because of intermittent headaches over the past 3 months which seem to be worsening. She denies any other symptoms of illness with that. She has a history of a CVA in 2013. She states to me her headache will usually resolve with Tylenol. She took Tylenol this morning at 11 AM. On initial interview she stated she walked into another walk-in clinic this morning and they advised her she needed a CAT scan and to go to the emergency room. Patient did not want to go to the emergency room but rather she came here for a CT scan. My initial interview, she stated this was the worst headache she ever had, however she quickly changed that when I advised her that she would need to go to the emergency room... She states that her headache is almost gone. Denies any weakness. - History Of Current Complaint Chief Complaint: Darci Stated Complaint: VAZQUEZ Time Seen by Provider: 12/01/19 13:29 Hx Obtained From: Patient Hx Last Menstrual Period: UTERINE ABLATION ?: No Onset/Duration: Gradual Onset, Other - Intermittent headaches of the past few months. Onset Of Symptoms: Resolved Initially Headache Was: Moderate Currently Pain Is: Mild - Patient initially stated this is the worst headache she's had however when I advised her she would need to go the emergency room for evaluation she stated that this is not the worst headache and it is resolving. Pain Intensity: 9 Timing: Weeks Character: Typical Headache Location of Headache: Diffuse Aggravating Factor(s): Nothing Allevating Factor(s): Medication - Patient Tylenol this morning at 11:00. She states usually Tylenol will resolve the headache. Associated Signs And Symptoms: Positive: Negative - Allergies/Home Medications Allergies/Adverse Reactions: Allergies Allergy/AdvReac Type Severity Reaction Status Date / Time latex Allergy Hives Verified 12/01/19 13:21 levofloxacin Allergy Vomiting Verified 12/01/19 13:21 Penicillins Allergy Hives Verified 12/01/19 13:21 Home Medications: Home Medications Aspirin [Aspirin Adult Low Dose 81 MG] 81 mg PO DAILY 10/05/15 [History Confirmed 12/01/19] Atorvastatin* [Lipitor 40 MG*] 1 tab PO QPM 01/02/17 [History Confirmed 12/01/19 ] Omeprazole 20 mg PO DAILY PRN 02/15/19 [History Confirmed 12/01/19] Acetaminophen [Acetaminophen Extra Strength] 500 mg PO Q4H PRN 12/01/19 [ History Confirmed 12/01/19] PMH/Surg Hx/FS Hx/Imm Hx Previously Healthy: Yes Cardiovascular History: Hypertension GI/ History: Gastroesophageal Reflux Other History Of: Negative For: HIV, Hepatitis B, Hepatitis C - Surgical History Surgical History: Yes Surgery Procedure, Year, and Place: ablation 2014-[facility]. LEFT OVARY REMOVED. STENT IN PANCREAS. - Family History Known Family History: Positive: Hypertension, Diabetes, Other - cancer, alzheimers Negative: Cardiac Disease - Social History Occupation: Unemployed Alcohol Use: None Substance Use Type: None Smoking Status (MU): Never Smoked Tobacco Have You Smoked in the Last Year: No - Immunization History Most Recent Influenza Vaccination: 11/2016 Review of Systems All Other Systems Reviewed And Are Negative: Yes Neurological/Mental Status: Positive: Headache Is Patient Immunocompromised?: No Physical Exam Triage Information Reviewed: Yes Appearance: Well-Appearing, No Pain Distress, Well-Nourished Vital Signs: Initial Vital Signs Temp 98.2 F 12/01/19 13:18 Pulse 83 12/01/19 13:18 Resp 16 12/01/19 13:18 BP 122/79 12/01/19 13:18 Pulse Ox 100 12/01/19 13:18 Vital Signs Reviewed: Yes Eyes: Positive: Conjunctiva Clear - Brittney, EOMI, negative eye drift ENT: Positive: Hearing grossly normal, Pharynx normal, TMs normal, Uvula midline Neck: Positive: Supple, Nontender, No Lymphadenopathy Respiratory: Positive: Lungs clear, Normal breath sounds, No respiratory distress, No accessory muscle use Cardiovascular: Positive: RRR, No Murmur, Pulses Normal, Brisk Capillary Refill Abdomen Description: Positive: Nontender, No Organomegaly, Soft. Negative: CVA Tenderness (R), CVA Tenderness (L), Distended, Guarding, Hepatomegaly, Splenomegaly Bowel Sounds: Positive: Present Musculoskeletal Exam: Normal Musculoskeletal: Positive: Strength Intact, ROM Intact, Other: - Good peripheral pulses, neuro sensation and capillary refill. Good arm and leg strength against resistance. Full Range of motion. Neurological: Positive: Alert, Muscle Tone Normal - Cranial nerves II through XII are intact. Good finger to nose bilaterally, good heel-to-toe to bauer bilaterally, good heel-to-toe forward and backward, negative Romberg, Normal dystidiokinesia Psychological Exam: Normal Skin Exam: Normal Headache Course/Dx - Course Course Of Treatment: Patient is comfortable here. CT brain without contrast:FINDINGS: HEMORRHAGE/INFARCT: There is no hemorrhage or acute infarct. MASSES/SHIFT: There is no mass or shift. EXTRA-AXIAL SPACES: There are no extra-axial fluid collections. SULCI AND VENTRICLES: The sulci and ventricles are normal in size and position for the patient's stated age. CEREBRUM: There are no focal parenchymal abnormalities. BRAINSTEM: There are no focal parenchymal abnormalities. CEREBELLUM: There are no focal parenchymal abnormalities. VESSELS: The vessels are grossly normal. PARANASAL SINUSES: The paranasal sinuses are clear. ORBITS: The orbits are unremarkable. BONES AND SOFT TISSUE: No bone or soft tissue abnormalities are noted. OTHER: None IMPRESSION: NO ACUTE INTRACRANIAL PATHOLOGY. Patient is comfortable here and states that her headache is almost gone. - Differential Dx/Diagnosis Provider Diagnosis: Headache Discharge ED - Sign-Out/Discharge Documenting (check all that apply): Patient Departure All imaging exams completed and their final reports reviewed: Yes - Discharge Plan Condition: Good Disposition: HOME Patient Education Materials: Migraine Headache (ED) Referrals: Ashley Piper MD [Primary Care Provider] - Additional Instructions: Follow-up with your primary care provider if you have continued headaches for possible referral to a neurologist for evaluation. If your symptoms worsen or you start vomiting with headache you are to go to the emergency room for evaluation and treatment. - Billing Disposition and Condition Condition: GOOD Disposition: Home
== END 2019-12-01 14:05 | disposition home or self-care (01) ==
LOC: UCCORT 13:03
DX: R51 Headache (principal); I10 Essential (primary) hypertension; K21.9 Gastro-esophageal reflux disease without esophagitis; Z79.899 Other long term (current) drug therapy; Z79.82 Long term (current) use of aspirin; Z91.040 Latex allergy status; Z88.1 Allergy status to other antibiotic agents
CPT/HCPCS: 70450; 99211; G0463

== ENCOUNTER 2019-12-22 15:10 | Emergency (ER) | payer MEDICARE, OTHER ==
--- OUTSIDE RECORDS SUMMARY | 2019-12-22 15:34 | XMS REPORT | Continuity of Care Document ---
:1960 External Reference #:[id number] Author Name Louisa Marinelli FNP (transmitted by agent of provider Hui Parr) Address [address] [place] [address] Care Team Providers Name Role Phone Enoc Hirsch NP - Family Care Team Information Sales Office Assistant Ashley Piper MD - Family Care Team Information Sales Office Assistant [phone] Medicine Problems Active Problems Provider Date Irritable [...] Patient has never smoked Smoking Status Reviewed: 12/01/19 Patient has never smoked Exercise Type/Frequency Exercises [...] Available Vital Signs Date Vital Result Comment 12/01/2019 12:23pm BP Systolic 112 mmHg BP Diastolic 97 mmHg Body Temperature 97.3 F Heart Rate 85 /min Respiratory Rate 18 /min Weight 153.12 lb Pain Level 9 O2 % BldC Oximetry 97 % 04/08/2018 1:01pm BP Systolic Sitting Left Arm 110 mmHg BP Diastolic Sitting Left Arm 78 mmHg Heart Rate 67 /min Respiratory Rate 18 /min Height 62 inches 5'2" Weight 145.00 lb BMI (Body Mass Index) 26.5 kg/m2 BSA (Body Surface Area) 1.67 m2 Shedd body weight in kilograms 50 kg O2 % BldC Oximetry 98 % Ora Results Description No Information Available Procedures Date Code Description Status 09/06/2019 87668 Refraction Completed 09/06/2019 78236 Eye Exam Est Patient Comprehensive Completed 06/29/2019 22373 Eye Exam Est Patient Comprehensive Completed 10/11/2015 39668088 Colonoscopy Completed 04/04/2014 [id number] Colonoscopy Completed 02/26/2010 15399180 Colonoscopy Completed Medical Devices Description No Information Available Encounters Type Date Location Provider Dx Diagnosis Office Visit 12/01/2019 12:15p Walk In Clinic Louisa Marinelli FNP R51 Headache Assessments Date Code Description Provider 12/01/2019 R51 Headache Louisa Marinelli FNP 09/06/2019 H04.123 Dry eye syndrome of bilateral lacrimal glands Dion Nettles MD 09/06/2019 Z96.1 Presence of intraocular lens Dion Nettles MD 09/06/2019 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 With your history of stroke I suggest that you go to the [facility] ER for CT and further work up. You have indicated that you do not want to go to the ER and will go to [facility] for additional testing.Referred to Emergency Department at [facility] for further evaluation and treatment. Patient advised of benefits of EMS transport and risk of refusal of EMS Services and declined EMS transport Patient verbalized understanding of instructions regarding further Emergency evaluation and treatment and agreed with need for transfer.AllComments: Functional Status Description No Information Available Mental Status Description No Information Available Referrals Description No Information Available
--- NOTE | 2019-12-22 15:35 | UC ---
Respiratory Complaint HPI - HPI Summary HPI Summary: 59 yo female with chronic bronchits has had her chronic cough x weeks worsened past 3-4 days requiring the use of her inhaler non smoker no fever no CP + SOB she requests COVID 19 testing - History of Current Complaint Chief Complaint: UCRespiratory Stated Complaint: COUGH Time Seen by Provider: 12/22/19 15:13 Hx Obtained From: Patient Hx Last Menstrual Period: utrine ablation Onset/Duration: Sudden Onset, Lasting Weeks, Worse Since - x3-4 days Timing: Constant Severity Initially: Mild Severity Currently: Moderate Pain Intensity: 0 Pain Scale Used: 0-10 Numeric Character: Cough: Nonproductive Aggravating Factors: Deep Breaths Alleviating Factors: Bronchodilator Associated Signs And Symptoms: Positive: Wheezing - Allergies/Home Medications Allergies/Adverse Reactions: Allergies Allergy/AdvReac Type Severity Reaction Status Date / Time latex Allergy Hives Verified 12/22/19 15:15 levofloxacin Allergy Vomiting Verified 12/22/19 15:15 Penicillins Allergy Hives Verified 12/22/19 15:15 Home Medications: Home Medications Aspirin [Aspirin Adult Low Dose 81 MG] 81 mg PO DAILY 10/05/15 [History Confirmed 12/22/19] Atorvastatin* [Lipitor 40 MG*] 1 tab PO QPM 01/02/17 [History Confirmed 12/22/19 ] Omeprazole 20 mg PO DAILY PRN 02/15/19 [History Confirmed 12/22/19] Acetaminophen [Acetaminophen Extra Strength] 500 mg PO Q4H PRN 12/01/19 [ History Confirmed 12/22/19] Azithromycin TAB* [Zithromax TAB*] 250 mg PO DAILY #6 tab 12/22/19 [Rx] PMH/Surg Hx/FS Hx/Imm Hx Previously Healthy: Yes Endocrine History: Dyslipidemia Respiratory History: Bronchitis GI/ History: Gastroesophageal Reflux Other History Of: Negative For: HIV, Hepatitis B, Hepatitis C - Surgical History Surgical History: Yes Surgery Procedure, Year, and Place: ablation 2014-[facility]. LEFT OVARY REMOVED. STENT IN PANCREAS. REMOVAL OF PANCREATIC STENT OCT 2019 - Family History Known Family History: Positive: Hypertension, Diabetes, Other - cancer, alzheimers Negative: Cardiac Disease - Social History Alcohol Use: None Substance Use Type: None Smoking Status (MU): Never Smoked Tobacco Have You Smoked in the Last Year: No - Immunization History Most Recent Influenza Vaccination: 11/2016 Review of Systems All Other Systems Reviewed And Are Negative: Yes Constitutional: Positive: Negative Skin: Positive: Negative Eyes: Positive: Negative ENT: Positive: Negative Respiratory: Positive: Shortness Of Breath, Cough Cardiovascular: Positive: Negative Gastrointestinal: Positive: Negative Genitourinary: Positive: Negative Motor: Positive: Negative Neurovascular: Positive: Negative Musculoskeletal: Positive: Negative Neurological/Mental Status: Positive: Negative Psychological: Positive: Negative Physical Exam Triage Information Reviewed: Yes Appearance: Well-Appearing, No Pain Distress, Well-Nourished Vital Signs Reviewed: Yes Eyes: Positive: Conjunctiva Clear ENT: Positive: Hearing grossly normal, Pharynx normal, TMs normal. Negative: Nasal congestion, Nasal drainage, Tonsillar swelling, Tonsillar exudate, Dental tenderness, Sinus tenderness Dental: Negative: Abscess @ Neck: Positive: Supple Respiratory: Positive: Lungs clear, Normal breath sounds, No respiratory distress, No accessory muscle use, Other: - wheeze with forced expiration Cardiovascular: Positive: RRR, No Murmur Musculoskeletal: Positive: ROM Intact, No Edema Neurological: Positive: Alert Psychological Exam: Normal Skin Exam: Normal Respiratory Course/Dx - Differential Dx/Diagnosis Provider Diagnosis: Bronchitis, Educated about COVID-19 virus infection Discharge ED - Sign-Out/Discharge Documenting (check all that apply): Patient Departure All imaging exams completed and their final reports reviewed: No Studies - Discharge Plan Condition: Stable Disposition: HOME Prescriptions: Azithromycin TAB* [Zithromax TAB*] 250 mg PO DAILY #6 tab Patient Education Materials: Acute Bronchitis (ED) Forms: COVID-19 Tested & Isolation Referrals: Ashley Piper MD [Primary Care Provider] - 5 Days (if not improved) Additional Instructions: use your inhaler as directed TO ER FOR NEW OR WORSENING SYMPTOMS COVID 19 test pending - Billing Disposition and Condition Condition: STABLE Disposition: Home
--- OUTSIDE RECORDS SUMMARY | 2019-12-22 15:35 | XMS REPORT | Continuity of Care Document ---
:1960 External Reference #:[id number] Author Name Louisa Marinelli FNP (transmitted by agent of provider Arcelia Jones) Address [address] [place] [id number] Care Team Providers Name Role Phone Enoc Hirsch NP - Family Care Team Information [employer] Operator [phone] Ashley Piper MD - Family Care Team Information [employer] Medicine Problems Active Problems Provider Date Irritable bowel syndrome La Antoine PA-C Onset: 08/24/2015 Note: colonoscopy to TI Bx Sep 2015 (on Na2SO4); CT a&p, GES, SB series 2010. 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 Onset: 08/24/2015 Note: Barlow Diaz's esophagus La Antoine PA-C Onset: 08/24/2015 Note: high Gastroesophageal reflux disease La Antonie PA-C Onset: 08/24/2015 Note: upper to 70 cm beyond angle of Treitz Bx 2016 Chronic pancreatitis La Antoine PA-C Onset: 08/24/2015 Disorder of pancreas Randall Young MD Onset: 04/23/2017 Digestive symptom Randall Young MD Onset: 04/23/2017 Liver function tests abnormal Randlal Young MD Onset: 05/21/2017 Social History Type [...] kg/m2 BSA (Body Surface Area) 1.[address] [place] body weight in kilograms 50 kg O2 % BldC Oximetry 98 % Ora Results Description No Information Available Procedures Date Code Description Status 09/06/2019 33356 Refraction Completed 09/06/2019 24395 Eye Exam Est Patient Comprehensive Completed 06/29/2019 02552 Eye Exam Est Patient Comprehensive Completed 10/11/2015 [id number] Colonoscopy Completed 04/04/2014 [id number] Colonoscopy Completed 02/26/2010 [id number] Colonoscopy Completed Medical Devices Description No Information Available Encounters Description No Information Available Assessments Date Code Description Provider 12/01/2019 R51 [...] 2:00 pm - Dion Nettles MD at [email or web address]/ 18/2020 - Louisa Marinelli, [id number] HeadacheComments:I am unable to do any imaging of your brain. With your history of stroke I suggest that you go to the [facility] ER for CT and further work up. You have indicated that you do not want to go to the ER and will go to [facility] for additional testing.Referred to Emergency Department at [facility] for further evaluation and treatment. Patient advised [...]
[2019-12-22 15:52] VITALS: BP 134/85
--- NOTE | 2019-12-26 09:37 | UC ---
- Progress Note Progress Note: Covid results from December 22, 2019 come back as undetected. Patient call patient inform the patient of the results. Course/Dx - Diagnoses Provider Diagnoses: Bronchitis, Educated about COVID-19 virus infection Discharge ED - Sign-Out/Discharge Documenting (check all that apply): Patient Departure All imaging exams completed and their final reports reviewed: No Studies - Discharge Plan Condition: Stable Disposition: HOME Prescriptions: Azithromycin TAB* [Zithromax TAB*] 250 mg PO DAILY #6 tab Patient Education Materials: Acute Bronchitis (ED) Forms: COVID-19 Tested & Isolation Referrals: Ashley Piper MD [Primary Care Provider] - 5 Days (if not improved) Additional Instructions: use your inhaler as directed TO ER FOR NEW OR WORSENING SYMPTOMS COVID 19 test pending - Billing Disposition and Condition Condition: STABLE Disposition: Home
== END 2019-12-22 16:14 | disposition home or self-care (01) ==
LOC: UCCORT 15:10
DX: J40 Bronchitis, not specified as acute or chronic (principal); Z20.828 Contact with and (suspected) exposure to other viral communicable diseases; E78.5 Hyperlipidemia, unspecified; K21.9 Gastro-esophageal reflux disease without esophagitis; Z79.82 Long term (current) use of aspirin; Z79.899 Other long term (current) drug therapy; Z88.0 Allergy status to penicillin; Z88.1 Allergy status to other antibiotic agents; Z91.040 Latex allergy status
CPT/HCPCS: 87635; 99212; G0463; G2023